=== PATIENT | male | born 1950 | race Caucasian/White ===

== ENCOUNTER 2018-12-18 17:49 | Inpatient (IN) | payer MEDICARE, OTHER ==
[~2018-12-18] VITALS: Ht 165.1 cm; Wt 61.3 kg
[2018-12-18] MEDS ORDERED: SOD CHLORIDE 0.9% 1,000 ML IV STA (20:30)
[2018-12-18] MEDS ORDERED: ONDANSETRON 4 MG INJ IV STA ×2 (20:30→23:39)
[2018-12-18] MEDS ORDERED: HYDROmorphONE 1 MG/ML SYG IV STA ×2 (20:30→23:39)
--- NOTE | 2018-12-18 20:55 | ERD ---
ER Documentation Chief Complaint Chief Complaint abd pain since this AM; denies nausea and vomiting; diarrhea + HPI This is a 68-year-old male complaining of diffuse lower abdominal pain he describes as cramping sensation with no nausea vomiting but has had diarrhea. Says diarrhea is nonbloody. He says that the cramps get a little bit better after he has diarrhea. No chest pain or shortness of breath hematuria or dysuria no fever ROS All systems reviewed and are negative except as per history of present illness. Allergies Allergies: Coded Allergies: No Known Allergy (Unverified , 12/18/18) PMhx/Soc Hx Miscellaneous Medical Probl: Yes (PROSTATE CA) Hx Alcohol Use: No Hx Substance Use: No Hx Tobacco Use: No Smoking Status: Unknown if ever smoked FmHx Family History: No coronary disease Physical Exam Vitals Vital Signs Date Temp Pulse Resp B/P (MAP) Pulse Ox O2 O2 Flow FiO2 Time Delivery Rate 12/18/18 94 16 159/93 97 Room Air 23:39 (115) 12/18/18 84 16 168/81 97 Room Air 20:45 (110) 12/18/18 97.9 89 20 152/73 97 18:16 (99) Physical Exam Const: Well-developed, well-nourished Head: Atraumatic, normocephalic Eyes: Normal Conjunctiva, PERRLA, EOMI, normal sclera, no nystagmus ENT: Normal External Ears, Nose and Mouth, moist mucus membranes. Neck: Full range of motion. No meningismus, no lymphadenopathy. Resp: Clear to auscultation bilaterally, no wheezing, rhonchi, rales Cardio: Regular rate and rhythm, no murmurs, S1 S2 present Abd: Soft, diffuse lower abdominal tenderness, non distended. Normal bowel sounds, no guarding or rebound, no pulsitile abdominal masses or bruits Skin: No petechiae or rashes, no ecchymosis , no maculopapular rash Back: No midline or flank tenderness Ext: No cyanosis, or edema, FROM x 4, normal inspection, neurovascular ly intact x 4 Neur: Awake and alert, STR 5/5 x 4, sensation intact x 4, no focal findings, cerebellum intact Psych: Normal Mood and Affect Result Diagram: 12/18/18 1902 12/18/18 190 Results 24 hrs Laboratory Tests Test 12/18/18 19:02 12/18/18 20:09 White Blood Count 8.9 10^3/ul Red Blood Count 4.77 10^6/ul Hemoglobin 14.3 g/dl Hematocrit 43.7 % Mean Corpuscular Volume 91.6 fl Mean Corpuscular Hemoglobin 30.0 pg Mean Corpuscular Hemoglobin Concent 32.7 g/dl Red Cell Distribution Width 14.0 % Platelet Count 369 10^3/UL Mean Platelet Volume 10.1 fl Immature Granulocytes % 0.300 % Neutrophils % 86.3 % Lymphocytes % 7.1 % Monocytes % 6.0 % Eosinophils % 0.0 % Basophils % 0.3 % Nucleated Red Blood Cells % 0.0 /100WBC Immature Granulocytes # 0.030 10^3/ul Neutrophils # 7.6 10^3/ul Lymphocytes # 0.6 10^3/ul Monocytes # 0.5 10^3/ul Eosinophils # 0.0 10^3/ul Basophils # 0.0 10^3/ul Nucleated Red Blood Cells # 0.0 10^3/ul Sodium Level 140 mmol/L Potassium Level 4.1 mmol/L Chloride Level 103 mmol/L Carbon Dioxide Level 25 mmol/L Anion Gap 12 Blood Urea Nitrogen 20 mg/dl Creatinine 0.93 mg/dl Est Glomerular Filtrat Rate mL/min > 60 mL/min Glucose Level 151 mg/dl Calcium Level 9.7 mg/dl Total Bilirubin 0.1 mg/dl Direct Bilirubin 0.00 mg/dl Indirect Bilirubin 0.1 mg/dl Aspartate Amino Transf (AST/SGOT) 26 IU/L Alanine Aminotransferase (ALT/SGPT) 16 IU/L Alkaline Phosphatase 177 IU/L Total Protein 7.8 g/dl Albumin 4.3 g/dl Globulin 3.50 g/dl Albumin/Globulin Ratio 1.22 Lipase 109 U/L Bedside Urine pH (LAB) 5.0 Bedside Urine Protein (LAB) 1+ Bedside Urine Glucose (UA) Negative Bedside Urine Ketones (LAB) Negative Bedside Urine Blood Negative Bedside Urine Nitrite (LAB) Negative Bedside Urine Leukocyte Esterase (L Negative Current Medications Medications Dose Sig/Keyonna Start Time Status Last (Trade) Ordered Route PRN Stop Time Admin Dose Reason Admin Sodium 1,000 ml @ Q1H STAT 12/18/18 DC 12/18/18 Chloride 1,000 mls/hr IV 20:30 20:38 12/18/18 21:29 1 mg ONCE STAT 12/18/18 DC 12/18/18 Hydromorphone IV 20:30 20:38 HCl 12/18/18 20:31 (Dilaudid) Ondansetron 4 mg ONCE STAT 12/18/18 DC 12/18/18 HCl (Zofran IV 20:30 20:38 Inj) 12/18/18 20:31 IV Flush 10 ml STK-MED 12/18/18 DC 12/18/18 (NS 10 ml) ONCE .ROUTE 21:12 21:46 12/18/18 21:13 Sodium 100 ml @ ud STK-MED 12/18/18 DC 12/18/18 Chloride ONCE .ROUTE 21:12 21:46 12/18/18 21:13 Iohexol 150 ml STK-MED 12/18/18 DC 12/18/18 (Omnipaque ONCE .ROUTE 21:12 21:46 300mg/ ml) 12/18/18 21:13 1 mg ONCE STAT 12/18/18 DC 12/18/18 Hydromorphone IV 23:39 23:43 HCl 12/18/18 23:40 (Dilaudid) Ondansetron 4 mg ONCE STAT 12/18/18 DC 12/18/18 HCl (Zofran IV 23:39 23:43 Inj) 12/18/18 23:40 Procedures/MDM Ordering MD: JOCELIN WOOTEN DO Location: E/R Room/Bed: PROCEDURE: CT Abdomen and Pelvis with contrast. CLINICAL INDICATION: Abdominal pain. TECHNIQUE: CT scan of the abdomen and pelvis with contrast was performed on a multi-detector high-resolution CT scanner. The patient was scanned following the uncomplicated intravenous administration of 100 cc of Omnipaque 300. Coronal and sagittal reformatted images were obtained from the axial source images. Images were reviewed on a high-resolution PACS workstation. The total exam CTDI equals 6 mGy and the total exam DLP equals 324 mGy-cm. DICOM images are available. 3-D reconstructions were notperformed. One or more of the following dose reduction techniques were utilized: 1.) Automated exposure control 2.) Adjustment of the mA +/- kV according to patient's size 3.) Use of iterative reconstruction technique. COMPARISON: None. FINDINGS: CT abdomen: Heart (where visible): Unremarkable. Lung bases: No evidence of pneumonia, mass, pleural effusion. Liver: Normal attenuation. No visible focal mass. Scattered tiny hepatic cysts. Biliary ductal system: The common bile duct is prominent, measuring 11 mm in diameter at the margin of the pancreatic head. Gallbladder: Numerous gallstones. The gallbladder wall does not appear significantly thickened.. Pancreas: The pancreatic duct is dilated, measuring 5 mm in diameter next of the portal vein. Stomach: No identifiable focal mass or gross wall thickening. Spleen: No gross splenomegaly. Abdominal colon: Normal in caliber and course. Diffuse diverticulosis Abdominal small bowel: Normal in caliber, course, and mucosal pattern. Adrenal glands: No visible masses. Right Kidney: Normal in size and contour without focal mass or collecting system dilatation. Left kidney: Normal in size and contour without focal mass or collecting system dilatation. Abdominal aorta: Normal caliber. Prominent mixed atherosclerosis Lymph nodes: No significantly enlarged nodes. CT pelvis: Pelvic colon: Normal in caliber and course. No evidence of inflammatory change. Pelvic small bowel: Normal in caliber and course. Appendix: Identified. No evidence of inflammation. Urinary bladder: Normal in size and contour without visible wall thickening. Reproductive structures: Unremarkable. Bony structures included in the scan: Prominent degenerative disc narrowing at L3-4 and L4-5. Probable central spinal stenosis with right posterior disc herniation at L4-5 probably compressing the right L5 nerve root and the nerve root sleeve. Probable bilateral L4 neural foraminal stenosis.. IMPRESSION: 1. Cholelithiasis without CT evidence of acute cholecystitis. 2. Biliary ductal dilatation and pancreatic ductal dilatation suggestive of possible obstructive or partially obstructive process in the region of the patella. Further evaluation is suggested. 3. Moderately severe diffuse atherosclerosis including previously treated coronary artery disease. 4. Prominent lumbar spine disease with probable significant compression of the right L5 nerve root and both L4 nerve roots. . 5. Diffuse colonic diverticulosis without current CT evidence of diverticu litis. RPTAT:AAJJ Physician Subhash Date Time Electronically viewed and signed by Physician Subhash on 12/18/2018 22:37 GW/ CC: JOCELIN WOOTEN DO [id number] Spoke with Dr. Franck Sherman of surgery. He feels his best to bring the patient in for MRCP in the morning to evaluate for a stone that could be stuck or has passed after being stuck or he may have some type of pancreatic mass. The patient is having breakthrough pain requiring Dilaudid so I will admit to panel Departure Diagnosis: Primary Impression: Abdominal pain Abdominal location: generalized Qualified Codes: R10.84 - Generalized abdominal pain Additional Impression: Pancreatic duct dilated Condition: Stable JOCELIN WOOTEN DO Dec 18, 2018 20:55
[2018-12-18] MEDS ORDERED: SOD CHLORIDE 0.9% 100 ML ONE (21:12)
[2018-12-18] MEDS ORDERED: IOHEXOL 300MG/ML 150 ML BTL ONE (21:12)
--- NOTE | 2018-12-18 23:42 | CONS ---
Assessment/Plan Assessment/Plan Hospital Course (Demo Recall) 1. Abdominal pain, ? Etiology 2. Diarrhea 3. Dilated biliary system -MRCP -GI consult -Medical optimization Thank you very much for consulting me in this patient's care, Consultation Date/Type/Reason Admit Date/Time Date of Consultation: Dec 18, 2018 Type of Consult General surgical Reason for Consultation Abdominal pain Diarrhea Dilated biliary ducts Elevated alkaline phosphatase Requesting Provider: JOCELIN WOOTEN DO Date/Time of Note DATE: 12/18/18 TIME: 23:41 12 point review of system is negative unless otherwise addressed in chart Past Medical History Allergies: Coded Allergies: No Known Allergy (Unverified , 12/18/18) Social History Smoking Status: Unknown if ever smoked Exam/Review of Systems Exam Vitals Vital Signs Date Temp Pulse Resp B/P (MAP) Pulse Ox O2 O2 Flow FiO2 Time Delivery Rate 12/18/18 94 16 159/93 97 Room Air 23:39 (115) 12/18/18 97.9 18:16 Results Result Diagram: 12/18/18 1902 12/18/18 1902 Results 24hrs Laboratory Tests Test 12/18/18 19:02 12/18/18 20:09 White Blood Count 8.9 Red Blood Count 4.77 Hemoglobin 14.3 Hematocrit 43.7 Mean Corpuscular Volume 91.6 Mean Corpuscular Hemoglobin 30.0 Mean Corpuscular Hemoglobin Concent 32.7 Red Cell Distribution Width 14.0 Platelet Count 369 Mean Platelet Volume 10.1 Immature Granulocytes % 0.300 Neutrophils % 86.3 H Lymphocytes % 7.1 L Monocytes % 6.0 Eosinophils % 0.0 Basophils % 0.3 Nucleated Red Blood Cells % 0.0 Immature Granulocytes # 0.030 Neutrophils # 7.6 H Lymphocytes # 0.6 L Monocytes # 0.5 Eosinophils # 0.0 Basophils # 0.0 Nucleated Red Blood Cells # 0.0 Sodium Level 140 Potassium Level 4.1 Chloride Level 103 Carbon Dioxide Level 25 Anion Gap 12 Blood Urea Nitrogen 20 Creatinine 0.93 Est Glomerular Filtrat Rate mL/min > 60 Glucose Level 151 Calcium Level 9.7 Total Bilirubin 0.1 L Direct Bilirubin 0.00 Indirect Bilirubin 0.1 Aspartate Amino Transf (AST/SGOT) 26 Alanine Aminotransferase (ALT/SGPT) 16 Alkaline Phosphatase 177 H Total Protein 7.8 Albumin 4.3 Globulin 3.50 H Albumin/Globulin Ratio 1.22 Lipase 109 Bedside Urine pH (LAB) 5.0 Bedside Urine Protein (LAB) 1+ H Bedside Urine Glucose (UA) Negative Bedside Urine Ketones (LAB) Negative Bedside Urine Blood Negative Bedside Urine Nitrite (LAB) Negative Bedside Urine Leukocyte Esterase (L Negative JULIET FERREIRA MD Dec 18, 2018 23:42
[2018-12-18] MEDS ORDERED: SOD CHLORIDE 0.9% 1,000 ML IV SCH (23:54)
[2018-12-19] MEDS ORDERED: ACETAMINOPHEN 325 MG TAB PO PRN
--- NOTE | 2018-12-19 00:06 | HP ---
Date/Time of Note Date/Time of Note DATE: 12/19/18 TIME: 00:06 Assessment/Plan VTE Prophylaxis SCD applied (from Nsg): Yes Pharmacological prophylaxis: NA/contraindicated Pharm contraindication: low risk/ambulating Lines/Catheters IV Catheter Type (from Nrsg): Saline Lock Urinary Cath still in place: No Assessment/Plan Hospital Course This is a 68-year-old male being admitted to the [facility] floor for: #1 abdominal pain: CT scan shows:Biliary ductal dilatation and pancreatic ductal dilatation suggestive of possible obstructive or partially obstructive process. Further evaluation is suggested. Patient's liver function tests are largely normal, does have a mildly elevated alk phos of 177. Patient does report a history of prostate CA in the past as well. At the current time will obtain an MRCP of the abdomen. General surgery is already on board. We will also consult GI . Pain management #2 history of prostate CA: We will check a PSA. #3 DVT GI prophylaxis: SCDs, no GI prophylaxis indicated Further treatment strategy will be implemented as per the clinical course Result Diagram: 12/18/18 1902 12/18/18 1902 Results 24hrs Laboratory Tests Test 12/18/18 19:02 12/18/18 20:09 White Blood Count 8.9 Red Blood Count 4.77 Hemoglobin 14.3 Hematocrit 43.7 Mean Corpuscular Volume 91.6 Mean Corpuscular Hemoglobin 30.0 Mean Corpuscular Hemoglobin Concent 32.7 Red Cell Distribution Width 14.0 Platelet Count 369 Mean Platelet Volume 10.1 Immature Granulocytes % 0.300 Neutrophils % 86.3 H Lymphocytes % 7.1 L Monocytes % 6.0 Eosinophils % 0.0 Basophils % 0.3 Nucleated Red Blood Cells % 0.0 Immature Granulocytes # 0.030 Neutrophils # 7.6 H Lymphocytes # 0.6 L Monocytes # 0.5 Eosinophils # 0.0 Basophils # 0.0 Nucleated Red Blood Cells # 0.0 Sodium Level 140 Potassium Level 4.1 Chloride Level 103 Carbon Dioxide Level 25 Anion Gap 12 Blood Urea Nitrogen 20 Creatinine 0.93 Est Glomerular Filtrat Rate mL/min > 60 Glucose Level 151 Calcium Level 9.7 Total Bilirubin 0.1 L Direct Bilirubin 0.00 Indirect Bilirubin 0.1 Aspartate Amino Transf (AST/SGOT) 26 Alanine Aminotransferase (ALT/SGPT) 16 Alkaline Phosphatase 177 H Total Protein 7.8 Albumin 4.3 Globulin 3.50 H Albumin/Globulin Ratio 1.22 Lipase 109 Bedside Urine pH (LAB) 5.0 Bedside Urine Protein (LAB) 1+ H Bedside Urine Glucose (UA) Negative Bedside Urine Ketones (LAB) Negative Bedside Urine Blood Negative Bedside Urine Nitrite (LAB) Negative Bedside Urine Leukocyte Esterase (L Negative HPI/ROS Admit Date/Time Admit Date/Time Hx of Present Illness Chief complaint: Abdominal pain times 1 day This is a 68-year-old male complaining of diffuse lower abdominal pain he descr ibes as cramping sensation with no nausea vomiting but has had diarrhea. Says diarrhea is nonbloody. He says that the cramps get a little bit better after he has diarrhea. He denies any chest pain or shortness of breath or any fevers. He does report that he has been expensing some dysuria. He has a history of prostate CA for which she has received radiation treatments. Allergies: NKDA Medications: See DORIE ROS Const: As per HPI Eyes : No pain discharge or redness or change in visual acuity ENT: No pain, sore throat, congestion, congestion, dysphagia or discharge Respiratory: No shortness of breath, cough, sputum, wheezing, or pleuritic pain Cardiovascular: No chest pain, palpitation, PND, or edema GI : As per HPI Genitourinary: As per HPI Musculoskeletal: No joint pain, back pain, neck pain, restricted range of motion in neck or joints Skin: No rash, bruising or hives Neuro: No headache, dizziness, syncope, seizure, focal weakness Endocrine: No polyuria, polydipsia, temperature intolerance Psych: No hallucination, depression, anxiety or suicidal ideation PMH/Family/Social Past Medical History Prostate CA status post radiation treatment Medications Current Medications Sodium Chloride 1,000 ml @ 80 mls/hr [id number] IV ; Start 12/18/18 at 23:54; Stop 12/19/18 at 12:23 Ondansetron HCl (Zofran Inj) 4 mg BRIDGE ORDER PRN IV NAUSEA/VOMITING; Start 12/19/18 at 00:00; Stop 12/19/18 at 23:59 Acetaminophen (Tylenol Tab) 650 mg ER BRIDGE PRN PO .MILD PAIN 1-3 OR TEMP; Start 12/19/18 at 00:00; Stop 12/19/18 at 23:59 Coded Allergies: No Known Allergy (Unverified , 12/18/18) Past Surgical History Left lower extremity TMA Family History Significant Family History: no pertinent family hx Social History Alcohol Use: none Smoking Status: Current every day smoker Drug Use: none Exam/Review of Systems Vital Signs Vitals Vital Signs Date Temp Pulse Resp B/P (MAP) Pulse Ox O2 O2 Flow FiO2 Time Delivery Rate 12/18/18 94 16 159/93 97 Room Air 23:39 (115) 12/18/18 97.9 18:16 Exam Exam General: Patient is currently lying in bed in mild distress from abdominal pain HEENT: Atraumatic, normocephalic. The pupils are equal, round and reactive. Ext raocular motor are intact Neck: Supple with full range of motion. No rigidity or meningismus Chest: Nontender Lungs: Clear to auscultation bilaterally no crackles rales or wheezing Heart: Normal S1-S2, Regular rhythm and rate. No murmur, S3, or S4 Abdomen: Soft, generalized tenderness to palpation of the abdomen more so of the lower abdomen, normal bowel sounds, no rebound tenderness no rigidity. Extremities: Left lower extremity: Total metatarsal amputation Neurologic: Normal mental status, speech normal, cranial nerves II through XII are intact, motor and sensory are intact, Additional Comments PROCEDURE: CT Abdomen and Pelvis with contrast. CLINICAL INDICATION: Abdominal pain. TECHNIQUE: CT scan of the abdomen and pelvis with contrast was performed on a multi-detector high-resolution CT scanner. The patient was scanned following the uncomplicated intravenous administration of 100 cc of Omnipaque 300. Coronal and sagittal reformatted images were obtained from the axial source images. Images were reviewed on a high-resolution PACS workstation. The total exam CTDI equals 6 mGy and the total exam DLP equals 324 mGy-cm. DICOM images are available. 3-D reconstructions were notperformed. One or more of the following dose reduction techniques were utilized: 1.) Automated exposure control 2.) Adjustment of the mA +/- kV according to patient's size 3.) Use of iterative reconstruction technique. COMPARISON: None. FINDINGS: CT abdomen: Heart (where visible): Unremarkable. Lung bases: No evidence of pneumonia, mass, pleural effusion. Liver: Normal attenuation. No visible focal mass. Scattered tiny hepatic cysts. Biliary ductal system: The common bile duct is prominent, measuring 11 mm in diameter at the margin of the pancreatic head. Gallbladder: Numerous gallstones. The gallbladder wall does not appear significantly thickened.. Pancreas: The pancreatic duct is dilated, measuring 5 mm in diameter next of the portal vein. Stomach: No identifiable focal mass or gross wall thickening. Spleen: No gross splenomegaly. Abdominal colon: Normal in caliber and course. Diffuse diverticulosis Abdominal small bowel: Normal in caliber, course, and mucosal pattern. Adrenal glands: No visible masses. Right Kidney: Normal in size and contour without focal mass or collecting system dilatation. Left kidney: Normal in size and contour without focal mass or collecting system dilatation. Abdominal aorta: Normal caliber. Prominent mixed atherosclerosis Lymph nodes: No significantly enlarged nodes. CT pelvis: Pelvic colon: Normal in caliber and course. No evidence of inflammatory change. Pelvic small bowel: Normal in caliber and course. Appendix: Identified. No evidence of inflammation. Urinary bladder: Normal in size and contour without visible wall thickening. Reproductive structures: Unremarkable. Bony structures included in the scan: Prominent degenerative disc narrowing at L3-4 and L4-5. Probable central spinal stenosis with right posterior disc herniation at L4-5 probably compressing the right L5 nerve root and the nerve root sleeve. Probable bilateral L4 neural foraminal stenosis.. IMPRESSION: 1. Cholelithiasis without CT evidence of acute cholecystitis. 2. Biliary ductal dilatation and pancreatic ductal dilatation suggestive of possible obstructive or partially obstructive process in the region of the patella. Further evaluation is suggested. 3. Moderately severe diffuse atherosclerosis including previously treated coronary artery disease. 4. Prominent lumbar spine disease with probable significant compression of the right L5 nerve root and both L4 nerve roots. . 5. Diffuse colonic diverticulosis without current CT evidence of diverticulitis. RPTAT:AAJJ Physician Subhash Date Time Electronically viewed and signed by Physician Subhash on 12/18/2018 22:37 GW/ CC: JOCELIN WOOTEN DO [id number] PROCEDURE: XR Chest. CLINICAL INDICATION: Abdominal pain TECHNIQUE: AP view of the chest. COMPARISON: None FINDINGS: The heart is normal in size. There is mild bibasilar linear atelectasis. The visualized osseous structures are intact. IMPRESSION: Mild bibasilar linear atelectasis. RPTAT: HAP Fermin Mckinney Physician Date Time Electronically viewed and signed by Fermin Mckinney, Physician on 12/19/2018 03:00 AP/ CC: MEMO CASAREZ [id number] MEMO CASAREZ Dec 19, 2018 00:06
[2018-12-19] MEDS ORDERED: HYDROmorphONE 1 MG/ML SYG IV PRN (00:30)
[2018-12-19] MEDS ORDERED: NACL 0.9% 3 ML SYG IV SCH (00:30)
[2018-12-19] MEDS ORDERED: BISACODYL (EC) 5 MG TAB PO PRN (00:30)
[2018-12-19] MEDS ORDERED: ONDANSETRON 4 MG INJ IV PRN ×3 (00:30→02:00)
[2018-12-19] MEDS ORDERED: DOCUSATE SODIUM 100 MG CAP PO PRN (00:30)
[2018-12-19 00:49] VITALS: Ht 165.1 cm; Wt 61.3 kg
[2018-12-19 00:54] VITALS: BP 163/89; PULSE 99; RESP 18
[2018-12-19 01:26] VITALS: BP 161/73; PULSE 93; RESP 18
[2018-12-19] MEDS ORDERED: HYDROmorphONE 1 MG/ML SYG IV STA (01:34)
[2018-12-19] MEDS: SOD CHLORIDE 0.9% 1,000 ML IV SCH ×3 (01:56→14:39)
[2018-12-19] MEDS ORDERED: hydrALAzine 20 MG INJ IV PRN (02:00)
[2018-12-19] MEDS: HYDROmorphONE 1 MG/ML SYG IV PRN ×5 (06:28→22:08)
[2018-12-19 07:34] VITALS: BP 118/57; PULSE 101; RESP 17
[2018-12-19] MEDS: NICOTINE (14 MG/24 HR) PATCH TRANSDERM SCH (09:08)
--- NOTE | 2018-12-19 11:05 | CONS ---
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 Patient reports his symptoms started yesterday with bilateral lower abdominal pain and nonbloody diarrhea. He denies nausea, vomiting, epigastric pain, hematemesis or fever. Patient reportedly had colonoscopy 4 years ago which was normal. Patient has a history of left foot gangrene with partial amputation. CT of the abdomen shows diverticulosis of the colon and biliary and pancreatic duct dilat ation. Alkaline phosphatase is elevated. Liver function test and bilirubin are normal. Patient denies any history of EGD. The plan is to obtain MRCP. Start patient on Levsin and clear liquid diet. Obtain stool studies. Continue monitoring. Gastrointestinal: no complaints (See HPI) Past Medical History Prostate cancer Medications Current Medications Sodium Chloride 1,000 ml @ 80 mls/hr [id number] IV ; Start 12/18/18 at 23:54; Stop 12/19/18 at 12:23 Ondansetron HCl (Zofran Inj) 4 mg BRIDGE ORDER PRN IV NAUSEA/VOMITING; Start 12/19/18 at 00:00; Stop 12/19/18 at 23:59 Acetaminophen (Tylenol Tab) 650 mg ER BRIDGE PRN PO .MILD PAIN 1-3 OR TEMP; Start 12/19/18 at 00:00; Stop 12/19/18 at 23:59 Sodium Chloride 1,000 ml @ 80 mls/hr [id number] IV Last administered on 12/19/18at 01:56; Admin Dose 80 MLS/HR; Start 12/19/18 at 00:03 IV Flush (NS 3 ml) 3 ml PER PROTOCOL IV ; Start 12/19/18 at 00:30 Acetaminophen (Tylenol Tab) 650 mg Q6H PRN PO .PAIN 1-3 OR TEMP; Start 12/19/18 at 00:30 Docusate Sodium (Colace) 100 mg Q12H PRN PO .CONSTIPATION; Start 12/19/18 at 00:30 Bisacodyl (Dulcolax) 5 mg DAILY PRN PO .CONSTIPATION; Start 12/19/18 at 00:30 Hydromorphone HCl (Dilaudid) 1 mg Q3H PRN IV .SEVERE PAIN 7-10 Last administered on 12/19/18at 10:01; Admin Dose 1 MG; Start 12/19/18 at 03:30 Ondansetron HCl (Zofran Inj) 4 mg Q4 PRN IV NAUSEA/VOMITING; Start 12/19/18 at 02:00 Nicotine (Nicoderm 14 Mg/ 24hr) 1 patch DAILY TRANSDERM Last administered on 12/19/18at 09:08; Admin Dose 1 PATCH; Start 12/19/18 at 09:00 Lorazepam (Ativan) 1 mg Q4 PRN IV withdrawal symptoms; Start 12/19/18 at 05:30 Allergies: Coded Allergies: No Known Allergy (Unverified , 12/18/18) Past Surgical History Partial left foot amputation Social History Alcohol Use: occasionally (6 beers on the weekend) Smoking Status: Current every day smoker Drug Use: none Exam/Review of Systems Exam Vitals Vital Signs Date Temp Pulse Resp B/P (MAP) Pulse Ox O2 O2 Flow FiO2 Time Delivery Rate 12/19/18 Nasal 2.0 09:24 Cannula 12/19/18 99.6 101 17 118/57 92 07:34 (77) Intake and Output 12/18/18 12/18/18 12/19/18 1515:00 23:00 07:00 IntakeIntake Total 246 ml BalanceBalance 246 ml Exam PHYSICAL EXAMINATION: GENERAL: Well developed, well nourished, alert & oriented x 3, in no acute distress SKIN: No lesions, no stigmata chronic liver disease, no evidence of bleeding diathesis LYMPHATIC: No palpable lymphadenopathy. HEAD: Normocephalic, atraumatic, no tenderness. EYES: Pupils equal reactive to light and accommodation, full extraocular movements, sclera clear, non-icteric, no discharge. EARS/NOSE AND THROAT: Ears normal, nose normal, oropharynx normal, oral membranes well hydrated without lesions. NECK: Supple, no masses, thyroid normal, JVP within normal limits, carotids normal without bruits. CHEST: Inspection within normal limits. CARDIOVASCULAR: Heart: Regular rate and rhythm, no murmurs, gallops or rubs. Peripheral pulses present within normal limits, no cyanosis, clubbing or edemas. No pulsatile abdominal mass RESPIRATORY: Lungs clear to auscultation and percussion, no wheezing, no rubs GASTROINTESTINAL AND LIVER: Abdomen: Soft, bilateral lower abdominal tenderness, non-distended, no hernias, no masses, no organomegaly, no ascites, no guarding, no rebound tenderness, normoactive bowel sounds. Rectal: Deferred. GENITOURINARY: [Male genitalia within normal limits. EXTREMITIES: No cyanosis, clubbing or edema. Left foot partially amputated. Results Result Diagram: 12/18/18190112/18/181901 Results 24hrs Laboratory Tests Test 12/18/18 19:02 12/18/18 20:09 12/19/18 08:24 12/19/18 09:50 White Blood Count 8.9 Red Blood Count 4.77 Hemoglobin 14.3 Hematocrit 43.7 Mean Corpuscular 91.6 Volume Mean Corpuscular 30.0 Hemoglobin Mean Corpuscular 32.7 Hemoglobin Concen t Red Cell 14.0 Distribution Width Platelet Count 369 Mean Platelet 10.1 Volume Immature 0.300 Granulocytes % Neutrophils % 86.3 H Lymphocytes % 7.1 L Monocytes % 6.0 Eosinophils % 0.0 Basophils % 0.3 Nucleated Red 0.0 Blood Cells % Immature 0.030 Granulocytes # Neutrophils # 7.6 H Lymphocytes # 0.6 L Monocytes # 0.5 Eosinophils # 0.0 Basophils # 0.0 Nucleated Red 0.0 Blood Cells # Sodium Level 140 Potassium Level 4.1 Chloride Level 103 Carbon Dioxide 25 Level Anion Gap 12 Blood Urea 20 Nitrogen Creatinine 0.93 Est Glomerular > 60 Filtrat Rate mL/min Glucose Level 151 Calcium Level 9.7 Total Bilirubin 0.1 L Direct Bilirubin 0.00 Indirect 0.1 Bilirubin Aspartate Amino 26 Transf (AST/SGOT) Alanine 16 Aminotransferase (ALT/SGPT) Alkaline 177 H Phosphatase Total Protein 7.8 Albumin 4.3 Globulin 3.50 H Albumin/Globulin 1.22 Ratio Lipase 109 Bedside Urine pH 5.0 (LAB) Bedside Urine 1+ H Protein (LAB) Bedside Urine Negative Glucose (UA) Bedside Urine Negative Ketones (LAB) Bedside Urine Negative Blood Bedside Urine Negative Nitrite (LAB) Bedside Urine Negative Leukocyte Esteras e (L Ethyl Alcohol < 10.0 H Level Urine Color YELLOW Urine Clarity SLIGHTLY CLOUDY A Urine pH 5.0 Urine Specific 1.038 H [place] Urine Ketones TRACE A Urine Nitrite NEGATIVE Urine Bilirubin NEGATIVE Urine NEGATIVE Urobilinogen Urine Leukocyte NEGATIVE Esterase Urine Microscopic 1 RBC Urine Microscopic 3 WBC Urine Mucus MANY A Urine Hemoglobin 1+ H Urine Glucose NEGATIVE Urine Total NEGATIVE Protein Medications Medication Current Medications Sodium Chloride 1,000 ml @ 80 mls/hr [id number] IV ; Start 12/18/18 at 23:54; Stop 12/19/18 at 12:23 Ondansetron HCl (Zofran Inj) 4 mg BRIDGE ORDER PRN IV NAUSEA/VOMITING; Start 12/19/18 at 00:00; Stop 12/19/18 at 23:59 Acetaminophen (Tylenol Tab) 650 mg ER BRIDGE PRN PO .MILD PAIN 1-3 OR TEMP; Start 12/19/18 at 00:00; Stop 12/19/18 at 23:59 Sodium Chloride 1,000 ml @ 80 mls/hr [id number] IV Last administered on 12/19/18at 01:56; Admin Dose 80 MLS/HR; Start 12/19/18 at 00:03 IV Flush (NS 3 ml) 3 ml PER PROTOCOL IV ; Start 12/19/18 at 00:30 Acetaminophen (Tylenol Tab) 650 mg Q6H PRN PO .PAIN 1-3 OR TEMP; Start 12/19/18 at 00:30 Docusate Sodium (Colace) 100 mg Q12H PRN PO .CONSTIPATION; Start 12/19/18 at 00:30 Bisacodyl (Dulcolax) 5 mg DAILY PRN PO .CONSTIPATION; Start 12/19/18 at 00:30 Hydromorphone HCl (Dilaudid) 1 mg Q3H PRN IV .SEVERE PAIN 7-10 Last administered on 12/19/18at 10:01; Admin Dose 1 MG; Start 12/19/18 at 03:30 Ondansetron HCl (Zofran Inj) 4 mg Q4 PRN IV NAUSEA/VOMITING; Start 12/19/18 at 02:00 Nicotine (Nicoderm 14 Mg/ 24hr) 1 patch DAILY TRANSDERM Last administered on 12/19/18at 09:08; Admin Dose 1 PATCH; Start 12/19/18 at 09:00 Lorazepam (Ativan) 1 mg Q4 PRN IV withdrawal symptoms; Start 12/19/18 at 05:30 GISSEL AMBROSE NP Dec 19, 2018 11:05
[2018-12-19] MEDS: HYOSCYAMINE 0.125 MG TAB PO SCH ×3 (12:48→23:35)
[2018-12-19] MEDS: LORAZEPAM 2 MG INJ IV PRN (13:18)
[2018-12-19 14:01] VITALS: BP 139/71; PULSE 103; RESP 17
--- NOTE | 2018-12-19 14:46 | PN ---
Date/Time of Note Date/Time of Note DATE: 12/19/18 TIME: 14:32 Assessment/Plan Lines/Catheters IV Catheter Type (from [facility]): Peripheral IV Kohler in Place (from [facility]): No Assessment/Plan Chief Complaint/Hosp Course 1. Abdominal pain, ? Etiology -Pain management 2. Diarrhea -Stool studies 3. Dilated biliary system -MRCP pending -GI consult -Medical optimization 4. Prostate cancer history -Per medical team 5. Atherosclerosis with CAD -Medical management 6. 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 Diverticulosis without diverticulitis: -Lifestyle optimization Thank you. Patient seen and examined in collaboration with Dr. Franck Sherman. Subjective 24 Hr Interval Summary Continues to have abdominal pain. Pending MRI today. No fevers, chills, sob, congested cough, cp, palpitations, schulz, dizziness, n/v/d/dysuria. Exam/Review of Systems Vital Signs Vitals Vital Signs Date Temp Pulse Resp B/P (MAP) Pulse Ox O2 O2 Flow FiO2 Time Delivery Rate 12/19/18 99.2 103 17 139/71 92 14:01 (93) 12/19/18 Nasal 2.0 09:24 Cannula Intake and Output 12/18/18 12/18/18 12/19/18 1515:00 23:00 07:00 IntakeIntake Total 246 ml BalanceBalance 246 ml Exam Constitutional: alert, oriented Psych: nl mood/affect Head: normocephalic, atraumatic Eyes: nl conjunctiva, EOMI, nl lids, nl sclera ENMT: nl external ears & nose, nl lips & teeth, mucosa pink and moist Neck: supple, non-tender; No jvd Respiratory: normal air movement, labored breathing; No congested cough Cardiovascular: regular rate and rhythm, nl pulses; No edema Gastrointestinal: soft, tender (diffuse; positive murphys by palpation) Musculoskeletal: nl extremities to inspection, nl gait and stance Extremities: normal pulses; No edema Neurological: nl mental status, nl speech, nl strength Skin: No rash or lesions Lymph: nl lymph nodes Results Result Diagram: 12/18/18190112/18/181901 SHANTEL NELSON NP Dec 19, 2018 14:45
--- NOTE | 2018-12-19 16:16 | PN ---
Date/Time of Note Date/Time of Note DATE: 12/19/18 TIME: 16:10 Assessment/Plan VTE Prophylaxis Risk score (from Ns)>0 risk: 2 SCD applied (from Ns): Yes Pharmacological prophylaxis: heparin Lines/Catheters IV Catheter Type (from Nrs): Peripheral IV Urinary Cath still in place: No Assessment/Plan Hospital Course 68 yo male presneting with diarrhea and to found have biliary dilation - MRCP pending - Diarrhea management per GI Result Diagram: 12/18/18190112/18/181901 Results 24hrs Laboratory Tests Test 12/18/18 19:02 12/18/18 20:09 12/19/18 08:24 12/19/18 09:50 White Blood Count 8.9 Red Blood Count 4.77 Hemoglobin 14.3 Hematocrit 43.7 Mean Corpuscular 91.6 Volume Mean Corpuscular 30.0 Hemoglobin Mean Corpuscular 32.7 Hemoglobin Concen t Red Cell 14.0 Distribution Width Platelet Count 369 Mean Platelet 10.1 Volume Immature 0.300 Granulocytes % Neutrophils % 86.3 H Lymphocytes % 7.1 L Monocytes % 6.0 Eosinophils % 0.0 Basophils % 0.3 Nucleated Red 0.0 Blood Cells % Immature 0.030 Granulocytes # Neutrophils # 7.6 H Lymphocytes # 0.6 L Monocytes # 0.5 Eosinophils # 0.0 Basophils # 0.0 Nucleated Red 0.0 Blood Cells # Sodium Level 140 Potassium Level 4.1 Chloride Level 103 Carbon Dioxide 25 Level Anion Gap 12 Blood Urea 20 Nitrogen Creatinine 0.93 Est Glomerular > 60 Filtrat Rate mL/min Glucose Level 151 Calcium Level 9.7 Total Bilirubin 0.1 L Direct Bilirubin 0.00 Indirect 0.1 Bilirubin Aspartate Amino 26 Transf (AST/SGOT) Alanine 16 Aminotransferase (ALT/SGPT) Alkaline 177 H Phosphatase Total Protein 7.8 Albumin 4.3 Globulin 3.50 H Albumin/Globulin 1.22 Ratio Lipase 109 Bedside Urine pH 5.0 (LAB) Bedside Urine 1+ H Protein (LAB) Bedside Urine Negative Glucose (UA) Bedside Urine Negative Ketones (LAB) Bedside Urine Negative Blood Bedside Urine Negative Nitrite (LAB) Bedside Urine Negative Leukocyte Esteras e (L Ethyl Alcohol < 10.0 H Level Urine Color YELLOW Urine Clarity SLIGHTLY CLOUDY A Urine pH 5.0 Urine Specific 1.038 H [place] Urine Ketones TRACE A Urine Nitrite NEGATIVE Urine Bilirubin NEGATIVE Urine NEGATIVE Urobilinogen Urine Leukocyte NEGATIVE Esterase Urine Microscopic 1 RBC Urine Microscopic 3 WBC Urine Mucus MANY A Urine Hemoglobin 1+ H Urine Glucose NEGATIVE Urine Total NEGATIVE Protein Urine Opiates Positive Screen Urine Negative Barbiturates Urine Negative Amphetamines Screen Urine Negative Benzodiazepines Screen Urine Cocaine Positive Screen Urine Positive Cannabinoids Subjective 24 Hr Interval Summary Free Text/Dictation Resting comfortably Awaiting MRCP Exam/Review of Systems Exam Vitals Vital Signs Date Temp Pulse Resp B/P (MAP) Pulse Ox O2 O2 Flow FiO2 Time Delivery Rate 12/19/18 99.2 103 17 139/71 92 14:01 (93) 12/19/18 Nasal 2.0 09:24 Cannula Intake and Output 12/18/18 12/18/18 12/19/18 1515:00 23:00 07:00 IntakeIntake Total 246 ml BalanceBalance 246 ml Exam Well appeairng no distress RRR breathign comfortably Soft nt nd Ext warm without edema Constitutional: alert, oriented, well developed Psych: no complaints, nl mood/affect Head: normocephalic, atraumatic Eyes: nl conjunctiva, EOMI, nl lids, nl sclera, PERRL ENMT: nl external ears & nose, nl lips & teeth, nl nasal mucosa & septum Neck: supple, non-tender Respiratory: clear to auscultation, normal air movement Cardiovascular: regular rate and rhythm, nl pulses Gastrointestinal: soft, nl liver, spleen, non-tender Musculoskeletal: nl extremities to inspection, nl gait and stance Extremities: normal pulses Neurological: BABBITT SPINNER II-XII intact, nl mental status, nl speech, nl strength Skin: nl turgor; No rash or lesions Lymph: nl lymph nodes Results Results 24hrs Laboratory Tests Test 12/18/18 19:02 12/18/18 20:09 12/19/18 08:24 12/19/18 09:50 White Blood Count 8.9 Red Blood Count 4.77 Hemoglobin 14.3 Hematocrit 43.7 Mean Corpuscular 91.6 Volume Mean Corpuscular 30.0 Hemoglobin Mean Corpuscular 32.7 Hemoglobin Concen t Red Cell 14.0 Distribution Width Platelet Count 369 Mean Platelet 10.1 Volume Immature 0.300 Granulocytes % Neutrophils % 86.3 H Lymphocytes % 7.1 L Monocytes % 6.0 Eosinophils % 0.0 Basophils % 0.3 Nucleated Red 0.0 Blood Cells % Immature 0.030 Granulocytes # Neutrophils # 7.6 H Lymphocytes # 0.6 L Monocytes # 0.5 Eosinophils # 0.0 Basophils # 0.0 Nucleated Red 0.0 Blood Cells # Sodium Level 140 Potassium Level 4.1 Chloride Level 103 Carbon Dioxide 25 Level Anion Gap 12 Blood Urea 20 Nitrogen Creatinine 0.93 Est Glomerular > 60 Filtrat Rate mL/min Glucose Level 151 Calcium Level 9.7 Total Bilirubin 0.1 L Direct Bilirubin 0.00 Indirect 0.1 Bilirubin Aspartate Amino 26 Transf (AST/SGOT) Alanine 16 Aminotransferase (ALT/SGPT) Alkaline 177 H Phosphatase Total Protein 7.8 Albumin 4.3 Globulin 3.50 H Albumin/Globulin 1.22 Ratio Lipase 109 Bedside Urine pH 5.0 (LAB) Bedside Urine 1+ H Protein (LAB) Bedside Urine Negative Glucose (UA) Bedside Urine Negative Ketones (LAB) Bedside Urine Negative Blood Bedside Urine Negative Nitrite (LAB) Bedside Urine Negative Leukocyte Esteras e (L Ethyl Alcohol < 10.0 H Level Urine Color YELLOW Urine Clarity SLIGHTLY CLOUDY A Urine pH 5.0 Urine Specific 1.038 H [place] Urine Ketones TRACE A Urine Nitrite NEGATIVE Urine Bilirubin NEGATIVE Urine NEGATIVE Urobilinogen Urine Leukocyte NEGATIVE Esterase Urine Microscopic 1 RBC Urine Microscopic 3 WBC Urine Mucus MANY A Urine Hemoglobin 1+ H Urine Glucose NEGATIVE Urine Total NEGATIVE Protein Urine Opiates Positive Screen Urine Negative Barbiturates Urine Negative Amphetamines Screen Urine Negative Benzodiazepines Screen Urine Cocaine Positive Screen Urine Positive Cannabinoids Medications Medication Current Medications Ondansetron HCl (Zofran Inj) 4 mg BRIDGE ORDER PRN IV NAUSEA/VOMITING; Start 12/19/18 at 00:00; Stop 12/19/18 at 23:59 Acetaminophen (Tylenol Tab) 650 mg ER BRIDGE PRN PO .MILD PAIN 1-3 OR TEMP; Start 12/19/18 at 00:00; Stop 12/19/18 at 23:59 Sodium Chloride 1,000 ml @ 80 mls/hr [id number] IV Last administered on 12/19/18at 14:39; Admin Dose 80 MLS/HR; Start 12/19/18 at 00:03 IV Flush (NS 3 ml) 3 ml PER PROTOCOL IV ; Start 12/19/18 at 00:30 Acetaminophen (Tylenol Tab) 650 mg Q6H PRN PO .PAIN 1-3 OR TEMP; Start 12/19/18 at 00:30 Docusate Sodium (Colace) 100 mg Q12H PRN PO .CONSTIPATION; Start 12/19/18 at 00:30 Bisacodyl (Dulcolax) 5 mg DAILY PRN PO .CONSTIPATION; Start 12/19/18 at 00:30 Hydromorphone HCl (Dilaudid) 1 mg Q3H PRN IV .SEVERE PAIN 7-10 Last administered on 12/19/18 14:37; Admin Dose 1 MG; Start 12/19/18 at 03:30 Ondansetron HCl (Zofran Inj) 4 mg Q4 PRN IV NAUSEA/VOMITING; Start 12/19/18 at 02:00 Nicotine (Nicoderm 14 Mg/ 24hr) 1 patch DAILY TRANSDERM Last administered on 12/19/18 09:08; Admin Dose 1 PATCH; Start 12/19/18 at 09:00 Lorazepam (Ativan) 1 mg Q4 PRN IV withdrawal symptoms Last administered on 12/19/18 13:18; Admin Dose 1 MG; Start 12/19/18 at 05:30 Hyoscyamine (Levsin) 0.125 mg Q6 PO Last administered on 12/19/18 12:48; Admin Dose 0.125 MG; Start 12/19/18 at 12:00 MELA VILLALBA MD Dec 19, 2018 16:16
[2018-12-19 19:59] VITALS: BP 143/71; PULSE 105; RESP 18
[2018-12-19] MEDS: ACETAMINOPHEN 325 MG TAB PO PRN (20:21)
[2018-12-20] MEDS: LORAZEPAM 2 MG INJ IV PRN (00:24)
[2018-12-20 01:57] VITALS: BP 138/68; PULSE 99; RESP 18
[2018-12-20] MEDS: HYDROmorphONE 1 MG/ML SYG IV PRN ×7 (02:04→22:25)
[2018-12-20] MEDS: SOD CHLORIDE 0.9% 1,000 ML IV SCH ×2 (02:51→15:39)
[2018-12-20] MEDS: HYOSCYAMINE 0.125 MG TAB PO SCH ×3 (05:57→18:28)
[2018-12-20 07:32] VITALS: BP 156/74; PULSE 106; RESP 18
[2018-12-20 09:09] VITALS: BP 173/78; RESP 18
[2018-12-20] MEDS: NICOTINE (14 MG/24 HR) PATCH TRANSDERM SCH (09:16)
[2018-12-20 14:00] VITALS: BP 181/94; PULSE 102; RESP 20
--- NOTE | 2018-12-20 14:10 | PN ---
Date/Time of Note Date/Time of Note DATE: 12/20/18 TIME: 14:06 Assessment/Plan VTE Prophylaxis Risk score (from Ns)>0 risk: 2 SCD applied (from Ns): Yes Pharmacological prophylaxis: NA/contraindicated Pharm contraindication: surgical contra Lines/Catheters IV Catheter Type (from Nrs): Peripheral IV Urinary Cath still in place: No Assessment/Plan Hospital Course 68 yo male presenting with diarrhea and to found have biliary dilation MRCP shows mildly dilated common bile duct, no evidence of biliary duct obstruction. Gallbladder contains multiple stones without wall thickening. Scattered T2 bright lesions in the liver may represent cysts or hemangiomas History of prostate cancer No acute issues History coronary disease Continue home meds 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 Pain control Diarrhea Follow-up on stool cultures Prophylaxis: SCDs Result Diagram: 12/20/18 0635 12/20/18 0635 Results 24hrs Laboratory Tests Test 12/20/18 06:35 White Blood Count 7.8 Red Blood Count 4.52 L Hemoglobin 13.6 L Hematocrit 41.0 L Mean Corpuscular Volume 90.7 Mean Corpuscular Hemoglobin 30.1 Mean Corpuscular Hemoglobin Concent 33.2 Red Cell Distribution Width 14.3 Platelet Count 310 Mean Platelet Volume 10.2 Immature Granulocytes % 0.300 Neutrophils % Segmented Neutrophils % (Manual) 30 L Band Neutrophils % (Manual) 53 H Lymphocytes % Lymphocytes % (Manual) 7 L Reactive Lymphocytes % (Manual) 2 H Monocytes % Monocytes % (Manual) 5 Eosinophils % Basophils % Metamyelocytes % (manual) 3 H Nucleated Red Blood Cells % 0.0 Immature Granulocytes # 0.020 Neutrophils # Neutrophils # (Manual) 2.7 Band Neutrophils # 4.1 H Lymphocytes (Manual) 0.5 L Lymphocytes # Reactive Lymphocytes # 0.1 H Monocytes # Monocytes # (Manual) 0.3 Eosinophils # Basophils # Metamyelocytes # 0.2 H Nucleated Red Blood Cells # Platelet Estimate NORMAL Giant Platelets 3 H Sodium Level 138 Potassium Level 3.8 Chloride Level 99 Carbon Dioxide Level 27 Anion Gap 12 Blood Urea Nitrogen 20 Creatinine 0.82 Est Glomerular Filtrat Rate mL/min > 60 Glucose Level 134 Hemoglobin A1c 5.7 Calcium Level 9.0 Magnesium Level 1.7 Total Bilirubin 0.4 Direct Bilirubin 0.00 Indirect Bilirubin 0.4 Aspartate Amino Transf (AST/SGOT) 42 # Alanine Aminotransferase (ALT/SGPT) 22 Alkaline Phosphatase 128 H Total Protein 6.8 # Albumin 3.6 Globulin 3.20 Albumin/Globulin Ratio 1.12 Triglycerides Level 105 Cholesterol Level 156 LDL Cholesterol, Calculated 90 HDL Cholesterol 45 Cholesterol/HDL Ratio 3.4 Thyroid Stimulating Hormone (TSH) 3.670 Subjective 24 Hr Interval Summary Constitutional: no complaints Exam/Review of Systems Exam Vitals Vital Signs Date Temp Pulse Resp B/P (MAP) Pulse Ox O2 O2 Flow FiO2 Time Delivery Rate 12/20/18 Nasal 2.0 13:10 Cannula 12/20/18 98.8 18 173/78 91 09:09 (109) 12/20/18 106 07:32 Intake and Output 12/19/18 12/19/18 12/20/18 1515:00 23:00 07:00 IntakeIntake Total 1274 ml 480 ml 680 ml OutputOutput Total 100 ml BalanceBalance 1274 ml 380 ml 680 ml Constitutional: alert Respiratory: clear to auscultation Cardiovascular: regular rate and rhythm Gastrointestinal: soft; No distended Musculoskeletal: nl extremities to inspection Results Results 24hrs Laboratory Tests Test 12/20/18 06:35 White Blood Count 7.8 Red Blood Count 4.52 L Hemoglobin 13.6 L Hematocrit 41.0 L Mean Corpuscular Volume 90.7 Mean Corpuscular Hemoglobin 30.1 Mean Corpuscular Hemoglobin Concent 33.2 Red Cell Distribution Width 14.3 Platelet Count 310 Mean Platelet Volume 10.2 Immature Granulocytes % 0.300 Neutrophils % Segmented Neutrophils % (Manual) 30 L Band Neutrophils % (Manual) 53 H Lymphocytes % Lymphocytes % (Manual) 7 L Reactive Lymphocytes % (Manual) 2 H Monocytes % Monocytes % (Manual) 5 Eosinophils % Basophils % Metamyelocytes % (manual) 3 H Nucleated Red Blood Cells % 0.0 Immature Granulocytes # 0.020 Neutrophils # Neutrophils # (Manual) 2.7 Band Neutrophils # 4.1 H Lymphocytes (Manual) 0.5 L Lymphocytes # Reactive Lymphocytes # 0.1 H Monocytes # Monocytes # (Manual) 0.3 Eosinophils # Basophils # Metamyelocytes # 0.2 H Nucleated Red Blood Cells # Platelet Estimate NORMAL Giant Platelets 3 H Sodium Level 138 Potassium Level 3.8 Chloride Level 99 Carbon Dioxide Level 27 Anion Gap 12 Blood Urea Nitrogen 20 Creatinine 0.82 Est Glomerular Filtrat Rate mL/min > 60 Glucose Level 134 Hemoglobin A1c 5.7 Calcium Level 9.0 Magnesium Level 1.7 Total Bilirubin 0.4 Direct Bilirubin 0.00 Indirect Bilirubin 0.4 Aspartate Amino Transf (AST/SGOT) 42 # Alanine Aminotransferase (ALT/SGPT) 22 Alkaline Phosphatase 128 H Total Protein 6.8 # Albumin 3.6 Globulin 3.20 Albumin/Globulin Ratio 1.12 Triglycerides Level 105 Cholesterol Level 156 LDL Cholesterol, Calculated 90 HDL Cholesterol 45 Cholesterol/HDL Ratio 3.4 Thyroid Stimulating Hormone (TSH) 3.670 Medications Medication Current Medications Sodium Chloride 1,000 ml @ 80 mls/hr [id number] IV Last administered on 12/20/18 02:51; Admin Dose 80 MLS/HR; Start 12/19/18 at 00:03 IV Flush (NS 3 ml) 3 ml PER PROTOCOL IV ; Start 12/19/18 at 00:30 Acetaminophen (Tylenol Tab) 650 mg Q6H PRN PO .PAIN 1-3 OR TEMP Last administe red on 12/19/18 20:21; Admin Dose 650 MG; Start 12/19/18 at 00:30 Docusate Sodium (Colace) 100 mg Q12H PRN PO .CONSTIPATION Last administered on 12/20/18 12:53; Admin Dose 100 MG; Start 12/19/18 at 00:30 Bisacodyl (Dulcolax) 5 mg DAILY PRN PO .CONSTIPATION; Start 12/19/18 at 00:30 Hydromorphone HCl (Dilaudid) 1 mg Q3H PRN IV .SEVERE PAIN 7-10 Last administered on 12/20/18 12:52; Admin Dose 1 MG; Start 12/19/18 at 03:30 Ondansetron HCl (Zofran Inj) 4 mg Q4 PRN IV NAUSEA/VOMITING; Start 12/19/18 at 02:00 Nicotine (Nicoderm 14 Mg/ 24hr) 1 patch DAILY TRANSDERM Last administered on 12/20/18 09:16; Admin Dose 1 PATCH; Start 12/19/18 at 09:00 Lorazepam (Ativan) 1 mg Q4 PRN IV withdrawal symptoms Last administered on 12/20/18 00:24; Admin Dose 1 MG; Start 12/19/18 at 05:30 Hyoscyamine (Levsin) 0.125 mg Q6 PO Last administered on 12/20/18 12:53; Admin Dose 0.125 MG; Start 12/19/18 at 12:00 ZULY DELGADO Dec 20, 2018 14:10
--- NOTE | 2018-12-20 14:24 | PN ---
Date/Time of Note Date/Time of Note DATE: 12/20/18 TIME: 13:56 Assessment/Plan VTE Prophylaxis Risk score (from Ns)>0 risk: 2 SCD applied (from Ns): No SCD contraindicated: other (scds) Pharmacological prophylaxis: other (scds) Lines/Catheters IV Catheter Type (from [facility]): Peripheral IV Urinary Cath still in place: No Assessment/Plan Hospital Course Assessment: Biliary and pancreatic duct dilatation MRCP 12/19/18 Mildly dilated common bile duct. No evidence of biliary duct obstruction. Gallbladder contains multiple stones without wall thickening. Scattered T2 bright lesions in the liver may represent cysts or hemangiomas. 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 Will asses with abd x-ray. mineral oil exemia and miraLAX bid PHYSICAL EXAMINATION: GENERAL: Alert & oriented x 3, in no acute distress SKIN: No lesions HEAD: Normocephalic, atraumatic, no tenderness. EYES: Pupils equal reactive to light, no discharge. EARS/NOSE AND THROAT: Ears normal, nose normal, oropharynx normal, oral membranes well hydrated without lesions. NECK: Supple, no masses. CHEST: Inspection within normal limits. CARDIOVASCULAR: Heart: Regular rate and rhythm, RESPIRATORY: Lungs clear to auscultation. GASTROINTESTINAL AND LIVER: Abdomen: Soft, bilateral lower abdominal tenderness, distended, no hernias, no guarding, no rebound tenderness, normoactive bowel sounds. Rectal: Deferred. GENITOURINARY: [Male genitalia within normal limits. EXTREMITIES: No cyanosis, clubbing or edema. Left foot partially amputated. Result Diagram: 12/20/18 0635 12/20/18 0635 Results 24hrs Laboratory Tests Test 12/20/18 06:35 White Blood Count 7.8 Red Blood Count 4.52 L Hemoglobin 13.6 L Hematocrit 41.0 L Mean Corpuscular Volume 90.7 Mean Corpuscular Hemoglobin 30.1 Mean Corpuscular Hemoglobin Concent 33.2 Red Cell Distribution Width 14.3 Platelet Count 310 Mean Platelet Volume 10.2 Immature Granulocytes % 0.300 Neutrophils % Segmented Neutrophils % (Manual) 30 L Band Neutrophils % (Manual) 53 H Lymphocytes % Lymphocytes % (Manual) 7 L Reactive Lymphocytes % (Manual) 2 H Monocytes % Monocytes % (Manual) 5 Eosinophils % Basophils % Metamyelocytes % (manual) 3 H Nucleated Red Blood Cells % 0.0 Immature Granulocytes # 0.020 Neutrophils # Neutrophils # (Manual) 2.7 Band Neutrophils # 4.1 H Lymphocytes (Manual) 0.5 L Lymphocytes # Reactive Lymphocytes # 0.1 H Monocytes # Monocytes # (Manual) 0.3 Eosinophils # Basophils # Metamyelocytes # 0.2 H Nucleated Red Blood Cells # Platelet Estimate NORMAL Giant Platelets 3 H Sodium Level 138 Potassium Level 3.8 Chloride Level 99 Carbon Dioxide Level 27 Anion Gap 12 Blood Urea Nitrogen 20 Creatinine 0.82 Est Glomerular Filtrat Rate mL/min > 60 Glucose Level 134 Hemoglobin A1c 5.7 Calcium Level 9.0 Magnesium Level 1.7 Total Bilirubin 0.4 Direct Bilirubin 0.00 Indirect Bilirubin 0.4 Aspartate Amino Transf (AST/SGOT) 42 # Alanine Aminotransferase (ALT/SGPT) 22 Alkaline Phosphatase 128 H Total Protein 6.8 # Albumin 3.6 Globulin 3.20 Albumin/Globulin Ratio 1.12 Triglycerides Level 105 Cholesterol Level 156 LDL Cholesterol, Calculated 90 HDL Cholesterol 45 Cholesterol/HDL Ratio 3.4 Thyroid Stimulating Hormone (TSH) 3.670 Exam/Review of Systems Exam Vitals Vital Signs Date Temp Pulse Resp B/P (MAP) Pulse Ox O2 O2 Flow FiO2 Time Delivery Rate 12/20/18 Nasal 2.0 13:10 Cannula 12/20/18 98.8 18 173/78 91 09:09 (109) 12/20/18 106 07:32 Intake and Output 12/19/18 12/19/18 12/20/18 1515:00 23:00 07:00 IntakeIntake Total 1274 ml 480 ml 680 ml OutputOutput Total 100 ml BalanceBalance 1274 ml 380 ml 680 ml Results Results 24hrs Laboratory Tests Test 12/20/18 06:35 White Blood Count 7.8 Red Blood Count 4.52 L Hemoglobin 13.6 L Hematocrit 41.0 L Mean Corpuscular Volume 90.7 Mean Corpuscular Hemoglobin 30.1 Mean Corpuscular Hemoglobin Concent 33.2 Red Cell Distribution Width 14.3 Platelet Count 310 Mean Platelet Volume 10.2 Immature Granulocytes % 0.300 Neutrophils % Segmented Neutrophils % (Manual) 30 L Band Neutrophils % (Manual) 53 H Lymphocytes % Lymphocytes % (Manual) 7 L Reactive Lymphocytes % (Manual) 2 H Monocytes % Monocytes % (Manual) 5 Eosinophils % Basophils % Metamyelocytes % (manual) 3 H Nucleated Red Blood Cells % 0.0 Immature Granulocytes # 0.020 Neutrophils # Neutrophils # (Manual) 2.7 Band Neutrophils # 4.1 H Lymphocytes (Manual) 0.5 L Lymphocytes # Reactive Lymphocytes # 0.1 H Monocytes # Monocytes # (Manual) 0.3 Eosinophils # Basophils # Metamyelocytes # 0.2 H Nucleated Red Blood Cells # Platelet Estimate NORMAL Giant Platelets 3 H Sodium Level 138 Potassium Level 3.8 Chloride Level 99 Carbon Dioxide Level 27 Anion Gap 12 Blood Urea Nitrogen 20 Creatinine 0.82 Est Glomerular Filtrat Rate mL/min > 60 Glucose Level 134 Hemoglobin A1c 5.7 Calcium Level 9.0 Magnesium Level 1.7 Total Bilirubin 0.4 Direct Bilirubin 0.00 Indirect Bilirubin 0.4 Aspartate Amino Transf (AST/SGOT) 42 # Alanine Aminotransferase (ALT/SGPT) 22 Alkaline Phosphatase 128 H Total Protein 6.8 # Albumin 3.6 Globulin 3.20 Albumin/Globulin Ratio 1.12 Triglycerides Level 105 Cholesterol Level 156 LDL Cholesterol, Calculated 90 HDL Cholesterol 45 Cholesterol/HDL Ratio 3.4 Thyroid Stimulating Hormone (TSH) 3.670 Medications Medication Current Medications Sodium Chloride 1,000 ml @ 80 mls/hr [id number] IV Last administered on 12/20/18at 02:51; Admin Dose 80 MLS/HR; Start 12/19/18 at 00:03 IV Flush (NS 3 ml) 3 ml PER PROTOCOL IV ; Start 12/19/18 at 00:30 Acetaminophen (Tylenol Tab) 650 mg Q6H PRN PO .PAIN 1-3 OR TEMP Last administered on 12/19/18at 20:21; Admin Dose 650 MG; Start 12/19/18 at 00:30 Docusate Sodium (Colace) 100 mg Q12H PRN PO .CONSTIPATION Last administered on 12/20/18 12:53; Admin Dose 100 MG; Start 12/19/18 at 00:30 Bisacodyl (Dulcolax) 5 mg DAILY PRN PO .CONSTIPATION; Start 12/19/18 at 00:30 Hydromorphone HCl (Dilaudid) 1 mg Q3H PRN IV .SEVERE PAIN 7-10 Last admini stered on 12/20/18 12:52; Admin Dose 1 MG; Start 12/19/18 at 03:30 Ondansetron HCl (Zofran Inj) 4 mg Q4 PRN IV NAUSEA/VOMITING; Start 12/19/18 at 02:00 Nicotine (Nicoderm 14 Mg/ 24hr) 1 patch DAILY TRANSDERM Last administered on 12/20/18 09:16; Admin Dose 1 PATCH; Start 12/19/18 at 09:00 Lorazepam (Ativan) 1 mg Q4 PRN IV withdrawal symptoms Last administered on 12/20/18 00:24; Admin Dose 1 MG; Start 12/19/18 at 05:30 Hyoscyamine (Levsin) 0.125 mg Q6 PO Last administered on 12/20/18 12:53; Admin Dose 0.125 MG; Start 12/19/18 at 12:00 KRISTINA RED Dec 20, 2018 14:06
[2018-12-20] MEDS ORDERED: MINERAL OIL 133 ML ENEMA PR ONE (15:30)
--- NOTE | 2018-12-20 18:09 | CONDCODE ---
Medicare Criteria-> INP to OBS Patient still in hospital: Yes SI/IS Criteria met: Yes Attending MD agrees w/change: Yes Order entered in Pt. record: Yes Pt. does not meet Inp Criteria: Yes Medicare Inp->Obs Criteria met: Yes UR Phys Advisor eSign required: Yes I personally scribed for ZULY DELGADO ([email or web address]) on 12/20/18 at 18:09. Electronically submitted by Maite Ribeiro ([email or web address]). ZULY DELGADO Dec 20, 2018 18:09
--- NOTE | 2018-12-20 18:09 | CONDCODE ---
Medicare Criteria-> INP to OBS Patient still in hospital: Yes SI/IS Criteria met: Yes Attending MD agrees w/change: Yes Order entered in Pt. record: Yes Pt. does not meet Inp Criteria: Yes Medicare Inp->Obs Criteria met: Yes UR Phys Advisor eSign required: Yes I personally scribed for SYD GRUBBS NP ([email or web address]) on 12/20/18 at 18:09. Electronically submitted by Maite Ribeiro ([email or web address]). SYD GRUBBS NP Dec 20, 2018 18:09
[2018-12-20] MEDS ORDERED: AL HYDROX/MG HYDROX/SIMETH 30 ML CUP PO PRN (18:30)
[2018-12-20 20:00] VITALS: BP 159/84; PULSE 116; RESP 16
[2018-12-20] MEDS: POLYETHYLENE GLYCOL 17 GM PACKET PO SCH (20:23)
--- NOTE | 2018-12-20 22:04 | PN ---
Date/Time of Note Date/Time of Note DATE: 12/20/18 TIME: 22:04 Assessment/Plan Lines/Catheters IV Catheter Type (from [facility]): Peripheral IV Kohler in Place (from [facility]): No Exam/Review of Systems Vital Signs Vitals Vital Signs Date Temp Pulse Resp B/P (MAP) Pulse Ox O2 O2 Flow FiO2 Time Delivery Rate 12/20/18 Nasal 2.0 20:43 Cannula 12/20/18 99.4 116 16 159/84 92 20:00 (109) Intake and Output 12/19/18 12/19/18 12/20/18 1515:00 23:00 07:00 IntakeIntake Total 1274 ml 480 ml 680 ml OutputOutput Total 100 ml BalanceBalance 1274 ml 380 ml 680 ml Results Result Diagram: 12/20/18 0635 12/20/18 0635 JULIET FERREIRA MD Dec 20, 2018 22:04
[2018-12-21 02:14] VITALS: BP 152/87; PULSE 114; RESP 16
[2018-12-21] MEDS: HYDROmorphONE 1 MG/ML SYG IV PRN ×3 (03:22→09:48)
[2018-12-21] MEDS: SOD CHLORIDE 0.9% 1,000 ML IV SCH (03:58)
[2018-12-21] MEDS: HYOSCYAMINE 0.125 MG TAB PO SCH ×4 (05:58→17:19)
[2018-12-21 07:20] VITALS: BP 152/88; PULSE 112; RESP 16
[2018-12-21] MEDS: POLYETHYLENE GLYCOL 17 GM PACKET PO SCH ×2 (08:26→21:00)
[2018-12-21] MEDS: NICOTINE (14 MG/24 HR) PATCH TRANSDERM SCH (08:27)
[2018-12-21] MEDS: LORAZEPAM 2 MG INJ IV PRN (08:31)
--- NOTE | 2018-12-21 10:03 | CONDCODE ---
Medicare Criteria-> INP to OBS Patient still in hospital: Yes SI/IS Criteria met: Yes Attending MD agrees w/change: Yes Order entered in Pt. record: Yes Pt. does not meet Inp Criteria: Yes Medicare Inp->Obs Criteria met: Yes UR Phys Advisor eSign required: Yes I personally scribed for KATERIN LARA MD ([email or web address]) on 12/21/18 at 10:03. Electronically submitted by Fito Argueta [facility] ([email or web address]). KATERIN LARA MD Dec 21, 2018 10:03
[2018-12-21] MEDS: POTASSIUM CHLORIDE 100 ML IVPB SCH ×2 (11:05→13:39)
[2018-12-21 14:03] VITALS: BP 140/74; PULSE 119; RESP 18
--- NOTE | 2018-12-21 14:13 | PN ---
Date/Time of Note Date/Time of Note DATE: 12/21/18 TIME: 14:10 Assessment/Plan VTE Prophylaxis Risk score (from Ns)>0 risk: 2 SCD applied (from Ns): Yes Pharmacological prophylaxis: NA/contraindicated Pharm contraindication: low risk/ambulating Lines/Catheters IV Catheter Type (from [facility]): Peripheral IV Urinary Cath still in place: No Assessment/Plan Hospital Course Biliary dilation MRCP shows mildly dilated common bile duct, no evidence of biliary duct obst ruction. Gallbladder contains multiple stones without wall thickening. 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 Pain control Prophylaxis: SCDs DC planning: Patient continues to be distended with significant abdominal pain, replace potassium and have DC'd opiates, monitor for bowel movements, anticipate DC home tomorrow if ileus resolved Result Diagram: 12/20/18 0635 12/21/18 0557 Results 24hrs Laboratory Tests Test 12/21/18 05:57 Sodium Level 140 Potassium Level 3.6 Chloride Level 97 Carbon Dioxide Level 30 Anion Gap 13 Blood Urea Nitrogen 50 #H Creatinine 0.92 Est Glomerular Filtrat Rate mL/min > 60 Glucose Level 166 Calcium Level 8.6 Magnesium Level 2.2 Subjective 24 Hr Interval Summary Gastrointestinal: pain Exam/Review of Systems Exam Vitals Vital Signs Date Temp Pulse Resp B/P (MAP) Pulse Ox O2 O2 Flow FiO2 Time Delivery Rate 12/21/18 98.5 119 18 140/74 90 Nasal 14:03 (96) Cannula 12/21/18 2.0 09:02 Intake and Output 12/20/18 12/20/18 12/21/18 1515:00 23:00 07:00 IntakeIntake Total 210 ml 800 ml 1160 ml OutputOutput Total 300 ml 100 ml BalanceBalance 210 ml 500 ml 1060 ml Constitutional: alert, oriented Respiratory: clear to auscultation Cardiovascular: regular rate and rhythm Gastrointestinal: soft, distended Musculoskeletal: nl extremities to inspection Results Results 24hrs Laboratory Tests Test 12/21/18 05:57 Sodium Level 140 Potassium Level 3.6 Chloride Level 97 Carbon Dioxide Level 30 Anion Gap 13 Blood Urea Nitrogen 50 #H Creatinine 0.92 Est Glomerular Filtrat Rate mL/min > 60 Glucose Level 166 Calcium Level 8.6 Magnesium Level 2.2 Medications Medication Current Medications Sodium Chloride 1,000 ml @ 80 mls/hr [id number] IV Last administered on 12/21/18 03:58; Admin Dose 80 MLS/HR; Start 12/19/18 at 00:03 IV Flush (NS 3 ml) 3 ml PER PROTOCOL IV ; Start 12/19/18 at 00:30 Acetaminophen (Tylenol Tab) 650 mg Q6H PRN PO .PAIN 1-3 OR TEMP Last administe red on 12/19/18at 20:21; Admin Dose 650 MG; Start 12/19/18 at 00:30 Docusate Sodium (Colace) 100 mg Q12H PRN PO .CONSTIPATION Last administered on 12/20/18at 12:53; Admin Dose 100 MG; Start 12/19/18 at 00:30 Bisacodyl (Dulcolax) 5 mg DAILY PRN PO .CONSTIPATION; Start 12/19/18 at 00:30 Ondansetron HCl (Zofran Inj) 4 mg Q4 PRN IV NAUSEA/VOMITING; Start 12/19/18 at 02:00 Nicotine (Nicoderm 14 Mg/ 24hr) 1 patch DAILY TRANSDERM Last administered on 12/21/18at 08:27; Admin Dose 1 PATCH; Start 12/19/18 at 09:00 Lorazepam (Ativan) 1 mg Q4 PRN IV withdrawal symptoms Last administered on 12/21/18at 08:31; Admin Dose 1 MG; Start 12/19/18 at 05:30 Hyoscyamine (Levsin) 0.125 mg Q6 PO Last administered on 12/20/18 18:28; Admin Dose 0.125 MG; Start 12/19/18 at 12:00 Polyethylene Glycol (Miralax) 17 gm BID PO Last administered on 12/20/18 20:23; Admin Dose 17 GM; Start 12/20/18 at 21:00 Al Hydrox/Mg Hydrox/Simethicone (Mag-Al Plus) 30 ml Q6H PRN PO GASTROINTESTINAL UPSET Last administered on 12/20/18at 18:28; Admin Dose 30 ML; Start 12/20/18 at 18:30 Ketorolac Tromethamine (Toradol) 30 mg Q6H PRN IV PAIN LEVEL 1-3; Start 12/21/18 at 14:30; Stop 12/24/18 at 14:29; Status UNV ZULY DELGADO Dec 21, 2018 14:13
--- NOTE | 2018-12-21 14:38 | PN ---
Date/Time of Note Date/Time of Note DATE: 12/21/18 TIME: 14:36 Assessment/Plan VTE Prophylaxis Risk score (from Ns)>0 risk: 2 SCD applied (from Nsg): Yes Pharmacological prophylaxis: other (scds) Lines/Catheters IV Catheter Type (from Nrs): Peripheral IV Urinary Cath still in place: No Assessment/Plan Hospital Course Assessment: Biliary and pancreatic duct dilatation MRCP 12/19/18 Mildly dilated common bile duct. No evidence of biliary duct obstruction. Gallbladder contains multiple stones without wall thickening. Scattered T2 bright lesions in the liver may represent cysts or hemangiomas. 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 SBFT- r/o SBO Stool studies- pending Clear liquid diet Monitor LFTs Patient seen in collaboration with Subjective: Course reviewed with nursing staff Patient interviewed and examined All labs, imaging and other results reviewed The patient resting in bed, c/o abd distension and constipation Pt c/o generalized abd tenderness- will continue cl liq diet. Will asses with abd x-ray. mineral oil exemia and miraLAX bid PHYSICAL EXAMINATION: GENERAL: Alert & oriented x 3, in no acute distress SKIN: No lesions HEAD: Normocephalic, atraumatic, no tenderness. EYES: Pupils equal reactive to light, no discharge. EARS/NOSE AND THROAT: Ears normal, nose normal, oropharynx normal, oral membranes well hydrated without lesions. NECK: Supple, no masses. CHEST: Inspection within normal limits. CARDIOVASCULAR: Heart: Regular rate and rhythm, RESPIRATORY: Lungs clear to auscultation. GASTROINTESTINAL AND LIVER: Abdomen: Soft, bilateral lower abdominal tenderness, distended, no hernias, no guarding, no rebound tenderness, normoactive bowel sounds. Rectal: Deferred. GENITOURINARY: [Male genitalia within normal limits. EXTREMITIES: No cyanosis, clubbing or edema. Left foot partially amputated. Result Diagram: 12/20/18 0635 12/21/18 0557 Results 24hrs Laboratory Tests Test 12/21/18 05:57 Sodium Level 140 Potassium Level 3.6 Chloride Level 97 Carbon Dioxide Level 30 Anion Gap 13 Blood Urea Nitrogen 50 #H Creatinine 0.92 Est Glomerular Filtrat Rate mL/min > 60 Glucose Level 166 Calcium Level 8.6 Magnesium Level 2.2 Exam/Review of Systems Exam Vitals Vital Signs Date Temp Pulse Resp B/P (MAP) Pulse Ox O2 O2 Flow FiO2 Time Delivery Rate 12/21/18 98.5 119 18 140/74 90 Nasal 14:03 (96) Cannula 12/21/18 2.0 09:02 Intake and Output 12/20/18 12/20/18 12/21/18 1515:00 23:00 07:00 IntakeIntake Total 210 ml 800 ml 1160 ml OutputOutput Total 300 ml 100 ml BalanceBalance 210 ml 500 ml 1060 ml Results Results 24hrs Laboratory Tests Test 12/21/18 05:57 Sodium Level 140 Potassium Level 3.6 Chloride Level 97 Carbon Dioxide Level 30 Anion Gap 13 Blood Urea Nitrogen 50 #H Creatinine 0.92 Est Glomerular Filtrat Rate mL/min > 60 Glucose Level 166 Calcium Level 8.6 Magnesium Level 2.2 Medications Medication Current Medications Sodium Chloride 1,000 ml @ 80 mls/hr [id number] IV Last administered on 12/21/18at 03:58; Admin Dose 80 MLS/HR; Start 12/19/18 at 00:03 IV Flush (NS 3 ml) 3 ml PER PROTOCOL IV ; Start 12/19/18 at 00:30 Acetaminophen (Tylenol Tab) 650 mg Q6H PRN PO .PAIN 1-3 OR TEMP Last administered on 12/19/18at 20:21; Admin Dose 650 MG; Start 12/19/18 at 00:30 Docusate Sodium (Colace) 100 mg Q12H PRN PO .CONSTIPATION Last administered on 12/20/18at 12:53; Admin Dose 100 MG; Start 12/19/18 at 00:30 Bisacodyl (Dulcolax) 5 mg DAILY PRN PO .CONSTIPATION; Start 12/19/18 at 00:30 Ondansetron HCl (Zofran Inj) 4 mg Q4 PRN IV NAUSEA/VOMITING; Start 12/19/18 at 02:00 Nicotine (Nicoderm 14 Mg/ 24hr) 1 patch DAILY TRANSDERM Last administered on 12/21/18at 08:27; Admin Dose 1 PATCH; Start 12/19/18 at 09:00 Lorazepam (Ativan) 1 mg Q4 PRN IV withdrawal symptoms Last administered on 12/21/18 08:31; Admin Dose 1 MG; Start 12/19/18 at 05:30 Hyoscyamine (Levsin) 0.125 mg Q6 PO Last administered on 12/20/18 18:28; Admin Dose 0.125 MG; Start 12/19/18 at 12:00 Polyethylene Glycol (Miralax) 17 gm BID PO Last administered on 12/20/18at 20:23; Admin Dose 17 GM; Start 12/20/18 at 21:00 Al Hydrox/Mg Hydrox/Simethicone (Mag-Al Plus) 30 ml Q6H PRN PO GASTROINTESTINAL UPSET Last administered on 12/20/18 18:28; Admin Dose 30 ML; Start 12/20/18 at 18:30 Ketorolac Tromethamine (Toradol) 15 mg Q6H PRN IV PAIN; Start 12/21/18 at 14:30; Stop 12/24/18 at 14:29 KRISTINA RED Dec 21, 2018 14:38
[2018-12-21] MEDS ORDERED: DIATR MEGLU/DIATRIZOATE SODIUM 120 ML BTL ONE (15:44)
[2018-12-21] MEDS: KETOROLAC 15 MG INJ IV PRN (17:52)
--- NOTE | 2018-12-21 18:13 | PN ---
Date/Time of Note Date/Time of Note DATE: 12/21/18 TIME: 18:11 Assessment/Plan Lines/Catheters IV Catheter Type (from [facility]): Peripheral IV Kohler in Place (from [facility]): No Assessment/Plan Chief Complaint/Hosp Course 1. Abdominal pain: With CT finding of ileus versus SBO: -N.p.o. for now -SBFT pending -Pain management 2. Diarrhea -Stool studies 3. Dilated biliary system: MRCP noted -Per GI -Medical optimization 4. Prostate cancer history -Per medical team 5. Atherosclerosis with CAD -Medical management 6. 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 Diverticulosis without diverticulitis: -Lifestyle optimization Thank you. Patient seen and examined in collaboration with Dr. Franck Sherman. Subjective 24 Hr Interval Summary + Flatus and small bowel movement. SBFT pending no fevers, chills, sob, congested cough, cp, palpitations, schulz, dizziness, nausea, vomiting, diarrhea, dysuria. Exam/Review of Systems Vital Signs Vitals Vital Signs Date Temp Pulse Resp B/P (MAP) Pulse Ox O2 O2 Flow FiO2 Time Delivery Rate 12/21/18 98.5 119 18 140/74 90 Nasal 14:03 (96) Cannula 12/21/18 2.0 09:02 Intake and Output 12/20/18 12/20/18 12/21/18 1515:00 23:00 07:00 IntakeIntake Total 210 ml 800 ml 1160 ml OutputOutput Total 300 ml 100 ml BalanceBalance 210 ml 500 ml 1060 ml Exam Free Text/Dictation Constitutional: alert, oriented Psych: nl mood/affect Head: normocephalic, atraumatic Eyes: nl conjunctiva, EOMI, nl lids, nl sclera ENMT: nl external ears & nose, nl lips & teeth, mucosa pink and moist Neck: supple, non-tender; No jvd Respiratory: normal air movement, labored breathing; No congested cough Cardiovascular: regular rate and rhythm, nl pulses; No edema Gastrointestinal: soft, tender (diffuse; positive murphys by palpation) Musculoskeletal: nl extremities to inspection, nl gait and stance Extremities: normal pulses; No edema Neurological: nl mental status, nl speech, nl strength Skin: No rash or lesions Lymph: nl lymph nodes Results Result Diagram: 12/20/18 0635 12/21/18 0557 SHANTEL NELSON NP Dec 21, 2018 18:13
[2018-12-21 20:00] VITALS: BP 125/62; PULSE 130; RESP 19
[2018-12-21] MEDS ORDERED: morphine 4 MG/ML VIAL IV STA (20:36)
[2018-12-21] MEDS ORDERED: SOD CHLORIDE 0.9% 250 ML IV ONE (22:30)
[2018-12-21 22:53] VITALS: BP 145/77; PULSE 113; RESP 36
[2018-12-22] VITALS (14 sets, daily range): BP systolic 111–174; BP diastolic 57–82; PULSE 74–130; RESP 16–20
[2018-12-22] MEDS: KETOROLAC 15 MG INJ IV PRN (00:16)
[2018-12-22] MEDS ORDERED: HALOPERIDOL 5 MG INJ IM ONE (03:24)
[2018-12-22] MEDS ORDERED: LORAZEPAM 2 MG INJ IV ONE (03:25)
[2018-12-22] MEDS: SOD CHLORIDE 0.9% 1,000 ML IV SCH (03:30)
[2018-12-22] MEDS: HYOSCYAMINE 0.125 MG TAB PO SCH ×4 (06:00→18:00)
[2018-12-22] MEDS ORDERED: ROCURONIUM 50 MG INJ ONE (07:00)
[2018-12-22] MEDS ORDERED: ETOMIDATE 20 MG INJ ONE (07:00)
[2018-12-22] MEDS: POLYETHYLENE GLYCOL 17 GM PACKET PO SCH ×2 (09:00→21:00)
[2018-12-22] MEDS: NICOTINE (14 MG/24 HR) PATCH TRANSDERM SCH (09:24)
[2018-12-22] MEDS: POTASSIUM CHLORIDE 100 ML IVPB SCH ×2 (10:45→12:00)
[2018-12-22] MEDS: LORAZEPAM 2 MG INJ IV PRN ×2 (11:34→23:47)
--- NOTE | 2018-12-22 11:53 | PN ---
Date/Time of Note Date/Time of Note DATE: 12/22/18 TIME: 11:50 Assessment/Plan Lines/Catheters IV C[facility]ter Type (from [facility]): Peripheral IV Kohler in Place (from [facility]rs): No Assessment/Plan Chief Complaint/Hosp Course 1. Abdominal pain: With CT finding of ileus versus SBO: -Continue n.p.o. for now -SBFT pending -Pain management 2. Diarrhea 3. Dilated biliary system: MRCP noted -Per GI -Medical optimization 4. Prostate cancer history -Per medical team 5. Atherosclerosis with CAD -Medical management 6. 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 Diverticulosis without diverticulitis: -Lifestyle optimization Thank you. Patient seen and examined in collaboration with Dr. Franck Sherman. Subjective 24 Hr Interval Summary SBFT still pending. No fevers, chills, sob, congested cough, cp, palpitations, schulz, dizziness, nausea, vomiting, diarrhea, dysuria. Exam/Review of Systems Vital Signs Vitals Vital Signs Date Temp Pulse Resp B/P (MAP) Pulse Ox O2 O2 Flow FiO2 Time Delivery Rate 12/22/18 100.3 125 20 153/69 90 10:25 (97) 12/22/18 Nasal 4.0 08:00 Cannula Intake and Output 12/21/18 12/21/18 12/22/18 1515:00 23:00 07:00 IntakeIntake Total 100 ml 740 ml 250 ml BalanceBalance 100 ml 740 ml 250 ml Exam Free Text/Dictation Constitutional: alert, oriented Psych: nl mood/affect Head: normocephalic, atraumatic Eyes: nl conjunctiva, EOMI, nl lids, nl sclera ENMT: nl external ears & nose, nl lips & teeth, mucosa pink and moist Neck: supple, non-tender; No jvd Respiratory: normal air movement, labored breathing; No congested cough Cardiovascular: regular rate and rhythm, nl pulses; No edema Gastrointestinal: soft, tender (improved) Musculoskeletal: nl extremities to inspection, nl gait and stance Extremities: normal pulses; No edema Neurological: nl mental status, nl speech, nl strength Skin: No rash or lesions Lymph: nl lymph nodes Results Result Diagram: 12/20/18 0635 12/22/18 0527 SHANTEL NELSON NP Dec 22, 2018 11:53
--- NOTE | 2018-12-22 14:19 | PN ---
Date/Time of Note Date/Time of Note DATE: 12/22/18 TIME: 14:11 Assessment/Plan VTE Prophylaxis Risk score (from Ns)>0 risk: 3 SCD applied (from [facility]): Yes Pharmacological prophylaxis: NA/contraindicated Pharm contraindication: surgical contra Lines/Catheters IV C[facility]ter Type (from [facility]): Peripheral IV Urinary Cath still in place: No Assessment/Plan Hospital Course Acute encephalopathy likely secondary to delirium Reorient Opiates have been discontinued SIRS likely reactive No septic source identified, UA has been negative, stool cultures are negative, chest x-ray with no evidence of pneumonia, abdominal imaging is negative for infectious source Blood cultures have been ordered No indication for antibiotics at this time Biliary dilation MRCP shows mildly dilated common bile duct, no evidence of biliary duct obstruction. Gallbladder contains multiple stones without wall thickening. 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 Pain control Prophylaxis: SCDs DC planning: Patient is currently delirious, follow-up on small bowel follow- through Result Diagram: 12/20/18 0635 12/22/18 0527 Results 24hrs Laboratory Tests Test 12/22/18 05:27 Sodium Level 144 Potassium Level 3.3 L Chloride Level 110 # Carbon Dioxide Level 26 Anion Gap 8 Blood Urea Nitrogen 64 H Creatinine 1.30 H Est Glomerular Filtrat Rate mL/min 55 L Glucose Level 131 Calcium Level 8.5 Magnesium Level 2.4 Subjective 24 Hr Interval Summary Constitutional: disoriented Exam/Review of Systems Exam Vitals Vital Signs Date Temp Pulse Resp B/P (MAP) Pulse Ox O2 O2 Flow FiO2 Time Delivery Rate 12/22/18 98.5 111 20 140/67 90 14:08 (91) 12/22/18 Nasal 4.0 08:00 Cannula Intake and Output 12/21/18 12/21/18 12/22/18 1515:00 23:00 07:00 IntakeIntake Total 100 ml 740 ml 250 ml BalanceBalance 100 ml 740 ml 250 ml Psych: confusion Respiratory: clear to auscultation Cardiovascular: regular rate and rhythm Gastrointestinal: soft; No distended Musculoskeletal: nl extremities to inspection Results Results 24hrs Laboratory Tests Test 12/22/18 05:27 Sodium Level 144 Potassium Level 3.3 L Chloride Level 110 # Carbon Dioxide Level 26 Anion Gap 8 Blood Urea Nitrogen 64 H Creatinine 1.30 H Est Glomerular Filtrat Rate mL/min 55 L Glucose Level 131 Calcium Level 8.5 Magnesium Level 2.4 Medications Medication Current Medications IV Flush (NS 3 ml) 3 ml PER PROTOCOL IV ; Start 12/19/18 at 00:30 Acetaminophen (Tylenol Tab) 650 mg Q6H PRN PO .PAIN 1-3 OR TEMP Last administered on 12/19/18 20:21; Admin Dose 650 MG; Start 12/19/18 at 00:30 Docusate Sodium (Colace) 100 mg Q12H PRN PO .CONSTIPATION Last administered on 12/20/18 12:53; Admin Dose 100 MG; Start 12/19/18 at 00:30 Bisacodyl (Dulcolax) 5 mg DAILY PRN PO .CONSTIPATION; Start 12/19/18 at 00:30 Ondansetron HCl (Zofran Inj) 4 mg Q4 PRN IV NAUSEA/VOMITING; Start 12/19/18 at 02:00 Nicotine (Nicoderm 14 Mg/ 24hr) 1 patch DAILY TRANSDERM Last administered on 12/22/18 09:24; Admin Dose 1 PATCH; Start 12/19/18 at 09:00 Lorazepam (Ativan) 1 mg Q4 PRN IV withdrawal symptoms Last administered on 12/22/18 11:34; Admin Dose 1 MG; Start 12/19/18 at 05:30 Hyoscyamine (Levsin) 0.125 mg Q6 PO Last administered on 12/20/18 18:28; Admin Dose 0.125 MG; Start 12/19/18 at 12:00 Polyethylene Glycol (Miralax) 17 gm BID PO Last administered on 12/20/18 20:23; Admin Dose 17 GM; Start 12/20/18 at 21:00 Al Hydrox/Mg Hydrox/Simethicone (Mag-Al Plus) 30 ml Q6H PRN PO GASTROINTESTINAL UPSET Last administered on 12/20/18 18:28; Admin Dose 30 ML; Start 12/20/18 at 18:30 Ketorolac Tromethamine (Toradol) 15 mg Q6H PRN IV PAIN Last administered on 12/22/18at 00:16; Admin Dose 15 MG; Start 12/21/18 at 14:30; Stop 12/24/18 at 14:29 Potassium Chloride 40 meq/ Sodium Chloride 1,000 ml @ 100 mls/hr Q10H IV ; Start 12/22/18 at 11:00 ZULY DELGADO Dec 22, 2018 14:19
--- NOTE | 2018-12-22 16:12 | PN ---
Date/Time of Note Date/Time of Note DATE: 12/22/18 TIME: 16:09 Assessment/Plan VTE Prophylaxis Risk score (from Nsg)>0 risk: 3 SCD applied (from Nsg): Yes Pharmacological prophylaxis: other (scds) Lines/Catheters IV Catheter Type (from Nrsg): Peripheral IV Urinary Cath still in place: No Assessment/Plan Hospital Course Assessment: Biliary and pancreatic duct dilatation MRCP 12/19/18 Mildly dilated common bile duct. No evidence of biliary duct obstruction. Gallbladder contains multiple stones without wall thickening. Scattered T2 bright lesions in the liver may represent cysts or hemangiomas. 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 Patient with intermittent fevers of unclear etiology chest x-ray is currently pending Abdomen appears softer today less distended we will start clear liquids as tolerated PHYSICAL EXAMINATION: GENERAL: Alert & oriented x 3 with periods of confusion SKIN: No lesions HEAD: Normocephalic, atraumatic, no tenderness. EYES: Pupils equal reactive to light, no discharge. EARS/NOSE AND THROAT: Ears normal, nose normal, oropharynx normal, oral membranes well hydrated without lesions. NECK: Supple, no masses. CHEST: Inspection within normal limits. CARDIOVASCULAR: Heart: Regular rate and rhythm, RESPIRATORY: Lungs clear to auscultation. GASTROINTESTINAL AND LIVER: Abdomen: Soft, no tenderness, less distention noted, no hernias, no guarding, no rebound tenderness, normoactive bowel sounds. Rectal: Deferred. GENITOURINARY: Male genitalia within normal limits. EXTREMITIES: No cyanosis, clubbing or edema. Left foot partially amputated. Result Diagram: 12/20/18 0635 12/22/18 0527 Results 24hrs Laboratory Tests Test 12/22/18 05:27 Sodium Level 144 Potassium Level 3.3 L Chloride Level 110 # Carbon Dioxide Level 26 Anion Gap 8 Blood Urea Nitrogen 64 H Creatinine 1.30 H Est Glomerular Filtrat Rate mL/min 55 L Glucose Level 131 Calcium Level 8.5 Magnesium Level 2.4 Exam/Review of Systems Exam Vitals Vital Signs Date Temp Pulse Resp B/P (MAP) Pulse Ox O2 O2 Flow FiO2 Time Delivery Rate 12/22/18 98.5 111 20 140/67 90 14:08 (91) 12/22/18 Nasal 4.0 08:00 Cannula Intake and Output 12/21/18 12/21/18 12/22/18 1515:00 23:00 07:00 IntakeIntake Total 100 ml 740 ml 250 ml BalanceBalance 100 ml 740 ml 250 ml Results Results 24hrs Laboratory Tests Test 12/22/18 05:27 Sodium Level 144 Potassium Level 3.3 L Chloride Level 110 # Carbon Dioxide Level 26 Anion Gap 8 Blood Urea Nitrogen 64 H Creatinine 1.30 H Est Glomerular Filtrat Rate mL/min 55 L Glucose Level 131 Calcium Level 8.5 Magnesium Level 2.4 Medications Medication Current Medications IV Flush (NS 3 ml) 3 ml PER PROTOCOL IV ; Start 12/19/18 at 00:30 Acetaminophen (Tylenol Tab) 650 mg Q6H PRN PO .PAIN 1-3 OR TEMP Last adm inistered on 12/19/18 20:21; Admin Dose 650 MG; Start 12/19/18 at 00:30 Docusate Sodium (Colace) 100 mg Q12H PRN PO .CONSTIPATION Last administered on 12/20/18 12:53; Admin Dose 100 MG; Start 12/19/18 at 00:30 Bisacodyl (Dulcolax) 5 mg DAILY PRN PO .CONSTIPATION; Start 12/19/18 at 00:30 Ondansetron HCl (Zofran Inj) 4 mg Q4 PRN IV NAUSEA/VOMITING; Start 12/19/18 at 02:00 Nicotine (Nicoderm 14 Mg/ 24hr) 1 patch DAILY TRANSDERM Last administered on 12/22/18 09:24; Admin Dose 1 PATCH; Start 12/19/18 at 09:00 Lorazepam (Ativan) 1 mg Q4 PRN IV withdrawal symptoms Last administered on 12/22/18 11:34; Admin Dose 1 MG; Start 12/19/18 at 05:30 Hyoscyamine (Levsin) 0.125 mg Q6 PO Last administered on 12/20/18 18:28; Admin Dose 0.125 MG; Start 12/19/18 at 12:00 Polyethylene Glycol (Miralax) 17 gm BID PO Last administered on 12/20/18at 20:23; Admin Dose 17 GM; Start 12/20/18 at 21:00 Al Hydrox/Mg Hydrox/Simethicone (Mag-Al Plus) 30 ml Q6H PRN PO GASTROINTESTINAL UPSET Last administered on 12/20/18 18:28; Admin Dose 30 ML; Start 12/20/18 at 18:30 Ketorolac Tromethamine (Toradol) 15 mg Q6H PRN IV PAIN Last administered on 12/22/18 00:16; Admin Dose 15 MG; Start 12/21/18 at 14:30; Stop 12/24/18 at 14:29 Potassium Chloride 40 meq/ Sodium Chloride 1,000 ml @ 100 mls/hr Q10H IV ; S tart 12/22/18 at 11:00 KRISTINA RED Dec 22, 2018 16:12
[2018-12-22] MEDS ORDERED: HALOPERIDOL 5 MG INJ IV PRN (17:30)
[2018-12-22] MEDS: POTASSIUM CHLORIDE 40 MEQ in SOD CHLORIDE 0.9% 1,000 ML IV SCH ×2 (18:59→21:00)
[2018-12-23] VITALS (16 sets, daily range): BP systolic 121–165; BP diastolic 56–88; PULSE 108–131; RESP 18–32
[2018-12-23] MEDS: LORAZEPAM 2 MG INJ IV PRN (04:41)
[2018-12-23] MEDS: HYOSCYAMINE 0.125 MG TAB PO SCH ×4 (06:00→17:26)
[2018-12-23] MEDS: POLYETHYLENE GLYCOL 17 GM PACKET PO SCH ×2 (08:28→21:00)
[2018-12-23] MEDS: POTASSIUM CHLORIDE 40 MEQ in SOD CHLORIDE 0.9% 1,000 ML IV SCH (08:29)
[2018-12-23] MEDS: NICOTINE (14 MG/24 HR) PATCH TRANSDERM SCH (08:43)
[2018-12-23] MEDS: D5W-0.45 NACL + KCL 40 MEQ 1,000 ML IV SCH ×2 (12:22→21:53)
--- NOTE | 2018-12-23 13:59 | PN ---
Date/Time of Note Date/Time of Note DATE: 12/23/18 TIME: 13:55 Assessment/Plan Lines/Catheters IV Catheter Type (from [facility]): Peripheral IV Kohler in Place (from [facility]): No Assessment/Plan Chief Complaint/Hosp Course 1. Abdominal pain: 2/2 liver versus illicit drug use versus constipation versus other; with CT finding of ileus versus SBO: SBFT noted without obstruction; abdominal pain resolved -Diet okay from surgical standpoint -Pain management 2. Diarrhea -Stool studies per GI 3. Dilated biliary system: MRCP noted -Per GI -Medical optimization 4. Prostate cancer history -Per medical team 5. Atherosclerosis with CAD -Medical management 6. 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 Diverticulosis without diverticulitis: -Lifestyle optimization 8. Normocytic normochromic anemia: -Monitor and transfuse as needed 9. Drug screen positive for cocaine, opioids and cannabinoids -Highly encourage cessation of illicit drug use Thank you. Patient seen and examined in collaboration with Dr. Franck Sherman. Subjective 24 Hr Interval Summary Abdominal pain much improved. SBFT noted without obstruction. Patient hungry requesting to eat. Low-grade fever. Tachycardia. + Bowel function. No chills, sob, congested cough, cp, palpitations, schulz, dizziness, nausea, vomiting, dysuria. Exam/Review of Systems Vital Signs Vitals Vital Signs Date Temp Pulse Resp B/P (MAP) Pulse Ox O2 O2 Flow FiO2 Time Delivery Rate 12/23/18 126 12:35 12/23/18 100.0 28 143/69 12:26 (93) 12/23/18 Nasal 5.0 08:45 Cannula 12/23/18 92 08:06 Exam Free Text/Dictation Constitutional: alert, oriented Psych: nl mood/affect Head: normocephalic, atraumatic Eyes: nl conjunctiva, EOMI, nl lids, nl sclera ENMT: nl external ears & nose, nl lips & teeth, mucosa pink and moist Neck: supple, non-tender; No jvd Respiratory: normal air movement, labored breathing; No congested cough Cardiovascular: regular rate and rhythm, nl pulses; No edema Gastrointestinal: soft, soft, nontender Musculoskeletal: nl extremities to inspection, nl gait and stance Extremities: normal pulses; No edema Neurological: nl mental status, nl speech, nl strength Skin: No rash or lesions Lymph: nl lymph nodes Results Result Diagram: 12/23/18 0540 12/23/18 0540 SHANTEL NELSON NP Dec 23, 2018 13:59
--- NOTE | 2018-12-23 15:08 | PN ---
Date/Time of Note Date/Time of Note DATE: 12/23/18 TIME: 15:06 Assessment/Plan VTE Prophylaxis Risk score (from Ns)>0 risk: 6 SCD applied (from [facility] [place]): Yes Pharmacological prophylaxis: NA/contraindicated Pharm contraindication: other Lines/Catheters IV C[facility]ter Type (from [facility]): Peripheral IV Urinary Cath still in place: No Assessment/Plan Hospital Course Acute encephalopathy likely secondary to delirium Reorient Opiates have been discontinued Neurology consultation obtained SIRS likely reactive No septic source identified, UA has been negative, stool cultures are negative, chest x-ray with no evidence of pneumonia, abdominal imaging is negative for infectious source Follow up on blood cultures No indication for antibiotics at this time Biliary dilation MRCP shows mildly dilated common bile duct, no evidence of biliary duct obstruction. Gallbladder contains multiple stones without wall thickening. 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 Pain control Hypernatremia Fluids with half NS Monitor Prophylaxis: SCDs DC planning: Patient is currently delirious Result Diagram: 12/23/18 0540 12/23/18 0540 Results 24hrs Laboratory Tests Test 12/23/18 05:40 12/23/18 09:40 White Blood Count 8.1 Red Blood Count 3.36 #L Hemoglobin 10.0 #L Hematocrit 30.6 #L Mean Corpuscular Volume 91.1 Mean Corpuscular Hemoglobin 29.8 Mean Corpuscular Hemoglobin Concent 32.7 Red Cell Distribution Width 15.1 H Platelet Count 323 Mean Platelet Volume 10.4 Immature Granulocytes % 1.400 H Neutrophils % Segmented Neutrophils % (Manual) 29 L Band Neutrophils % (Manual) 47 H Lymphocytes % Lymphocytes % (Manual) 4 L Reactive Lymphocytes % (Manual) 3 H Monocytes % Monocytes % (Manual) 8 Eosinophils % Basophils % Metamyelocytes % (manual) 4 H Myelocytes % (Manual) 3 H Promyelocytes % (Manual) 2 H Nucleated Red Blood Cells % 5 H Immature Granulocytes # 0.110 H Neutrophils # Neutrophils # (Manual) 2.7 Band Neutrophils # 3.8 H Lymphocytes (Manual) 0.3 L Lymphocytes # Reactive Lymphocytes # 0.2 H Monocytes # Monocytes # (Manual) 0.6 Eosinophils # Basophils # Metamyelocytes # 0.3 H Myelocytes # 0.2 H Promyelocytes # 0.1 H Nucleated Red Blood Cells # Toxic Granulation 2+ Platelet Estimate NORMAL Giant Platelets 27 H Poikilocytosis 1+ Anisocytosis 1+ Target Cells 1+ Sodium Level 153 H Potassium Level 3.8 Chloride Level 120 H Carbon Dioxide Level 22 Anion Gap 11 Blood Urea Nitrogen 37 #H Creatinine 1.08 Est Glomerular Filtrat Rate mL/min > 60 Glucose Level 85 # Calcium Level 8.2 L Phosphorus Level 2.6 Total Bilirubin 0.1 L Direct Bilirubin 0.00 Indirect Bilirubin 0.1 Aspartate Amino Transf (AST/SGOT) 87 H Alanine Aminotransferase (ALT/SGPT) 42 Alkaline Phosphatase 89 Total Protein 5.7 L Albumin 2.8 L Globulin 2.90 Albumin/Globulin Ratio 0.96 Lab Scanned Report REFERENCE LAB Subjective 24 Hr Interval Summary Constitutional: disoriented Exam/Review of Systems Exam Vitals Vital Signs Date Temp Pulse Resp B/P (MAP) Pulse Ox O2 O2 Flow FiO2 Time Delivery Rate 12/23/18 126 12:35 12/23/18 100.0 28 143/69 12:26 (93) 12/23/18 Nasal 5.0 08:45 Cannula 12/23/18 92 08:06 Psych: confusion Respiratory: clear to auscultation Cardiovascular: regular rate and rhythm Gastrointestinal: soft; No distended Musculoskeletal: nl extremities to inspection Results Results 24hrs Laboratory Tests Test 12/23/18 05:40 12/23/18 09:40 White Blood Count 8.1 Red Blood Count 3.36 #L Hemoglobin 10.0 #L Hematocrit 30.6 #L Mean Corpuscular Volume 91.1 Mean Corpuscular Hemoglobin 29.8 Mean Corpuscular Hemoglobin Concent 32.7 Red Cell Distribution Width 15.1 H Platelet Count 323 Mean Platelet Volume 10.4 Immature Granulocytes % 1.400 H Neutrophils % Segmented Neutrophils % (Manual) 29 L Band Neutrophils % (Manual) 47 H Lymphocytes % Lymphocytes % (Manual) 4 L Reactive Lymphocytes % (Manual) 3 H Monocytes % Monocytes % (Manual) 8 Eosinophils % Basophils % Metamyelocytes % (manual) 4 H Myelocytes % (Manual) 3 H Promyelocytes % (Manual) 2 H Nucleated Red Blood Cells % 5 H Immature Granulocytes # 0.110 H Neutrophils # Neutrophils # (Manual) 2.7 Band Neutrophils # 3.8 H Lymphocytes (Manual) 0.3 L Lymphocytes # Reactive Lymphocytes # 0.2 H Monocytes # Monocytes # (Manual) 0.6 Eosinophils # Basophils # Metamyelocytes # 0.3 H Myelocytes # 0.2 H Promyelocytes # 0.1 H Nucleated Red Blood Cells # Toxic Granulation 2+ Platelet Estimate NORMAL Giant Platelets 27 H Poikilocytosis 1+ Anisocytosis 1+ Target Cells 1+ Sodium Level 153 H Potassium Level 3.8 Chloride Level 120 H Carbon Dioxide Level 22 Anion Gap 11 Blood Urea Nitrogen 37 #H Creatinine 1.08 Est Glomerular Filtrat Rate mL/min > 60 Glucose Level 85 # Calcium Level 8.2 L Phosphorus Level 2.6 Total Bilirubin 0.1 L Direct Bilirubin 0.00 Indirect Bilirubin 0.1 Aspartate Amino Transf (AST/SGOT) 87 H Alanine Aminotransferase (ALT/SGPT) 42 Alkaline Phosphatase 89 Total Protein 5.7 L Albumin 2.8 L Globulin 2.90 Albumin/Globulin Ratio 0.96 Lab Scanned Report REFERENCE LAB Medications Medication Current Medications IV Flush (NS 3 ml) 3 ml PER PROTOCOL IV ; Start 12/19/18 at 00:30 Acetaminophen (Tylenol Tab) 650 mg Q6H PRN PO .PAIN 1-3 OR TEMP Last administered on 12/19/18at 20:21; Admin Dose 650 MG; Start 12/19/18 at 00:30 Docusate Sodium (Colace) 100 mg Q12H PRN PO .CONSTIPATION Last administered on 12/20/18at 12:53; Admin Dose 100 MG; Start 12/19/18 at 00:30 Bisacodyl (Dulcolax) 5 mg DAILY PRN PO .CONSTIPATION; Start 12/19/18 at 00:30 Ondansetron HCl (Zofran Inj) 4 mg Q4 PRN IV NAUSEA/VOMITING; Start 12/19/18 at 02:00 Nicotine (Nicoderm 14 Mg/ 24hr) 1 patch DAILY TRANSDERM Last administered on 12/23/18 08:43; Admin Dose 1 PATCH; Start 12/19/18 at 09:00 Lorazepam (Ativan) 1 mg Q4 PRN IV withdrawal symptoms Last administered on 12/23/18 04:41; Admin Dose 1 MG; Start 12/19/18 at 05:30 Hyoscyamine (Levsin) 0.125 mg Q6 PO Last administered on 12/20/18 18:28; Admin Dose 0.125 MG; Start 12/19/18 at 12:00 Polyethylene Glycol (Miralax) 17 gm BID PO Last administered on 12/20/18 20:23; Admin Dose 17 GM; Start 12/20/18 at 21:00 Al Hydrox/Mg Hydrox/Simethicone (Mag-Al Plus) 30 ml Q6H PRN PO GASTROINTESTINAL UPSET Last administered on 12/20/18 18:28; Admin Dose 30 ML; Start 12/20/18 at 18:30 Ketorolac Tromethamine (Toradol) 15 mg Q6H PRN IV PAIN Last administered on 12/22/18 00:16; Admin Dose 15 MG; Start 12/21/18 at 14:30; Stop 12/24/18 at 14:29 Haloperidol (Haldol) 4 mg Q8H PRN IV AGITATION Last administered on 12/22/18 17:40; Admin Dose 4 MG; Start 12/22/18 at 17:30 Potassium Chloride/Dextrose/ Sod Cl 1,000 ml @ 125 mls/hr Q8H IV Last administ ered on 12/23/18 12:22; Admin Dose 125 MLS/HR; Start 12/23/18 at 11:30 ZULY DELGADO Dec 23, 2018 15:08
--- NOTE | 2018-12-23 15:37 | PN ---
Date/Time of Note Date/Time of Note DATE: 12/23/18 TIME: 15:32 Assessment/Plan VTE Prophylaxis Risk score (from Ns)>0 risk: 6 SCD applied (from Ns): Yes Pharmacological prophylaxis: other (scds) Lines/Catheters IV [facility]ter Type (from [email or web address] Peripheral IV Urinary Cath still in place: No Assessment/Plan Hospital Course Assessment: Biliary and pancreatic duct dilatation MRCP 12/19/18 Mildly dilated common bile duct. No evidence of biliary duct obstruction. Gallbladder contains multiple stones without wall thickening. Scattered T2 bright lesions in the liver may represent cysts or hemangiomas. 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 Last colonoscopy 4 years ago Toxicology screen positive for opioid/cocaine/cannabinoids Normocytic anemia Plan: Clear liquid diet today Drop in hgb with dark stool Plan for EGD tomorrow at bedside reviewed risks/benefits of sedation and procedure she verbalized understanding and is agreeable to procedure Start PPI BID Reglan 10 mg IV q6hr x48- avoid Haldol Patient seen in collaboration with Subjective: Course reviewed with nursing staff Patient interviewed and examined All labs, imaging and other results reviewed Pt with dark stool and a drop in HGB Abd is softer today- multiple bms today Pt with confusion PHYSICAL EXAMINATION: GENERAL: Alert & oriented x 3 with periods of confusion SKIN: No lesions HEAD: Normocephalic, atraumatic, no tenderness. EYES: Pupils equal reactive to light, no discharge. EARS/NOSE AND THROAT: Ears normal, nose normal, oropharynx normal, oral membranes well hydrated without lesions. NECK: Supple, no masses. CHEST: Inspection within normal limits. CARDIOVASCULAR: Heart: Regular rate and rhythm, RESPIRATORY: Lungs clear to auscultation. GASTROINTESTINAL AND LIVER: Abdomen: Soft, no tenderness, less distention noted, no hernias, no guarding, no rebound tenderness, normoactive bowel sounds. Rectal: Deferred. GENITOURINARY: Male genitalia within normal limits. EXTREMITIES: No cyanosis, clubbing or edema. Left foot partially amputated. Result Diagram: 12/23/18 0540 12/23/18 0540 Results 24hrs Laboratory Tests Test 12/23/18 05:40 12/23/18 09:40 White Blood Count 8.1 Red Blood Count 3.36 #L Hemoglobin 10.0 #L Hematocrit 30.6 #L Mean Corpuscular Volume 91.1 Mean Corpuscular Hemoglobin 29.8 Mean Corpuscular Hemoglobin Concent 32.7 Red Cell Distribution Width 15.1 H Platelet Count 323 Mean Platelet Volume 10.4 Immature Granulocytes % 1.400 H Neutrophils % Segmented Neutrophils % (Manual) 29 L Band Neutrophils % (Manual) 47 H Lymphocytes % Lymphocytes % (Manual) 4 L Reactive Lymphocytes % (Manual) 3 H Monocytes % Monocytes % (Manual) 8 Eosinophils % Basophils % Metamyelocytes % (manual) 4 H Myelocytes % (Manual) 3 H Promyelocytes % (Manual) 2 H Nucleated Red Blood Cells % 5 H Immature Granulocytes # 0.110 H Neutrophils # Neutrophils # (Manual) 2.7 Band Neutrophils # 3.8 H Lymphocytes (Manual) 0.3 L Lymphocytes # Reactive Lymphocytes # 0.2 H Monocytes # Monocytes # (Manual) 0.6 Eosinophils # Basophils # Metamyelocytes # 0.3 H Myelocytes # 0.2 H Promyelocytes # 0.1 H Nucleated Red Blood Cells # Toxic Granulation 2+ Platelet Estimate NORMAL Giant Platelets 27 H Poikilocytosis 1+ Anisocytosis 1+ Target Cells 1+ Sodium Level 153 H Potassium Level 3.8 Chloride Level 120 H Carbon Dioxide Level 22 Anion Gap 11 Blood Urea Nitrogen 37 #H Creatinine 1.08 Est Glomerular Filtrat Rate mL/min > 60 Glucose Level 85 # Calcium Level 8.2 L Phosphorus Level 2.6 Total Bilirubin 0.1 L Direct Bilirubin 0.00 Indirect Bilirubin 0.1 Aspartate Amino Transf (AST/SGOT) 87 H Alanine Aminotransferase (ALT/SGPT) 42 Alkaline Phosphatase 89 Total Protein 5.7 L Albumin 2.8 L Globulin 2.90 Albumin/Globulin Ratio 0.96 Lab Scanned Report REFERENCE LAB Exam/Review of Systems Exam Vitals Vital Signs Date Temp Pulse Resp B/P (MAP) Pulse Ox O2 O2 Flow FiO2 Time Delivery Rate 12/23/18 126 12:35 12/23/18 100.0 28 143/69 12:26 (93) 12/23/18 Nasal 5.0 08:45 Cannula 12/23/18 92 08:06 Results Results 24hrs Laboratory Tests Test 12/23/18 05:40 12/23/18 09:40 White Blood Count 8.1 Red Blood Count 3.36 #L Hemoglobin 10.0 #L Hematocrit 30.6 #L Mean Corpuscular Volume 91.1 Mean Corpuscular Hemoglobin 29.8 Mean Corpuscular Hemoglobin Concent 32.7 Red Cell Distribution Width 15.1 H Platelet Count 323 Mean Platelet Volume 10.4 Immature Granulocytes % 1.400 H Neutrophils % Segmented Neutrophils % (Manual) 29 L Band Neutrophils % (Manual) 47 H Lymphocytes % Lymphocytes % (Manual) 4 L Reactive Lymphocytes % (Manual) 3 H Monocytes % Monocytes % (Manual) 8 Eosinophils % Basophils % Metamyelocytes % (manual) 4 H Myelocytes % (Manual) 3 H Promyelocytes % (Manual) 2 H Nucleated Red Blood Cells % 5 H Immature Granulocytes # 0.110 H Neutrophils # Neutrophils # (Manual) 2.7 Band Neutrophils # 3.8 H Lymphocytes (Manual) 0.3 L Lymphocytes # Reactive Lymphocytes # 0.2 H Monocytes # Monocytes # (Manual) 0.6 Eosinophils # Basophils # Metamyelocytes # 0.3 H Myelocytes # 0.2 H Promyelocytes # 0.1 H Nucleated Red Blood Cells # Toxic Granulation 2+ Platelet Estimate NORMAL Giant Platelets 27 H Poikilocytosis 1+ Anisocytosis 1+ Target Cells 1+ Sodium Level 153 H Potassium Level 3.8 Chloride Level 120 H Carbon Dioxide Level 22 Anion Gap 11 Blood Urea Nitrogen 37 #H Creatinine 1.08 Est Glomerular Filtrat Rate mL/min > 60 Glucose Level 85 # Calcium Level 8.2 L Phosphorus Level 2.6 Total Bilirubin 0.1 L Direct Bilirubin 0.00 Indirect Bilirubin 0.1 Aspartate Amino Transf (AST/SGOT) 87 H Alanine Aminotransferase (ALT/SGPT) 42 Alkaline Phosphatase 89 Total Protein 5.7 L Albumin 2.8 L Globulin 2.90 Albumin/Globulin Ratio 0.96 Lab Scanned Report REFERENCE LAB Medications Medication Current Medications IV Flush (NS 3 ml) 3 ml PER PROTOCOL IV ; Start 12/19/18 at 00:30 Acetaminophen (Tylenol Tab) 650 mg Q6H PRN PO .PAIN 1-3 OR TEMP Last administered on 12/19/18at 20:21; Admin Dose 650 MG; Start 12/19/18 at 00:30 Docusate Sodium (Colace) 100 mg Q12H PRN PO .CONSTIPATION Last administered on 12/20/18at 12:53; Admin Dose 100 MG; Start 12/19/18 at 00:30 Bisacodyl (Dulcolax) 5 mg DAILY PRN PO .CONSTIPATION; Start 12/19/18 at 00:30 Ondansetron HCl (Zofran Inj) 4 mg Q4 PRN IV NAUSEA/VOMITING; Start 12/19/18 at 02:00 Nicotine (Nicoderm 14 Mg/ 24hr) 1 patch DAILY TRANSDERM Last administered on 12/23/18 08:43; Admin Dose 1 PATCH; Start 12/19/18 at 09:00 Lorazepam (Ativan) 1 mg Q4 PRN IV withdrawal symptoms Last administered on 12/23/18 04:41; Admin Dose 1 MG; Start 12/19/18 at 05:30 Hyoscyamine (Levsin) 0.125 mg Q6 PO Last administered on 12/20/18 18:28; Admin Dose 0.125 MG; Start 12/19/18 at 12:00 Polyethylene Glycol (Miralax) 17 gm BID PO Last administered on 12/20/18 20:23; Admin Dose 17 GM; Start 12/20/18 at 21:00 Al Hydrox/Mg Hydrox/Simethicone (Mag-Al Plus) 30 ml Q6H PRN PO GASTROINTESTINAL UPSET Last administered on 12/20/18 18:28; Admin Dose 30 ML; Start 12/20/18 at 18:30 Ketorolac Tromethamine (Toradol) 15 mg Q6H PRN IV PAIN Last administered on 12/22/18 00:16; Admin Dose 15 MG; Start 12/21/18 at 14:30; Stop 12/24/18 at 14:29 Haloperidol (Haldol) 4 mg Q8H PRN IV AGITATION Last administered on 12/22/18 17:40; Admin Dose 4 MG; Start 12/22/18 at 17:30 Potassium Chloride/Dextrose/ Sod Cl 1,000 ml @ 125 mls/hr Q8H IV Last admin istered on 12/23/18 12:22; Admin Dose 125 MLS/HR; Start 12/23/18 at 11:30 KRISTINA RED Dec 23, 2018 15:37
[2018-12-23] MEDS: PANTOPRAZOLE 40 MG INJ IV SCH (17:26)
[2018-12-23] MEDS: METOCLOPRAMIDE 10 MG INJ IV SCH (17:26)
--- NOTE | 2018-12-23 17:55 | CONS ---
Assessment/Plan Assessment/Plan Hospital Course 68 yo M with multiple comorbidities who initially presented for evaluation of GI symptoms. It was noted that the pt became altered, for which neurology is consulted. TIMMY + NA 153 Most clinically consistent with an acute toxic-metabolic encephalopathy.. A focal MANAGER DRUG SAFETY process is unlikely. UDS + cocaine, marijuana, opiates P: Ok to defer neuroimaging for now Cont medical management per primary Reorient as necessary Limit daytime sedating medications where possible PT/OT/ST as necessary Will follow clinically...to recommend neurologic studies, as necessary Consultation Date/Type/Reason Admit Date/Time Type of Consult Neurology Reason for Consultation ams Requesting Provider: ZULY DELGADO Date/Time of Note DATE: 12/23/18 TIME: 17:46 Hx of Present Illness The pt is currently unable to contribute a hx. It is elsewhere noted: Hx of Present Illness Chief complaint: Abdominal pain times 1 day This is a 68-year-old male complaining of diffuse lower abdominal pain he describes as cramping sensation with no nausea vomiting but has had diarrhea. Says diarrhea is nonbloody. He says that the cramps get a little bit better after he has diarrhea. He denies any chest pain or shortness of breath or any fevers. He does report that he has been expensing some dysuria. He has a history of prostate CA for which he has received radiation treatments. negative unless noted otherwise in HPI Exam/Review of Systems Exam Vitals Vital Signs Date Temp Pulse Resp B/P (MAP) Pulse Ox O2 O2 Flow FiO2 Time Delivery Rate 12/23/18 119 16:45 12/23/18 98.5 28 160/64 98 Nasal 16:12 (96) Cannula 12/23/18 5.0 08:45 Exam PE: Gen Appearance: No Apparent Distress HEENT: Normocephalic Cardiovascular: Regular rate Lungs: Clear bilaterally Abdomen: Soft Extremities: Dry NE: The patient was alert, though somewhat disoriented. Language was normal. Recall impaired. Fund of knowledge was limited. Pupils were equal and reactive to light. There was no afferent pupillary defect. Visual goodson were normal. Funduscopic examination was limited. Extra-ocular movements were full. Ptosis was absent. There was no nystagmus. Facial sensation was normal. Face was symmetric with normal strength. Hearing was intact. Palate movements were normal. Neck strength was normal. There was normal tongue bulk and speed of movement. Tone was normal. Muscle bulk was normal. I did not see fasciculations. Arms and legs were symmetric. Vibration sensation was normal. Temperature and pinprick sensation was normal. Rapid alternating movements were normal. There was no dysmetria. There was no intention tremor. Gait was deferred due to bedrest. Arm and leg reflexes were symmetric. Leon's sign was absent. Plantar respon ses were flexor. Results Result Diagram: 12/23/18 0540 12/23/18 0540 Results 24hrs Laboratory Tests Test 12/23/18 05:40 12/23/18 09:40 White Blood Count 8.1 Red Blood Count 3.36 #L Hemoglobin 10.0 #L Hematocrit 30.6 #L Mean Corpuscular Volume 91.1 Mean Corpuscular Hemoglobin 29.8 Mean Corpuscular Hemoglobin Concent 32.7 Red Cell Distribution Width 15.1 H Platelet Count 323 Mean Platelet Volume 10.4 Immature Granulocytes % 1.400 H Neutrophils % Segmented Neutrophils % (Manual) 29 L Band Neutrophils % (Manual) 47 H Lymphocytes % Lymphocytes % (Manual) 4 L Reactive Lymphocytes % (Manual) 3 H Monocytes % Monocytes % (Manual) 8 Eosinophils % Basophils % Metamyelocytes % (manual) 4 H Myelocytes % (Manual) 3 H Promyelocytes % (Manual) 2 H Nucleated Red Blood Cells % 5 H Immature Granulocytes # 0.110 H Neutrophils # Neutrophils # (Manual) 2.7 Band Neutrophils # 3.8 H Lymphocytes (Manual) 0.3 L Lymphocytes # Reactive Lymphocytes # 0.2 H Monocytes # Monocytes # (Manual) 0.6 Eosinophils # Basophils # Metamyelocytes # 0.3 H Myelocytes # 0.2 H Promyelocytes # 0.1 H Nucleated Red Blood Cells # Toxic Granulation 2+ Platelet Estimate NORMAL Giant Platelets 27 H Poikilocytosis 1+ Anisocytosis 1+ Target Cells 1+ Sodium Level 153 H Potassium Level 3.8 Chloride Level 120 H Carbon Dioxide Level 22 Anion Gap 11 Blood Urea Nitrogen 37 #H Creatinine 1.08 Est Glomerular Filtrat Rate mL/min > 60 Glucose Level 85 # Calcium Level 8.2 L Phosphorus Level 2.6 Total Bilirubin 0.1 L Direct Bilirubin 0.00 Indirect Bilirubin 0.1 Aspartate Amino Transf (AST/SGOT) 87 H Alanine Aminotransferase (ALT/SGPT) 42 Alkaline Phosphatase 89 Total Protein 5.7 L Albumin 2.8 L Globulin 2.90 Albumin/Globulin Ratio 0.96 Lab Scanned Report REFERENCE LAB Imaging Imaging CT A/P reviewed: IMPRESSION: 1. Cholelithiasis without CT evidence of acute cholecystitis. 2. Biliary ductal dilatation and pancreatic ductal dilatation suggestive of possible obstructive or partially obstructive process in the region of the patella. Further evaluation is suggested. 3. Moderately severe diffuse atherosclerosis including previously treated coronary artery disease. 4. Prominent lumbar spine disease with probable significant compression of the right L5 nerve root and both L4 nerve roots. . 5. Diffuse colonic diverticulosis without current CT evidence of diverticulitis. Abdomen MRI: IMPRESSION: Mildly dilated common bile duct. No evidence of biliary duct obstruction. Gallbladder contains multiple stones without wall thickening. Scattered T2 bright lesions in the liver may represent cysts or hemangiomas. CXR reviewed: IMPRESSION: 1. Low lung volumes and atelectasis at the lung bases. 2. Contrast in the gastrointestinal tract from prior small bowel follow- through. 3. Otherwise unremarkable chest radiograph. Medications Medication Current Medications IV Flush (NS 3 ml) 3 ml PER PROTOCOL IV ; Start 12/19/18 at 00:30 Acetaminophen (Tylenol Tab) 650 mg Q6H PRN PO .PAIN 1-3 OR TEMP Last administered on 12/19/18 20:21; Admin Dose 650 MG; Start 12/19/18 at 00:30 Docusate Sodium (Colace) 100 mg Q12H PRN PO .CONSTIPATION Last administered on 12/20/18 12:53; Admin Dose 100 MG; Start 12/19/18 at 00:30 Bisacodyl (Dulcolax) 5 mg DAILY PRN PO .CONSTIPATION; Start 12/19/18 at 00:30 Ondansetron HCl (Zofran Inj) 4 mg Q4 PRN IV NAUSEA/VOMITING; Start 12/19/18 at 02:00 Nicotine (Nicoderm 14 Mg/ 24hr) 1 patch DAILY TRANSDERM Last administered on 12/23/18at 08:43; Admin Dose 1 PATCH; Start 12/19/18 at 09:00 Lorazepam (Ativan) 1 mg Q4 PRN IV withdrawal symptoms Last administered on 12/23/18 04:41; Admin Dose 1 MG; Start 12/19/18 at 05:30 Hyoscyamine (Levsin) 0.125 mg Q6 PO Last administered on 12/20/18 18:28; Admin Dose 0.125 MG; Start 12/19/18 at 12:00 Polyethylene Glycol (Miralax) 17 gm BID PO Last administered on 12/20/18 20:23; Admin Dose 17 GM; Start 12/20/18 at 21:00 Al Hydrox/Mg Hydrox/Simethicone (Mag-Al Plus) 30 ml Q6H PRN PO GASTROINTESTINAL UPSET Last administered on 12/20/18 18:28; Admin Dose 30 ML; Start 12/20/18 at 18:30 Ketorolac Tromethamine (Toradol) 15 mg Q6H PRN IV PAIN Last administered on 00:16; Admin Dose 15 MG; Start 12/21/18 at 14:30; Stop 12/24/18 at 14:29 Haloperidol (Haldol) 4 mg Q8H PRN IV AGITATION Last administered on 12/22/18 17:40; Admin Dose 4 MG; Start 12/22/18 at 17:30 Potassium Chloride/Dextrose/ Sod Cl 1,000 ml @ 125 mls/hr Q8H IV Last administered on 12/23/18 12:22; Admin Dose 125 MLS/HR; Start 12/23/18 at 11:30 Pantoprazole (Protonix Iv) 40 mg BID@06,18 IV Last administered on 12/23/18 17:26; Admin Dose 40 MG; Start 12/23/18 at 18:00 Metoclopramide HCl (Reglan) 10 mg Q6 IV Last administered on 12/23/18 17:26; Admin Dose 10 MG; Start 12/23/18 at 18:00; Stop 12/25/18 at 18:00 Past Medical History reviewed Medications Current Medications IV Flush (NS 3 ml) 3 ml PER PROTOCOL IV ; Start 12/19/18 at 00:30 Acetaminophen (Tylenol Tab) 650 mg Q6H PRN PO .PAIN 1-3 OR TEMP Last admin istered on 12/19/18 20:21; Admin Dose 650 MG; Start 12/19/18 at 00:30 Docusate Sodium (Colace) 100 mg Q12H PRN PO .CONSTIPATION Last administered on 12/20/18 12:53; Admin Dose 100 MG; Start 12/19/18 at 00:30 Bisacodyl (Dulcolax) 5 mg DAILY PRN PO .CONSTIPATION; Start 12/19/18 at 00:30 Ondansetron HCl (Zofran Inj) 4 mg Q4 PRN IV NAUSEA/VOMITING; Start 12/19/18 at 02:00 Nicotine (Nicoderm 14 Mg/ 24hr) 1 patch DAILY TRANSDERM Last administered on 12/23/18 08:43; Admin Dose 1 PATCH; Start 12/19/18 at 09:00 Lorazepam (Ativan) 1 mg Q4 PRN IV withdrawal symptoms Last administered on 12/23/18 04:41; Admin Dose 1 MG; Start 12/19/18 at 05:30 Hyoscyamine (Levsin) 0.125 mg Q6 PO Last administered on 12/20/18 18:28; Admin Dose 0.125 MG; Start 12/19/18 at 12:00 Polyethylene Glycol (Miralax) 17 gm BID PO Last administered on 12/20/18 20:23; Admin Dose 17 GM; Start 12/20/18 at 21:00 Al Hydrox/Mg Hydrox/Simethicone (Mag-Al Plus) 30 ml Q6H PRN PO GASTROINTESTINAL UPSET Last administered on 12/20/18 18:28; Admin Dose 30 ML; Start 12/20/18 at 18:30 Ketorolac Tromethamine (Toradol) 15 mg Q6H PRN IV PAIN Last administered on 12/22/18 00:16; Admin Dose 15 MG; Start 12/21/18 at 14:30; Stop 12/24/18 at 14:29 Haloperidol (Haldol) 4 mg Q8H PRN IV AGITATION Last administered on 12/22/18 1 7:40; Admin Dose 4 MG; Start 12/22/18 at 17:30 Potassium Chloride/Dextrose/ Sod Cl 1,000 ml @ 125 mls/hr Q8H IV Last administered on 12/23/18 12:22; Admin Dose 125 MLS/HR; Start 12/23/18 at 11:30 Pantoprazole (Protonix Iv) 40 mg BID@06,18 IV Last administered on 12/23/18 17:26; Admin Dose 40 MG; Start 12/23/18 at 18:00 Metoclopramide HCl (Reglan) 10 mg Q6 IV Last administered on 12/23/18at 17:26; Admin Dose 10 MG; Start 12/23/18 at 18:00; Stop 12/25/18 at 18:00 Allergies: Coded Allergies: No Known Allergy (Unverified , 12/18/18) Past Surgical History reviewed Social History reviewed Alcohol Use: occasionally (6 beers on the weekend) Smoking Status: Current every day smoker Drug Use: none MAINOR HICKEY NP Dec 23, 2018 17:55 RYLEE MACHUCA Dec 23, 2018 22:11
[2018-12-24] VITALS (58 sets, daily range): BP systolic 72–142; BP diastolic 19–73; PULSE 106–130; RESP 20–38
[2018-12-24] MEDS: D5W-0.45 NACL + KCL 40 MEQ 1,000 ML IV SCH (03:45)
[2018-12-24] MEDS ORDERED: NALOXONE (0.4 MG/ML) INJ IV ONE (05:30)
[2018-12-24] MEDS: PROPOFOL 100 ML IV SCH ×2 (05:57→14:39)
[2018-12-24] MEDS: HYOSCYAMINE 0.125 MG TAB PO SCH ×4 (06:00→18:00)
--- NOTE | 2018-12-24 06:13 | EN ---
Date/Time of Note Date/Time of Note DATE: 12/24/18 TIME: 06:10 ER Progress Note I was asked by the hospitalist who was at the bedside to intubate the patient. He was sedated with etomidate 50 mg IV and paralyzed with rocuronium 80 mg IV Endotracheal Intubation by me: Pre assessment performed. See preceding note for details. Pre-oxygenation performed with 100% oxygen RSI: Performed w/o complication or hypoxic events. Medications as ordered. Blade: MAC ET Tube: 7.5cm Depth: 23 cm at the lip Intubation confirmed by colorimetric CO2, equal breath sounds, quiet over the stomach. I now transfer the care back to the hospitalist Dr Campos who was at the bedside after intubation ANTON OBRIEN MD Dec 24, 2018 06:13
[2018-12-24] MEDS: PANTOPRAZOLE 40 MG INJ IV SCH ×2 (06:59→18:03)
[2018-12-24] MEDS: METOCLOPRAMIDE 10 MG INJ IV SCH ×4 (06:59→18:03)
[2018-12-24] MEDS: POLYETHYLENE GLYCOL 17 GM PACKET PO SCH ×2 (09:00→20:04)
--- NOTE | 2018-12-24 09:21 | PN ---
Date/Time of Note Date/Time of Note DATE: 12/24/18 TIME: 09:02 Assessment/Plan Lines/Catheters IV Catheter Type (from [facility]): Peripheral IV Kohler in Place (from [facility]): No Assessment/Plan Chief Complaint/Hosp Course 1. Respiratory failure: Currently intubated; chest x-ray: Interstitial edema with small bilateral pleural effusions -Pulm consult -Pulmonary toilet -Fluid management 2. Abdominal pain: 2/2 liver versus illicit drug use versus constipation versus other; SBFT noted without obstruction; abdominal pain resolved> abdominal distention noted early this morning; + bowel function -N.p.o. -NGT to low intermittent wall suction 3. Dilated biliary system: MRCP noted -Per GI -Medical optimization 4. Prostate cancer history -Per medical team 5. Atherosclerosis with CAD -Medical management 6. 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 Diverticulosis without diverticulitis: -Lifestyle optimization 8. Normocytic normochromic anemia: Dark stools -Monitor and transfuse as needed -Per GI> gib w/u 9. Drug screen positive for cocaine, opioids and cannabinoids -Highly encourage cessation of illicit drug use Thank you. Patient seen and examined in collaboration with Dr. Franck Sherman. 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 Episode of respiratory distress, now intubated. NG placed with large dark output. No fevers, labored breathing, congested cough, arrhythmias, vomiting, diarrhea, hematuria. Exam/Review of Systems Vital Signs Vitals Vital Signs Date Temp Pulse Resp B/P (MAP) Pulse Ox O2 O2 Flow FiO2 Time Delivery Rate 12/24/18 117 08:00 12/24/18 20 115/67 88 07:00 (83) 12/24/18 80 06:02 12/24/18 100.0 06:00 12/24/18 Non 15.0 05:30 Rebreathe r Intake and Output 12/23/18 12/23/18 12/24/18 1515:00 23:00 07:00 IntakeIntake Total 500 ml 700 ml 9.195 ml OutputOutput Total 200 ml BalanceBalance 500 ml 700 ml -190.805 ml Exam Free Text/Dictation Constitutional: alert, oriented, sedated Psych: nl mood/affect Head: normocephalic, atraumatic Eyes: nl conjunctiva, EOMI, nl lids, nl sclera ENMT: nl external ears & nose, nl lips & teeth, mucosa pink and moist, NG tube Neck: supple, non-tender; No jvd Respiratory: normal air movement, labored breathing; No congested cough Cardiovascular: regular rhythm, nl pulses; ST No edema Gastrointestinal: distended, nontender, no rebound, no guarding Musculoskeletal: nl extremities to inspection, nl gait and stance Extremities: normal pulses; No edema Neurological: nl mental status, nl speech, nl strength Skin: No rash or lesions Lymph: nl lymph nodes Results Result Diagram: 12/24/18 0616 12/24/18 0610 SHANTEL NELSON NP Dec 24, 2018 09:16
[2018-12-24] MEDS ORDERED: SOD CHLORIDE 0.45% 1,000 ML IV SCH (10:30)
[2018-12-24] MEDS ORDERED: LACTATED RINGER'S 1,000 ML IV ONE (10:30)
[2018-12-24] MEDS ORDERED: LIDOCAINE 1% (MPF) 5 ML VIAL SC ONE (10:30)
--- NOTE | 2018-12-24 11:39 | CONS ---
Assessment/Plan Assessment/Plan Hospital Course 68 yo M with multiple comorbidities who initially presented for evaluation of GI symptoms. It was noted that the pt became altered, for which neurology is consulted. TIMMY + NA 153 12/24: Transferred to ICU for respiratory distress. S/p intubation. Most clinically consistent with an acute and multifactorial toxic-metabolic encephalopathy.. A focal HOSPITAL STAFF PHARMACIST process is unlikely. UDS + cocaine, marijuana, opiates P: Ok to defer neuroimaging for now Cont medical management per primary Wean sedation when able Will follow clinically...to recommend neurologic studies, as necessary Consultation Date/Type/Reason Admit Date/Time Dec 21, 2018 at 08:36 Type of Consult Neurology Reason for Consultation ams Requesting Provider: ZULY DELGADO Date/Time of Note DATE: 12/24/18 TIME: 11:37 24 HR Interval Summary Free Text/Dictation Transferred to ICU overnight d/t respiratory distress. Now intubated on propofol gtt. Subjective hx not possible: pt non-verbal, pt critical Exam Vital Signs Vitals Vital Signs Date Temp Pulse Resp B/P (MAP) Pulse Ox O2 O2 Flow FiO2 Time Delivery Rate 12/24/18 118 27 99/52 (68) 96 09:00 12/24/18 100.8 Mechanica 08:00 l Ventilato r 12/24/18 80 06:02 12/24/18 15.0 05:30 Intake and Output 12/23/18 12/23/18 12/24/18 1515:00 23:00 07:00 IntakeIntake Total 500 ml 700 ml 9.195 ml OutputOutput Total 200 ml BalanceBalance 500 ml 700 ml -190.805 ml Exam PE: Gen Appearance: No Apparent Distress HEENT: Intubated; NGT with dark brown output Cardiovascular: Regular rate Abdomen: Soft Extremities: Dry NE: The patient was sedated and nonverbal. Cranial nerve examination was limited by mental status. Pupils were equal and reactive to light. There was no afferent pupillary defect. Funduscopic examination was limited. Face was grossly symmetric, w/ present corneal and cough reflexes. Tone was normal. Muscle bulk was normal. I did not see fasciculations. The lg ent withdrew to noxious stimulation x 4. Coordination and gait testing was limited by mental status. Arm and leg reflexes were within normal limits and symmetric. Leon's sign was absent. Plantar responses were flexor. EDELMIRALEXISA EYEGLASS INSPECTOR Dec 24, 2018 11:39
--- NOTE | 2018-12-24 12:25 | PN ---
Date/Time of Note Date/Time of Note DATE: 12/24/18 TIME: 12:12 Assessment/Plan VTE Prophylaxis Risk score (from Ns)>0 risk: 4 SCD applied (from [facility] [place] Yes Pharmacological prophylaxis: NA/contraindicated Pharm contraindication: bleeding Lines/Catheters IV Catheter Type (from [facility]): Peripheral IV Urinary Cath still in place: No Assessment/Plan Hospital Course Acute respiratory distress secondary to encephalopathy ABG was consistent with hypercapnic and hypoxemic respiratory failure Continue vent support Pulmonology consultation obtained Chest x-ray shows interstitial edema with small bilateral pleural effusions but no significant interval change No indication for diuresis at this point Acute encephalopathy secondary to delirium and hypernatremia D5W Neurology consultation appreciated Severe hypernatremia Patient's sodium still elevated despite IV fluid resuscitation Change fluids to D5W Nephrology consultation obtained Hyperglycemia secondary to dextrose and fluid as well as stress Patient has no history of diabetes Schedule Lantus and sliding scale SIRS likely reactive No septic source identified, UA has been negative, stool cultures are negative, chest x-ray with no evidence of pneumonia, abdominal imaging is negative for infectious source Blood cultures and stool cultures are negative at this point Due to critical status and persistent fevers have started broad-spectrum antibiotics with vancomycin and Zosyn Melena Patient did have reported melena yesterday GI plan was for endoscopy patient is currently critical Biliary dilation MRCP shows mildly dilated common bile duct, no evidence of biliary duct obstruction. Gallbladder contains multiple stones without wall thickening. Scattered T2 bright lesions in the liver may represent cysts or hemangiomas No indication for ERCP at this time, cholecystectomy not indicated at this time Abdomen pain likely secondary to ileus with diarrhea KUB from today shows improved ileus Potassium was replaced but is not elevated and have discontinued potassium replacement Patient was taking opioids prior to his encephalopathy and had been discontinued several days ago Surgery following Stool cultures are negative Small bowel follow-through showed dilated mid small bowel with no evidence of o bstruction History of prostate cancer No acute issues History coronary disease Continue home meds as able 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 Prophylaxis: SCDs DC planning: Patient is currently critical Result Diagram: 12/24/18 0616 12/24/18 0610 Results 24hrs Laboratory Tests Test 12/24/18 05:18 12/24/18 06:10 12/24/18 06:16 12/24/18 06:30 Bedside Glucose 226 H Sodium Level 157 H Potassium Level 5.5 H Chloride Level 125 H Carbon Dioxide 25 Level Anion Gap 7 Blood Urea 24 #H Nitrogen Creatinine 1.23 Est Glomerular 59 L Filtrat Rate mL/min Glucose Level 226 #H Calcium Level 8.3 L White Blood 10.0 # Count Red Blood Count 3.68 L Hemoglobin 10.9 L Hematocrit 34.4 L Mean Corpuscular 93.5 Volume Mean Corpuscular 29.6 Hemoglobin Mean Corpuscular 31.7 L Hemoglobin Lawanda nt Red Cell 16.4 H Distribution Width Platelet Count 335 Mean Platelet 10.1 Volume Immature 0.600 H Granulocytes % Neutrophils % Segmented 28 L Neutrophils % (Manual) Band Neutrophils 55 H % (Manual) Lymphocytes % Lymphocytes % 3 L (Manual) Monocytes % Monocytes % 1 (Manual) Eosinophils % Basophils % Metamyelocytes % 10 H (manual) Myelocytes % 3 H (Manual) Nucleated Red 5 H Blood Cells % Immature 0.060 H Granulocytes # Neutrophils # Neutrophils # 3.4 (Manual) Band Neutrophils 5.5 H # Lymphocytes 0.3 L (Manual) Lymphocytes # Monocytes # Monocytes # 0.1 L (Manual) Eosinophils # Basophils # Metamyelocytes # 1.0 H Myelocytes # 0.3 H Nucleated Red Blood Cells # Toxic 3+ Granulation Platelet NORMAL Estimate Polychromasia 2+ Poikilocytosis 1+ Blood Gas Blood arterial Specimen Source Arterial Blood 12/24/2018 6:30: Date Drawn 41 AM Arterial Blood 7.262 *L pH (Temp corrected) Arterial Blood 53.7 H pCO2 (Temp correct) Arterial Blood 63.2 L pO2 (Temp corrected) Arterial Blood 23.7 HCO3 Arterial Blood -3.7 L Base Excess Arterial Blood 90.1 L Oxygen Saturatio n [place] Test ACCEPTAB Arterial Blood Left Radial Gas Puncture Site Arterial 0.5 Blood Carboxyhem oglobin Arterial Blood 0.5 Methemoglobin Blood Gas A-a O2 450.8 H Differential Oxyhemoglobin 89.2 L Percent Blood Gas 37.0 Temperature Blood Gas 20.0 Respiration Rate Blood Gas Actual 20 Respiration Rate Blood Gas VENT - AC Modality FiO2 80.0 Blood Gas Tidal 500.0 Volume Blood Gas Low 5.0 PEEP Setting Blood Gas ABALLOUIAN RN Critical Value Read Back Blood Gas MA Notified Whom Blood Gas 12/24/2018 6:44: Notified Time 35 AM Test 12/24/18 08:58 12/24/18 10:49 12/24/18 11:18 Bedside Glucose 178 Lactic Acid 1.8 Level Lab Scanned REFERENCE LAB Report Subjective 24 Hr Interval Summary Subjective hx not possible: pt non-verbal, pt critical status Exam/Review of Systems Exam Vitals Vital Signs Date Temp Pulse Resp B/P (MAP) Pulse Ox O2 O2 Flow FiO2 Time Delivery Rate 12/24/18 121 32 99/54 (69) 93 Mechanica 11:00 l Ventilato r 12/24/18 90 11:00 12/24/18 100.8 08:00 12/24/18 15.0 05:30 Intake and Output 12/23/18 12/23/18 12/24/18 1515:00 23:00 07:00 IntakeIntake Total 500 ml 700 ml 9.195 ml OutputOutput Total 200 ml BalanceBalance 500 ml 700 ml -190.805 ml Constitutional: non-verbal ENMT: intubated Respiratory: clear to auscultation Cardiovascular: regular rate and rhythm Gastrointestinal: soft; No distended Musculoskeletal: nl extremities to inspection Results Results 24hrs Laboratory Tests Test 12/24/18 05:18 12/24/18 06:10 12/24/18 06:16 12/24/18 06:30 Bedside Glucose 226 H Sodium Level 157 H Potassium Level 5.5 H Chloride Level 125 H Carbon Dioxide 25 Level Anion Gap 7 Blood Urea 24 #H Nitrogen Creatinine 1.23 Est Glomerular 59 L Filtrat Rate mL/min Glucose Level 226 #H Calcium Level 8.3 L White Blood 10.0 # Count Red Blood Count 3.68 L Hemoglobin 10.9 L Hematocrit 34.4 L Mean Corpuscular 93.5 Volume Mean Corpuscular 29.6 Hemoglobin Mean Corpuscular 31.7 L Hemoglobin Lawanda nt Red Cell 16.4 H Distribution Width Platelet Count 335 Mean Platelet 10.1 Volume Immature 0.600 H Granulocytes % Neutrophils % Segmented 28 L Neutrophils % (Manual) Band Neutrophils 55 H % (Manual) Lymphocytes % Lymphocytes % 3 L (Manual) Monocytes % Monocytes % 1 (Manual) Eosinophils % Basophils % Metamyelocytes % 10 H (manual) Myelocytes % 3 H (Manual) Nucleated Red 5 H Blood Cells % Immature 0.060 H Granulocytes # Neutrophils # Neutrophils # 3.4 (Manual) Band Neutrophils 5.5 H # Lymphocytes 0.3 L (Manual) Lymphocytes # Monocytes # Monocytes # 0.1 L (Manual) Eosinophils # Basophils # Metamyelocytes # 1.0 H Myelocytes # 0.3 H Nucleated Red Blood Cells # Toxic 3+ Granulation Platelet NORMAL Estimate Polychromasia 2+ Poikilocytosis 1+ Blood Gas Blood arterial Specimen Source Arterial Blood 12/24/2018 6:30: Date Drawn 41 AM Arterial Blood 7.262 *L pH (Temp corrected) Arterial Blood 53.7 H pCO2 (Temp correct) Arterial Blood 63.2 L pO2 (Temp corrected) Arterial Blood 23.7 HCO3 Arterial Blood -3.7 L Base Excess Arterial Blood 90.1 L Oxygen Saturatio n [place] Test ACCEPTAB Arterial Blood Left Radial Gas Puncture Site Arterial 0.5 Blood Carboxyhem oglobin Arterial Blood 0.5 Methemoglobin Blood Gas A-a O2 450.8 H Differential Oxyhemoglobin 89.2 L Percent Blood Gas 37.0 Temperature Blood Gas 20.0 Respiration Rate Blood Gas Actual 20 Respiration Rate Blood Gas VENT - AC Modality FiO2 80.0 Blood Gas Tidal 500.0 Volume Blood Gas Low 5.0 PEEP Setting Blood Gas ABALLOUIAN RN Critical Value Read Back Blood Gas MA Notified Whom Blood Gas 12/24/2018 6:44: Notified Time 35 AM Test 12/24/18 08:58 12/24/18 10:49 12/24/18 11:18 Bedside Glucose 178 Lactic Acid 1.8 Level Lab Scanned REFERENCE LAB Report Medications Medication Current Medications IV Flush (NS 3 ml) 3 ml PER PROTOCOL IV ; Start 12/19/18 at 00:30 Acetaminophen (Tylenol Tab) 650 mg Q6H PRN PO .PAIN 1-3 OR TEMP Last administered on 12/19/18at 20:21; Admin Dose 650 MG; Start 12/19/18 at 00:30 Docusate Sodium (Colace) 100 mg Q12H PRN PO .CONSTIPATION Last administered on 12/20/18at 12:53; Admin Dose 100 MG; Start 12/19/18 at 00:30 Bisacodyl (Dulcolax) 5 mg DAILY PRN PO .CONSTIPATION; Start 12/19/18 at 00:30 Ondansetron HCl (Zofran Inj) 4 mg Q4 PRN IV NAUSEA/VOMITING; Start 12/19/18 at 02:00 Nicotine (Nicoderm 14 Mg/ 24hr) 1 patch DAILY TRANSDERM Last administered on 12/23/18 08:43; Admin Dose 1 PATCH; Start 12/19/18 at 09:00 Lorazepam (Ativan) 1 mg Q4 PRN IV withdrawal symptoms Last administered on 12/23/18 04:41; Admin Dose 1 MG; Start 12/19/18 at 05:30 Hyoscyamine (Levsin) 0.125 mg Q6 PO Last administered on 12/20/18 18:28; Admin Dose 0.125 MG; Start 12/19/18 at 12:00 Polyethylene Glycol (Miralax) 17 gm BID PO Last administered on 12/20/18 2 0:23; Admin Dose 17 GM; Start 12/20/18 at 21:00 Al Hydrox/Mg Hydrox/Simethicone (Mag-Al Plus) 30 ml Q6H PRN PO GASTROINTESTINAL UPSET Last administered on 12/20/18 18:28; Admin Dose 30 ML; Start 12/20/18 at 18:30 Ketorolac Tromethamine (Toradol) 15 mg Q6H PRN IV PAIN Last administered on 12/22/18 00:16; Admin Dose 15 MG; Start 12/21/18 at 14:30; Stop 12/24/18 at 14:29 Haloperidol (Haldol) 4 mg Q8H PRN IV AGITATION Last administered on 12/22/18 17:40; Admin Dose 4 MG; Start 12/22/18 at 17:30 Pantoprazole (Protonix Iv) 40 mg BID@06,18 IV Last administered on 12/24/18 06:59; Admin Dose 40 MG; Start 12/23/18 at 18:00 Metoclopramide HCl (Reglan) 10 mg Q6 IV Last administered on 12/24/18 06:59; Admin Dose 10 MG; Start 12/23/18 at 18:00; Stop 12/25/18 at 18:00 Propofol 100 ml @ 1.839 mls/ hr Q12H IV Last administered on 12/24/18 05:57; Admin Dose 1.839 MLS/HR; Start 12/24/18 at 06:00 Fentanyl 100 ml @ 2.5 mls/hr TITRATE IV ; Start 12/24/18 at 12:30 Dextrose 1,000 ml @ 80 mls/hr [id number] IV ; Start 12/24/18 at 12:30 Diagnostic Test (Pha) (Accu-Chek) 1 ea 02 XX ; Start 12/25/18 at 02:00 Insulin Glargine (Lantus) 7 units DAILY@0800 SC ; Start 12/25/18 at 08:00 Insulin Aspart (Novolog Insulin Pen) NOVOLOG *MILD* ALGORI... Q4 SC ; Start 12/24/18 at 13:00 Miscellaneous Information 1 ea NOTE XX ; Start 12/24/18 at 12:30 Glucose (Glutose) 15 gm Q15M PRN PO DECREASED GLUCOSE; Start 12/24/18 at 12:30 Glucose (Glutose) 22.5 gm Q15M PRN PO DECREASED GLUCOSE; Start 12/24/18 at 12 :30 Dextrose (D50w Syringe) 25 ml Q15M PRN IV DECREASED GLUCOSE; Start 12/24/18 at 12:30 Dextrose (D50w Syringe) 50 ml Q15M PRN IV DECREASED GLUCOSE; Start 12/24/18 at 12:30 Glucagon (Glucagen) 1 mg Q15M PRN IM DECREASED GLUCOSE; Start 12/24/18 at 12:30 Glucose (Glutose) 15 gm Q15M PRN BUCCAL DECREASED GLUCOSE; Start 12/24/18 at 12:30 ZULY DELGADO Dec 24, 2018 12:25
[2018-12-24] MEDS ORDERED: VANCOMYCIN IV PER PHARMACY XX SCH (12:30)
[2018-12-24] MEDS ORDERED: GLUCAGON 1 MG INJ IM PRN (12:30)
[2018-12-24] MEDS ORDERED: PIPER-TAZO 3.375 GM IV (PMX) 100 ML IVPB SCH (12:30)
[2018-12-24] MEDS ORDERED: GLUCOSE GEL 15 GRAM TUBE PO PRN ×2 (12:30)
[2018-12-24] MEDS ORDERED: DEXTROSE 5% 1,000 ML IV SCH (12:30)
[2018-12-24] MEDS ORDERED: GLUCOSE GEL 15 GRAM TUBE BUCCAL PRN (12:30)
[2018-12-24] MEDS: INSULIN ASPART [NOVOLOG] 3 ML PEN SC SCH ×3 (12:44→21:00)
--- NOTE | 2018-12-24 13:33 | CONS ---
DATE OF ADMISSION: 12/21/2018 DATE OF CONSULTATION: TYPE OF CONSULTATION: Pulmonary. REASON FOR CONSULTATION: Ventilator management and severe sepsis. HISTORY OF PRESENT ILLNESS: This is an unfortunate 68-year-old gentleman, who presented to [facility] on 12/19[facility]2018 with history of abdominal pain, cramping sensation with associated diarrhea. He was being worked up for severe sepsis, found to have multiple gallbladder stones withou t wall thickening, but no evidence of bile duct obstruction on MRCP. 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 Currently, he continues mechanical ventilation, remains tachypneic and mildly hypote nsive. PAST MEDICAL HISTORY: Prostate carcinoma. MEDICATIONS: Per chart. ALLERGIES: NONE. SOCIAL HISTORY: Nonsmoker, no alcohol, no history of drug use. FAMILY HISTORY: Noncontributory. SYSTEMS REVIEW: A 12-point review of systems was negative other than mentioned above. PHYSICAL EXAMINATION: GENERAL: Elderly-appearing gentleman, intubated on mechanical ventilation. VITAL SIGNS: Temperature is 100.8, pulse is 110, blood pressure 99/54, O2 saturation 99% on FiO2 of 100%. NECK: Supple. No JVD or lymphadenopathy. CARDIAC: S1, S2. No added sounds or murmurs. CHEST: Diminished air entry bilaterally. ABDOMEN: Distended, tender. Diminished bowel sounds. EXTREMITIES: No cyanosis or clubbing. A 1+ edema. NEUROLOGIC: Unable to assess. LABORATORY DATA: White count 10.0, hemoglobin 10.9, platelets of 335. BUN 24, creatinine 1.23. ALT shows mildly elevated. ABG: pH 7.26, pCO2 of 53, pO2 of 63. DIAGNOSTIC DATA: Chest x-ray was reviewed, which showed interstitial edema, small pleural effusions. IMPRESSION AND PLAN: 1. Severe sepsis. 2. Acute abdomen of unclear etiology. 3. Hypoxemic respiratory failure. 4. History of lumbar spine disease. 5. History of prostate carcinoma. PLAN: 1. Continue adequate pain control and sedation. 2. Mechanical ventilation. 3. IV fluids. 4. Vasopressors and PICC line as needed. 5. DVT and GI prophylaxis. 6. Correction of hyponatremia. Dictated By: LIZ COLEMAN/TUNG Conf#: [id number] [facility]#: [id number] CC: MEMO CASAREZ MD; ZULY DELGADO MD; JULIET FERREIRA MD;*[facility]*
[2018-12-24] MEDS ORDERED: ALBUMIN HUMAN 25% 100 ML ONE (14:11)
[2018-12-24] MEDS: NORepinephrine 8MG/250 ML (PMX 250 ML IV SCH ×3 (14:19→22:32)
[2018-12-24] MEDS: SOD CHLORIDE 0.45% 1,000 ML IV SCH ×2 (14:24→22:34)
[2018-12-24] MEDS: ALBUMIN HUMAN 25% 100 ML IV SCH ×2 (14:55→15:17)
[2018-12-24] MEDS ORDERED: VANCOMYCIN HCL 1.25 GM in DEXTROSE 5% 250 ML IVPB SCH (15:00)
[2018-12-24] MEDS: FENTAnyl (DRIP) 1000 mcg/100mL 100 ML IV SCH (15:44)
[2018-12-24] MEDS: NICOTINE (14 MG/24 HR) PATCH TRANSDERM SCH (15:52)
[2018-12-24] MEDS: PHENYLephrine 20MG IN 250 ML 250 ML IV SCH ×3 (15:53→22:33)
--- NOTE | 2018-12-24 16:54 | QN ---
Documentation Comment GI FOLLOWUP 12/24/18 Pt was to have EGD today for history of melena. However, this morning due to progressive respiratory failure he was intubated and now is on pressors. Anesthesia evaluated patient at bedside and felt patient is too unstable to undergo endoscopic procedure with sedation. Given Hgb is stable and the original indication for the endoscopy is less pressing than his respiratory and hemodynamic compromise, will follow along with the team and consider future endoscopy if patient recovers from critical status currently. FRANCISCA PATRICK Dec 24, 2018 16:54
[2018-12-24] MEDS: PIPER-TAZO 3.375 GM IV (PMX) 100 ML IVPB SCH (21:11)
--- NOTE | 2018-12-24 21:18 | CONS ---
DATE OF ADMISSION: 12/21/2018 DATE OF CONSULTATION: 12/24/2018 TYPE OF CONSULTATION: Nephrology. REASON FOR CONSULTATION: Acute kidney injury, hypernatremia. PHYSICIAN REQUESTING CONSULT: Morgan Johnson MD HISTORY OF PRESENT ILLNESS: This is a 68-year-old male with a past medical history of prostate cance r who presents to [facility] with complaints of abdominal pain, nausea, vomiting an d diarrhea. The patient described having diffuse lower abdominal pain for several days with associat ed diarrhea. He describes diarrhea as nonbloody with cramps. The patient as a result was brought to [facility] and was subsequently admitted. The patient was seen by general surgery as well as gastroenterology. The patient had a CT scan of the abdomen and pelvis on admission which showed cholelithiasis without evidence of acute cholecystitis and biliary ductal dilatation. The pa tient had a subsequent small bowel follow-through and MRCP which showed dilated common bile duct and gallbladder stones. The patient during the hospital course developed worsening abdominal pain and nguyen bsequent small bowel follow through was obtained which showed no evidence of obstruction. The patien t unfortunately further decompensated, became hypoxemic, necessitating urgent intubation and was sabillon sferred to the intensive care unit. While in intensive care unit, the patient developed hypotension believed to be underlying sepsis, was started on pressor support and antibiotic therapy. In terms of the patient's renal function, on admission, the patient had a creatinine of 0.93 mg/dL. The patient's ____ has declined over the last 24 hours and his creatinine has increased to 1.92 mg/dL . The patient during this time has been markedly hypotensive with systolic pressures in the 70s. Th ere have been no reports of any hemoptysis, hematemesis or hematochezia. PAST MEDICAL HISTORY: History of prostate cancer. FAMILY HISTORY: No family history of kidney disease. SOCIAL HISTORY: No active alcohol use. ALLERGIES: HAVE BEEN REVIEWED. MEDICATIONS: Have been reviewed. REVIEW OF SYSTEMS: Unable to do adequate review of systems as patient is intubated and obtunded. Pe rtinent positives as obtained by reviewing medical records, speaking to hospital staff, stated in HPI , otherwise negative. PHYSICAL EXAMINATION: VITAL SIGNS: Blood pressure is 106/43, respirations 36, pulse 115, temperature 98.6. HEENT: Head is normocephalic. NECK: Supple. HEART: Regular rate. LUNGS: Show diminished breath sounds at base. ABDOMEN: Soft, nontender to palpation without rebound or guarding. EXTREMITIES: Negative for clubbing, cyanosis. No edema. DERMATOLOGIC: No rashes. MUSCULOSKELETAL: No joint effusions. NEUROLOGIC: Limited exam as the patient is obtunded. LABORATORY DATA: Have been reviewed. The patient has a sodium of 154, potassium 4.4, chloride 124, bicarbonate 20, BUN 37, creatinine 2.62, calcium 7.9. The patient's urinalysis shows FENa less than 1%, a protein-creatinine ratio of approximately ____ mg per gram of creatinine, positive hematuria an d pyuria. IMAGING STUDIES: Reviewed. ASSESSMENT AND PLAN: This is a 68-year-old male who presents with: 1. Nonoliguric acute kidney injury with previously normal baseline creatinine of 0.9 mg/dL. Etiolog y of acute kidney injury is secondary to sepsis, hemodynamics, shock, possible tubular injury. The jluis banuelos's initial urinalysis was bland. Repeat urinalysis does show evidence of pyuria and hematuria. The patient has a FENa less than 1% and protein-creatinine ratio approximately ____ mg per gram of creatinine. Plan at this point is to continue current medical management. Continue pressor support to maintain MAP of 65. Continue IV antibiotics. Continue IV fluids and volume expansion. We will c ontinue to renally dose all meds, avoid nephrotoxins. We will follow up with renal ultrasound. No i mmediate need for renal replacement therapy at this time. 2. Hypernatremia. The patient has a free water deficit approximately 3-1/2 liters. We will continu e hypotonic fluid and monitor serum sodium levels. 3. Metabolic acidosis. Etiology is secondary to acute kidney injury. Continue to monitor bicarbona te levels. We will check an ABG. 4. Anemia. Monitor hemoglobin and hematocrit levels. 5. Mineral bone disorder. Monitor calcium and phosphatase levels. 6. Ventilator-dependent respiratory failure. Vent settings and ABG was reviewed. Continue to monit or. Follow up with pulmonary. 7. Septic shock. Etiology source is unclear, possible intraabdominal, possible urinary. Continue c urrent medical management. Continue IV fluids, pressor support and antibiotic therapy. We will ewelina tor closely. 8. Acute encephalopathy. Etiology is toxic metabolic. Continue to monitor. 9. Common bile duct dilatation. Etiology is unclear. The patient is status post MRCP. No plan for ERCP at this time. Continue to monitor. 10. Abdominal pain with diarrhea. The patient's small bowel follow through showed no evidence of ob struction. Continue to monitor. Follow up with general surgery for recommendations. Continue NG tu be to intermittent suction. 11. Polysubstance abuse. The patient is positive for cocaine, opiates and cannabinoids. Continue t o monitor. 12. History of coronary artery disease. Continue medical management. 13. History of prostate cancer. 14. History of chronic back pain with radiculopathy of the lumbar spine. Continue to monitor. 15. Status post hyperkalemia. Etiology is secondary to acute kidney injury and decreased salt [place] to distal nephron. The patient's potassium levels have improved. Continue to monitor. Thank you, Dr. Johnson, for this interesting consult. It will be a pleasure to follow patient with y ou throughout the hospital course. Dictated By: ANALIA LUCERO DO NR/NTS Conf#: [id number] DID#: [id number] CC: MEMO CASAREZ MD; MORGAN JOHNSON MD; JULIET FERREIRA MD;*[facility]*
[2018-12-24] MEDS: ACETAMINOPHEN 650 MG SUPP PR PRN (22:33)
[2018-12-25] VITALS (102 sets, daily range): BP systolic 74–121; BP diastolic 20–59; PULSE 107–123; RESP 19–35
[2018-12-25] MEDS: METOCLOPRAMIDE 10 MG INJ IV SCH ×4 (00:30→17:06)
[2018-12-25] MEDS: INSULIN ASPART [NOVOLOG] 3 ML PEN SC SCH ×6 (00:49→21:25)
[2018-12-25] MEDS: DEXTROSE 50% 50 ML SYRINGE IV PRN (00:54)
[2018-12-25] MEDS: ACCU-CHEK XX SCH (02:00)
[2018-12-25] MEDS: DEXTROSE 5%-0.45% NACL 1,000 ML IV SCH ×2 (02:31→08:10)
[2018-12-25] MEDS: PHENYLephrine 20MG IN 250 ML 250 ML IV SCH ×2 (02:33→06:08)
[2018-12-25] MEDS: PROPOFOL 100 ML IV SCH ×4 (02:35→21:58)
[2018-12-25] MEDS: NORepinephrine 8MG/250 ML (PMX 250 ML IV SCH ×2 (02:44→07:20)
[2018-12-25] MEDS: HYOSCYAMINE 0.125 MG TAB PO SCH ×4 (05:08→17:27)
[2018-12-25] MEDS: PIPER-TAZO 3.375 GM IV (PMX) 100 ML IVPB SCH (05:26)
[2018-12-25] MEDS: PANTOPRAZOLE 40 MG INJ IV SCH ×2 (05:26→17:06)
[2018-12-25] MEDS: ACETAMINOPHEN 325 MG TAB PO PRN (05:36)
--- NOTE | 2018-12-25 07:30 | PN ---
Date/Time of Note Date/Time of Note DATE: 12/25/18 TIME: 07:26 Assessment/Plan VTE Prophylaxis Risk score (from Ns)>0 risk: 5 SCD applied (from Nsg): Yes Pharmacological prophylaxis: other Lines/Catheters IV Catheter Type (from Nrsg): Saline Lock Urinary Cath still in place: Yes Reason Cath still needed: urinary retention Assessment/Plan Hospital Course renal follow up remains critically ill in icu In terms of the patient's renal function, on admission, the patient had a creatinine of 0.93 mg/dL. The patient's renal function has declined over the last 24 hours and his creatinine has increased to 3 mg/dL. The patient during this time has been markedly hypotensive with systolic pressures in the 70s. There have been no reports of any hemoptysis, hematemesis or hematochezia. vent settings and cxr were reviewed uop remains low REVIEW OF SYSTEMS: Unable to do adequate review of systems as patient is intubated and obtunded. Pertinent positives as obtained by reviewing medical records, speaking to hospital staff, stated in HPI, otherwise negative. PHYSICAL EXAMINATION: HEENT: Head is normocephalic. NECK: Supple. HEART: Regular rate. LUNGS: Show diminished breath sounds at base. ABDOMEN: Soft, nontender to palpation without rebound or guarding. EXTREMITIES: Negative for clubbing, cyanosis. No edema. DERMATOLOGIC: No rashes. MUSCULOSKELETAL: No joint effusions. NEUROLOGIC: Limited exam as the patient is obtunded. IMAGING STUDIES: Reviewed. ASSESSMENT AND PLAN: This is a 68-year-old male who presents with: 1. Nonoliguric acute kidney injury with previously normal baseline creatinine of 0.9 mg/dL. Etiology of acute kidney injury is secondary to sepsis, hemodynamics, shock, and tubular injury. will continue with IVF. Continue pressor support to maintain MAP of 65. Continue IV antibiotics. Continue IV fluids and volume expansion. We will continue to renally dose all meds, avoid nephrotoxins. No immediate need for renal replacement therapy yet 2. Hypernatremia. The patient has a free water deficit approximately 3-1/2 liters. We will continue hypotonic fluid and monitor serum sodium levels. 3. Metabolic acidosis. Etiology is secondary to acute kidney injury. Continue to monitor bicarbonate levels. We will check an ABG. 4. Anemia. Monitor hemoglobin and hematocrit levels. 5. Mineral bone disorder. Monitor calcium and phosphatase levels. 6. Ventilator-dependent respiratory failure. Vent settings and ABG was reviewed. Continue to monitor. Follow up with pulmonary. 7. Septic shock. Etiology source is unclear, possible intraabdominal, possible urinary. Continue current medical management. Continue IV fluids, pressor support and antibiotic therapy. We will monitor closely. 8. Acute encephalopathy. Etiology is toxic metabolic. Continue to monitor. 9. Common bile duct dilatation. Etiology is unclear. The patient is status post MRCP. No plan for ERCP at this time. Continue to monitor. 10. Abdominal pain with diarrhea. The patient's small bowel follow through showed no evidence of obstruction. Continue to monitor. Follow up with general surgery for recommendations. Continue NG tube to intermittent suction. 11. Polysubstance abuse. The patient is positive for cocaine, opiates and cannabinoids. Continue to monitor. 12. History of coronary artery disease. Continue medical management. 13. History of prostate cancer. 14. History of chronic back pain with radiculopathy of the lumbar spine. Continue to monitor. 15. Status post hyperkalemia. Etiology is secondary to acute kidney injury and decreased salt delivery to distal nephron. The patient's potassium levels have improved. Continue to monitor. Result Diagram: 12/25/18 0430 12/25/18 0430 Results 24hrs Laboratory Tests Test 12/24/18 08:58 12/24/18 10:49 12/24/18 11:18 12/24/18 12:44 Bedside Glucose 178 119 Lactic Acid 1.8 Level Lab Scanned REFERENCE LAB Report Test 12/24/18 13:20 12/24/18 15:00 12/24/18 18:02 12/24/18 19:11 Sodium Level 155 H 154 H Potassium Level 4.7 4.4 Chloride Level 123 H 124 H Carbon Dioxide 24 20 L Level Anion Gap 8 10 Blood Urea 33 H 37 H Nitrogen Creatinine 1.92 H 2.62 H Est Glomerular 35 L 25 L Filtrat Rate mL/min Glucose Level 110 # 88 Calcium Level 7.9 L 7.9 L Urine Color ALEIDA Urine Clarity CLOUDY A Urine pH 5.0 Urine Specific 1.020 [place] Urine Ketones NEGATIVE Urine Nitrite NEGATIVE Urine Bilirubin NEGATIVE Urine 1+ H Urobilinogen Urine Leukocyte NEGATIVE Esterase Urine > 182 H Microscopic RBC Urine 13 H Microscopic WBC Urine Bacteria FEW A Urine Mucus FEW A Urine Hemoglobin 3+ H Urine Osmolality 399 Urine Random 200.13 Creatinine Urine Random 26 L Sodium Urine Glucose NEGATIVE Urine Total 155.0 H Protein Bedside Glucose 106 Test 12/24/18 20:46 12/24/18 21:13 12/25/18 00:48 12/25/18 01:11 Blood Gas Blood arterial Specimen Source Arterial Blood 12/24/2018 8:40: Date Drawn 47 PM Arterial Blood 7.327 L pH (Temp corrected) Arterial Blood 41.4 pCO2 (Temp correct) Arterial Blood 70.9 L pO2 (Temp corrected) Arterial Blood 21.2 L HCO3 Arterial Blood -4.5 L Base Excess Arterial Blood 93.5 L Oxygen Saturatio n [place] Test ACCEPTAB Arterial Blood Right Radial Gas Puncture Site Arterial 0.3 Blood Carboxyhem oglobin Arterial Blood 1.3 Methemoglobin Blood Gas A-a O2 600.7 H Differential Oxyhemoglobin 92.0 L Percent Blood Gas 37.0 Temperature Blood Gas 20.0 Respiration Rate Blood Gas Actual 36 Respiration Rate Blood Gas VENT - AC Modality FiO2 100.0 Blood Gas Tidal 500.0 Volume Blood Gas Low 5.0 PEEP Setting Blood Gas UP Notified Whom Blood Gas 12/24/2018 8:53: Notified Time 12 PM Bedside Glucose 118 62 L 135 Test 12/25/18 01:26 12/25/18 04:30 12/25/18 05:37 Bedside Glucose 125 156 White Blood 12.2 #H Count Red Blood Count 2.62 #L Hemoglobin 7.9 #L Hematocrit 24.6 #L Mean Corpuscular 93.9 Volume Mean Corpuscular 30.2 Hemoglobin Mean Corpuscular 32.1 Hemoglobin Lawanda nt Red Cell 17.2 H Distribution Width Platelet Count 171 # Mean Platelet 11.3 H Volume Immature 1.100 H Granulocytes % Neutrophils % Lymphocytes % Monocytes % Eosinophils % Basophils % Nucleated Red 1.6 H Blood Cells % Immature 0.130 H Granulocytes # Neutrophils # Lymphocytes # Monocytes # Eosinophils # Basophils # Nucleated Red Blood Cells # Sodium Level 152 H Potassium Level 5.5 H Chloride Level 127 H Carbon Dioxide 17 L Level Anion Gap 8 Blood Urea 43 H Nitrogen Creatinine 3.50 H Est Glomerular 18 L Filtrat Rate mL/min Glucose Level 134 # Calcium Level 7.3 L Phosphorus Level 3.5 Magnesium Level 2.1 Exam/Review of Systems Exam Vitals Vital Signs Date Temp Pulse Resp B/P (MAP) Pulse Ox O2 O2 Flow FiO2 Time Delivery Rate 12/25/18 101.0 06:44 12/25/18 113 28 111/49 98 05:45 (69) 12/25/18 [place] 05:00 l Ventilato r 12/25/18 100 04:41 12/24/18 15.0 05:30 Intake and Output 12/24/18 12/24/18 12/25/18 1515:00 23:00 07:00 IntakeIntake Total 1412.7 ml 2542.780 ml 2053.555 ml OutputOutput Total 1580 ml 705 ml 470 ml BalanceBalance -167.3 ml 1837.780 ml 1583.555 ml Results Results 24hrs Laboratory Tests Test 12/24/18 08:58 12/24/18 10:49 12/24/18 11:18 12/24/18 12:44 Bedside Glucose 178 119 Lactic Acid 1.8 Level Lab Scanned REFERENCE LAB Report Test 12/24/18 13:20 12/24/18 15:00 12/24/18 18:02 12/24/18 19:11 Sodium Level 155 H 154 H Potassium Level 4.7 4.4 Chloride Level 123 H 124 H Carbon Dioxide 24 20 L Level Anion Gap 8 10 Blood Urea 33 H 37 H Nitrogen Creatinine 1.92 H 2.62 H Est Glomerular 35 L 25 L Filtrat Rate mL/min Glucose Level 110 # 88 Calcium Level 7.9 L 7.9 L Urine Color ALEIDA Urine Clarity CLOUDY A Urine pH 5.0 Urine Specific 1.020 [place] Urine Ketones NEGATIVE Urine Nitrite NEGATIVE Urine Bilirubin NEGATIVE Urine 1+ H Urobilinogen Urine Leukocyte NEGATIVE Esterase Urine > 182 H Microscopic RBC Urine 13 H Microscopic WBC Urine Bacteria FEW A Urine Mucus FEW A Urine Hemoglobin 3+ H Urine Osmolality 399 Urine Random 200.13 Creatinine Urine Random 26 L Sodium Urine Glucose NEGATIVE Urine Total 155.0 H Protein Bedside Glucose 106 Test 12/24/18 20:46 12/24/18 21:13 12/25/18 00:48 12/25/18 01:11 Blood Gas Blood arterial Specimen Source Arterial Blood 12/24/2018 8:40: Date Drawn 47 PM Arterial Blood 7.327 L pH (Temp corrected) Arterial Blood 41.4 pCO2 (Temp correct) Arterial Blood 70.9 L pO2 (Temp corrected) Arterial Blood 21.2 L HCO3 Arterial Blood -4.5 L Base Excess Arterial Blood 93.5 L Oxygen Saturatio n [place] Test ACCEPTAB Arterial Blood Right Radial Gas Puncture Site Arterial 0.3 Blood Carboxyhem oglobin Arterial Blood 1.3 Methemoglobin Blood Gas A-a O2 600.7 H Differential Oxyhemoglobin 92.0 L Percent Blood Gas 37.0 Temperature Blood Gas 20.0 Respiration Rate Blood Gas Actual 36 Respiration Rate Blood Gas VENT - AC Modality FiO2 100.0 Blood Gas Tidal 500.0 Volume Blood Gas Low 5.0 PEEP Setting Blood Gas UP Notified Whom Blood Gas 12/24/2018 8:53: Notified Time 12 PM Bedside Glucose 118 62 L 135 Test 12/25/18 01:26 12/25/18 04:30 12/25/18 05:37 Bedside Glucose 125 156 White Blood 12.2 #H Count Red Blood Count 2.62 #L Hemoglobin 7.9 #L Hematocrit 24.6 #L Mean Corpuscular 93.9 Volume Mean Corpuscular 30.2 Hemoglobin Mean Corpuscular 32.1 Hemoglobin [place] nt Red Cell 17.2 H Distribution Width Platelet Count 171 # Mean Platelet 11.3 H Volume Immature 1.100 H Granulocytes % Neutrophils % Lymphocytes % Monocytes % Eosinophils % Basophils % Nucleated Red 1.6 H Blood Cells % Immature 0.130 H Granulocytes # Neutrophils # Lymphocytes # Monocytes # Eosinophils # Basophils # Nucleated Red Blood Cells # Sodium Level 152 H Potassium Level 5.5 H Chloride Level 127 H Carbon Dioxide 17 L Level Anion Gap 8 Blood Urea 43 H Nitrogen Creatinine 3.50 H Est Glomerular 18 L Filtrat Rate mL/min Glucose Level 134 # Calcium Level 7.3 L Phosphorus Level 3.5 Magnesium Level 2.1 Medications Medication Current Medications IV Flush (NS 3 ml) 3 ml PER PROTOCOL IV ; Start 12/19/18 at 00:30 Acetaminophen (Tylenol Tab) 650 mg Q6H PRN PO .PAIN 1-3 OR TEMP Last administered on 12/25/18at 05:36; Admin Dose 650 MG; Start 12/19/18 at 00:30 Docusate Sodium (Colace) 100 mg Q12H PRN PO .CONSTIPATION Last administered on 12/20/18at 12:53; Admin Dose 100 MG; Start 12/19/18 at 00:30 Bisacodyl (Dulcolax) 5 mg DAILY PRN PO .CONSTIPATION; Start 12/19/18 at 00:30 Ondansetron HCl (Zofran Inj) 4 mg Q4 PRN IV NAUSEA/VOMITING; Start 12/19/18 at 02:00 Nicotine (Nicoderm 14 Mg/ 24hr) 1 patch DAILY TRANSDERM Last administered on 12/24/18 15:52; Admin Dose 1 PATCH; Start 12/19/18 at 09:00 Lorazepam (Ativan) 1 mg Q4 PRN IV withdrawal symptoms Last administered on 12/23/18 04:41; Admin Dose 1 MG; Start 12/19/18 at 05:30 Hyoscyamine (Levsin) 0.125 mg Q6 PO Last administered on 12/20/18 18:28; Admin Dose 0.125 MG; Start 12/19/18 at 12:00 Polyethylene Glycol (Miralax) 17 gm BID PO Last administered on 12/20/18 20:23; Admin Dose 17 GM; Start 12/20/18 at 21:00 Al Hydrox/Mg Hydrox/Simethicone (Mag-Al Plus) 30 ml Q6H PRN PO GASTROINTESTINAL UPSET Last administered on 12/20/18 18:28; Admin Dose 30 ML; Start 12/20/18 at 18:30 Haloperidol (Haldol) 4 mg Q8H PRN IV AGITATION Last administered on 12/22/18 17:40; Admin Dose 4 MG; Start 12/22/18 at 17:30 Pantoprazole (Protonix Iv) 40 mg BID@06,18 IV Last administered on 12/25/18 05:26; Admin Dose 40 MG; Start 12/23/18 at 18:00 Metoclopramide HCl (Reglan) 10 mg Q6 IV Last administered on 12/25/18 05:26; Admin Dose 10 MG; Start 12/23/18 at 18:00; Stop 12/25/18 at 18:00 Propofol 100 ml @ 1.839 mls/ hr Q12H IV Last administered on 12/25/18 02:35; Admin Dose 9.195 MLS/HR; Start 12/24/18 at 06:00 Fentanyl 100 ml @ 2.5 mls/hr TITRATE IV Last administered on 12/24/18 15:44; Admin Dose 5 MLS/HR; Start 12/24/18 at 12:30 Diagnostic Test (Pha) (Accu-Chek) 1 ea 02 XX ; Start 12/25/18 at 02:00 Insulin Glargine (Lantus) 7 units DAILY@0800 SC ; Start 12/25/18 at 08:00 Insulin Aspart (Novolog Insulin Pen) NOVOLOG *MILD* ALGORI... Q4 SC Last administered on 12/25/18at 05:42; Admin Dose 1 UNIT; Start 12/24/18 at 13:00 Miscellaneous Information 1 ea NOTE XX ; Start 12/24/18 at 12:30 Glucose (Glutose) 15 gm Q15M PRN PO DECREASED GLUCOSE; Start 12/24/18 at 12:30 Glucose (Glutose) 22.5 gm Q15M PRN PO DECREASED GLUCOSE; Start 12/24/18 at 12:30 Dextrose (D50w Syringe) 25 ml Q15M PRN IV DECREASED GLUCOSE Last administered on 12/25/18at 00:54; Admin Dose 25 ML; Start 12/24/18 at 12:30 Dextrose (D50w Syringe) 50 ml Q15M PRN IV DECREASED GLUCOSE; Start 12/24/18 at 12:30 Glucagon (Glucagen) 1 mg Q15M PRN IM DECREASED GLUCOSE; Start 12/24/18 at 12:30 Glucose (Glutose) 15 gm Q15M PRN BUCCAL DECREASED GLUCOSE; Start 12/24/18 at 12:30 Vancomycin HCl (Vanco Iv Per Pharmacy) VANCOMYCIN PER PHARMACY PER PROTOCOL XX ; Start 12/24/18 at 12:30 Vancomycin HCl 1 gm/Dextrose 250 ml @ 125 mls/hr Q24H IVPB ; Start 12/25/18 at 15:00 Norepinephrine 250 ml @ 1.875 mls/ hr TITRATE IV Last administered on 12/25/18at 07:20; Admin Dose 56.25 MLS/HR; Start 12/24/18 at 14:30 IV Flush (NS 10 ml) 10 ml PRN PRN IV flush; Start 12/24/18 at 14:30 Phenylephrine HCl 250 ml @ 75 mls/hr TITRATE IV Last administered on 12/25/18at 06:08; Admin Dose 37.5 MLS/HR; Start 12/24/18 at 15:30 Piperacillin Sod/ Tazobactam Sod 100 ml @ 200 mls/hr Q8 IVPB Last administered on 12/25/18 05:26; Admin Dose 200 MLS/HR; Start 12/24/18 at 22:00 Acetaminophen (Tylenol Supp) 650 mg Q6H PRN [place] Fever Last administered on 12/24/18at 22:33; Admin Dose 650 MG; Start 12/24/18 at 21:30 Dextrose/Sodium Chloride 1,000 ml @ 150 mls/hr Q6H40M IV Last administered on 12/25/18at 02:31; Admin Dose 150 MLS/HR; Start 12/25/18 at 01:30 AMILCAR FERREIRA DO Dec 25, 2018 07:30
[2018-12-25] MEDS: INSULIN GLARGINE [LANTus] (100 UNITS/ML) SYG SC SCH (08:12)
[2018-12-25] MEDS: POLYETHYLENE GLYCOL 17 GM PACKET PO SCH ×2 (08:14→20:35)
[2018-12-25] MEDS: FENTAnyl (DRIP) 1000 mcg/100mL 100 ML IV SCH (08:14)
--- NOTE | 2018-12-25 08:27 | CONS ---
Assessment/Plan Assessment/Plan Assessment/Plan (Daily) Ventilator settings; assist control of 20, tidal volume 500, PEEP of 5, 100% FiO2. Patient is currently on Levophed 30 mics per minute, phenylephrine 50 mics per minute, propofol 25 mics per kilogram per minute, fentanyl drip. Assessment and recommendations; 1. Patient admitted with abdominal pain with negative MRCP. 2. Severe sepsis with bilateral pneumonia as well as possibly intra-abdominal infection. Currently on appropriate antimicrobial regimen. 3. Drug use. Cocaine and cannabis 4. Worsening renal function with severe oliguria. 5. Anemia and thrombocytopenia. 6. Severe hypotension. 7. Severe hypoxemia. 8. Mild metabolic acidosis. Continue current supportive care. Obtain follow-up chest x-ray. Wean down pressor support as tolerated. Overall prognosis is very guarded. 35 minutes of critical care time was spent evaluating the patient. Consultation Date/Type/Reason Admit Date/Time Dec 21, 2018 at 08:36 Initial Consult Date 12/19/18 Type of Consult Pulmonary/critical care Reason for Consultation Patient's condition remains extremely critical. On multiple pressor agents for severe hypotension. General exam; elderly male, orally intubated, sedated, currently in no distress. H EENT exam; supple neck, patient is icteric. Orally intubated. Has multiple carious teeth. Pupils are small bilaterally. No neck masses. Chest exam; diminished but clear breath sounds. S1-S2 audible, no murmurs. Regular rhythm. Abdomen exam; soft, no organomegaly. Bowel sounds are sluggish to absent. Extremity exam; trace edema. 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 Lower extremity pulses not palpable. There is mottling of skin in right foot. [employer] WORK[employer] exam; patient is sedated. Requesting Provider: ZULY DELGADO Date/Time of Note DATE: 12/25/18 TIME: 08:23 Exam/Review of Systems Exam Vitals Vital Signs Date Temp Pulse Resp B/P (MAP) Pulse Ox O2 O2 Flow FiO2 Time Delivery Rate 12/25/18 114 26 111/53 99 [place] 07:45 (72) l Ventilato r 12/25/18 101.2 07:30 12/25/18 100 04:41 12/24/18 15.0 05:30 Intake and Output 12/24/18 12/24/18 12/25/18 1515:00 23:00 07:00 IntakeIntake Total 1412.7 ml 2542.780 ml 2053.555 ml OutputOutput Total 1580 ml 705 ml 475 ml BalanceBalance -167.3 ml 1837.780 ml 1578.555 ml Results Result Diagram: 12/25/18 0430 12/25/18 0430 Results 24hrs Laboratory Tests Test 12/24/18 08:58 12/24/18 10:49 12/24/18 11:18 12/24/18 12:44 Bedside Glucose 178 119 Lactic Acid 1.8 Level Lab Scanned REFERENCE LAB Report Test 12/24/18 13:20 12/24/18 15:00 12/24/18 18:02 12/24/18 19:11 Sodium Level 155 H 154 H Potassium Level 4.7 4.4 Chloride Level 123 H 124 H Carbon Dioxide 24 20 L Level Anion Gap 8 10 Blood Urea 33 H 37 H Nitrogen Creatinine 1.92 H 2.62 H Est Glomerular 35 L 25 L Filtrat Rate mL/min Glucose Level 110 # 88 Calcium Level 7.9 L 7.9 L Urine Color ALEIDA Urine Clarity CLOUDY A Urine pH 5.0 Urine Specific 1.020 [place] Urine Ketones NEGATIVE Urine Nitrite NEGATIVE Urine Bilirubin NEGATIVE Urine 1+ H Urobilinogen Urine Leukocyte NEGATIVE Esterase Urine > 182 H Microscopic RBC Urine 13 H Microscopic WBC Urine Bacteria FEW A Urine Mucus FEW A Urine Hemoglobin 3+ H Urine Osmolality 399 Urine Random 200.13 Creatinine Urine Random 26 L Sodium Urine Glucose NEGATIVE Urine Total 155.0 H Protein Bedside Glucose 106 Test 12/24/18 20:46 12/24/18 21:13 12/25/18 00:48 12/25/18 01:11 Blood Gas Blood arterial Specimen Source Arterial Blood 12/24/2018 8:40: Date Drawn 47 PM Arterial Blood 7.327 L pH (Temp corrected) Arterial Blood 41.4 pCO2 (Temp correct) Arterial Blood 70.9 L pO2 (Temp corrected) Arterial Blood 21.2 L HCO3 Arterial Blood -4.5 L Base Excess Arterial Blood 93.5 L Oxygen Saturatio n [place] Test ACCEPTAB Arterial Blood Right Radial Gas Puncture Site Arterial 0.3 Blood Carboxyhem oglobin Arterial Blood 1.3 Methemoglobin Blood Gas A-a O2 600.7 H Differential Oxyhemoglobin 92.0 L Percent Blood Gas 37.0 Temperature Blood Gas 20.0 Respiration Rate Blood Gas Actual 36 Respiration Rate Blood Gas VENT - AC Modality FiO2 100.0 Blood Gas Tidal 500.0 Volume Blood Gas Low 5.0 PEEP Setting Blood Gas UP Notified Whom Blood Gas 12/24/2018 8:53: Notified Time 12 PM Bedside Glucose 118 62 L 135 Test 12/25/18 01:26 12/25/18 04:30 12/25/18 05:37 Bedside Glucose 125 156 White Blood 12.2 #H Count Red Blood Count 2.62 #L Hemoglobin 7.9 #L Hematocrit 24.6 #L Mean Corpuscular 93.9 Volume Mean Corpuscular 30.2 Hemoglobin Mean Corpuscular 32.1 Hemoglobin [place] nt Red Cell 17.2 H Distribution Width Platelet Count 171 # Mean Platelet 11.3 H Volume Immature 1.100 H Granulocytes % Neutrophils % Segmented 10 L Neutrophils % (Manual) Band Neutrophils 47 H % (Manual) Lymphocytes % Lymphocytes % 4 L (Manual) Monocytes % Eosinophils % Basophils % Basophils % 1 (Manual) Metamyelocytes % 17 H (manual) Myelocytes % 21 H (Manual) Nucleated Red 5 H Blood Cells % Immature 0.130 H Granulocytes # Neutrophils # Neutrophils # 1.9 (Manual) Band Neutrophils 5.7 H # Lymphocytes 0.4 L (Manual) Lymphocytes # Monocytes # Eosinophils # Basophils # Basophils # 0.1 H (Manual) Metamyelocytes # 2.0 H Myelocytes # 2.5 H Nucleated Red Blood Cells # Toxic 2+ Granulation Platelet NORMAL Estimate Giant Platelets 2 H Polychromasia 3+ Hypochromasia 1+ Poikilocytosis 2+ Anisocytosis 1+ Target Cells 1+ Sodium Level 152 H Potassium Level 5.5 H Chloride Level 127 H Carbon Dioxide 17 L Level Anion Gap 8 Blood Urea 43 H Nitrogen Creatinine 3.50 H Est Glomerular 18 L Filtrat Rate mL/min Glucose Level 134 # Calcium Level 7.3 L Phosphorus Level 3.5 Magnesium Level 2.1 Medications Medication Current Medications IV Flush (NS 3 ml) 3 ml PER PROTOCOL IV ; Start 12/19/18 at 00:30 Acetaminophen (Tylenol Tab) 650 mg Q6H PRN PO .PAIN 1-3 OR TEMP Last administered on 12/25/18at 05:36; Admin Dose 650 MG; Start 12/19/18 at 00:30 Docusate Sodium (Colace) 100 mg Q12H PRN PO .CONSTIPATION Last administered on 12/20/18 12:53; Admin Dose 100 MG; Start 12/19/18 at 00:30 Bisacodyl (Dulcolax) 5 mg DAILY PRN PO .CONSTIPATION; Start 12/19/18 at 00:30 Ondansetron HCl (Zofran Inj) 4 mg Q4 PRN IV NAUSEA/VOMITING; Start 12/19/18 at 02:00 Nicotine (Nicoderm 14 Mg/ 24hr) 1 patch DAILY TRANSDERM Last administered on 12/24/18 15:52; Admin Dose 1 PATCH; Start 12/19/18 at 09:00 Lorazepam (Ativan) 1 mg Q4 PRN IV withdrawal symptoms Last administered on 12/23/18 04:41; Admin Dose 1 MG; Start 12/19/18 at 05:30 Hyoscyamine (Levsin) 0.125 mg Q6 PO Last administered on 12/20/18 18:28; Admin Dose 0.125 MG; Start 12/19/18 at 12:00 Polyethylene Glycol (Miralax) 17 gm BID PO Last administered on 12/20/18 20:23; Admin Dose 17 GM; Start 12/20/18 at 21:00 Al Hydrox/Mg Hydrox/Simethicone (Mag-Al Plus) 30 ml Q6H PRN PO GASTROINTESTINAL UPSET Last administered on 12/20/18 18:28; Admin Dose 30 ML; Start 12/20/18 at 18:30 Haloperidol (Haldol) 4 mg Q8H PRN IV AGITATION Last administered on 12/22/18 17:40; Admin Dose 4 MG; Start 12/22/18 at 17:30 Pantoprazole (Protonix Iv) 40 mg BID@06,18 IV Last administered on 12/25/18 05:26; Admin Dose 40 MG; Start 12/23/18 at 18:00 Metoclopramide HCl (Reglan) 10 mg Q6 IV Last administered on 12/25/18 05:26; Admin Dose 10 MG; Start 12/23/18 at 18:00; Stop 12/25/18 at 18:00 Propofol 100 ml @ 1.839 mls/ hr Q12H IV Last administered on 12/25/18 02:35; Admin Dose 9.195 MLS/HR; Start 12/24/18 at 06:00 Fentanyl 100 ml @ 2.5 mls/hr TITRATE IV Last administered on 12/25/18at 08:14; Admin Dose 5 MLS/HR; Start 12/24/18 at 12:30 Diagnostic Test (Pha) (Accu-Chek) 1 ea 02 XX ; Start 12/25/18 at 02:00 Insulin Glargine (Lantus) 7 units DAILY@0800 SC Last administered on 12/25/18at 08:12; Admin Dose 7 UNITS; Start 12/25/18 at 08:00 Insulin Aspart (Novolog Insulin Pen) NOVOLOG *MILD* ALGORI... Q4 SC Last administered on 12/25/18at 08:13; Admin Dose 2 UNIT; Start 12/24/18 at 13:00 Miscellaneous Information 1 ea NOTE XX ; Start 12/24/18 at 12:30 Glucose (Glutose) 15 gm Q15M PRN PO DECREASED GLUCOSE; Start 12/24/18 at 12:30 Glucose (Glutose) 22.5 gm Q15M PRN PO DECREASED GLUCOSE; Start 12/24/18 at 12:30 Dextrose (D50w Syringe) 25 ml Q15M PRN IV DECREASED GLUCOSE Last administered on 12/25/18at 00:54; Admin Dose 25 ML; Start 12/24/18 at 12:30 Dextrose (D50w Syringe) 50 ml Q15M PRN IV DECREASED GLUCOSE; Start 12/24/18 at 12:30 Glucagon (Glucagen) 1 mg Q15M PRN IM DECREASED GLUCOSE; Start 12/24/18 at 12:30 Glucose (Glutose) 15 gm Q15M PRN BUCCAL DECREASED GLUCOSE; Start 12/24/18 at 12:30 Vancomycin HCl (Vanco Iv Per Pharmacy) VANCOMYCIN PER PHARMACY PER PROTOCOL XX ; Start 12/24/18 at 12:30 Vancomycin HCl 1 gm/Dextrose 250 ml @ 125 mls/hr Q24H IVPB ; Start 12/25/18 at 15:00 Norepinephrine 250 ml @ 1.875 mls/ hr TITRATE IV Last administered on 12/25/18at 07:20; Admin Dose 56.25 MLS/HR; Start 12/24/18 at 14:30 IV Flush (NS 10 ml) 10 ml PRN PRN IV flush; Start 12/24/18 at 14:30 Phenylephrine HCl 250 ml @ 75 mls/hr TITRATE IV Last administered on 12/25/18 06:08; Admin Dose 37.5 MLS/HR; Start 12/24/18 at 15:30 Piperacillin Sod/ Tazobactam Sod 100 ml @ 200 mls/hr Q8 IVPB Last administered on 12/25/18 05:26; Admin Dose 200 MLS/HR; Start 12/24/18 at 22:00 Acetaminophen (Tylenol Supp) 650 mg Q6H PRN [place] Fever Last administered on 12/24/18at 22:33; Admin Dose 650 MG; Start 12/24/18 at 21:30 Dextrose/Sodium Chloride 1,000 ml @ 150 mls/hr Q6H40M IV Last administered on 12/25/18at 02:31; Admin Dose 150 MLS/HR; Start 12/25/18 at 01:30 ALEXANDRO LEIGH 30, 2019 08:27
--- NOTE | 2018-12-25 08:36 | CONS ---
Assessment/Plan Assessment/Plan Hospital Course 68 yo M with multiple comorbidities who initially presented for evaluation of GI symptoms. It was noted that the pt became altered, for which neurology is consulted. TIMMY + NA 153 12/24: Transferred to ICU for respiratory distress. S/p intubation. Most clinically consistent with an acute and multifactorial toxic-metabolic encephalopathy.. A focal HUMAN RESOURCES GENERALIST process is unlikely. UDS + cocaine, marijuana, opiates P: Ok to defer neuroimaging for now Cont medical management per primary Wean sedation when able Will follow clinically...to recommend neurologic studies, as necessary Consultation Date/Type/Reason Admit Date/Time Dec 21, 2018 at 08:36 Type of Consult Neurology Reason for Consultation ams Requesting Provider: ZULY DELGADO Date/Time of Note DATE: 12/25/18 TIME: 08:36 24 HR Interval Summary Free Text/Dictation Continues critical care. Developed hypotension yesterday; is now on multiple pr essors/sedation. Exam Vital Signs Vitals Vital Signs Date Temp Pulse Resp B/P (MAP) Pulse Ox O2 O2 Flow FiO2 Time Delivery Rate 12/25/18 112 25 108/53 98 Mechanica 08:15 (71) l Ventilato r 12/25/18 101.2 07:30 12/25/18 100 04:41 12/24/18 15.0 05:30 Intake and Output 12/24/18 12/24/18 12/25/18 1515:00 23:00 07:00 IntakeIntake Total 1412.7 ml 2542.780 ml 2053.555 ml OutputOutput Total 1580 ml 705 ml 475 ml BalanceBalance -167.3 ml 1837.780 ml 1578.555 ml Exam PE: Gen Appearance: No Apparent Distress HEENT: Intubated Cardiovascular: Regular rate Abdomen: Soft Extremities: Dry NE: The patient was obtunded and nonverbal. Cranial nerve examination was limited by mental status. Pupils were equal and reactive to light. There was no afferent pupillary defect. Funduscopic examination was limited. Face was grossly symmetric, w/ present corneal and cough reflexes. Tone was normal. Muscle bulk was normal. I did not see fasciculations. The patient withdrew to noxious stimulation x 4. Coordination and gait testing was limited by mental status. Arm and leg reflexes were within normal limits and symmetric. Leon's sign was absent. Plantar responses were flexor. MAINOR HICKEY NP Dec 25, 2018 08:36
[2018-12-25] MEDS ORDERED: NA BICARBONATE 8.4% 50 ML SYG IV ONE (09:00)
[2018-12-25] MEDS: NICOTINE (14 MG/24 HR) PATCH TRANSDERM SCH ×2 (09:00→11:15)
[2018-12-25] MEDS ORDERED: NA BICARBONATE 8.4% 50 ML SYG ONE (09:05)
[2018-12-25] MEDS: ACETAMINOPHEN 650 MG SUPP PR PRN ×2 (10:36→17:16)
[2018-12-25] MEDS: SODIUM BICARBONATE (IV ADD) 100 MEQ in DEXTROSE 5%-0.45% NACL 1,000 ML IV SCH ×3 (11:03→17:52)
[2018-12-25] MEDS: NORepinephrine 32 MG in DEXTROSE 5% 218 ML IV SCH (11:05)
[2018-12-25] MEDS: PHENYLephrine 80 MG in DEXTROSE 5% 242 ML IV SCH (11:06)
--- NOTE | 2018-12-25 11:56 | PN ---
Date/Time of Note Date/Time of Note DATE: 12/25/18 TIME: 11:48 Assessment/Plan VTE Prophylaxis Risk score (from Ns)>0 risk: 9 [place] [facility] [place] Pharmacological prophylaxis: NA/contraindicated Pharm contraindication: bleeding Lines/Catheters IV [facility] Saline Lock Assessment/Plan Hospital Course 1. Acute respiratory distress secondary to encephalopathy ABG was consistent with hypercapnic and hypoxemic respiratory failure Continue vent support Pulmonology consultation appreciated Chest x-ray shows interstitial edema with small bilateral pleural effusions but no significant interval change No indication for diuresis at this point 2. Shock Etiology unclear, cultures are negative Continue broad-spectrum antibiotics Continue fluids Continue pressor support 3. Acute encephalopathy secondary to delirium and hypernatremia D5W Neurology consultation appreciated Currently sedated and intubated 4. Severe hypernatremia Patient's sodium still elevated despite IV fluid resuscitation Continue D5 half Nephrology consultation appreciated 5. Hyperglycemia secondary to dextrose and fluid as well as stress Patient has no history of diabetes Scheduled Lantus and sliding scale 6. Melena Patient did have reported melena yesterday GI plan was for endoscopy patient is currently critical 7. Biliary dilation MRCP showed mildly dilated common bile duct, no evidence of biliary duct obstruction. Gallbladder contains multiple stones without wall thickening. Scattered T2 bright lesions in the liver may represent cysts or hemangiomas No indication for ERCP at this time, cholecystectomy not indicated at this time 8. Abdomen pain likely secondary to ileus with diarrhea Most recent KUB showed improved ileus Potassium was replaced but is not elevated and have discontinued potassium replacement Patient was taking opioids prior to his encephalopathy and had been discontinued several days ago Surgery following Stool cultures are negative Small bowel follow-through showed dilated mid small bowel with no evidence of obstruction 9. Metabolic acidosis likely secondary to renal failure Bicarb drip Nephrology following 10. Acute kidney injury likely secondary to hemodynamics and shock Creatinine has worsened Nephrology following 11. Normocytic anemia possible secondary to acute blood loss from GI bleed as well as critical state Monitor and consider transfusion tomorrow if continues to drop 12. History coronary disease Continue home meds as able 13. 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 History of prostate cancer No acute issues Prophylaxis: SCDs DC planning: Patient is currently critical Result Diagram: 12/25/18 0430 12/25/18 0430 Results 24hrs Laboratory Tests Test 12/24/18 12:44 12/24/18 13:20 12/24/18 15:00 12/24/18 18:02 Bedside Glucose 119 106 Sodium Level 155 H Potassium Level 4.7 Chloride Level 123 H Carbon Dioxide 24 Level Anion Gap 8 Blood Urea 33 H Nitrogen Creatinine 1.92 H Est Glomerular 35 L Filtrat Rate mL/min Glucose Level 110 # Calcium Level 7.9 L Urine Color ALEIDA Urine Clarity CLOUDY A Urine pH 5.0 Urine Specific 1.020 [place] Urine Ketones NEGATIVE Urine Nitrite NEGATIVE Urine Bilirubin NEGATIVE Urine 1+ H Urobilinogen Urine Leukocyte NEGATIVE Esterase Urine > 182 H Microscopic RBC Urine 13 H Microscopic WBC Urine Bacteria FEW A Urine Mucus FEW A Urine Hemoglobin 3+ H Urine Osmolality 399 Urine Random 200.13 Creatinine Urine Random 26 L Sodium Urine Glucose NEGATIVE Urine Total 155.0 H Protein Test 12/24/18 19:11 12/24/18 20:46 12/24/18 21:13 12/25/18 00:48 Sodium Level 154 H Potassium Level 4.4 Chloride Level 124 H Carbon Dioxide 20 L Level Anion Gap 10 Blood Urea 37 H Nitrogen Creatinine 2.62 H Est Glomerular 25 L Filtrat Rate mL/min Glucose Level 88 Calcium Level 7.9 L Blood Gas Blood arterial Specimen Source Arterial Blood 12/24/2018 8:40: Date Drawn 47 PM Arterial Blood 7.327 L pH (Temp corrected) Arterial Blood 41.4 pCO2 (Temp correct) Arterial Blood 70.9 L pO2 (Temp corrected) Arterial Blood 21.2 L HCO3 Arterial Blood -4.5 L Base Excess Arterial Blood 93.5 L Oxygen Saturatio n [place] Test ACCEPTAB Arterial Blood Right Radial Gas Puncture Site Arterial 0.3 Blood Carboxyhem oglobin Arterial Blood 1.3 Methemoglobin Blood Gas A-a O2 600.7 H Differential Oxyhemoglobin 92.0 L Percent Blood Gas 37.0 Temperature Blood Gas 20.0 Respiration Rate Blood Gas Actual 36 Respiration Rate Blood Gas VENT - AC Modality FiO2 100.0 Blood Gas Tidal 500.0 Volume Blood Gas Low 5.0 PEEP Setting Blood Gas UP Notified Whom Blood Gas 12/24/2018 8:53: Notified Time 12 PM Bedside Glucose 118 62 L Test 12/25/18 01:11 12/25/18 01:26 12/25/18 04:30 12/25/18 05:37 Bedside Glucose 135 125 156 White Blood 12.2 #H Count Red Blood Count 2.62 #L Hemoglobin 7.9 #L Hematocrit 24.6 #L Mean Corpuscular 93.9 Volume Mean Corpuscular 30.2 Hemoglobin Mean Corpuscular 32.1 Hemoglobin Lawanda nt Red Cell 17.2 H Distribution Width Platelet Count 171 # Mean Platelet 11.3 H Volume Immature 1.100 H Granulocytes % Neutrophils % Segmented 10 L Neutrophils % (Manual) Band Neutrophils 47 H % (Manual) Lymphocytes % Lymphocytes % 4 L (Manual) Monocytes % Eosinophils % Basophils % Basophils % 1 (Manual) Metamyelocytes % 17 H (manual) Myelocytes % 21 H (Manual) Nucleated Red 5 H Blood Cells % Immature 0.130 H Granulocytes # Neutrophils # Neutrophils # 1.9 (Manual) Band Neutrophils 5.7 H # Lymphocytes 0.4 L (Manual) Lymphocytes # Monocytes # Eosinophils # Basophils # Basophils # 0.1 H (Manual) Metamyelocytes # 2.0 H Myelocytes # 2.5 H Nucleated Red Blood Cells # Toxic 2+ Granulation Platelet NORMAL Estimate Giant Platelets 2 H Polychromasia 3+ Hypochromasia 1+ Poikilocytosis 2+ Anisocytosis 1+ Target Cells 1+ Sodium Level 152 H Potassium Level 5.5 H Chloride Level 127 H Carbon Dioxide 17 L Level Anion Gap 8 Blood Urea 43 H Nitrogen Creatinine 3.50 H Est Glomerular 18 L Filtrat Rate mL/min Glucose Level 134 # Calcium Level 7.3 L Phosphorus Level 3.5 Magnesium Level 2.1 Test 12/25/18 07:00 12/25/18 08:03 Blood Gas Blood arterial Specimen Source Arterial Blood 12/25/2018 8:39: Date Drawn 26 AM Arterial Blood 7.169 *L pH (Temp corrected) Arterial Blood 45.2 H pCO2 (Temp correct) Arterial Blood 103.9 H pO2 (Temp corrected) Arterial Blood 16.1 L HCO3 Arterial Blood -11.7 L Base Excess Arterial Blood 96.7 Oxygen Saturatio n [place] Test ACCEPTAB Arterial Blood Right Radial Gas Puncture Site Arterial 0.4 Blood Carboxyhem oglobin Arterial Blood 2.2 H Methemoglobin Blood Gas A-a O2 563.9 H Differential Oxyhemoglobin 94.2 Percent Blood Gas 37.0 Temperature Blood Gas 20.0 Respiration Rate Blood Gas Actual 26 Respiration Rate Blood Gas VENT - AC Modality FiO2 100.0 Blood Gas Tidal 500.0 Volume Blood Gas Low 5.0 PEEP Setting Blood Gas [place] LANGFORD RN Critical Value Read Back Blood Gas Caprice LOPEZ SHOP DIRECTOR Notified Whom Blood Gas 12/25/2018 8:54: Notified Time 47 AM Bedside Glucose 185 Subjective 24 Hr Interval Summary Subjective hx not possible: pt non-verbal Exam/Review of Systems Exam Vitals Vital Signs Date Temp Pulse Resp B/P (MAP) Pulse Ox O2 O2 Flow FiO2 Time Delivery Rate 12/25/18 115 25 84/43 (57) 100 [place] 11:30 l Ventilato r 12/25/18 100.2 11:21 12/25/18 100 04:41 12/24/18 15.0 05:30 Intake and Output 12/24/18 12/24/18 12/25/18 1515:00 23:00 07:00 IntakeIntake Total 1412.7 ml 2542.780 ml 2311.500 ml OutputOutput Total 1580 ml 705 ml 475 ml BalanceBalance -167.3 ml 1837.780 ml 1836.500 ml Constitutional: non-verbal ENMT: intubated Respiratory: clear to auscultation Cardiovascular: regular rate and rhythm Gastrointestinal: soft; No distended Musculoskeletal: nl extremities to inspection Results Results 24hrs Laboratory Tests Test 12/24/18 12:44 12/24/18 13:20 12/24/18 15:00 12/24/18 18:02 Bedside Glucose 119 106 Sodium Level 155 H Potassium Level 4.7 Chloride Level 123 H Carbon Dioxide 24 Level Anion Gap 8 Blood Urea 33 H Nitrogen Creatinine 1.92 H Est Glomerular 35 L Filtrat Rate mL/min Glucose Level 110 # Calcium Level 7.9 L Urine Color ALEIDA Urine Clarity CLOUDY A Urine pH 5.0 Urine Specific 1.020 [place] Urine Ketones NEGATIVE Urine Nitrite NEGATIVE Urine Bilirubin NEGATIVE Urine 1+ H Urobilinogen Urine Leukocyte NEGATIVE Esterase Urine > 182 H Microscopic RBC Urine 13 H Microscopic WBC Urine Bacteria FEW A Urine Mucus FEW A Urine Hemoglobin 3+ H Urine Osmolality 399 Urine Random 200.13 Creatinine Urine Random 26 L Sodium Urine Glucose NEGATIVE Urine Total 155.0 H Protein Test 12/24/18 19:11 12/24/18 20:46 12/24/18 21:13 12/25/18 00:48 Sodium Level 154 H Potassium Level 4.4 Chloride Level 124 H Carbon Dioxide 20 L Level Anion Gap 10 Blood Urea 37 H Nitrogen Creatinine 2.62 H Est Glomerular 25 L Filtrat Rate mL/min Glucose Level 88 Calcium Level 7.9 L Blood Gas Blood arterial Specimen Source Arterial Blood 12/24/2018 8:40: Date Drawn 47 PM Arterial Blood 7.327 L pH (Temp corrected) Arterial Blood 41.4 pCO2 (Temp correct) Arterial Blood 70.9 L pO2 (Temp corrected) Arterial Blood 21.2 L HCO3 Arterial Blood -4.5 L Base Excess Arterial Blood 93.5 L Oxygen Saturatio n [place] Test ACCEPTAB Arterial Blood Right Radial Gas Puncture Site Arterial 0.3 Blood Carboxyhem oglobin Arterial Blood 1.3 Methemoglobin Blood Gas A-a O2 600.7 H Differential Oxyhemoglobin 92.0 L Percent Blood Gas 37.0 Temperature Blood Gas 20.0 Respiration Rate Blood Gas Actual 36 Respiration Rate Blood Gas VENT - AC Modality FiO2 100.0 Blood Gas Tidal 500.0 Volume Blood Gas Low 5.0 PEEP Setting Blood Gas UP Notified Whom Blood Gas 12/24/2018 8:53: Notified Time 12 PM Bedside Glucose 118 62 L Test 12/25/18 01:11 12/25/18 01:26 12/25/18 04:30 12/25/18 05:37 Bedside Glucose 135 125 156 White Blood 12.2 #H Count Red Blood Count 2.62 #L Hemoglobin 7.9 #L Hematocrit 24.6 #L Mean Corpuscular 93.9 Volume Mean Corpuscular 30.2 Hemoglobin Mean Corpuscular 32.1 Hemoglobin Lawanda nt Red Cell 17.2 H Distribution Width Platelet Count 171 # Mean Platelet 11.3 H Volume Immature 1.100 H Granulocytes % Neutrophils % Segmented 10 L Neutrophils % (Manual) Band Neutrophils 47 H % (Manual) Lymphocytes % Lymphocytes % 4 L (Manual) Monocytes % Eosinophils % Basophils % Basophils % 1 (Manual) Metamyelocytes % 17 H (manual) Myelocytes % 21 H (Manual) Nucleated Red 5 H Blood Cells % Immature 0.130 H Granulocytes # Neutrophils # Neutrophils # 1.9 (Manual) Band Neutrophils 5.7 H # Lymphocytes 0.4 L (Manual) Lymphocytes # Monocytes # Eosinophils # Basophils # Basophils # 0.1 H (Manual) Metamyelocytes # 2.0 H Myelocytes # 2.5 H Nucleated Red Blood Cells # Toxic 2+ Granulation Platelet NORMAL Estimate Giant Platelets 2 H Polychromasia 3+ Hypochromasia 1+ Poikilocytosis 2+ Anisocytosis 1+ Target Cells 1+ Sodium Level 152 H Potassium Level 5.5 H Chloride Level 127 H Carbon Dioxide 17 L Level Anion Gap 8 Blood Urea 43 H Nitrogen Creatinine 3.50 H Est Glomerular 18 L Filtrat Rate mL/min Glucose Level 134 # Calcium Level 7.3 L Phosphorus Level 3.5 Magnesium Level 2.1 Test 12/25/18 07:00 12/25/18 08:03 Blood Gas Blood arterial Specimen Source Arterial Blood 12/25/2018 8:39: Date Drawn 26 AM Arterial Blood 7.169 *L pH (Temp corrected) Arterial Blood 45.2 H pCO2 (Temp correct) Arterial Blood 103.9 H pO2 (Temp corrected) Arterial Blood 16.1 L HCO3 Arterial Blood -11.7 L Base Excess Arterial Blood 96.7 Oxygen Saturatio n [place] Test ACCEPTAB Arterial Blood Right Radial Gas Puncture Site Arterial 0.4 Blood Carboxyhem oglobin Arterial Blood 2.2 H Methemoglobin Blood Gas A-a O2 563.9 H Differential Oxyhemoglobin 94.2 Percent Blood Gas 37.0 Temperature Blood Gas 20.0 Respiration Rate Blood Gas Actual 26 Respiration Rate Blood Gas VENT - AC Modality FiO2 100.0 Blood Gas Tidal 500.0 Volume Blood Gas Low 5.0 PEEP Setting Blood Gas [place] LANGFORD RN Critical Value Read Back Blood Gas Caprice LOPEZ SHOP DIRECTOR Notified Whom Blood Gas 12/25/2018 8:54: Notified Time 47 AM Bedside Glucose 185 Medications Medication Current Medications IV Flush (NS 3 ml) 3 ml PER PROTOCOL IV ; Start 12/19/18 at 00:30 Acetaminophen (Tylenol Tab) 650 mg Q6H PRN PO .PAIN 1-3 OR TEMP Last administered on 12/25/18at 05:36; Admin Dose 650 MG; Start 12/19/18 at 00:30 Docusate Sodium (Colace) 100 mg Q12H PRN PO .CONSTIPATION Last administered on 12/20/18at 12:53; Admin Dose 100 MG; Start 12/19/18 at 00:30 Bisacodyl (Dulcolax) 5 mg DAILY PRN PO .CONSTIPATION; Start 12/19/18 at 00:30 Ondansetron HCl (Zofran Inj) 4 mg Q4 PRN IV NAUSEA/VOMITING; Start 12/19/18 at 02:00 Nicotine (Nicoderm 14 Mg/ 24hr) 1 patch DAILY TRANSDERM Last administered on 12/25/18 11:15; Admin Dose 1 PATCH; Start 12/19/18 at 09:00 Lorazepam (Ativan) 1 mg Q4 PRN IV withdrawal symptoms Last administered on 12/23/18 04:41; Admin Dose 1 MG; Start 12/19/18 at 05:30 Hyoscyamine (Levsin) 0.125 mg Q6 PO Last administered on 12/20/18 18:28; Admin Dose 0.125 MG; Start 12/19/18 at 12:00 Polyethylene Glycol (Miralax) 17 gm BID PO Last administered on 12/20/18 20:23; Admin Dose 17 GM; Start 12/20/18 at 21:00 Al Hydrox/Mg Hydrox/Simethicone (Mag-Al Plus) 30 ml Q6H PRN PO GASTROINTESTINAL UPSET Last administered on 12/20/18 18:28; Admin Dose 30 ML; Start 12/20/18 at 18:30 Haloperidol (Haldol) 4 mg Q8H PRN IV AGITATION Last administered on 12/22/18 17:40; Admin Dose 4 MG; Start 12/22/18 at 17:30 Pantoprazole (Protonix Iv) 40 mg BID@06,18 IV Last administered on 12/25/18 05:26; Admin Dose 40 MG; Start 12/23/18 at 18:00 Metoclopramide HCl (Reglan) 10 mg Q6 IV Last administered on 12/25/18 11:15; Admin Dose 10 MG; Start 12/23/18 at 18:00; Stop 12/25/18 at 18:00 Propofol 100 ml @ 1.839 mls/ hr Q12H IV Last administered on 12/25/18 10:25; Admin Dose 9.195 MLS/HR; Start 12/24/18 at 06:00 Fentanyl 100 ml @ 2.5 mls/hr TITRATE IV Last administered on 12/25/18 08:14; Admin Dose 5 MLS/HR; Start 12/24/18 at 12:30 Diagnostic Test (Pha) (Accu-Chek) 1 ea 02 XX ; Start 12/25/18 at 02:00 Insulin Glargine (Lantus) 7 units DAILY@0800 SC Last administered on 12/25/18at 08:12; Admin Dose 7 UNITS; Start 12/25/18 at 08:00 Insulin Aspart (Novolog Insulin Pen) NOVOLOG *MILD* ALGORI... Q4 SC Last administered on 12/25/18at 08:13; Admin Dose 2 UNIT; Start 12/24/18 at 13:00 Miscellaneous Information 1 ea NOTE XX ; Start 12/24/18 at 12:30 Glucose (Glutose) 15 gm Q15M PRN PO DECREASED GLUCOSE; Start 12/24/18 at 12:30 Glucose (Glutose) 22.5 gm Q15M PRN PO DECREASED GLUCOSE; Start 12/24/18 at 12:30 Dextrose (D50w Syringe) 25 ml Q15M PRN IV DECREASED GLUCOSE Last administered on 12/25/18at 00:54; Admin Dose 25 ML; Start 12/24/18 at 12:30 Dextrose (D50w Syringe) 50 ml Q15M PRN IV DECREASED GLUCOSE; Start 12/24/18 at 12:30 Glucagon (Glucagen) 1 mg Q15M PRN IM DECREASED GLUCOSE; Start 12/24/18 at 12:30 Glucose (Glutose) 15 gm Q15M PRN BUCCAL DECREASED GLUCOSE; Start 12/24/18 at 12:30 Vancomycin HCl (Vanco Iv Per Pharmacy) VANCOMYCIN PER PHARMACY PER PROTOCOL XX ; Start 12/24/18 at 12:30 Vancomycin HCl 1 gm/Dextrose 250 ml @ 125 mls/hr Q24H IVPB ; Start 12/25/18 at 15:00; Status Future Hold IV Flush (NS 10 ml) 10 ml PRN PRN IV flush; Start 12/24/18 at 14:30 Acetaminophen (Tylenol Supp) 650 mg Q6H PRN [place] Fever Last administered on 11/28 0at 10:36; Admin Dose 650 MG; Start 12/24/18 at 21:30 Piperacillin Sod/ Tazobactam Sod 50 ml @ 100 mls/hr Q8 IVPB ; Start 12/25/18 at 14:00 Sodium Bicarbonate 100 meq/Dextrose/ Sodium Chloride 1,100 ml @ 150 mls/hr Q7H20M IV Last administered on 12/25/18at 11:03; Admin Dose 150 MLS/HR; Start at 09:00 Phenylephrine HCl 80 mg/Dextrose 250 ml @ 18.75 mls/ hr TITRATE IV Last administered on 12/25/18at 11:06; Admin Dose 9.38 MLS/HR; Start 12/25/18 at 10:00 Norepinephrine 32 mg/Dextrose 250 ml @ 0.47 mls/hr TITRATE IV Last administered on 12/25/18at 11:05; Admin Dose 13.13 MLS/HR; Start 12/25/18 at 10:00 ZULY DELGADO Dec 25, 2018 11:56
[2018-12-25] MEDS: PIPER-TAZO 2.25 GM/NS 50 ML IVPB SCH ×2 (13:48→21:20)
[2018-12-25] MEDS ORDERED: VANCOMYCIN HCL 1 GM in DEXTROSE 5% 250 ML IVPB SCH (15:00)
--- NOTE | 2018-12-25 16:31 | PN ---
Date/Time of Note Date/Time of Note DATE: 12/25/18 TIME: 16:19 Assessment/Plan VTE Prophylaxis Risk score (from Ns)>0 risk: 9 SCD applied (from Ns): Yes Pharmacological prophylaxis: heparin Lines/Catheters IV Catheter Type (from Nrs): Saline Lock Assessment/Plan Assessment/Plan Assessment: Biliary and pancreatic duct dilatation MRCP 12/19/18 Mildly dilated common bile duct. No evidence of biliary duct obstruction. Gallbladder contains multiple stones without wall thickening. Scattered T2 bright lesions in the liver may represent cysts or hemangiomas. 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 EGD held due to above, will consider once stabilized. NPO H/H stable overall, continue to monitor at bedside reviewed risks/benefits of sedation and procedure she verbalized understanding and is agreeable to procedure Start PPI BID Continue protonix IV BID Patient seen in collaboration with Subjective: Course reviewed with nursing staff Patient interviewed and examined All labs, imaging and other results reviewed Pt with dark stool and a drop in HGB Abd is softer today- multiple bms today Pt with confusion PHYSICAL EXAMINATION: GENERAL: Intubated and sedated in ICU SKIN: No lesions HEAD: Normocephalic, atraumatic, no tenderness. EYES: Pupils equal reactive to light, no discharge. EARS/NOSE AND THROAT: Ears normal, nose normal, oropharynx normal, oral membranes well hydrated without lesions. NECK: Supple, no masses. CHEST: Inspection within normal limits. CARDIOVASCULAR: Heart: Regular rate and rhythm, RESPIRATORY: Lungs clear to auscultation. GASTROINTESTINAL AND LIVER: Abdomen: Soft, no tenderness, moderately distended, no hernias, no guarding, no rebound tenderness, normoactive bowel sounds. Re ctal: Deferred. GENITOURINARY: Male genitalia within normal limits. EXTREMITIES: No cyanosis, clubbing or edema. Left foot partially amputated. Result Diagram: 12/25/18 0430 12/25/18 0430 Results 24hrs Laboratory Tests Test 12/24/18 18:02 12/24/18 19:11 12/24/18 20:46 12/24/18 21:13 Bedside Glucose 106 118 Sodium Level 154 H Potassium Level 4.4 Chloride Level 124 H Carbon Dioxide 20 L Level Anion Gap 10 Blood Urea 37 H Nitrogen Creatinine 2.62 H Est Glomerular 25 L Filtrat Rate mL/min Glucose Level 88 Calcium Level 7.9 L Blood Gas Blood arterial Specimen Source Arterial Blood 12/24/2018 8:40: Date Drawn 47 PM Arterial Blood 7.327 L pH (Temp corrected) Arterial Blood 41.4 pCO2 (Temp correct) Arterial Blood 70.9 L pO2 (Temp corrected) Arterial Blood 21.2 L HCO3 Arterial Blood -4.5 L Base Excess Arterial Blood 93.5 L Oxygen Saturatio n [place] Test ACCEPTAB Arterial Blood Right Radial Gas Puncture Site Arterial 0.3 Blood Carboxyhem oglobin Arterial Blood 1.3 Methemoglobin Blood Gas A-a O2 600.7 H Differential Oxyhemoglobin 92.0 L Percent Blood Gas 37.0 Temperature Blood Gas 20.0 Respiration Rate Blood Gas Actual 36 Respiration Rate Blood Gas VENT - AC Modality FiO2 100.0 Blood Gas Tidal 500.0 Volume Blood Gas Low 5.0 PEEP Setting Blood Gas UP Notified Whom Blood Gas 12/24/2018 8:53: Notified Time 12 PM Test 12/25/18 00:48 12/25/18 01:11 12/25/18 01:26 12/25/18 04:30 Bedside Glucose 62 L 135 125 White Blood 12.2 #H Count Red Blood Count 2.62 #L Hemoglobin 7.9 #L Hematocrit 24.6 #L Mean Corpuscular 93.9 Volume Mean Corpuscular 30.2 Hemoglobin Mean Corpuscular 32.1 Hemoglobin Lawanda nt Red Cell 17.2 H Distribution Width Platelet Count 171 # Mean Platelet 11.3 H Volume Immature 1.100 H Granulocytes % Neutrophils % Segmented 10 L Neutrophils % (Manual) Band Neutrophils 47 H % (Manual) Lymphocytes % Lymphocytes % 4 L (Manual) Monocytes % Eosinophils % Basophils % Basophils % 1 (Manual) Metamyelocytes % 17 H (manual) Myelocytes % 21 H (Manual) Nucleated Red 5 H Blood Cells % Immature 0.130 H Granulocytes # Neutrophils # Neutrophils # 1.9 (Manual) Band Neutrophils 5.7 H # Lymphocytes 0.4 L (Manual) Lymphocytes # Monocytes # Eosinophils # Basophils # Basophils # 0.1 H (Manual) Metamyelocytes # 2.0 H Myelocytes # 2.5 H Nucleated Red Blood Cells # Toxic 2+ Granulation Platelet NORMAL Estimate Giant Platelets 2 H Polychromasia 3+ Hypochromasia 1+ Poikilocytosis 2+ Anisocytosis 1+ Target Cells 1+ Sodium Level 152 H Potassium Level 5.5 H Chloride Level 127 H Carbon Dioxide 17 L Level Anion Gap 8 Blood Urea 43 H Nitrogen Creatinine 3.50 H Est Glomerular 18 L Filtrat Rate mL/min Glucose Level 134 # Calcium Level 7.3 L Phosphorus Level 3.5 Magnesium Level 2.1 Test 12/25/18 05:37 12/25/18 07:00 12/25/18 08:03 12/25/18 12:32 Bedside Glucose 156 185 162 Blood Gas Blood arterial Specimen Source Arterial Blood 12/25/2018 8:39: Date Drawn 26 AM Arterial Blood 7.169 *L pH (Temp corrected) Arterial Blood 45.2 H pCO2 (Temp correct) Arterial Blood 103.9 H pO2 (Temp corrected) Arterial Blood 16.1 L HCO3 Arterial Blood -11.7 L Base Excess Arterial Blood 96.7 Oxygen Saturatio n [place] Test ACCEPTAB Arterial Blood Right Radial Gas Puncture Site Arterial 0.4 Blood Carboxyhem oglobin Arterial Blood 2.2 H Methemoglobin Blood Gas A-a O2 563.9 H Differential Oxyhemoglobin 94.2 Percent Blood Gas 37.0 Temperature Blood Gas 20.0 Respiration Rate Blood Gas Actual 26 Respiration Rate Blood Gas VENT - AC Modality FiO2 100.0 Blood Gas Tidal 500.0 Volume Blood Gas Low 5.0 PEEP Setting Blood Gas [place] LANGFORD RN Critical Value Read Back Blood Gas Caprice LOPEZ [facility] Notified Whom Blood Gas 12/25/2018 8:54: Notified Time 47 AM CC: FRANCISCA PATRICK ; Exam/Review of Systems Exam Vitals Vital Signs Date Temp Pulse Resp B/P (MAP) Pulse Ox O2 O2 Flow FiO2 Time Delivery Rate 12/25/18 113 22 106/51 100 Mechanica 16:15 (69) l Ventilato r 12/25/18 100.0 16:00 12/25/18 100 08:00 12/24/18 15.0 05:30 Intake and Output 12/24/18 12/24/18 12/25/18 1515:00 23:00 07:00 IntakeIntake Total 1412.7 ml 2542.780 ml 2311.500 ml OutputOutput Total 1580 ml 705 ml 475 ml BalanceBalance -167.3 ml 1837.780 ml 1836.500 ml Results Results 24hrs Laboratory Tests Test 12/24/18 18:02 12/24/18 19:11 12/24/18 20:46 12/24/18 21:13 Bedside Glucose 106 118 Sodium Level 154 H Potassium Level 4.4 Chloride Level 124 H Carbon Dioxide 20 L Level Anion Gap 10 Blood Urea 37 H Nitrogen Creatinine 2.62 H Est Glomerular 25 L Filtrat Rate mL/min Glucose Level 88 Calcium Level 7.9 L Blood Gas Blood arterial Specimen Source Arterial Blood 12/24/2018 8:40: Date Drawn 47 PM Arterial Blood 7.327 L pH (Temp corrected) Arterial Blood 41.4 pCO2 (Temp correct) Arterial Blood 70.9 L pO2 (Temp corrected) Arterial Blood 21.2 L HCO3 Arterial Blood -4.5 L Base Excess Arterial Blood 93.5 L Oxygen Saturatio n [place] Test ACCEPTAB Arterial Blood Right Radial Gas Puncture Site Arterial 0.3 Blood Carboxyhem oglobin Arterial Blood 1.3 Methemoglobin Blood Gas A-a O2 600.7 H Differential Oxyhemoglobin 92.0 L Percent Blood Gas 37.0 Temperature Blood Gas 20.0 Respiration Rate Blood Gas Actual 36 Respiration Rate Blood Gas VENT - AC Modality FiO2 100.0 Blood Gas Tidal 500.0 Volume Blood Gas Low 5.0 PEEP Setting Blood Gas UP Notified Whom Blood Gas 12/24/2018 8:53: Notified Time 12 PM Test 12/25/18 00:48 12/25/18 01:11 12/25/18 01:26 12/25/18 04:30 Bedside Glucose 62 L 135 125 White Blood 12.2 #H Count Red Blood Count 2.62 #L Hemoglobin 7.9 #L Hematocrit 24.6 #L Mean Corpuscular 93.9 Volume Mean Corpuscular 30.2 Hemoglobin Mean Corpuscular 32.1 Hemoglobin Lawanda nt Red Cell 17.2 H Distribution Width Platelet Count 171 # Mean Platelet 11.3 H Volume Immature 1.100 H Granulocytes % Neutrophils % Segmented 10 L Neutrophils % (Manual) Band Neutrophils 47 H % (Manual) Lymphocytes % Lymphocytes % 4 L (Manual) Monocytes % Eosinophils % Basophils % Basophils % 1 (Manual) Metamyelocytes % 17 H (manual) Myelocytes % 21 H (Manual) Nucleated Red 5 H Blood Cells % Immature 0.130 H Granulocytes # Neutrophils # Neutrophils # 1.9 (Manual) Band Neutrophils 5.7 H # Lymphocytes 0.4 L (Manual) Lymphocytes # Monocytes # Eosinophils # Basophils # Basophils # 0.1 H (Manual) Metamyelocytes # 2.0 H Myelocytes # 2.5 H Nucleated Red Blood Cells # Toxic 2+ Granulation Platelet NORMAL Estimate Giant Platelets 2 H Polychromasia 3+ Hypochromasia 1+ Poikilocytosis 2+ Anisocytosis 1+ Target Cells 1+ Sodium Level 152 H Potassium Level 5.5 H Chloride Level 127 H Carbon Dioxide 17 L Level Anion Gap 8 Blood Urea 43 H Nitrogen Creatinine 3.50 H Est Glomerular 18 L Filtrat Rate mL/min Glucose Level 134 # Calcium Level 7.3 L Phosphorus Level 3.5 Magnesium Level 2.1 Test 12/25/18 05:37 12/25/18 07:00 12/25/18 08:03 12/25/18 12:32 Bedside Glucose 156 185 162 Blood Gas Blood arterial Specimen Source Arterial Blood 12/25/2018 8:39: Date Drawn 26 AM Arterial Blood 7.169 *L pH (Temp corrected) Arterial Blood 45.2 H pCO2 (Temp correct) Arterial Blood 103.9 H pO2 (Temp corrected) Arterial Blood 16.1 L HCO3 Arterial Blood -11.7 L Base Excess Arterial Blood 96.7 Oxygen Saturatio n [place] Test ACCEPTAB Arterial Blood Right Radial Gas Puncture Site Arterial 0.4 Blood Carboxyhem oglobin Arterial Blood 2.2 H Methemoglobin Blood Gas A-a O2 563.9 H Differential Oxyhemoglobin 94.2 Percent Blood Gas 37.0 Temperature Blood Gas 20.0 Respiration Rate Blood Gas Actual 26 Respiration Rate Blood Gas VENT - AC Modality FiO2 100.0 Blood Gas Tidal 500.0 Volume Blood Gas Low 5.0 PEEP Setting Blood Gas [place] LANGFORD RN Critical Value Read Back Blood Gas Caprice LOPEZ [employer] Notified Whom Blood Gas 12/25/2018 8:54: Notified Time 47 AM Medications Medication Current Medications IV Flush (NS 3 ml) 3 ml PER PROTOCOL IV ; Start 12/19/18 at 00:30 Acetaminophen (Tylenol Tab) 650 mg Q6H PRN PO .PAIN 1-3 OR TEMP Last administered on 12/25/18at 05:36; Admin Dose 650 MG; Start 12/19/18 at 00:30 Docusate Sodium (Colace) 100 mg Q12H PRN PO .CONSTIPATION Last administered on 12/20/18 12:53; Admin Dose 100 MG; Start 12/19/18 at 00:30 Bisacodyl (Dulcolax) 5 mg DAILY PRN PO .CONSTIPATION; Start 12/19/18 at 00:30 Ondansetron HCl (Zofran Inj) 4 mg Q4 PRN IV NAUSEA/VOMITING; Start 12/19/18 at 02:00 Nicotine (Nicoderm 14 Mg/ 24hr) 1 patch DAILY TRANSDERM Last administered on 12/25/18 11:15; Admin Dose 1 PATCH; Start 12/19/18 at 09:00 Lorazepam (Ativan) 1 mg Q4 PRN IV withdrawal symptoms Last administered on 12/23/18 04:41; Admin Dose 1 MG; Start 12/19/18 at 05:30 Hyoscyamine (Levsin) 0.125 mg Q6 PO Last administered on 12/20/18 18:28; Admin Dose 0.125 MG; Start 12/19/18 at 12:00 Polyethylene Glycol (Miralax) 17 gm BID PO Last administered on 12/20/18 20:23; Admin Dose 17 GM; Start 12/20/18 at 21:00 Al Hydrox/Mg Hydrox/Simethicone (Mag-Al Plus) 30 ml Q6H PRN PO GASTROINTESTINAL UPSET Last administered on 12/20/18 18:28; Admin Dose 30 ML; Start 12/20/18 at 18:30 Haloperidol (Haldol) 4 mg Q8H PRN IV AGITATION Last administered on 12/22/18 17:40; Admin Dose 4 MG; Start 12/22/18 at 17:30 Pantoprazole (Protonix Iv) 40 mg BID@06,18 IV Last administered on 12/25/18 05:26; Admin Dose 40 MG; Start 12/23/18 at 18:00 Metoclopramide HCl (Reglan) 10 mg Q6 IV Last administered on 12/25/18 11:15; Admin Dose 10 MG; Start 12/23/18 at 18:00; Stop 12/25/18 at 18:00 Propofol 100 ml @ 1.839 mls/ hr Q12H IV Last administered on 12/25/18at 10:25; Admin Dose 9.195 MLS/HR; Start 12/24/18 at 06:00 Fentanyl 100 ml @ 2.5 mls/hr TITRATE IV Last administered on 12/25/18at 08:14; Admin Dose 5 MLS/HR; Start 12/24/18 at 12:30 Diagnostic Test (Pha) (Accu-Chek) 1 ea 02 XX ; Start 12/25/18 at 02:00 Insulin Glargine (Lantus) 7 units DAILY@0800 SC Last administered on 12/25/18at 08:12; Admin Dose 7 UNITS; Start 12/25/18 at 08:00 Insulin Aspart (Novolog Insulin Pen) NOVOLOG *MILD* ALGORI... Q4 SC Last administered on 12/25/18at 12:35; Admin Dose 1 UNIT; Start 12/24/18 at 13:00 Miscellaneous Information 1 ea NOTE XX ; Start 12/24/18 at 12:30 Glucose (Glutose) 15 gm Q15M PRN PO DECREASED GLUCOSE; Start 12/24/18 at 12:30 Glucose (Glutose) 22.5 gm Q15M PRN PO DECREASED GLUCOSE; Start 12/24/18 at 12:30 Dextrose (D50w Syringe) 25 ml Q15M PRN IV DECREASED GLUCOSE Last administered on 12/25/18at 00:54; Admin Dose 25 ML; Start 12/24/18 at 12:30 Dextrose (D50w Syringe) 50 ml Q15M PRN IV DECREASED GLUCOSE; Start 12/24/18 at 12:30 Glucagon (Glucagen) 1 mg Q15M PRN IM DECREASED GLUCOSE; Start 12/24/18 at 12:30 Glucose (Glutose) 15 gm Q15M PRN BUCCAL DECREASED GLUCOSE; Start 12/24/18 at 12:30 Vancomycin HCl (Vanco Iv Per Pharmacy) VANCOMYCIN PER PHARMACY PER PROTOCOL XX ; Start 12/24/18 at 12:30 Vancomycin HCl 1 gm/Dextrose 250 ml @ 125 mls/hr Q24H IVPB ; Start 12/25/18 at 15:00; Status Hold IV Flush (NS 10 ml) 10 ml PRN PRN IV flush; Start 12/24/18 at 14:30 Acetaminophen (Tylenol Supp) 650 mg Q6H PRN [place] Fever Last administered on 12/25/18 10:36; Admin Dose 650 MG; Start 12/24/18 at 21:30 Piperacillin Sod/ Tazobactam Sod 50 ml @ 100 mls/hr Q8 IVPB Last administered on 12/25/18at 13:48; Admin Dose 100 MLS/HR; Start 12/25/18 at 14:00 Sodium Bicarbonate 100 meq/Dextrose/ Sodium Chloride 1,100 ml @ 150 mls/hr Q7H20M IV Last administered on 12/25/18 11:03; Admin Dose 150 MLS/HR; Start 12/25/18 at 09:00 Phenylephrine HCl 80 mg/Dextrose 250 ml @ 18.75 mls/ hr TITRATE IV Last administered on 12/25/18 11:06; Admin Dose 9.38 MLS/HR; Start 12/25/18 at 10:00 Norepinephrine 32 mg/Dextrose 250 ml @ 0.47 mls/hr TITRATE IV Last administered on 12/25/18 11:05; Admin Dose 13.13 MLS/HR; Start 12/25/18 at 10:00 Miscellaneous Information (*Rx Drug Level Order Reminder*) VANCO RANDOM W/ AM LABS... 0500 ONCE XX ; Start 12/26/18 at 05:00; Stop 12/26/18 at 05:01 HAMMAD PAULSON NP Dec 25, 2018 16:30
[2018-12-26] VITALS (98 sets, daily range): BP systolic 77–133; BP diastolic 42–61; PULSE 100–123; RESP 18–30
[2018-12-26] MEDS: INSULIN ASPART [NOVOLOG] 3 ML PEN SC SCH ×6 (01:00→21:00)
[2018-12-26] MEDS: ACCU-CHEK XX SCH (01:26)
[2018-12-26] MEDS: SODIUM BICARBONATE (IV ADD) 100 MEQ in DEXTROSE 5%-0.45% NACL 1,000 ML IV SCH (01:26)
[2018-12-26] MEDS: DEXTROSE 5%-0.45% NACL 1,000 ML IV SCH ×3 (01:30→15:56)
[2018-12-26] MEDS: HYOSCYAMINE 0.125 MG TAB PO SCH ×4 (05:06→17:29)
[2018-12-26] MEDS: NORepinephrine 32 MG in DEXTROSE 5% 218 ML IV SCH ×2 (05:34→17:28)
[2018-12-26] MEDS: PANTOPRAZOLE 40 MG INJ IV SCH ×2 (05:36→17:26)
[2018-12-26] MEDS: PHENYLephrine 80 MG in DEXTROSE 5% 242 ML IV SCH (05:36)
[2018-12-26] MEDS: PIPER-TAZO 2.25 GM/NS 50 ML IVPB SCH ×3 (05:37→21:45)
[2018-12-26] MEDS: FENTAnyl (DRIP) 1000 mcg/100mL 100 ML IV SCH (06:51)
--- NOTE | 2018-12-26 07:33 | PN ---
Date/Time of Note Date/Time of Note DATE: 12/26/18 TIME: 07:30 Assessment/Plan VTE Prophylaxis Risk score (from Ns)>0 risk: 9 SCD applied (from Nsg): Yes Pharmacological prophylaxis: other Lines/Catheters IV Catheter Type (from Nrs): Saline Lock Urinary Cath still in place: Yes Reason Cath still needed: urinary retention Assessment/Plan Hospital Course renal follow up remains critically ill in icu ARF is worse following hypotensive with systolic pressures in the 70s. There have been no reports of any fever, chills, new rash, hematuria, vomiting, hemopt ysis, hematemesis or hematochezia. vent settings and cxr were reviewed uop remains low has multiple electrolyte abnormalities PHYSICAL EXAMINATION: HEENT: Head is normocephalic. NECK: Supple. HEART: Regular rate. LUNGS: Show diminished breath sounds at base. ABDOMEN: Soft, nontender to palpation without rebound or guarding. EXTREMITIES: Negative for clubbing, cyanosis. No edema. DERMATOLOGIC: No rashes. MUSCULOSKELETAL: No joint effusions. NEUROLOGIC: Limited exam as the patient is obtunded. IMAGING STUDIES: Reviewed. ASSESSMENT AND PLAN: This is a 68-year-old male who presents with: 1. Nonoliguric acute kidney injury with previously normal baseline creatinine of 0.9 mg/dL. Etiology of acute kidney injury is secondary to sepsis, hemodynamics, shock, and tubular injury. will continue with IVF. Continue pressor support to maintain MAP of 65. Continue IV antibiotics. Continue IV fluids and volume expansion. We will continue to renally dose all meds, avoid nephrotoxins. will most likely need HD in am if no improvement in the next 24 hours. will change ivf to correct hypernatremia. monitor hyperK. will replete calcium 2. Hypernatremia. The patient has a free water deficit approximately 3-1/2 liters. We will continue hypotonic fluid and monitor serum sodium levels. 3. Metabolic acidosis. Etiology is secondary to acute kidney injury. resolving. will dc bicarb in ivf 4. Anemia. Monitor hemoglobin and hematocrit levels. 5. Mineral bone disorder. Monitor calcium and phosphatase levels. 6. Ventilator-dependent respiratory failure. Vent settings and ABG was reviewed. Continue to monitor. Follow up with pulmonary. 7. Septic shock. Etiology source is unclear, possible intraabdominal, possible urinary. Continue current medical management. Continue IV fluids, pressor support and antibiotic therapy. We will monitor closely. 8. Acute encephalopathy. Etiology is toxic metabolic. Continue to monitor. 9. Common bile duct dilatation. Etiology is unclear. The patient is status post MRCP. No plan for ERCP at this time. Continue to monitor. 10. Abdominal pain with diarrhea. The patient's small bowel follow through showed no evidence of obstruction. Continue to monitor. Follow up with general surgery for recommendations. Continue NG tube to intermittent suction. 11. Polysubstance abuse. The patient is positive for cocaine, opiates and cannabinoids. Continue to monitor. 12. History of coronary artery disease. Continue medical management. 13. History of prostate cancer. 14. History of chronic back pain with radiculopathy of the lumbar spine. Continue to monitor. Result Diagram: 12/26/18 0448 12/26/18 0438 Results 24hrs Laboratory Tests Test 12/25/18 08:03 12/25/18 12:32 12/25/18 17:06 12/25/18 21:23 Bedside Glucose 185 162 166 159 Test 12/26/18 01:23 12/26/18 04:38 12/26/18 04:48 12/26/18 05:42 Bedside Glucose 114 146 Prothrombin Time 14.6 Prothrombin Time 1.1 Ratio INR International 1.13 Normalized Ratio Activated 49.7 H Partial Thromboplast Time Sodium Level 150 H Potassium Level 5.4 H Chloride Level 119 H Carbon Dioxide Level 22 Anion Gap 9 Blood Urea Nitrogen 60 H Creatinine 5.15 H Est Glomerular 11 L Filtrat Rate mL/min Glucose Level 141 Calcium Level 6.9 L Phosphorus Level 4.8 Magnesium Level 2.2 Random Vancomycin 6.5 Level White Blood Count 15.5 #H Red Blood Count 2.57 L Hemoglobin 7.6 L Hematocrit 23.1 L Mean Corpuscular 89.9 Volume Mean Corpuscular 29.6 Hemoglobin Mean Corpuscular 32.9 Hemoglobin Concent Red Cell 17.7 H Distribution Width Platelet Count 124 #L Mean Platelet Volume 12.3 H Immature 0.500 H Granulocytes % Neutrophils % Lymphocytes % Monocytes % Eosinophils % Basophils % Nucleated Red Blood 0.6 H Cells % Immature 0.080 H Granulocytes # Neutrophils # Lymphocytes # Monocytes # Eosinophils # Basophils # Exam/Review of Systems Exam Vitals Vital Signs Date Temp Pulse Resp B/P (MAP) Pulse Ox O2 O2 Flow FiO2 Time Delivery Rate 12/26/18 122 19 108/52 95 06:15 (70) 12/26/18 Mechanical 06:00 Ventilator 12/26/18 60 04:34 12/26/18 99.9 04:00 12/24/18 15.0 05:30 Intake and Output 12/25/18 12/25/18 12/26/18 1515:00 23:00 07:00 IntakeIntake Total 1705.740 ml 1570.740 ml 1148.165 ml OutputOutput Total 310 ml 585 ml 635 ml BalanceBalance 1395.740 ml 985.740 ml 513.165 ml Results Results 24hrs Laboratory Tests Test 12/25/18 08:03 12/25/18 12:32 12/25/18 17:06 12/25/18 21:23 Bedside Glucose 185 162 166 159 Test 12/26/18 01:23 12/26/18 04:38 12/26/18 04:48 12/26/18 05:42 Bedside Glucose 114 146 Prothrombin Time 14.6 Prothrombin Time 1.1 Ratio INR International 1.13 Normalized Ratio Activated 49.7 H Partial Thromboplast Time Sodium Level 150 H Potassium Level 5.4 H Chloride Level 119 H Carbon Dioxide Level 22 Anion Gap 9 Blood Urea Nitrogen 60 H Creatinine 5.15 H Est Glomerular 11 L Filtrat Rate mL/min Glucose Level 141 Calcium Level 6.9 L Phosphorus Level 4.8 Magnesium Level 2.2 Random Vancomycin 6.5 Level White Blood Count 15.5 #H Red Blood Count 2.57 L Hemoglobin 7.6 L Hematocrit 23.1 L Mean Corpuscular 89.9 Volume Mean Corpuscular 29.6 Hemoglobin Mean Corpuscular 32.9 Hemoglobin Concent Red Cell 17.7 H Distribution Width Platelet Count 124 #L Mean Platelet Volume 12.3 H Immature 0.500 H Granulocytes % Neutrophils % Lymphocytes % Monocytes % Eosinophils % Basophils % Nucleated Red Blood 0.6 H Cells % Immature 0.080 H Granulocytes # Neutrophils # Lymphocytes # Monocytes # Eosinophils # Basophils # Medications Medication Current Medications IV Flush (NS 3 ml) 3 ml PER PROTOCOL IV ; Start 12/19/18 at 00:30 Acetaminophen (Tylenol Tab) 650 mg Q6H PRN PO .PAIN 1-3 OR TEMP Last administered on 12/25/18at 05:36; Admin Dose 650 MG; Start 12/19/18 at 00:30 Docusate Sodium (Colace) 100 mg Q12H PRN PO .CONSTIPATION Last administered on 12/20/18 12:53; Admin Dose 100 MG; Start 12/19/18 at 00:30 Bisacodyl (Dulcolax) 5 mg DAILY PRN PO .CONSTIPATION; Start 12/19/18 at 00:30 Ondansetron HCl (Zofran Inj) 4 mg Q4 PRN IV NAUSEA/VOMITING; Start 12/19/18 at 02:00 Nicotine (Nicoderm 14 Mg/ 24hr) 1 patch DAILY TRANSDERM Last administered on 12/25/18 11:15; Admin Dose 1 PATCH; Start 12/19/18 at 09:00 Lorazepam (Ativan) 1 mg Q4 PRN IV withdrawal symptoms Last administered on 12/23/18 04:41; Admin Dose 1 MG; Start 12/19/18 at 05:30 Hyoscyamine (Levsin) 0.125 mg Q6 PO Last administered on 12/20/18 18:28; Admin Dose 0.125 MG; Start 12/19/18 at 12:00 Polyethylene Glycol (Miralax) 17 gm BID PO Last administered on 12/20/18 20:23; Admin Dose 17 GM; Start 12/20/18 at 21:00 Al Hydrox/Mg Hydrox/Simethicone (Mag-Al Plus) 30 ml Q6H PRN PO GASTROINTESTINAL UPSET Last administered on 12/20/18 18:28; Admin Dose 30 ML; Start 12/20/18 at 18:30 Haloperidol (Haldol) 4 mg Q8H PRN IV AGITATION Last administered on 12/22/18 17:40; Admin Dose 4 MG; Start 12/22/18 at 17:30 Pantoprazole (Protonix Iv) 40 mg BID@06,18 IV Last administered on 12/26/18 0 5:36; Admin Dose 40 MG; Start 12/23/18 at 18:00 Propofol 100 ml @ 1.839 mls/ hr Q12H IV Last administered on 12/25/18 21:58; Admin Dose 9.195 MLS/HR; Start 12/24/18 at 06:00 Fentanyl 100 ml @ 2.5 mls/hr TITRATE IV Last administered on 12/26/18at 06:51; Admin Dose 5 MLS/HR; Start 12/24/18 at 12:30 Diagnostic Test (Pha) (Accu-Chek) 1 ea 02 XX ; Start 12/25/18 at 02:00 Insulin Glargine (Lantus) 7 units DAILY@0800 SC Last administered on 12/25/18at 08:12; Admin Dose 7 UNITS; Start 12/25/18 at 08:00 Insulin Aspart (Novolog Insulin Pen) NOVOLOG *MILD* ALGORI... Q4 SC Last administered on 12/26/18at 05:50; Admin Dose 1 UNIT; Start 12/24/18 at 13:00 Miscellaneous Information 1 ea NOTE XX ; Start 12/24/18 at 12:30 Glucose (Glutose) 15 gm Q15M PRN PO DECREASED GLUCOSE; Start 12/24/18 at 12:30 Glucose (Glutose) 22.5 gm Q15M PRN PO DECREASED GLUCOSE; Start 12/24/18 at 12:30 Dextrose (D50w Syringe) 25 ml Q15M PRN IV DECREASED GLUCOSE Last administered on 12/25/18at 00:54; Admin Dose 25 ML; Start 12/24/18 at 12:30 Dextrose (D50w Syringe) 50 ml Q15M PRN IV DECREASED GLUCOSE; Start 12/24/18 at 12:30 Glucagon (Glucagen) 1 mg Q15M PRN IM DECREASED GLUCOSE; Start 12/24/18 at 12:30 Glucose (Glutose) 15 gm Q15M PRN BUCCAL DECREASED GLUCOSE; Start 12/24/18 at 12:30 Vancomycin HCl (Vanco Iv Per Pharmacy) VANCOMYCIN PER PHARMACY PER PROTOCOL XX ; Start 12/24/18 at 12:30 Vancomycin HCl 1 gm/Dextrose 250 ml @ 125 mls/hr Q24H IVPB ; Start 12/25/18 at 15:00; Status Hold IV Flush (NS 10 ml) 10 ml PRN PRN IV flush; Start 12/24/18 at 14:30 Acetaminophen (Tylenol Supp) 650 mg Q6H PRN [place] Fever Last administered on 12/25/18at 17:16; Admin Dose 650 MG; Start 12/24/18 at 21:30 Piperacillin Sod/ Tazobactam Sod 50 ml @ 100 mls/hr Q8 IVPB Last administered on 12/26/18at 05:37; Admin Dose 100 MLS/HR; Start 12/25/18 at 14:00 Sodium Bicarbonate 100 meq/Dextrose/ Sodium Chloride 1,100 ml @ 150 mls/hr Q7H20M IV Last administered on 12/26/18at 01:26; Admin Dose 150 MLS/HR; Start 12/25/18 at 09:00 Phenylephrine HCl 80 mg/Dextrose 250 ml @ 18.75 mls/ hr TITRATE IV Last administered on 12/26/18at 05:36; Admin Dose 13.13 MLS/HR; Start 12/25/18 at 10:00 Norepinephrine 32 mg/Dextrose 250 ml @ 0.47 mls/hr TITRATE IV Last administered on 12/26/18at 05:34; Admin Dose 14.06 MLS/HR; Start 12/25/18 at 10:00 AMILCAR FERREIRA DO Dec 26, 2018 07:33
[2018-12-26] MEDS: NICOTINE (14 MG/24 HR) PATCH TRANSDERM SCH (08:01)
[2018-12-26] MEDS: POLYETHYLENE GLYCOL 17 GM PACKET PO SCH ×2 (08:03→21:45)
[2018-12-26] MEDS: INSULIN GLARGINE [LANTus] (100 UNITS/ML) SYG SC SCH (08:09)
[2018-12-26] MEDS: PROPOFOL 100 ML IV SCH ×2 (08:18→17:25)
--- NOTE | 2018-12-26 08:50 | CONS ---
Assessment/Plan Assessment/Plan Assessment/Plan (Daily) Chest x-ray is pending. Ventilator setting; AC of 20, tidal volume 500, PEEP of 5, 60% FiO2. Patient is currently on propofol at 25 mics per kilogram per minute, Levophed 30 mics per minute, fentanyl 50 mics per hour. Assessment recommendations; next 1. Patient with history of drug abuse admitted for abdominal pain with negative MRCP. 2. Bilateral pneumonia, Klebsiella pneumonia isolated from sputum, patient currently on appropriate antimicrobial regimen. 3. Persistent hypotension, requiring high-dose Levophed. 4. Worsening renal function. 5. Anemia and thrombocytopenia. 6. Improvement in hypernatremia. 7. Metabolic acidosis. Which is combination of sepsis and acute renal failure. Continue on supportive care. Obtain ABG. Obtain follow-up chest x-ray. Prognosis appears guarded at this point. 35 minutes of critical care time was spent evaluating the patient. Consultation Date/Type/Reason Admit Date/Time Dec 21, 2018 at 08:36 Initial Consult Date 12/19/18 Type of Consult Pulmonary/critical care Requesting Provider: ZULY DELGADO Date/Time of Note DATE: 12/26/18 TIME: 08:47 24 HR Interval Summary Free Text/Dictation Patient's condition remains critical. Remains on high-dose pressor support. General exam; elderly male, orally intubated, sedated, currently in no distress. Exam/Review of Systems Exam Vitals Vital Signs Date Temp Pulse Resp B/P (MAP) Pulse Ox O2 O2 Flow FiO2 Time Delivery Rate 12/26/18 117 08:00 12/26/18 108/52 95 06:15 (70) 12/26/18 Mechanical 06:00 Ventilator 12/26/18 60 04:34 12/26/18 99.9 04:00 12/24/18 15.0 05:30 Intake and Output 12/25/18 12/25/18 12/26/18 1515:00 23:00 07:00 IntakeIntake Total 1705.740 ml 1570.740 ml 1148.165 ml OutputOutput Total 310 ml 585 ml 635 ml BalanceBalance 1395.740 ml 985.740 ml 513.165 ml Exam H EENT exam; supple neck, positive JVD. No lymphadenopathy. Midline trachea. No thyromegaly. Patient has a multiple carious teeth. Orally intubated. Nasogastric tube in place. Chest exam; diminished breath sounds bilaterally. No added sounds. S1-S2 audible, no murmurs. Regular rhythm. Abdomen exam; mildly protuberant bowel sounds are absent. Extremity exam; trace edema with well-healed partial left foot amputation. WEB MERCHANDISER exam; patient is sedated. Results Result Diagram: 12/26/18 0448 12/26/18 0438 Results 24hrs Laboratory Tests Test 12/25/18 12:32 12/25/18 17:06 12/25/18 21:23 12/26/18 01:23 Bedside Glucose 162 166 159 114 Test 12/26/18 04:38 12/26/18 04:48 12/26/18 05:42 12/26/18 08:07 Prothrombin Time 14.6 Prothrombin Time 1.1 Ratio INR International 1.13 Normalized Ratio Activated 49.7 H Partial Thromboplast Time Sodium Level 150 H Potassium Level 5.4 H Chloride Level 119 H Carbon Dioxide Level 22 Anion Gap 9 Blood Urea Nitrogen 60 H Creatinine 5.15 H Est Glomerular 11 L Filtrat Rate mL/min Glucose Level 141 Calcium Level 6.9 L Phosphorus Level 4.8 Magnesium Level 2.2 Random Vancomycin 6.5 Level White Blood Count 15.5 #H Red Blood Count 2.57 L Hemoglobin 7.6 L Hematocrit 23.1 L Mean Corpuscular 89.9 Volume Mean Corpuscular 29.6 Hemoglobin Mean Corpuscular 32.9 Hemoglobin Concent Red Cell 17.7 H Distribution Width Platelet Count 124 #L Mean Platelet Volume 12.3 H Immature 0.500 H Granulocytes % Neutrophils % Segmented 19 L Neutrophils % (Manual) Band Neutrophils % 68 H (Manual) Lymphocytes % Lymphocytes % 9 L (Manual) Monocytes % Eosinophils % Basophils % Metamyelocytes % 2 H (manual) Myelocytes % 2 H (Manual) Nucleated Red Blood 2 H Cells % Immature 0.080 H Granulocytes # Neutrophils # Neutrophils # 4.6 (Manual) Band Neutrophils # 10.5 H Lymphocytes (Manual) 1.3 Lymphocytes # Monocytes # Eosinophils # Basophils # Metamyelocytes # 0.3 H Myelocytes # 0.3 H Toxic Granulation 2+ Platelet Estimate DECREASED Polychromasia 1+ Poikilocytosis 1+ Anisocytosis 1+ Macrocytosis 1+ Target Cells 1+ Bedside Glucose 146 149 Medications Medication Current Medications IV Flush (NS 3 ml) 3 ml PER PROTOCOL IV ; Start 12/19/18 at 00:30 Acetaminophen (Tylenol Tab) 650 mg Q6H PRN PO .PAIN 1-3 OR TEMP Last administered on 12/25/18 05:36; Admin Dose 650 MG; Start 12/19/18 at 00:30 Docusate Sodium (Colace) 100 mg Q12H PRN PO .CONSTIPATION Last administered on 12/20/18 12:53; Admin Dose 100 MG; Start 12/19/18 at 00:30 Bisacodyl (Dulcolax) 5 mg DAILY PRN PO .CONSTIPATION; Start 12/19/18 at 00:30 Ondansetron HCl (Zofran Inj) 4 mg Q4 PRN IV NAUSEA/VOMITING; Start 12/19/18 at 02:00 Nicotine (Nicoderm 14 Mg/ 24hr) 1 patch DAILY TRANSDERM Last administered on 12/26/18 08:01; Admin Dose 1 PATCH; Start 12/19/18 at 09:00 Lorazepam (Ativan) 1 mg Q4 PRN IV withdrawal symptoms Last administered on 12/23/18 04:41; Admin Dose 1 MG; Start 12/19/18 at 05:30 Hyoscyamine (Levsin) 0.125 mg Q6 PO Last administered on 12/20/18 18:28; Admin Dose 0.125 MG; Start 12/19/18 at 12:00 Polyethylene Glycol (Miralax) 17 gm BID PO Last administered on 12/20/18 20:23; Admin Dose 17 GM; Start 12/20/18 at 21:00 Al Hydrox/Mg Hydrox/Simethicone (Mag-Al Plus) 30 ml Q6H PRN PO GASTROINTESTINAL UPSET Last administered on 12/20/18 18:28; Admin Dose 30 ML; Start 12/20/18 at 18:30 Haloperidol (Haldol) 4 mg Q8H PRN IV AGITATION Last administered on 12/22/18 17:40; Admin Dose 4 MG; Start 12/22/18 at 17:30 Pantoprazole (Protonix Iv) 40 mg BID@06,18 IV Last administered on 12/26/18 05:36; Admin Dose 40 MG; Start 12/23/18 at 18:00 Propofol 100 ml @ 1.839 mls/ hr Q12H IV Last administered on 12/26/18at 08:18; Admin Dose 9.195 MLS/HR; Start 12/24/18 at 06:00 Fentanyl 100 ml @ 2.5 mls/hr TITRATE IV Last administered on 12/26/18at 06:51; Admin Dose 5 MLS/HR; Start 12/24/18 at 12:30 Diagnostic Test (Pha) (Accu-Chek) 1 ea 02 XX ; Start 12/25/18 at 02:00 Insulin Glargine (Lantus) 7 units DAILY@0800 SC Last administered on 12/26/18at 08:09; Admin Dose 7 UNITS; Start 12/25/18 at 08:00 Insulin Aspart (Novolog Insulin Pen) NOVOLOG *MILD* ALGORI... Q4 SC Last administered on 12/26/18at 05:50; Admin Dose 1 UNIT; Start 12/24/18 at 13:00 Miscellaneous Information 1 ea NOTE XX ; Start 12/24/18 at 12:30 Glucose (Glutose) 15 gm Q15M PRN PO DECREASED GLUCOSE; Start 12/24/18 at 12:30 Glucose (Glutose) 22.5 gm Q15M PRN PO DECREASED GLUCOSE; Start 12/24/18 at 12:30 Dextrose (D50w Syringe) 25 ml Q15M PRN IV DECREASED GLUCOSE Last administered on 12/25/18at 00:54; Admin Dose 25 ML; Start 12/24/18 at 12:30 Dextrose (D50w Syringe) 50 ml Q15M PRN IV DECREASED GLUCOSE; Start 12/24/18 at 12:30 Glucagon (Glucagen) 1 mg Q15M PRN IM DECREASED GLUCOSE; Start 12/24/18 at 12:30 Glucose (Glutose) 15 gm Q15M PRN BUCCAL DECREASED GLUCOSE; Start 12/24/18 at 12:30 Vancomycin HCl (Vanco Iv Per Pharmacy) VANCOMYCIN PER PHARMACY PER PROTOCOL XX ; Start 12/24/18 at 12:30 Vancomycin HCl 1 gm/Dextrose 250 ml @ 125 mls/hr Q24H IVPB ; Start 12/25/18 at 15:00; Status Hold IV Flush (NS 10 ml) 10 ml PRN PRN IV flush; Start 12/24/18 at 14:30 Acetaminophen (Tylenol Supp) 650 mg Q6H PRN [place] Fever Last administered on 12/25/18at 17:16; Admin Dose 650 MG; Start 12/24/18 at 21:30 Piperacillin Sod/ Tazobactam Sod 50 ml @ 100 mls/hr Q8 IVPB Last administered on 12/26/18at 05:37; Admin Dose 100 MLS/HR; Start 12/25/18 at 14:00 Phenylephrine HCl 80 mg/Dextrose 250 ml @ 18.75 mls/ hr TITRATE IV Last administered on 12/26/18at 05:36; Admin Dose 13.13 MLS/HR; Start 12/25/18 at 10:00 Norepinephrine 32 mg/Dextrose 250 ml @ 0.47 mls/hr TITRATE IV Last administer ed on 12/26/18at 05:34; Admin Dose 14.06 MLS/HR; Start 12/25/18 at 10:00 Dextrose/Sodium Chloride 1,000 ml @ 125 mls/hr Q8H IV Last administered on 12/26/18at 08:01; Admin Dose 125 MLS/HR; Start 12/26/18 at 07:30 Calcium Gluconate 2 gm/Dextrose 120 ml @ 60 mls/hr ONCE ONCE IVPB ; Start 12/26/18 at 09:00; Stop 12/26/18 at 10:59 ALEXANDRO LEIGH Dec 26, 2018 08:50
[2018-12-26] MEDS ORDERED: CALCIUM GLUCONATE 10% 2 GM in DEXTROSE 5% 100 ML IVPB ONE (09:00)
--- NOTE | 2018-12-26 09:37 | CONS ---
Assessment/Plan Assessment/Plan Hospital Course 68 yo M with multiple comorbidities who initially presented for evaluation of GI symptoms. It was noted that the pt became altered, for which neurology is consulted. ARF + NA 153 12/24: Transferred to ICU for respiratory distress. S/p intubation. Most clinically consistent with an acute and multifactorial toxic-metabolic encephalopathy.. 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 UDS + cocaine, marijuana, opiates P: Ok to defer neuroimaging for now Cont medical management per primary Wean sedation when able Will follow clinically...to recommend neurologic studies, as necessary Consultation Date/Type/Reason Admit Date/Time Dec 21, 2018 at 08:36 Type of Consult Neurology Reason for Consultation ams Requesting Provider: ZULY DELGADO Date/Time of Note DATE: 12/26/18 TIME: 09:36 24 HR Interval Summary Free Text/Dictation Continues critical care. Subjective hx not possible: pt non-verbal, pt critical, pt critical status Exam Vital Signs Vitals Vital Signs Date Temp Pulse Resp B/P (MAP) Pulse Ox O2 O2 Flow FiO2 Time Delivery Rate 12/26/18 113 24 128/61 95 09:15 (83) 12/26/18 98.0 Mechanical 08:00 Ventilator 12/26/18 60 04:34 12/24/18 15.0 05:30 Intake and Output 12/25/18 12/25/18 12/26/18 1515:00 23:00 07:00 IntakeIntake Total 1705.740 ml 1570.740 ml 1148.165 ml OutputOutput Total 310 ml 585 ml 635 ml BalanceBalance 1395.740 ml 985.740 ml 513.165 ml Exam PE: Gen Appearance: No Apparent Distress HEENT: Intubated Cardiovascular: Regular rate Abdomen: Soft Extremities: Dry NE: The patient was obtunded and nonverbal. Cranial nerve examination was limited by mental status. Pupils were equal and reactive to light. There was no afferent pupillary defect. Funduscopic examination was limited. Face was grossly symmetric, w/ present corneal and cou gh reflexes. Tone was normal. Muscle bulk was normal. I did not see fasciculations. The patient withdrew to noxious stimulation x 4. Coordination and gait testing was limited by mental status. Arm and leg reflexes were within normal limits and symmetric. Leon's sign was absent. Plantar responses were flexor. MAINOR HICKEY NP Dec 26, 2018 09:37
[2018-12-26] MEDS ORDERED: VANCOMYCIN HCL 1 GM in DEXTROSE 5% 250 ML IVPB SCH (11:00)
--- NOTE | 2018-12-26 13:17 | PN ---
Date/Time of Note Date/Time of Note DATE: 12/26/18 TIME: 13:03 Assessment/Plan VTE Prophylaxis Risk score (from Nsg)>0 risk: 3 SCD applied (from Nsg): Yes Pharmacological prophylaxis: other (scds) Lines/Catheters IV Catheter Type (from Nrsg): Saline Lock Urinary Cath still in place: Yes Reason Cath still needed: other (indicate) (monitor out put) Assessment/Plan Hospital Course Assessment/Plan Assessment: Acute resp failure- intubated Shock- unclear -Currently on pressors Biliary and pancreatic duct dilatation MRCP 12/19/18 Mildly dilated common bile duct. No evidence of biliary duct obstruction. Gallbladder contains multiple stones without wall thickening. Scattered T2 bright lesions in the liver may represent cysts or hemangiomas. 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 Continue Protonix IV BID Patient seen in collaboration with Subjective: Course reviewed with nursing staff Patient interviewed and examined All labs, imaging and other results reviewed Pt remains cirtiacl in ICU on pressors No overt signs of GI bleed. Unclear etiology regarding shock Maintain close observation PHYSICAL EXAMINATION: GENERAL: Intubated and sedated in ICU SKIN: No lesions EARS/NOSE AND THROAT: NGT in place NECK: Supple, no masses. CHEST: Inspection within normal limits. CARDIOVASCULAR: Heart: Regular rate and rhythm, RESPIRATORY: Lungs clear to auscultation. GASTROINTESTINAL AND LIVER: Abdomen: Soft, no tenderness, moderately distended, no hernias, no guarding, no rebound tenderness, normoactive bowel sounds. Rectal: Deferred. EXTREMITIES: No cyanosis, clubbing or edema. Left foot partially amputated. Result Diagram: 12/26/18 0448 12/26/18 0438 Results 24hrs Laboratory Tests Test 12/25/18 17:06 12/25/18 21:23 12/26/18 01:23 12/26/18 04:38 Bedside Glucose 166 159 114 Prothrombin Time 14.6 Prothrombin Time 1.1 Ratio INR International 1.13 Normalized Ratio Activated 49.7 H Partial Thrombopl ast Time Sodium Level 150 H Potassium Level 5.4 H Chloride Level 119 H Carbon Dioxide 22 Level Anion Gap 9 Blood Urea 60 H Nitrogen Creatinine 5.15 H Est Glomerular 11 L Filtrat Rate mL/min Glucose Level 141 Calcium Level 6.9 L Phosphorus Level 4.8 Magnesium Level 2.2 Random Vancomycin 6.5 Level Test 12/26/18 04:48 12/26/18 05:42 12/26/18 08:07 12/26/18 08:46 White Blood Count 15.5 #H Red Blood Count 2.57 L Hemoglobin 7.6 L Hematocrit 23.1 L Mean Corpuscular 89.9 Volume Mean Corpuscular 29.6 Hemoglobin Mean Corpuscular 32.9 Hemoglobin Concen t Red Cell 17.7 H Distribution Width Platelet Count 124 #L Mean Platelet 12.3 H Volume Immature 0.500 H Granulocytes % Neutrophils % Segmented 19 L Neutrophils % (Manual) Band Neutrophils 68 H % (Manual) Lymphocytes % Lymphocytes % 9 L (Manual) Monocytes % Eosinophils % Basophils % Metamyelocytes % 2 H (manual) Myelocytes % 2 H (Manual) Nucleated Red 2 H Blood Cells % Immature 0.080 H Granulocytes # Neutrophils # Neutrophils # 4.6 (Manual) Band Neutrophils 10.5 H # Lymphocytes 1.3 (Manual) Lymphocytes # Monocytes # Eosinophils # Basophils # Metamyelocytes # 0.3 H Myelocytes # 0.3 H Toxic Granulation 2+ Platelet Estimate DECREASED Polychromasia 1+ Poikilocytosis 1+ Anisocytosis 1+ Macrocytosis 1+ Target Cells 1+ Bedside Glucose 146 149 Blood Gas Blood arterial Specimen Source Arterial Blood 12/26/2018 10:24: Date Drawn 49 AM Arterial Blood pH 7.333 L (Temp corrected) Arterial Blood 44.1 pCO2 (Temp correct) Arterial Blood 78.5 L pO2 (Temp corrected) Arterial Blood 22.9 HCO3 Arterial Blood -2.8 Base Excess Arterial Blood 95.0 Oxygen Saturation [place] Test ACCEPTAB Arterial Blood Right Radial Gas Puncture Site Arterial 0.6 Blood Carboxyhemo globin Arterial Blood 1.4 Methemoglobin Blood Gas A-a O2 300.8 H Differential Oxyhemoglobin 93.1 Percent Blood Gas 37.0 Temperature Blood Gas 20.0 Respiration Rate Blood Gas Actual 26 Respiration Rate Blood Gas VENT - AC Modality FiO2 60.0 Blood Gas Tidal 500.0 Volume Blood Gas Low 5.[address] Blood Gas [facility] Notified Whom Blood Gas 12/26/2018 10:28: Notified Time 33 AM Test 12/26/18 11:57 Bedside Glucose 123 Exam/Review of Systems Exam Vitals Vital Signs Date Temp Pulse Resp B/P (MAP) Pulse Ox O2 O2 Flow FiO2 Time Delivery Rate 12/26/18 111 12:00 12/26/18 26 98 60 11:25 12/26/18 128/61 09:15 (83) 12/26/18 98.0 Mechanical 08:00 Ventilator 12/24/18 15.0 05:30 Intake and Output 12/25/18 12/25/18 12/26/18 1515:00 23:00 07:00 IntakeIntake Total 1705.740 ml 1570.740 ml 1148.165 ml OutputOutput Total 310 ml 585 ml 635 ml BalanceBalance 1395.740 ml 985.740 ml 513.165 ml Results Results 24hrs Laboratory Tests Test 12/25/18 17:06 12/25/18 21:23 12/26/18 01:23 12/26/18 04:38 Bedside Glucose 166 159 114 Prothrombin Time 14.6 Prothrombin Time 1.1 Ratio INR International 1.13 Normalized Ratio Activated 49.7 H Partial Thrombopl ast Time Sodium Level 150 H Potassium Level 5.4 H Chloride Level 119 H Carbon Dioxide 22 Level Anion Gap 9 Blood Urea 60 H Nitrogen Creatinine 5.15 H Est Glomerular 11 L Filtrat Rate mL/min Glucose Level 141 Calcium Level 6.9 L Phosphorus Level 4.8 Magnesium Level 2.2 Random Vancomycin 6.5 Level Test 12/26/18 04:48 12/26/18 05:42 12/26/18 08:07 12/26/18 08:46 White Blood Count 15.5 #H Red Blood Count 2.57 L Hemoglobin 7.6 L Hematocrit 23.1 L Mean Corpuscular 89.9 Volume Mean Corpuscular 29.6 Hemoglobin Mean Corpuscular 32.9 Hemoglobin Concen t Red Cell 17.7 H Distribution Width Platelet Count 124 #L Mean Platelet 12.3 H Volume Immature 0.500 H Granulocytes % Neutrophils % Segmented 19 L Neutrophils % (Manual) Band Neutrophils 68 H % (Manual) Lymphocytes % Lymphocytes % 9 L (Manual) Monocytes % Eosinophils % Basophils % Metamyelocytes % 2 H (manual) Myelocytes % 2 H (Manual) Nucleated Red 2 H Blood Cells % Immature 0.080 H Granulocytes # Neutrophils # Neutrophils # 4.6 (Manual) Band Neutrophils 10.5 H # Lymphocytes 1.3 (Manual) Lymphocytes # Monocytes # Eosinophils # Basophils # Metamyelocytes # 0.3 H Myelocytes # 0.3 H Toxic Granulation 2+ Platelet Estimate DECREASED Polychromasia 1+ Poikilocytosis 1+ Anisocytosis 1+ Macrocytosis 1+ Target Cells 1+ Bedside Glucose 146 149 Blood Gas Blood arterial Specimen Source Arterial Blood 12/26/2018 10:24: Date Drawn 49 AM Arterial Blood pH 7.333 L (Temp corrected) Arterial Blood 44.1 pCO2 (Temp correct) Arterial Blood 78.5 L pO2 (Temp corrected) Arterial Blood 22.9 HCO3 Arterial Blood -2.8 Base Excess Arterial Blood 95.0 Oxygen Saturation [place] Test ACCEPTAB Arterial Blood Right Radial Gas Puncture Site Arterial 0.6 Blood Carboxyhemo globin Arterial Blood 1.4 Methemoglobin Blood Gas A-a O2 300.8 H Differential Oxyhemoglobin 93.1 Percent Blood Gas 37.0 Temperature Blood Gas 20.0 Respiration Rate Blood Gas Actual 26 Respiration Rate Blood Gas VENT - AC Modality FiO2 60.0 Blood Gas Tidal 500.0 Volume Blood Gas Low 5.0 PEEP Setting Blood Gas [facility] Notified Whom Blood Gas 12/26/2018 10:28: Notified Time 33 AM Test 12/26/18 11:57 Bedside Glucose 123 Medications Medication Current Medications IV Flush (NS 3 ml) 3 ml PER PROTOCOL IV ; Start 12/19/18 at 00:30 Acetaminophen (Tylenol Tab) 650 mg Q6H PRN PO .PAIN 1-3 OR TEMP Last administered on 12/25/18at 05:36; Admin Dose 650 MG; Start 12/19/18 at 00:30 Docusate Sodium (Colace) 100 mg Q12H PRN PO .CONSTIPATION Last administered on 12/20/18at 12:53; Admin Dose 100 MG; Start 12/19/18 at 00:30 Bisacodyl (Dulcolax) 5 mg DAILY PRN PO .CONSTIPATION; Start 12/19/18 at 00:30 Ondansetron HCl (Zofran Inj) 4 mg Q4 PRN IV NAUSEA/VOMITING; Start 12/19/18 at 02:00 Nicotine (Nicoderm 14 Mg/ 24hr) 1 patch DAILY TRANSDERM Last administered on 12/26/18 08:01; Admin Dose 1 PATCH; Start 12/19/18 at 09:00 Lorazepam (Ativan) 1 mg Q4 PRN IV withdrawal symptoms Last administered on 12/23/18 04:41; Admin Dose 1 MG; Start 12/19/18 at 05:30 Hyoscyamine (Levsin) 0.125 mg Q6 PO Last administered on 12/26/18 11:57; Admin Dose 0.125 MG; Start 12/19/18 at 12:00 Polyethylene Glycol (Miralax) 17 gm BID PO Last administered on 12/20/18 20:23; Admin Dose 17 GM; Start 12/20/18 at 21:00 Al Hydrox/Mg Hydrox/Simethicone (Mag-Al Plus) 30 ml Q6H PRN PO GASTROINTESTINAL UPSET Last administered on 12/20/18 18:28; Admin Dose 30 ML; Start 12/20/18 at 18:30 Haloperidol (Haldol) 4 mg Q8H PRN IV AGITATION Last administered on 12/22/18 17:40; Admin Dose 4 MG; Start 12/22/18 at 17:30 Pantoprazole (Protonix Iv) 40 mg BID@06,18 IV Last administered on 12/26/18 05:36; Admin Dose 40 MG; Start 12/23/18 at 18:00 Propofol 100 ml @ 1.839 mls/ hr Q12H IV Last administered on 12/26/18 08:18; Admin Dose 9.195 MLS/HR; Start 12/24/18 at 06:00 Fentanyl 100 ml @ 2.5 mls/hr TITRATE IV Last administered on 12/26/18 06:51; Admin Dose 5 MLS/HR; Start 12/24/18 at 12:30 Diagnostic Test (Pha) (Accu-Chek) 1 ea 02 XX ; Start 12/25/18 at 02:00 Insulin Glargine (Lantus) 7 units DAILY@0800 SC Last administered on 12/26/18 08:09; Admin Dose 7 UNITS; Start 12/25/18 at 08:00 Insulin Aspart (Novolog Insulin Pen) NOVOLOG *MILD* ALGORI... Q4 SC Last administered on 3/31/19at 05:50; Admin Dose 1 UNIT; Start 12/24/18 at 13:00 Miscellaneous Information 1 ea NOTE XX ; Start 12/24/18 at 12:30 Glucose (Glutose) 15 gm Q15M PRN PO DECREASED GLUCOSE; Start 12/24/18 at 12:30 Glucose (Glutose) 22.5 gm Q15M PRN PO DECREASED GLUCOSE; Start 12/24/18 at 12:30 Dextrose (D50w Syringe) 25 ml Q15M PRN IV DECREASED GLUCOSE Last administered on 12/25/18at 00:54; Admin Dose 25 ML; Start 12/24/18 at 12:30 Dextrose (D50w Syringe) 50 ml Q15M PRN IV DECREASED GLUCOSE; Start 12/24/18 at 12:30 Glucagon (Glucagen) 1 mg Q15M PRN IM DECREASED GLUCOSE; Start 12/24/18 at 12:30 Glucose (Glutose) 15 gm Q15M PRN BUCCAL DECREASED GLUCOSE; Start 12/24/18 at 12:30 Vancomycin HCl (Vanco Iv Per Pharmacy) VANCOMYCIN PER PHARMACY PER PROTOCOL XX ; Start 12/24/18 at 12:30 IV Flush (NS 10 ml) 10 ml PRN PRN IV flush; Start 12/24/18 at 14:30 Acetaminophen (Tylenol Supp) 650 mg Q6H PRN [place] Fever Last administered on 12/25/18at 17:16; Admin Dose 650 MG; Start 12/24/18 at 21:30 Piperacillin Sod/ Tazobactam Sod 50 ml @ 100 mls/hr Q8 IVPB Last administered on 12/26/18at 13:01; Admin Dose 100 MLS/HR; Start 12/25/18 at 14:00 Phenylephrine HCl 80 mg/Dextrose 250 ml @ 18.75 mls/ hr TITRATE IV Last administered on 12/26/18at 05:36; Admin Dose 13.13 MLS/HR; Start 12/25/18 at 10:00 Norepinephrine 32 mg/Dextrose 250 ml @ 0.47 mls/hr TITRATE IV Last administered on 12/26/18at 05:34; Admin Dose 14.06 MLS/HR; Start 12/25/18 at 10:00 Dextrose/Sodium Chloride 1,000 ml @ 125 mls/hr Q8H IV Last administered on 12/26/18at 08:01; Admin Dose 125 MLS/HR; Start 12/26/18 at 07:30 KRISTINA RED Dec 26, 2018 13:13
--- NOTE | 2018-12-26 13:43 | RADRPT ---
Echocardiogram Report Patient Name: Ayana GIBBONS ID: [id number] : 1950 (68y 2m)Study Date: 12/25/2018 1:52:32 PM Gender: MAccession #: [id number] Tech: MAC Location: Ref.Physician: CHERELLE PALAFOX Height(Cm): 165 BSA: 1.67Weight(Kg): 61.2 Quality: GoodAccount #: Procedures: Echocardiographic Report: Transthoracic echocardiogram examination. Indications: Low diastolic blood pressure/aortic valve evaluation. Measurements: Doppler Measurement Value Normal Range AV Peak Chucho 1.6 [ 100.0 - 170.0 ] cm/sec AV Peak PG 10.0 [ 2.0 - 9.0 ] mmHg AI Peak PG 33.0 mmHg AI Peak Chucho 2.9 cm/sec LVOT Peak Chucho 0.9 [ 70.0 - 110.0 ] cm/sec LVOT Peak PG 3.0 [ 2.0 - 6.0 ] mmHg MV E Peak Chucho 0.7 [ 60.0 - 130.0 ] cm/sec MV A Peak Chucho 1.1 [ 100.0 - 120.0 ] cm/sec MV E/A 0.6 [ 0.8 - 1.5 ] ratio MV PHT 63.0 [ 20.0 - 100.0 ] msec MV Decel Time 214 [ 104 - 258 ] msec MV Decel Douglas 3 Lat E` Chucho 0.1 [ 10.0 - 15.0 ] cm/sec Lateral E/E` 8.4 [ 1.0 - 2.0 ] ratio Med E` Chucho 0.1 cm/sec MV E/A 0.6 [ 0.8 - 1.5 ] ratio MV PHT 63.0 [ 20.0 - 100.0 ] msec MVA PHT 3.5 [ 2.0 - 4.0 ] cm2 PV Peak Chucho 0.8 [ 40.0 - 80.0 ] cm/sec PV Peak PG 2.0 mmHg Findings: Left Ventricle: Normal left ventricular cavity size. Mild left ventricular systolic dysfunction. Tissue Doppler/Mitral Doppler indices are consistent with impaired relaxation (Stage I diastolic dysfunction). Normal appearing left ventricular wall thickness. The left ventricular ejection fraction is visually estimated at 45-50 %. Right Ventricle: Normal right ventricular size. Mild right ventricular hypokinesis, by subcostal images. Left Atrium: The left atrium is normal in size and appearance. Right Atrium: The right atrium is normal in size and appearance. Atrial Septum: Normal atrial septum. Mitral Valve: Mild mitral annular calcification. Trivial mitral regurgitation. Aortic Valve: The aortic valve is not well visualized. Aortic cusps appear mildly calcified, seen best in apical and subcostal images only. Mild aortic regurgitation. Tricuspid Valve: Normal appearance and function of the tricuspid valve with trace physiologic regurgitation. Pulmonic Valve: Normal pulmonic valve appearance and function with trivial (physiologic) regurgitation. No evidence of pulmonic regurgitation. Pericardium: Normal pericardium with no significant pericardial effusion. Aorta: Normal aortic root very proximal portion only imaged. IVC: Normal inferior vena cava appearance. Pulmonary Artery: Normal pulmonary artery size. Conclusions: Normal left ventricular cavity size. Mild left ventricular systolic dysfunction. Tissue Doppler/Mitral Doppler indices are consistent with impaired relaxation (Stage I diastolic dysfunction). Normal appearing left ventricular wall thickness. The left ventricular ejection fraction is visually estimated at 45-50 %. Mild mitral annular calcification. Trivial mitral regurgitation. The aortic valve is not well visualized. Aortic cusps appear mildly calcified, seen best in apical and subcostal images only. Mild aortic regurgitation. Normal appearance and function of the tricuspid valve with trace physiologic regurgitation. Electronically Signed By: Ismael Corley 2018-12-26 13:42:31 PDT
--- NOTE | 2018-12-26 17:09 | PN ---
Date/Time of Note Date/Time of Note DATE: 12/26/18 TIME: 17:05 Assessment/Plan VTE Prophylaxis Risk score (from [place])>0 risk: 3 [place] [facility] [place] Pharmacological prophylaxis: NA/contraindicated Pharm contraindication: bleeding Lines/Catheters IV Catheter Type (from [facility]): Saline Lock Assessment/Plan Hospital Course 1. Acute respiratory distress secondary to encephalopathy ABG was consistent with hypercapnic and hypoxemic respiratory failure Continue vent support Pulmonology consultation appreciated Chest x-ray shows interstitial edema with small bilateral pleural effusions but no significant interval change No indication for diuresis at this point 2. Shock Etiology unclear, cultures are negative except for ET tube culture which is growing Klebsiella pneumonia Continue broad-spectrum antibiotics Continue fluids Continue pressor support 3. Acute encephalopathy secondary to delirium and hypernatremia Continue fluids Neurology consultation appreciated Currently sedated and intubated 4. Severe hypernatremia Patient's sodium still elevated despite IV fluid resuscitation Continue D5 half Nephrology consultation appreciated 5. Hyperglycemia secondary to dextrose and fluid as well as stress Patient has no history of diabetes Scheduled Lantus and sliding scale 6. Melena Patient did have reported melena several days ago but no reports of further melena GI plan was for endoscopy but patient is currently critical 7. Biliary dilation MRCP showed mildly dilated common bile duct, no evidence of biliary duct obstruction. Gallbladder contains multiple stones without wall thickening. Scattered T2 bright lesions in the liver may represent cysts or hemangiomas No indication for ERCP at this time, cholecystectomy not indicated at this time 8. Abdomen pain likely secondary to ileus with diarrhea Most recent KUB showed improved ileus Potassium was replaced but is not elevated and have discontinued potassium replacement Patient was taking opioids prior to his encephalopathy and had been discontinued several days ago Surgery following Stool cultures are negative Small bowel follow-through showed dilated mid small bowel with no evidence of obstruction 9. Metabolic acidosis likely secondary to renal failure Bicarb drip Nephrology following 10. Acute kidney injury likely secondary to hemodynamics and shock Creatinine has worsened Nephrology following Patient may require dialysis in the coming days 11. Normocytic anemia possible secondary to acute blood loss from GI bleed as well as critical state Monitor and consider transfusion tomorrow if continues to drop 12. History coronary disease Continue home meds as able 13. 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 History of prostate cancer No acute issues Prophylaxis: SCDs DC planning: Patient is currently critical Result Diagram: 12/26/18 0448 12/26/18 0438 Results 24hrs Laboratory Tests Test 12/25/18 17:06 12/25/18 21:23 12/26/18 01:23 12/26/18 04:38 Bedside Glucose 166 159 114 Prothrombin Time 14.6 Prothrombin Time 1.1 Ratio INR International 1.13 Normalized Ratio Activated 49.7 H Partial Thrombopl ast Time Sodium Level 150 H Potassium Level 5.4 H Chloride Level 119 H Carbon Dioxide 22 Level Anion Gap 9 Blood Urea 60 H Nitrogen Creatinine 5.15 H Est Glomerular 11 L Filtrat Rate mL/min Glucose Level 141 Calcium Level 6.9 L Phosphorus Level 4.8 Magnesium Level 2.2 Random Vancomycin 6.5 Level Test 12/26/18 04:48 12/26/18 05:42 12/26/18 08:07 12/26/18 08:46 White Blood Count 15.5 #H Red Blood Count 2.57 L Hemoglobin 7.6 L Hematocrit 23.1 L Mean Corpuscular 89.9 Volume Mean Corpuscular 29.6 Hemoglobin Mean Corpuscular 32.9 Hemoglobin Concen t Red Cell 17.7 H Distribution Width Platelet Count 124 #L Mean Platelet 12.3 H Volume Immature 0.500 H Granulocytes % Neutrophils % Segmented 19 L Neutrophils % (Manual) Band Neutrophils 68 H % (Manual) Lymphocytes % Lymphocytes % 9 L (Manual) Monocytes % Eosinophils % Basophils % Metamyelocytes % 2 H (manual) Myelocytes % 2 H (Manual) Nucleated Red 2 H Blood Cells % Immature 0.080 H Granulocytes # Neutrophils # Neutrophils # 4.6 (Manual) Band Neutrophils 10.5 H # Lymphocytes 1.3 (Manual) Lymphocytes # Monocytes # Eosinophils # Basophils # Metamyelocytes # 0.3 H Myelocytes # 0.3 H Toxic Granulation 2+ Platelet Estimate DECREASED Polychromasia 1+ Poikilocytosis 1+ Anisocytosis 1+ Macrocytosis 1+ Target Cells 1+ Bedside Glucose 146 149 Blood Gas Blood arterial Specimen Source Arterial Blood 12/26/2018 10:24: Date Drawn 49 AM Arterial Blood pH 7.333 L (Temp corrected) Arterial Blood 44.1 pCO2 (Temp correct) Arterial Blood 78.5 L pO2 (Temp corrected) Arterial Blood 22.9 HCO3 Arterial Blood -2.8 Base Excess Arterial Blood 95.0 Oxygen Saturation [place] Test ACCEPTAB Arterial Blood Right Radial Gas Puncture Site Arterial 0.6 Blood Carboxyhemo globin Arterial Blood 1.4 Methemoglobin Blood Gas A-a O2 300.8 H Differential Oxyhemoglobin 93.1 Percent Blood Gas 37.0 Temperature Blood Gas 20.0 Respiration Rate Blood Gas Actual 26 Respiration Rate Blood Gas VENT - AC Modality FiO2 60.0 Blood Gas Tidal 500.0 Volume Blood Gas Low 5.0 PEEP Setting Blood Gas MDA Notified Whom Blood Gas 12/26/2018 10:28: Notified Time 33 AM Test 12/26/18 11:57 12/26/18 15:58 Bedside Glucose 123 113 Subjective 24 Hr Interval Summary Subjective hx not possible: pt non-verbal Exam/Review of Systems Exam Vitals Vital Signs Date Temp Pulse Resp B/P (MAP) Pulse Ox O2 O2 Flow FiO2 Time Delivery Rate 12/26/18 109 16:00 12/26/18 99.2 26 110/57 96 16:00 (74) 12/26/18 60 11:25 12/26/18 Mechanical 08:00 Ventilator 12/24/18 15.0 05:30 Intake and Output 12/25/18 12/25/18 12/26/18 1515:00 23:00 07:00 IntakeIntake Total 1705.740 ml 1570.740 ml 1148.165 ml OutputOutput Total 310 ml 585 ml 635 ml BalanceBalance 1395.740 ml 985.740 ml 513.165 ml Constitutional: non-verbal ENMT: intubated Respiratory: clear to auscultation Cardiovascular: regular rate and rhythm Gastrointestinal: soft; No distended Musculoskeletal: nl extremities to inspection Results Results 24hrs Laboratory Tests Test 12/25/18 17:06 12/25/18 21:23 12/26/18 01:23 12/26/18 04:38 Bedside Glucose 166 159 114 Prothrombin Time 14.6 Prothrombin Time 1.1 Ratio INR International 1.13 Normalized Ratio Activated 49.7 H Partial Thrombopl ast Time Sodium Level 150 H Potassium Level 5.4 H Chloride Level 119 H Carbon Dioxide 22 Level Anion Gap 9 Blood Urea 60 H Nitrogen Creatinine 5.15 H Est Glomerular 11 L Filtrat Rate mL/min Glucose Level 141 Calcium Level 6.9 L Phosphorus Level 4.8 Magnesium Level 2.2 Random Vancomycin 6.5 Level Test 12/26/18 04:48 12/26/18 05:42 12/26/18 08:07 12/26/18 08:46 White Blood Count 15.5 #H Red Blood Count 2.57 L Hemoglobin 7.6 L Hematocrit 23.1 L Mean Corpuscular 89.9 Volume Mean Corpuscular 29.6 Hemoglobin Mean Corpuscular 32.9 Hemoglobin Concen t Red Cell 17.7 H Distribution Width Platelet Count 124 #L Mean Platelet 12.3 H Volume Immature 0.500 H Granulocytes % Neutrophils % Segmented 19 L Neutrophils % (Manual) Band Neutrophils 68 H % (Manual) Lymphocytes % Lymphocytes % 9 L (Manual) Monocytes % Eosinophils % Basophils % Metamyelocytes % 2 H (manual) Myelocytes % 2 H (Manual) Nucleated Red 2 H Blood Cells % Immature 0.080 H Granulocytes # Neutrophils # Neutrophils # 4.6 (Manual) Band Neutrophils 10.5 H # Lymphocytes 1.3 (Manual) Lymphocytes # Monocytes # Eosinophils # Basophils # Metamyelocytes # 0.3 H Myelocytes # 0.3 H Toxic Granulation 2+ Platelet Estimate DECREASED Polychromasia 1+ Poikilocytosis 1+ Anisocytosis 1+ Macrocytosis 1+ Target Cells 1+ Bedside Glucose 146 149 Blood Gas Blood arterial Specimen Source Arterial Blood 12/26/2018 10:24: Date Drawn 49 AM Arterial Blood pH 7.333 L (Temp corrected) Arterial Blood 44.1 pCO2 (Temp correct) Arterial Blood 78.5 L pO2 (Temp corrected) Arterial Blood 22.9 HCO3 Arterial Blood -2.8 Base Excess Arterial Blood 95.0 Oxygen Saturation [place] Test ACCEPTAB Arterial Blood Right Radial Gas Puncture Site Arterial 0.6 Blood Carboxyhemo globin Arterial Blood 1.4 Methemoglobin Blood Gas A-a O2 300.8 H Differential Oxyhemoglobin 93.1 Percent Blood Gas 37.0 Temperature Blood Gas 20.0 Respiration Rate Blood Gas Actual 26 Respiration Rate Blood Gas VENT - AC Modality FiO2 60.0 Blood Gas Tidal 500.0 Volume Blood Gas Low 5.0 PEEP Setting Blood Gas MDA Notified Whom Blood Gas 12/26/2018 10:28: Notified Time 33 AM Test 12/26/18 11:57 12/26/18 15:58 Bedside Glucose 123 113 Medications Medication Current Medications IV Flush (NS 3 ml) 3 ml PER PROTOCOL IV ; Start 12/19/18 at 00:30 Acetaminophen (Tylenol Tab) 650 mg Q6H PRN PO .PAIN 1-3 OR TEMP Last administered on 12/25/18 05:36; Admin Dose 650 MG; Start 12/19/18 at 00:30 Docusate Sodium (Colace) 100 mg Q12H PRN PO .CONSTIPATION Last administered on 12/20/18 12:53; Admin Dose 100 MG; Start 12/19/18 at 00:30 Bisacodyl (Dulcolax) 5 mg DAILY PRN PO .CONSTIPATION; Start 12/19/18 at 00:30 Ondansetron HCl (Zofran Inj) 4 mg Q4 PRN IV NAUSEA/VOMITING; Start 12/19/18 at 02:00 Nicotine (Nicoderm 14 Mg/ 24hr) 1 patch DAILY TRANSDERM Last administered on 12/26/18 08:01; Admin Dose 1 PATCH; Start 12/19/18 at 09:00 Lorazepam (Ativan) 1 mg Q4 PRN IV withdrawal symptoms Last administered on 12/23/18 04:41; Admin Dose 1 MG; Start 12/19/18 at 05:30 Hyoscyamine (Levsin) 0.125 mg Q6 PO Last administered on 12/26/18 11:57; Admin Dose 0.125 MG; Start 12/19/18 at 12:00 Polyethylene Glycol (Miralax) 17 gm BID PO Last administered on 12/20/18 20:23; Admin Dose 17 GM; Start 12/20/18 at 21:00 Al Hydrox/Mg Hydrox/Simethicone (Mag-Al Plus) 30 ml Q6H PRN PO GASTROINTESTINAL UPSET Last administered on 12/20/18 18:28; Admin Dose 30 ML; Start 12/20/18 at 18:30 Haloperidol (Haldol) 4 mg Q8H PRN IV AGITATION Last administered on 12/22/18 17:40; Admin Dose 4 MG; Start 12/22/18 at 17:30 Pantoprazole (Protonix Iv) 40 mg BID@06,18 IV Last administered on 12/26/18 05:36; Admin Dose 40 MG; Start 12/23/18 at 18:00 Propofol 100 ml @ 1.839 mls/ hr Q12H IV Last administered on 12/26/18 08:18; Admin Dose 9.195 MLS/HR; Start 12/24/18 at 06:00 Fentanyl 100 ml @ 2.5 mls/hr TITRATE IV Last administered on 12/26/18at 06:51; Admin Dose 5 MLS/HR; Start 12/24/18 at 12:30 Diagnostic Test (Pha) (Accu-Chek) 1 ea 02 XX ; Start 12/25/18 at 02:00 Insulin Glargine (Lantus) 7 units DAILY@0800 SC Last administered on 12/26/18at 08:09; Admin Dose 7 UNITS; Start 12/25/18 at 08:00 Insulin Aspart (Novolog Insulin Pen) NOVOLOG *MILD* ALGORI... Q4 SC Last administered on 12/26/18at 05:50; Admin Dose 1 UNIT; Start 12/24/18 at 13:00 Miscellaneous Information 1 ea NOTE XX ; Start 12/24/18 at 12:30 Glucose (Glutose) 15 gm Q15M PRN PO DECREASED GLUCOSE; Start 12/24/18 at 12:30 Glucose (Glutose) 22.5 gm Q15M PRN PO DECREASED GLUCOSE; Start 12/24/18 at 12:30 Dextrose (D50w Syringe) 25 ml Q15M PRN IV DECREASED GLUCOSE Last administered on 12/25/18at 00:54; Admin Dose 25 ML; Start 12/24/18 at 12:30 Dextrose (D50w Syringe) 50 ml Q15M PRN IV DECREASED GLUCOSE; Start 12/24/18 at 12:30 Glucagon (Glucagen) 1 mg Q15M PRN IM DECREASED GLUCOSE; Start 12/24/18 at 12:30 Glucose (Glutose) 15 gm Q15M PRN BUCCAL DECREASED GLUCOSE; Start 12/24/18 at 12:30 Vancomycin HCl (Vanco Iv Per Pharmacy) VANCOMYCIN PER PHARMACY PER PROTOCOL XX ; Start 12/24/18 at 12:30 IV Flush (NS 10 ml) 10 ml PRN PRN IV flush; Start 12/24/18 at 14:30 Acetaminophen (Tylenol Supp) 650 mg Q6H PRN ME Fever Last administered on 11/28 at 17:16; Admin Dose 650 MG; Start 12/24/18 at 21:30 Piperacillin Sod/ Tazobactam Sod 50 ml @ 100 mls/hr Q8 IVPB Last administered on 12/26/18at 13:01; Admin Dose 100 MLS/HR; Start 12/25/18 at 14:00 Phenylephrine HCl 80 mg/Dextrose 250 ml @ 18.75 mls/ hr TITRATE IV Last administered on 12/26/18at 05:36; Admin Dose 13.13 MLS/HR; Start 12/25/18 at 10:00 Norepinephrine 32 mg/Dextrose 250 ml @ 0.47 mls/hr TITRATE IV Last administered on 12/26/18at 05:34; Admin Dose 14.06 MLS/HR; Start 12/25/18 at 10:00 Dextrose/Sodium Chloride 1,000 ml @ 125 mls/hr Q8H IV Last administered on 12/26/18at 15:56; Admin Dose 125 MLS/HR; Start 12/26/18 at 07:30 ZULY DELGADO Dec 26, 2018 17:09
[2018-12-26] MEDS ORDERED: PHENYLephrine 80 MG in DEXTROSE 5% 242 ML IV SCH (23:30)
--- NOTE | 2018-12-26 23:51 | PN ---
Date/Time of Note Date/Time of Note DATE: 12/26/18 TIME: 23:51 Assessment/Plan Lines/Catheters IV Catheter Type (from [facility]): Saline Lock Kohler in Place (from [facility]): Yes Assessment/Plan Chief Complaint/Hosp Course 1. Respiratory failure: Currently intubated; CXR with effusion and infiltrates. Sepsis with 2 pressors. -Pulm f/u -Pulmonary toilet -Judicious Fluid management -Abx -CT 2. Abdominal pain: 2/2 liver versus illicit drug use versus constipation versus other; SBFT noted without obstruction; Abdominal distention. Bowel function -N.p.o. -NGT -CT 3. Dilated biliary system: MRCP noted -Medical optimization -Further imaging 4. Prostate cancer history -Per medical team 5. Atherosclerosis with CAD -Medical management 6. 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 Diverticulosis without diverticulitis: -Lifestyle optimization 8. Normocytic normochromic anemia: Dark stools -Monitor and transfuse as needed -Per GI> gib w/u 9. Drug screen positive for cocaine, opioids and cannabinoids -Highly encourage cessation of illicit drug use -?withdrawal Thank you Subjective 24 Hr Interval Summary 1 pressor. Bowel function. No fevers, labored breathing, congested cough, arrhythmias, vomiting, diarrhea, hematuria. Worsening leukocytosis. Exam/Review of Systems Vital Signs Vitals Vital Signs Date Temp Pulse Resp B/P (MAP) Pulse Ox O2 O2 Flow FiO2 Time Delivery Rate 12/27/18 109 00:00 12/26/18 20 100 50 23:30 12/26/18 105/56 22:15 (72) 12/26/18 Mechanical 22:00 Ventilator 12/26/18 98.8 20:00 12/24/18 15.0 05:30 Intake and Output 12/26/18 12/26/18 12/27/18 1515:00 23:00 07:00 IntakeIntake Total 1125 ml 1074.300 ml OutputOutput Total 20 ml 823 ml BalanceBalance 1105 ml 251.300 ml Exam Free Text/Dictation Constitutional: sedated, vented Psych: sedated on vent Head: normocephalic, atraumatic Eyes: nl conjunctiva, EOMI, nl lids, nl sclera ENMT: nl external ears & nose, nl lips & teeth, mucosa pink and moist, NG tube, ETT Neck: supple, Respiratory: normal air movement, labored breathing; No congested cough Cardiovascular: tachycardic, s1s2 Gastrointestinal: distended, nontender, no rebound, no guarding Musculoskeletal: nl extremities to inspection, nl gait and stance Extremities: normal pulses; No edema Neurological: nl mental status, nl speech, nl strength Skin: No rash or lesions Lymph: nl lymph nodes Results Result Diagram: 12/26/18 0448 12/26/18 0438 JULIET FERREIRA MD Dec 26, 2018 23:51
--- NOTE | 2018-12-26 23:51 | PN ---
Date/Time of Note Date/Time of Note DATE: 12/25/18 TIME: 23:51 Assessment/Plan Lines/Catheters IV Catheter Type (from [facility]): Saline Lock Kohler in Place (from [facility]): Yes Assessment/Plan Chief Complaint/Hosp Course 1. Respiratory failure: Currently intubated; CXR with effusion and infiltrates. Sepsis with 2 pressors. -Pulm f/u -Pulmonary toilet -Judicious Fluid management -Abx 2. Abdominal pain: 2/2 liver versus illicit drug use versus constipation versus other; SBFT noted without obstruction; Abdominal distention. Bowel function -N.p.o. -NGT to low intermittent wall suction -CT 3. Dilated biliary system: MRCP noted -Per GI -Medical optimization 4. Prostate cancer history -Per medical team 5. Atherosclerosis with CAD -Medical management 6. 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 Diverticulosis without diverticulitis: -Lifestyle optimization 8. Normocytic normochromic anemia: Dark stools -Monitor and transfuse as needed -Per GI> gib w/u 9. Drug screen positive for cocaine, opioids and cannabinoids -Highly encourage cessation of illicit drug use Thank you Late entry 12/25 Subjective 24 Hr Interval Summary 2 pressors. Still intubated in ICU. Bowel function. No fevers, labored breathing, congested cough, arrhythmias, vomiting, diarrhea, hematuria. Worsening leukocytosis. Exam/Review of Systems Vital Signs Vitals Vital Signs Date Temp Pulse Resp B/P (MAP) Pulse Ox O2 O2 Flow FiO2 Time Delivery Rate 12/27/18 109 00:00 12/26/18 20 100 50 23:30 12/26/18 105/56 22:15 (72) 12/26/18 Mechanical 22:00 Ventilator 12/26/18 98.8 20:00 12/24/18 15.0 05:30 Intake and Output 12/26/18 12/26/18 12/27/18 1515:00 23:00 07:00 IntakeIntake Total 1125 ml 1074.300 ml OutputOutput Total 20 ml 823 ml BalanceBalance 1105 ml 251.300 ml Exam Free Text/Dictation Constitutional: sedated, vented Psych: sedated on vent Head: normocephalic, atraumatic Eyes: nl conjunctiva, EOMI, nl lids, nl sclera ENMT: nl external ears & nose, nl lips & teeth, mucosa pink and moist, NG tube, ETT Neck: supple, Respiratory: normal air movement, labored breathing; No congested cough Cardiovascular: tachycardic, s1s2 Gastrointestinal: distended, nontender, no rebound, no guarding Musculoskeletal: nl extremities to inspection, nl gait and stance Extremities: normal pulses; No edema Neurological: nl mental status, nl speech, nl strength Skin: No rash or lesions Lymph: nl lymph nodes Results Result Diagram: 12/26/18 0448 12/26/18 0438 JULIET FERREIRA MD Dec 26, 2018 23:51
[2018-12-27] VITALS (88 sets, daily range): BP systolic 80–126; BP diastolic 42–68; PULSE 85–109; RESP 20–27
[2018-12-27] MEDS: HYOSCYAMINE 0.125 MG TAB PO SCH
[2018-12-27] MEDS: INSULIN ASPART [NOVOLOG] 3 ML PEN SC SCH ×6 (01:00→21:00)
[2018-12-27] MEDS: ACCU-CHEK XX SCH (02:00)
[2018-12-27] MEDS: PHENYLephrine 80 MG in DEXTROSE 5% 242 ML IV SCH ×3 (05:08→18:21)
[2018-12-27] MEDS: FENTAnyl (DRIP) 1000 mcg/100mL 100 ML IV SCH (05:51)
[2018-12-27] MEDS: PIPER-TAZO 2.25 GM/NS 50 ML IVPB SCH (06:38)
[2018-12-27] MEDS: PROPOFOL 100 ML IV SCH ×2 (06:38→16:45)
[2018-12-27] MEDS: PANTOPRAZOLE 40 MG INJ IV SCH (06:38)
[2018-12-27] MEDS: DEXTROSE 5%-0.45% NACL 1,000 ML IV SCH (08:24)
[2018-12-27] MEDS: POLYETHYLENE GLYCOL 17 GM PACKET PO SCH (08:28)
[2018-12-27] MEDS: NICOTINE (14 MG/24 HR) PATCH TRANSDERM SCH (08:29)
[2018-12-27] MEDS: INSULIN GLARGINE [LANTus] (100 UNITS/ML) SYG SC SCH (09:14)
--- NOTE | 2018-12-27 09:38 | PN ---
DATE: 12/27/2018 NEPHROLOGY FOLLOWUP SUBJECTIVE: The patient remains critically ill on pressor support. The patient has minimal urinary output. The patient is on full ventilatory support. Please note I spoke in detail with the patient' s son, Kedar, about the need to initiate hemodialysis. The patient's son wishes to speak with the re st of the family before making a decision. Risks and benefits of dialysis were explained in detail t o the patient's son. No other acute events noted. No hemoptysis, hematemesis or hematochezia. OBJECTIVE: VITAL SIGNS: Blood pressure is 94/51, respiration 23, pulse 97, temperature 98.6. HEENT: Head is normocephalic. Pupils are reactive to light. NECK: Supple. HEART: Regular rate. LUNGS: Show diminished breath sounds at the base. ABDOMEN: Soft, nontender to palpation. No rebound or guarding. EXTREMITIES: Negative for clubbing, cyanosis, positive edema, positive left below knee amputation is noted. DERMATOLOGIC: No rashes. MUSCULOSKELETAL: No joint effusion. NEUROLOGIC: The patient is obtunded. LABORATORY DATA: Shows sodium 146, potassium 5.3, chloride 113, bicarbonate 19, BUN 75, creatinine 5 .99. White count 10.1, hemoglobin 6.8, platelet count is 95. Patient's ABG from 12/26/2018 was revi ewed. Cultures have been reviewed, x-ray has been reviewed. IMAGING: CT scan of the chest was reviewed, showed diffuse patchy opacities representing pulmonary e ab, infection or inflammatory changes and atelectasis consolidation of the right greater than left lower lobes, pleural effusions, ascites, distended gallbladder. ASSESSMENT AND PLAN: 1. Oligoanuric acute kidney injury with previous baseline creatinine of 0.9 mg/dL. Etiology of curr ent acute kidney injury is secondary to acute tubular necrosis due to septic acute kidney injury, [place], ischemic hypoperfusion. The patient remains in injury phase of acute tubular necrosis as renal f unction continues to decline, urinary output is declining. At this point, would recommend initiating hemodialysis given the patient's worsening renal function, electrolyte abnormalities, hypokalemia an d volume overload state. I spoke with the patient's son, Kedar about initiating hemodialysis. He wi ll speak with the rest of the family and inform me if they wish to proceed. Would otherwise continue current treatment plan. Continue pressor support to maintain MAP of 65. Continue antibiotic therap y, continue volume expansion. Continue to renally dose all meds, avoid nephrotoxins. 2. Hyperkalemia, etiology secondary to acute kidney injury. The patient would require hemodialysis for definitive correction of underlying hyperkalemia. As stated above, the patient's family is jimbo das is determining whether to proceed. If they refuse dialysis, will medically manage with Kayexalate, IV insulin. 3. Hypernatremia. The patient has a free water deficit of approximately 2 liters. Continue IV hydr ation with hypotonic fluid. 4. Metabolic acidosis secondary to acute kidney injury, lactic acidosis. Will continue to monitor. Follow up ABGs. The patient has significant acidemia, will start a bicarbonate drip. 5. Anemia. Continue to monitor hemoglobin and hematocrit levels. The patient is pending blood sabillon sfusion. 6. Septic shock. Etiology is unclear likely due to pneumonia. Continue broad spectrum antibiotics, IV fluids, pressor support. Follow up cultures. 7. Ventilator-dependent respiratory failure. Vent settings and ABG was reviewed. Continue to monit or. Follow up with pulmonary. 8. Acute encephalopathy, etiology toxic metabolic, uremic. Continue to monitor. Continue medical m anagement. Recommended hemodialysis as stated above. 9. Abdominal pain, abdominal distention. The patient is being followed by General Surgery. Continu e to monitor. The patient has NG tube in place to intermittent suction. 10. History of coronary artery disease. Continue medical management. 11. History of prostate cancer. 12. Melena. Continue to monitor hemoglobin and hematocrit levels. Follow up with GI. Continue pro ton pump inhibitor. 13. Common bile duct dilatation. The patient is status post MRCP. Continue to monitor. Follow up with GI for further recommendations. 14. History of prostate cancer. 15. History of chronic back pain. Please note I spent over 30 minutes of critical care time with this patient. Dictated By: ANALIA LUCERO DO NR/NTS Conf#: [id number] DID#: [id number] CC: MEMO CASAREZ MD;*EndCC*
--- NOTE | 2018-12-27 09:55 | CONS ---
Consult Date/Type/Reason Admit Date/Time Dec 21, 2018 at 08:36 Initial Consult Date 12/19/18 Type of Consult Pulmonary Requesting Provider: ZULY DELGADO Date/Time of Note DATE: 12/27/18 TIME: 09:52 Subjective Patient remains somnolent on mechanical ventilation agonal respiration. Continues to remain hypotensive. Abdomen distended with absent bowel sounds. Objective Vital Signs Date Temp Pulse Resp B/P (MAP) Pulse Ox O2 O2 Flow FiO2 Time Delivery Rate 12/27/18 92 22 99/47 (64) 97 Mechanical 08:30 Ventilator 12/27/18 99.6 07:30 12/27/18 50 05:26 12/24/18 15.0 05:30 Intake and Output 12/26/18 12/26/18 12/27/18 1515:00 23:00 07:00 IntakeIntake Total 1125 ml 1221.495 ml 1350.009 ml OutputOutput Total 20 ml 823 ml 611 ml BalanceBalance 1105 ml 398.495 ml 739.009 ml Exam GENERAL: Elderly appearing gentleman orally intubated on mechanical ventilation labored ventilation VITAL SIGNS: per chart NECK: Supple. No JVD or lymphadenopathy. CARDIAC EXAM: S1, S2. No added sounds or murmurs. CHEST: Diminished air entry bilaterally ABDOMEN: Distended with diminished bowel sounds no guarding. EXTREMITIES: No cyanosis, clubbing, edema +1 NEUROLOGIC: Generalized weakness. Vent Setting Ventilator Support Mode: AC Fraction of Inspired Oxygen pe: 50 Positive End Expiratory Pressu: 5.0 Results/Medications Result Diagram: 12/27/18 0400 12/27/18 0400 Results 24 hrs Laboratory Tests Test 12/26/18 11:57 12/26/18 15:58 12/26/18 21:41 12/27/18 01:46 Bedside Glucose 123 113 130 100 Test 12/27/18 04:00 12/27/18 05:03 12/27/18 08:00 12/27/18 08:24 White Blood Count 10.1 # Red Blood Count 2.27 L Hemoglobin 6.8 *L Hematocrit 20.6 L Mean Corpuscular 90.7 Volume Mean Corpuscular 30.0 Hemoglobin Mean Corpuscular 33.0 Hemoglobin Concen t Red Cell 17.8 H Distribution Width Platelet Count 95 #L Mean Platelet 13.8 H Volume Immature 0.800 H Granulocytes % Neutrophils % 93.8 H Segmented 27 L Neutrophils % (Manual) Band Neutrophils 64 H % (Manual) Lymphocytes % 3.7 L Lymphocytes % 4 L (Manual) Monocytes % 1.0 Monocytes % 1 (Manual) Eosinophils % 0.6 Eosinophils % 4 (Manual) Basophils % 0.1 Nucleated Red 3 H Blood Cells % Immature 0.080 H Granulocytes # Neutrophils # 9.4 H Neutrophils # 3.4 (Manual) Band Neutrophils 6.4 H # Lymphocytes 0.4 L (Manual) Lymphocytes # 0.4 L Monocytes # 0.1 L Monocytes # 0.1 L (Manual) Eosinophils # 0.1 Basophils # 0.0 Nucleated Red 0.1 H Blood Cells # Platelet Estimate DECREASED Polychromasia 1+ Hypochromasia 2+ Anisocytosis 1+ Macrocytosis 1+ Target Cells 2+ Ovalocytes 1+ Sodium Level 146 H Potassium Level 5.3 H Chloride Level 115 H Carbon Dioxide 19 L Level Anion Gap 12 Blood Urea 75 H Nitrogen Creatinine 5.99 H Est Glomerular 9 L Filtrat Rate mL/min Glucose Level 74 # Lactic Acid Level 2.5 *H Calcium Level 7.3 L Total Bilirubin 1.2 Direct Bilirubin 1.00 H Indirect 0.2 Bilirubin Aspartate Amino 449 H Transf (AST/SGOT) Alanine 135 H Aminotransferase (ALT/SGPT) Alkaline 79 Phosphatase Total Protein 3.8 L Albumin 1.9 L Globulin 1.90 Albumin/Globulin 1.00 Ratio Bedside Glucose 90 104 Blood Gas Blood capillary Specimen Source Arterial Blood 12/27/2018 8:16:56 Date Drawn AM Arterial Blood pH 7.270 *L (Temp corrected) Arterial Blood 39.9 pCO2 (Temp correct) Arterial Blood 56.3 L pO2 (Temp corrected) Arterial Blood 17.9 L HCO3 Arterial Blood -8.3 L Base Excess Arterial Blood 83.3 L Oxygen Saturation Gilmar Test ACCEPTAB Arterial Blood LB Gas Puncture Site Arterial 1.4 Blood Carboxyhemo globin Arterial Blood 1.0 Methemoglobin Blood Gas A-a O2 327.6 H Differential Oxyhemoglobin 81.3 L Percent Blood Gas 37.0 Temperature Blood Gas 20.0 Respiration Rate Blood Gas Actual 21 Respiration Rate Blood Gas VENT - AC Modality FiO2 60.0 Blood Gas Tidal 500.0 Volume Blood Gas Low 5.0 PEEP Setting Blood Gas TM Notified Whom Blood Gas 12/27/2018 8:25:41 Notified Time AM Test 12/27/18 09:10 Hepatitis B Pending Surface Antigen Hepatitis B Core Pending Total Antibody Hepatitis C Pending Antibody Medications Current Medications IV Flush (NS 3 ml) 3 ml PER PROTOCOL IV ; Start 12/19/18 at 00:30 Acetaminophen (Tylenol Tab) 650 mg Q6H PRN PO .PAIN 1-3 OR TEMP Last administered on 12/25/18 05:36; Admin Dose 650 MG; Start 12/19/18 at 00:30 Docusate Sodium (Colace) 100 mg Q12H PRN PO .CONSTIPATION Last administered on 12/20/18 12:53; Admin Dose 100 MG; Start 12/19/18 at 00:30 Bisacodyl (Dulcolax) 5 mg DAILY PRN PO .CONSTIPATION; Start 12/19/18 at 00:30 Ondansetron HCl (Zofran Inj) 4 mg Q4 PRN IV NAUSEA/VOMITING; Start 12/19/18 at 02:00 Nicotine (Nicoderm 14 Mg/ 24hr) 1 patch DAILY TRANSDERM Last administered on 12/27/18 08:29; Admin Dose 1 PATCH; Start 12/19/18 at 09:00 Lorazepam (Ativan) 1 mg Q4 PRN IV withdrawal symptoms Last administered on 12/23/18 04:41; Admin Dose 1 MG; Start 12/19/18 at 05:30 Polyethylene Glycol (Miralax) 17 gm BID PO Last administered on 12/26/18 2 1:45; Admin Dose 17 GM; Start 12/20/18 at 21:00 Al Hydrox/Mg Hydrox/Simethicone (Mag-Al Plus) 30 ml Q6H PRN PO GASTROINTESTINAL UPSET Last administered on 12/20/18 18:28; Admin Dose 30 ML; Start 12/20/18 at 18:30 Haloperidol (Haldol) 4 mg Q8H PRN IV AGITATION Last administered on 12/22/18 17:40; Admin Dose 4 MG; Start 12/22/18 at 17:30 Pantoprazole (Protonix Iv) 40 mg BID@06,18 IV Last administered on 12/27/18 06:38; Admin Dose 40 MG; Start 12/23/18 at 18:00 Propofol 100 ml @ 1.839 mls/ hr Q12H IV Last administered on 12/27/18at 06:38; Admin Dose 7.356 MLS/HR; Start 12/24/18 at 06:00 Fentanyl 100 ml @ 2.5 mls/hr TITRATE IV Last administered on 12/27/18at 05:51; Admin Dose 5 MLS/HR; Start 12/24/18 at 12:30 Diagnostic Test (Pha) (Accu-Chek) 1 ea 02 XX ; Start 12/25/18 at 02:00 Insulin Glargine (Lantus) 7 units DAILY@0800 SC Last administered on 12/27/18at 09:14; Admin Dose 7 UNITS; Start 12/25/18 at 08:00 Insulin Aspart (Novolog Insulin Pen) NOVOLOG *MILD* ALGORI... Q4 SC Last admin istered on 12/26/18at 05:50; Admin Dose 1 UNIT; Start 12/24/18 at 13:00 Miscellaneous Information 1 ea NOTE XX ; Start 12/24/18 at 12:30 Glucose (Glutose) 15 gm Q15M PRN PO DECREASED GLUCOSE; Start 12/24/18 at 12:30 Glucose (Glutose) 22.5 gm Q15M PRN PO DECREASED GLUCOSE; Start 12/24/18 at 12:30 Dextrose (D50w Syringe) 25 ml Q15M PRN IV DECREASED GLUCOSE Last administered on 12/25/18at 00:54; Admin Dose 25 ML; Start 12/24/18 at 12:30 Dextrose (D50w Syringe) 50 ml Q15M PRN IV DECREASED GLUCOSE; Start 12/24/18 at 12:30 Glucagon (Glucagen) 1 mg Q15M PRN IM DECREASED GLUCOSE; Start 12/24/18 at 12:30 Glucose (Glutose) 15 gm Q15M PRN BUCCAL DECREASED GLUCOSE; Start 12/24/18 at 12:30 Vancomycin HCl (Vanco Iv Per Pharmacy) VANCOMYCIN PER PHARMACY PER PROTOCOL XX ; Start 12/24/18 at 12:30 IV Flush (NS 10 ml) 10 ml PRN PRN IV flush; Start 12/24/18 at 14:30 Acetaminophen (Tylenol Supp) 650 mg Q6H PRN NM Fever Last administered on 12/25/18at 17:16; Admin Dose 650 MG; Start 12/24/18 at 21:30 Piperacillin Sod/ Tazobactam Sod 50 ml @ 100 mls/hr Q8 IVPB Last administered on 12/27/18at 06:38; Admin Dose 100 MLS/HR; Start 12/25/18 at 14:00 Phenylephrine HCl 80 mg/Dextrose 250 ml @ 18.75 mls/ hr TITRATE IV Last administered on 12/27/18at 05:08; Admin Dose 37.5 MLS/HR; Start 12/25/18 at 10:00 Norepinephrine 32 mg/Dextrose 250 ml @ 0.47 mls/hr TITRATE IV Last administered on 12/26/18at 17:28; Admin Dose 13.13 MLS/HR; Start 12/25/18 at 10:00 Dextrose/Sodium Chloride 1,000 ml @ 125 mls/hr Q8H IV Last administered on 12/27/18at 08:24; Admin Dose 125 MLS/HR; Start 12/26/18 at 07:30 Hyoscyamine (Levsin (Sl)) 0.125 mg Q6 PO ; Start 12/27/18 at 12:00 Assessment/Plan Hospital Course (Demo Recall) Assessment 1. Acute abdomen ongoing GI surgical workup 2. Septic shock multifactorial 3. Hypoxemic respiratory failure with evidence of pneumonia on CT chest 4. Severe pneumonia no active GI bleeding at present 5. Acute renal failure with metabolic acidosis, probable ATN injury Plan 1. Continue mechanical ventilation 2. Transfusion of packed red blood cells 3. Initiation of emergent hemodialysis 4. Continue broad-spectrum antibiotic coverage 5. Correction of metabolic acidosis 6. Surgical and GI recommendations currently patient is not surgical candidate Critical care time 40 minutes Prognosis guarded. LIZ GALVAN MD, [facility] Dec 27, 2018 09:55
[2018-12-27] MEDS: HYOSCYAMINE 0.125 MG SUBL TAB PO SCH ×2 (12:57→17:34)
[2018-12-27] MEDS ORDERED: HEPARIN 1000 UNITS/ML 10 ML INJ CATHETER ONE (13:30)
[2018-12-27] MEDS ORDERED: ALBUMIN HUMAN 25% 100 ML IV PRN (13:30)
--- NOTE | 2018-12-27 13:59 | PN ---
Date/Time of Note Date/Time of Note DATE: 12/27/18 TIME: 13:58 Assessment/Plan VTE Prophylaxis Risk score (from Ns)>0 risk: 5 SCD applied (from Ns): Yes Pharmacological prophylaxis: heparin Lines/Catheters IV Catheter Type (from Nrs): Saline Lock Urinary Cath still in place: Yes Reason Cath still needed: urinary retention Assessment/Plan Hospital Course 1. Acute respiratory distress secondary to encephalopathy ABG was consistent with hypercapnic and hypoxemic respiratory failure Continue vent support Pulmonology consultation appreciated Chest x-ray shows interstitial edema with small bilateral pleural effusions but no significant interval change No indication for diuresis at this point 2. Shock Etiology unclear, cultures are negative except for ET tube culture which is growing Klebsiella pneumonia Continue broad-spectrum antibiotics stop fluids Continue pressor support 3. Acute encephalopathy secondary to delirium and hypernatremia Continue fluids Neurology consultation appreciated Currently sedated and intubated 4. Severe hypernatremia Patient's sodium still elevated despite IV fluid resuscitation Continue D5 half Nephrology consultation appreciated 5. Hyperglycemia secondary to dextrose and fluid as well as stress Patient has no history of diabetes Scheduled Lantus and sliding scale 6. Melena Patient did have reported melena several days ago but no reports of further melena GI plan was for endoscopy but patient is currently critical 7. Biliary dilation MRCP showed mildly dilated common bile duct, no evidence of biliary duct obstruction. Gallbladder contains multiple stones without wall thickening. Scattered T2 bright lesions in the liver may represent cysts or hemangiomas No indication for ERCP at this time, cholecystectomy not indicated at this time 8. Abdomen pain likely secondary to ileus with diarrhea Most recent KUB showed improved ileus Potassium was replaced but is not elevated and have discontinued potassium replacement Patient was taking opioids prior to his encephalopathy and had been discontinued several days ago Surgery following Stool cultures are negative Small bowel follow-through showed dilated mid small bowel with no evidence of obstruction 9. Metabolic acidosis likely secondary to renal failure Bicarb drip Nephrology following 10. Acute kidney injury likely secondary to hemodynamics and shock Creatinine has worsened Nephrology following Will require dialysis in the coming days 11. Normocytic anemia possible secondary to acute blood loss from GI bleed as well as critical state Monitor and consider transfusion tomorrow if continues to drop 12. History coronary disease Continue home meds as able 13. 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 History of prostate cancer No acute issues Prophylaxis: SCDs DC planning: Patient is currently critical Result Diagram: 12/27/18 0400 12/27/18 0400 Results 24hrs Laboratory Tests Test 12/26/18 15:58 12/26/18 21:41 12/27/18 01:46 12/27/18 04:00 Bedside Glucose 113 130 100 White Blood Count 10.1 # Red Blood Count 2.27 L Hemoglobin 6.8 *L Hematocrit 20.6 L Mean Corpuscular 90.7 Volume Mean Corpuscular 30.0 Hemoglobin Mean Corpuscular 33.0 Hemoglobin Concen t Red Cell 17.8 H Distribution Width Platelet Count 95 #L Mean Platelet 13.8 H Volume Immature 0.800 H Granulocytes % Neutrophils % 93.8 H Segmented 27 L Neutrophils % (Manual) Band Neutrophils 64 H % (Manual) Lymphocytes % 3.7 L Lymphocytes % 4 L (Manual) Monocytes % 1.0 Monocytes % 1 (Manual) Eosinophils % 0.6 Eosinophils % 4 (Manual) Basophils % 0.1 Nucleated Red 3 H Blood Cells % Immature 0.080 H Granulocytes # Neutrophils # 9.4 H Neutrophils # 3.4 (Manual) Band Neutrophils 6.4 H # Lymphocytes 0.4 L (Manual) Lymphocytes # 0.4 L Monocytes # 0.1 L Monocytes # 0.1 L (Manual) Eosinophils # 0.1 Basophils # 0.0 Nucleated Red 0.1 H Blood Cells # Platelet Estimate DECREASED Polychromasia 1+ Hypochromasia 2+ Anisocytosis 1+ Macrocytosis 1+ Target Cells 2+ Ovalocytes 1+ Sodium Level 146 H Potassium Level 5.3 H Chloride Level 115 H Carbon Dioxide 19 L Level Anion Gap 12 Blood Urea 75 H Nitrogen Creatinine 5.99 H Est Glomerular 9 L Filtrat Rate mL/min Glucose Level 74 # Lactic Acid Level 2.5 *H Calcium Level 7.3 L Total Bilirubin 1.2 Direct Bilirubin 1.00 H Indirect 0.2 Bilirubin Aspartate Amino 449 H Transf (AST/SGOT) Alanine 135 H Aminotransferase (ALT/SGPT) Alkaline 79 Phosphatase Total Protein 3.8 L Albumin 1.9 L Globulin 1.90 Albumin/Globulin 1.00 Ratio Test 12/27/18 05:03 12/27/18 06:00 12/27/18 08:00 12/27/18 08:24 Bedside Glucose 90 104 Stool Occult POSITIVE Blood Blood Gas Blood capillary Specimen Source Arterial Blood 12/27/2018 8:16:56 Date Drawn AM Arterial Blood pH 7.270 *L (Temp corrected) Arterial Blood 39.9 pCO2 (Temp correct) Arterial Blood 56.3 L pO2 (Temp corrected) Arterial Blood 17.9 L HCO3 Arterial Blood -8.3 L Base Excess Arterial Blood 83.3 L Oxygen Saturation Gilmar Test ACCEPTAB Arterial Blood LB Gas Puncture Site Arterial 1.4 Blood Carboxyhemo globin Arterial Blood 1.0 Methemoglobin Blood Gas A-a O2 327.6 H Differential Oxyhemoglobin 81.3 L Percent Blood Gas 37.0 Temperature Blood Gas 20.0 Respiration Rate Blood Gas Actual 21 Respiration Rate Blood Gas VENT - AC Modality FiO2 60.0 Blood Gas Tidal 500.0 Volume Blood Gas Low 5.0 PEEP Setting Blood Gas TM Notified Whom Blood Gas 12/27/2018 8:25:41 Notified Time AM Test 12/27/18 09:10 12/27/18 13:02 Hepatitis B NEGATIVE Surface Antigen Hepatitis B Core NEGATIVE Total Antibody Hepatitis C NEGATIVE Antibody Bedside Glucose 94 Subjective 24 Hr Interval Summary Free Text/Dictation Remains intubated, sedated Renal function continues to deteriorate Joselo catheter was placed Exam/Review of Systems Exam Vitals Vital Signs Date Temp Pulse Resp B/P (MAP) Pulse Ox O2 O2 Flow FiO2 Time Delivery Rate 12/27/18 114 20 100 50 13:25 12/27/18 99/47 (64) Mechanical 08:30 Ventilator 12/27/18 99.6 07:30 12/24/18 15.0 05:30 Intake and Output 12/26/18 12/26/18 12/27/18 1515:00 23:00 07:00 IntakeIntake Total 1125 ml 1221.495 ml 1350.009 ml OutputOutput Total 20 ml 823 ml 611 ml BalanceBalance 1105 ml 398.495 ml 739.009 ml Exam Intubated, sedated RRR Breath sounds clear Abdomen soft nt nd Joselo placed Results Results 24hrs Laboratory Tests Test 12/26/18 15:58 12/26/18 21:41 12/27/18 01:46 12/27/18 04:00 Bedside Glucose 113 130 100 White Blood Count 10.1 # Red Blood Count 2.27 L Hemoglobin 6.8 *L Hematocrit 20.6 L Mean Corpuscular 90.7 Volume Mean Corpuscular 30.0 Hemoglobin Mean Corpuscular 33.0 Hemoglobin Concen t Red Cell 17.8 H Distribution Width Platelet Count 95 #L Mean Platelet 13.8 H Volume Immature 0.800 H Granulocytes % Neutrophils % 93.8 H Segmented 27 L Neutrophils % (Manual) Band Neutrophils 64 H % (Manual) Lymphocytes % 3.7 L Lymphocytes % 4 L (Manual) Monocytes % 1.0 Monocytes % 1 (Manual) Eosinophils % 0.6 Eosinophils % 4 (Manual) Basophils % 0.1 Nucleated Red 3 H Blood Cells % Immature 0.080 H Granulocytes # Neutrophils # 9.4 H Neutrophils # 3.4 (Manual) Band Neutrophils 6.4 H # Lymphocytes 0.4 L (Manual) Lymphocytes # 0.4 L Monocytes # 0.1 L Monocytes # 0.1 L (Manual) Eosinophils # 0.1 Basophils # 0.0 Nucleated Red 0.1 H Blood Cells # Platelet Estimate DECREASED Polychromasia 1+ Hypochromasia 2+ Anisocytosis 1+ Macrocytosis 1+ Target Cells 2+ Ovalocytes 1+ Sodium Level 146 H Potassium Level 5.3 H Chloride Level 115 H Carbon Dioxide 19 L Level Anion Gap 12 Blood Urea 75 H Nitrogen Creatinine 5.99 H Est Glomerular 9 L Filtrat Rate mL/min Glucose Level 74 # Lactic Acid Level 2.5 *H Calcium Level 7.3 L Total Bilirubin 1.2 Direct Bilirubin 1.00 H Indirect 0.2 Bilirubin Aspartate Amino 449 H Transf (AST/SGOT) Alanine 135 H Aminotransferase (ALT/SGPT) Alkaline 79 Phosphatase Total Protein 3.8 L Albumin 1.9 L Globulin 1.90 Albumin/Globulin 1.00 Ratio Test 12/27/18 05:03 12/27/18 06:00 12/27/18 08:00 12/27/18 08:24 Bedside Glucose 90 104 Stool Occult POSITIVE Blood Blood Gas Blood capillary Specimen Source Arterial Blood 12/27/2018 8:16:56 Date Drawn AM Arterial Blood pH 7.270 *L (Temp corrected) Arterial Blood 39.9 pCO2 (Temp correct) Arterial Blood 56.3 L pO2 (Temp corrected) Arterial Blood 17.9 L HCO3 Arterial Blood -8.3 L Base Excess Arterial Blood 83.3 L Oxygen Saturation Gilmar Test ACCEPTAB Arterial Blood LB Gas Puncture Site Arterial 1.4 Blood Carboxyhemo globin Arterial Blood 1.0 Methemoglobin Blood Gas A-a O2 327.6 H Differential Oxyhemoglobin 81.3 L Percent Blood Gas 37.0 Temperature Blood Gas 20.0 Respiration Rate Blood Gas Actual 21 Respiration Rate Blood Gas VENT - AC Modality FiO2 60.0 Blood Gas Tidal 500.0 Volume Blood Gas Low 5.0 PEEP Setting Blood Gas TM Notified Whom Blood Gas 12/27/2018 8:25:41 Notified Time AM Test 12/27/18 09:10 12/27/18 13:02 Hepatitis B NEGATIVE Surface Antigen Hepatitis B Core NEGATIVE Total Antibody Hepatitis C NEGATIVE Antibody Bedside Glucose 94 Medications Medication Current Medications IV Flush (NS 3 ml) 3 ml PER PROTOCOL IV ; Start 12/19/18 at 00:30 Acetaminophen (Tylenol Tab) 650 mg Q6H PRN PO .PAIN 1-3 OR TEMP Last administered on 12/25/18 05:36; Admin Dose 650 MG; Start 12/19/18 at 00:30 Docusate Sodium (Colace) 100 mg Q12H PRN PO .CONSTIPATION Last administered on 12/20/18 12:53; Admin Dose 100 MG; Start 12/19/18 at 00:30 Bisacodyl (Dulcolax) 5 mg DAILY PRN PO .CONSTIPATION; Start 12/19/18 at 00:30 Ondansetron HCl (Zofran Inj) 4 mg Q4 PRN IV NAUSEA/VOMITING; Start 12/19/18 at 02:00 Nicotine (Nicoderm 14 Mg/ 24hr) 1 patch DAILY TRANSDERM Last administered on 12/27/18 08:29; Admin Dose 1 PATCH; Start 12/19/18 at 09:00 Lorazepam (Ativan) 1 mg Q4 PRN IV withdrawal symptoms Last administered on 12/23/18 04:41; Admin Dose 1 MG; Start 12/19/18 at 05:30 Polyethylene Glycol (Miralax) 17 gm BID PO Last administered on 12/26/18 21:45; Admin Dose 17 GM; Start 12/20/18 at 21:00 Al Hydrox/Mg Hydrox/Simethicone (Mag-Al Plus) 30 ml Q6H PRN PO GASTROINTESTINAL UPSET Last administered on 12/20/18 18:28; Admin Dose 30 ML; Start 12/20/18 at 18:30 Haloperidol (Haldol) 4 mg Q8H PRN IV AGITATION Last administered on 3/27/19at 17:40; Admin Dose 4 MG; Start 12/22/18 at 17:30 Pantoprazole (Protonix Iv) 40 mg BID@06,18 IV Last administered on 12/27/18at 06:38; Admin Dose 40 MG; Start 12/23/18 at 18:00 Propofol 100 ml @ 1.839 mls/ hr Q12H IV Last administered on 12/27/18at 06:38; Admin Dose 7.356 MLS/HR; Start 12/24/18 at 06:00 Fentanyl 100 ml @ 2.5 mls/hr TITRATE IV Last administered on 12/27/18at 05:51; Admin Dose 5 MLS/HR; Start 12/24/18 at 12:30 Diagnostic Test (Pha) (Accu-Chek) 1 ea 02 XX ; Start 12/25/18 at 02:00 Insulin Glargine (Lantus) 7 units DAILY@0800 SC Last administered on 12/27/18at 09:14; Admin Dose 7 UNITS; Start 12/25/18 at 08:00 Insulin Aspart (Novolog Insulin Pen) NOVOLOG *MILD* ALGORI... Q4 SC Last administered on 12/26/18at 05:50; Admin Dose 1 UNIT; Start 12/24/18 at 13:00 Miscellaneous Information 1 ea NOTE XX ; Start 12/24/18 at 12:30 Glucose (Glutose) 15 gm Q15M PRN PO DECREASED GLUCOSE; Start 12/24/18 at 12:30 Glucose (Glutose) 22.5 gm Q15M PRN PO DECREASED GLUCOSE; Start 12/24/18 at 12:30 Dextrose (D50w Syringe) 25 ml Q15M PRN IV DECREASED GLUCOSE Last administered on 12/25/18at 00:54; Admin Dose 25 ML; Start 12/24/18 at 12:30 Dextrose (D50w Syringe) 50 ml Q15M PRN IV DECREASED GLUCOSE; Start 12/24/18 at 12:30 Glucagon (Glucagen) 1 mg Q15M PRN IM DECREASED GLUCOSE; Start 12/24/18 at 12:30 Glucose (Glutose) 15 gm Q15M PRN BUCCAL DECREASED GLUCOSE; Start 12/24/18 at 12:30 Vancomycin HCl (Vanco Iv Per Pharmacy) VANCOMYCIN PER PHARMACY PER PROTOCOL XX ; Start 12/24/18 at 12:30 IV Flush (NS 10 ml) 10 ml PRN PRN IV flush; Start 12/24/18 at 14:30 Acetaminophen (Tylenol Supp) 650 mg Q6H PRN AR Fever Last administered on 12/25/18at 17:16; Admin Dose 650 MG; Start 12/24/18 at 21:30 Piperacillin Sod/ Tazobactam Sod 50 ml @ 100 mls/hr Q8 IVPB Last administered on 12/27/18at 06:38; Admin Dose 100 MLS/HR; Start 12/25/18 at 14:00 Phenylephrine HCl 80 mg/Dextrose 250 ml @ 18.75 mls/ hr TITRATE IV Last administered on 12/27/18at 11:33; Admin Dose 37.5 MLS/HR; Start 12/25/18 at 10:00 Norepinephrine 32 mg/Dextrose 250 ml @ 0.47 mls/hr TITRATE IV Last administered on 12/26/18at 17:28; Admin Dose 13.13 MLS/HR; Start 12/25/18 at 10:00 Dextrose/Sodium Chloride 1,000 ml @ 125 mls/hr Q8H IV Last administered on 12/27/18 08:24; Admin Dose 125 MLS/HR; Start 12/26/18 at 07:30 Hyoscyamine (Levsin (Sl)) 0.125 mg Q6 PO Last administered on 12/27/18at 12:57; Admin Dose 0.125 MG; Start 12/27/18 at 12:00 Heparin Sodium (Porcine) (Heparin (1000 Units/ml)) 2,800 unit ONCE ONCE CATHETER ; Start 12/27/18 at 13:30; Stop 12/27/18 at 13:31; Status UNV Albumin Human 100 ml @ 100 mls/hr DURING DIALYSIS PRN IV HYPOTENTION DURING HD; Start 12/27/18 at 13:30; Status UNV MELA VILLALBA MD Dec 27, 2018 13:59
--- NOTE | 2018-12-27 16:01 | CONS ---
Assessment/Plan Assessment/Plan Hospital Course 68 yo M with multiple comorbidities who initially presented for evaluation of GI symptoms. It was noted that the pt became altered, for which neurology is consulted. ARF + NA 153 12/24: Transferred to ICU for respiratory distress. S/p intubation. Most clinically consistent with an acute and multifactorial toxic-metabolic encephalopathy.. A focal [employer]IC[employer] process is unlikely. UDS + cocaine, marijuana, opiates P: Ok to defer neuroimaging for now Cont medical management per primary Wean sedation when able Will follow clinically...to recommend neurologic studies, as necessary Consultation Date/Type/Reason Admit Date/Time Dec 21, 2018 at 08:36 Type of Consult Neurology Reason for Consultation ams Requesting Provider: ZULY DELGADO Date/Time of Note DATE: 12/27/18 TIME: 16:00 24 HR Interval Summary Free Text/Dictation Continues critical care. Remains on pressors/sedation. Currently receiving HD. Subjective hx not possible: pt non-verbal, pt critical Exam Vital Signs Vitals Vital Signs Date Temp Pulse Resp B/P (MAP) Pulse Ox O2 O2 Flow FiO2 Time Delivery Rate 12/27/18 86 15:30 12/27/18 26 121/53 100 13:30 (75) 12/27/18 50 13:25 12/27/18 Mechanical 13:00 Ventilator 12/27/18 99.5 12:00 12/24/18 15.0 05:30 Intake and Output 12/26/18 12/26/18 12/27/18 1515:00 23:00 07:00 IntakeIntake Total 1125 ml 1221.495 ml 1350.009 ml OutputOutput Total 20 ml 823 ml 611 ml BalanceBalance 1105 ml 398.495 ml 739.009 ml Exam PE: Gen Appearance: No Apparent Distress HEENT: Intubated Cardiovascular: Regular rate Abdomen: Soft Extremities: Dry NE: The patient was obtunded and nonverbal. Cranial nerve examination was limited by mental status. Pupils were equal and reactive to light. There was no afferent pupillary defect. Funduscopic examination was limited. Face was grossly symmetric, w/ present corneal and cough reflexes. Tone was normal. Muscle bulk was normal. I did not see fasciculations. The patient withdrew to noxious stimulation x 4. Coordination and gait testing was limited by mental status. Arm and leg reflexes were within normal limits and symmetric. Leon's sign was absent. Plantar responses were flexor. MAINOR HICKEY NP Dec 27, 2018 16:01 RYLEE MACHUCA Dec 27, 2018 16:08
--- NOTE | 2018-12-27 16:46 | PN ---
Date/Time of Note Date/Time of Note DATE: 12/27/18 TIME: 16:44 Assessment/Plan VTE Prophylaxis Risk score (from Ns)>0 risk: 5 SCD applied (from Ns): Yes Pharmacological prophylaxis: other (scds) Lines/Catheters IV Catheter Type (from [facility] Saline Lock Urinary Cath still in place: Yes Reason Cath still needed: other (indicate) (monitor output) Assessment/Plan Hospital Course Assessment/Plan Assessment: Acute resp failure- intubated Shock- unclear etiology -Currently on pressors Biliary and pancreatic duct dilatation MRCP 12/19/18 Mildly dilated common bile duct. No evidence of biliary duct obstruction. Gallbladder contains multiple stones without wall thickening. Scattered T2 bright lesions in the liver may represent cysts or hemangiomas. 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 Last colonoscopy 4 years ago Toxicology screen positive for opioid/cocaine/cannabinoids Normocytic anemia Melena- Renal failure- HD today Plan: PPI bid changed to gtt plan for EGD in near future Patient seen in collaboration with /Lori Subjective: Course reviewed with nursing staff Patient interviewed and examined All labs, imaging and other results reviewed Patient remains in ICU intubated sedated on pressors Currently receiving hemodialysis drop in hemoglobin noted currently will have 2 units of packed RBCs during dialysis Dark colored stool noted in rectal tube as well as blood noted in Kohler catheter. Maintain close observation PHYSICAL EXAMINATION: GENERAL: Intubated and sedated in ICU SKIN: No lesions EARS/NOSE AND THROAT: NGT in place NECK: Supple, no masses. CHEST: Inspection within normal limits. CARDIOVASCULAR: Heart: Regular rate and rhythm, RESPIRATORY: Lungs clear to auscultation. GASTROINTESTINAL AND LIVER: Abdomen: Soft, no tenderness, moderately distended, no hernias, no guarding, no rebound tenderness, normoactive bowel sounds. Rectal: Deferred. EXTREMITIES: No cyanosis, clubbing or edema. Left foot partially amputated. Result Diagram: 12/27/18 0400 12/27/18 0400 Results 24hrs Laboratory Tests Test 12/26/18 21:41 12/27/18 01:46 12/27/18 04:00 12/27/18 05:03 Bedside Glucose 130 100 90 White Blood Count 10.1 # Red Blood Count 2.27 L Hemoglobin 6.8 *L Hematocrit 20.6 L Mean Corpuscular 90.7 Volume Mean Corpuscular 30.0 Hemoglobin Mean Corpuscular 33.0 Hemoglobin Concent Red Cell 17.8 H Distribution Width Platelet Count 95 #L Mean Platelet 13.8 H Volume Immature 0.800 H Granulocytes % Neutrophils % 93.8 H Segmented 27 L Neutrophils % (Manual) Band Neutrophils % 64 H (Manual) Lymphocytes % 3.7 L Lymphocytes % 4 L (Manual) Monocytes % 1.0 Monocytes % 1 (Manual) Eosinophils % 0.6 Eosinophils % 4 (Manual) Basophils % 0.1 Nucleated Red 3 H Blood Cells % Immature 0.080 H Granulocytes # Neutrophils # 9.4 H Neutrophils # 3.4 (Manual) Band Neutrophils # 6.4 H Lymphocytes 0.4 L (Manual) Lymphocytes # 0.4 L Monocytes # 0.1 L Monocytes # 0.1 L (Manual) Eosinophils # 0.1 Basophils # 0.0 Nucleated Red 0.1 H Blood Cells # Platelet Estimate DECREASED Polychromasia 1+ Hypochromasia 2+ Anisocytosis 1+ Macrocytosis 1+ Target Cells 2+ Ovalocytes 1+ Sodium Level 146 H Potassium Level 5.3 H Chloride Level 115 H Carbon Dioxide 19 L Level Anion Gap 12 Blood Urea 75 H Nitrogen Creatinine 5.99 H Est Glomerular 9 L Filtrat Rate mL/min Glucose Level 74 # Lactic Acid Level 2.5 *H Calcium Level 7.3 L Total Bilirubin 1.2 Direct Bilirubin 1.00 H Indirect Bilirubin 0.2 Aspartate Amino 449 H Transf (AST/SGOT) Alanine 135 H Aminotransferase ( ALT/SGPT) Alkaline 79 Phosphatase Total Protein 3.8 L Albumin 1.9 L Globulin 1.90 Albumin/Globulin 1.00 Ratio Test 12/27/18 06:00 12/27/18 08:00 12/27/18 08:24 12/27/18 09:10 Stool Occult Blood POSITIVE Blood Gas Specimen Blood capillary Source Arterial Blood 12/27/2018 8:16:56 Date Drawn AM Arterial Blood pH 7.270 *L (Temp corrected) Arterial Blood 39.9 pCO2 (Temp correct) Arterial Blood pO2 56.3 L (Temp corrected) Arterial Blood 17.9 L HCO3 Arterial Blood -8.3 L Base Excess Arterial Blood 83.3 L Oxygen Saturation [place] Test ACCEPTAB Arterial Blood Gas LB Puncture Site Arterial 1.4 Blood Carboxyhemog lobin Arterial Blood 1.0 Methemoglobin Blood Gas A-a O2 327.6 H Differential Oxyhemoglobin 81.3 L Percent Blood Gas 37.0 Temperature Blood Gas 20.0 Respiration Rate Blood Gas Actual 21 Respiration Rate Blood Gas Modality VENT - AC FiO2 60.0 Blood Gas Tidal 500.0 Volume Blood Gas Low PEEP 5.0 Setting Blood Gas Notified TM Whom Blood Gas Notified 12/27/2018 8:25:41 Time AM Bedside Glucose 104 Hepatitis B NEGATIVE Surface Antigen Hepatitis B Core NEGATIVE Total Antibody Hepatitis C NEGATIVE Antibody Test 12/27/18 13:02 Bedside Glucose 94 Exam/Review of Systems Exam Vitals Vital Signs Date Temp Pulse Resp B/P (MAP) Pulse Ox O2 O2 Flow FiO2 Time Delivery Rate 12/27/18 87 16:15 12/27/18 26 121/53 100 13:30 (75) 12/27/18 50 13:25 12/27/18 Mechanical 13:00 Ventilator 12/27/18 99.5 12:00 12/24/18 15.0 05:30 Intake and Output 12/26/18 12/26/18 12/27/18 1414:59 22:59 06:59 IntakeIntake Total 1097 ml 1102.300 ml 1322.348 ml OutputOutput Total 20 ml 823 ml 611 ml BalanceBalance 1077 ml 279.300 ml 711.348 ml Results Results 24hrs Laboratory Tests Test 12/26/18 21:41 12/27/18 01:46 12/27/18 04:00 12/27/18 05:03 Bedside Glucose 130 100 90 White Blood Count 10.1 # Red Blood Count 2.27 L Hemoglobin 6.8 *L Hematocrit 20.6 L Mean Corpuscular 90.7 Volume Mean Corpuscular 30.0 Hemoglobin Mean Corpuscular 33.0 Hemoglobin Concent Red Cell 17.8 H Distribution Width Platelet Count 95 #L Mean Platelet 13.8 H Volume Immature 0.800 H Granulocytes % Neutrophils % 93.8 H Segmented 27 L Neutrophils % (Manual) Band Neutrophils % 64 H (Manual) Lymphocytes % 3.7 L Lymphocytes % 4 L (Manual) Monocytes % 1.0 Monocytes % 1 (Manual) Eosinophils % 0.6 Eosinophils % 4 (Manual) Basophils % 0.1 Nucleated Red 3 H Blood Cells % Immature 0.080 H Granulocytes # Neutrophils # 9.4 H Neutrophils # 3.4 (Manual) Band Neutrophils # 6.4 H Lymphocytes 0.4 L (Manual) Lymphocytes # 0.4 L Monocytes # 0.1 L Monocytes # 0.1 L (Manual) Eosinophils # 0.1 Basophils # 0.0 Nucleated Red 0.1 H Blood Cells # Platelet Estimate DECREASED Polychromasia 1+ Hypochromasia 2+ Anisocytosis 1+ Macrocytosis 1+ Target Cells 2+ Ovalocytes 1+ Sodium Level 146 H Potassium Level 5.3 H Chloride Level 115 H Carbon Dioxide 19 L Level Anion Gap 12 Blood Urea 75 H Nitrogen Creatinine 5.99 H Est Glomerular 9 L Filtrat Rate mL/min Glucose Level 74 # Lactic Acid Level 2.5 *H Calcium Level 7.3 L Total Bilirubin 1.2 Direct Bilirubin 1.00 H Indirect Bilirubin 0.2 Aspartate Amino 449 H Transf (AST/SGOT) Alanine 135 H Aminotransferase ( ALT/SGPT) Alkaline 79 Phosphatase Total Protein 3.8 L Albumin 1.9 L Globulin 1.90 Albumin/Globulin 1.00 Ratio Test 12/27/18 06:00 12/27/18 08:00 12/27/18 08:24 12/27/18 09:10 Stool Occult Blood POSITIVE Blood Gas Specimen Blood capillary Source Arterial Blood 12/27/2018 8:16:56 Date Drawn AM Arterial Blood pH 7.270 *L (Temp corrected) Arterial Blood 39.9 pCO2 (Temp correct) Arterial Blood pO2 56.3 L (Temp corrected) Arterial Blood 17.9 L HCO3 Arterial Blood -8.3 L Base Excess Arterial Blood 83.3 L Oxygen Saturation [place] Test ACCEPTAB Arterial Blood Gas LB Puncture Site Arterial 1.4 Blood Carboxyhemog lobin Arterial Blood 1.0 Methemoglobin Blood Gas A-a O2 327.6 H Differential Oxyhemoglobin 81.3 L Percent Blood Gas 37.0 Temperature Blood Gas 20.0 Respiration Rate Blood Gas Actual 21 Respiration Rate Blood Gas Modality VENT - AC FiO2 60.0 Blood Gas Tidal 500.0 Volume Blood Gas Low PEEP 5.0 Setting Blood Gas Notified TM Whom Blood Gas Notified 12/27/2018 8:25:41 Time AM Bedside Glucose 104 Hepatitis B NEGATIVE Surface Antigen Hepatitis B Core NEGATIVE Total Antibody Hepatitis C NEGATIVE Antibody Test 12/27/18 13:02 Bedside Glucose 94 Medications Medication Current Medications IV Flush (NS 3 ml) 3 ml PER PROTOCOL IV ; Start 12/19/18 at 00:30 Acetaminophen (Tylenol Tab) 650 mg Q6H PRN PO .PAIN 1-3 OR TEMP Last administered on 12/25/18 05:36; Admin Dose 650 MG; Start 12/19/18 at 00:30 Docusate Sodium (Colace) 100 mg Q12H PRN PO .CONSTIPATION Last administered on 12/20/18 12:53; Admin Dose 100 MG; Start 12/19/18 at 00:30 Bisacodyl (Dulcolax) 5 mg DAILY PRN PO .CONSTIPATION; Start 12/19/18 at 00:30 Ondansetron HCl (Zofran Inj) 4 mg Q4 PRN IV NAUSEA/VOMITING; Start 12/19/18 at 02:00 Nicotine (Nicoderm 14 Mg/ 24hr) 1 patch DAILY TRANSDERM Last administered on 12/27/18 08:29; Admin Dose 1 PATCH; Start 12/19/18 at 09:00 Lorazepam (Ativan) 1 mg Q4 PRN IV withdrawal symptoms Last administered on 12/23/18 04:41; Admin Dose 1 MG; Start 12/19/18 at 05:30 Al Hydrox/Mg Hydrox/Simethicone (Mag-Al Plus) 30 ml Q6H PRN PO GASTROINTESTINAL UPSET Last administered on 12/20/18 18:28; Admin Dose 30 ML; Start 12/20/18 at 18:30 Haloperidol (Haldol) 4 mg Q8H PRN IV AGITATION Last administered on 12/22/18 17:40; Admin Dose 4 MG; Start 12/22/18 at 17:30 Propofol 100 ml @ 1.839 mls/ hr Q12H IV Last administered on 12/27/18 06:38; Admin Dose 7.356 MLS/HR; Start 12/24/18 at 06:00 Fentanyl 100 ml @ 2.5 mls/hr TITRATE IV Last administered on 12/27/18 05:51; Admin Dose 5 MLS/HR; Start 12/24/18 at 12:30 Diagnostic Test (Pha) (Accu-Chek) 1 ea 02 XX ; Start 12/25/18 at 02:00 Insulin Glargine (Lantus) 7 units DAILY@0800 SC Last administered on 4/1/19at 09:14; Admin Dose 7 UNITS; Start 12/25/18 at 08:00 Insulin Aspart (Novolog Insulin Pen) NOVOLOG *MILD* ALGORI... Q4 SC Last administered on 12/26/18at 05:50; Admin Dose 1 UNIT; Start 12/24/18 at 13:00 Miscellaneous Information 1 ea NOTE XX ; Start 12/24/18 at 12:30 Glucose (Glutose) 15 gm Q15M PRN PO DECREASED GLUCOSE; Start 12/24/18 at 12:30 Glucose (Glutose) 22.5 gm Q15M PRN PO DECREASED GLUCOSE; Start 12/24/18 at 12 :30 Dextrose (D50w Syringe) 25 ml Q15M PRN IV DECREASED GLUCOSE Last administered on 12/25/18at 00:54; Admin Dose 25 ML; Start 12/24/18 at 12:30 Dextrose (D50w Syringe) 50 ml Q15M PRN IV DECREASED GLUCOSE; Start 12/24/18 at 12:30 Glucagon (Glucagen) 1 mg Q15M PRN IM DECREASED GLUCOSE; Start 12/24/18 at 12:30 Glucose (Glutose) 15 gm Q15M PRN BUCCAL DECREASED GLUCOSE; Start 12/24/18 at 12:30 IV Flush (NS 10 ml) 10 ml PRN PRN IV flush; Start 12/24/18 at 14:30 Acetaminophen (Tylenol Supp) 650 mg Q6H PRN IA Fever Last administered on 12/25/18at 17:16; Admin Dose 650 MG; Start 12/24/18 at 21:30 Phenylephrine HCl 80 mg/Dextrose 250 ml @ 18.75 mls/ hr TITRATE IV Last administered on 12/27/18at 11:33; Admin Dose 37.5 MLS/HR; Start 12/25/18 at 10:00 Norepinephrine 32 mg/Dextrose 250 ml @ 0.47 mls/hr TITRATE IV Last administered on 12/26/18at 17:28; Admin Dose 13.13 MLS/HR; Start 12/25/18 at 1 0:00 Hyoscyamine (Levsin (Sl)) 0.125 mg Q6 PO Last administered on 12/27/18at 12:57; Admin Dose 0.125 MG; Start 12/27/18 at 12:00 Albumin Human 100 ml @ 100 mls/hr DURING DIALYSIS PRN IV HYPOTENTION DURING HD; Start 12/27/18 at 13:30 Piperacillin Sod/ Tazobactam Sod 50 ml @ 100 mls/hr Q8 IVPB ; Start 12/27/18 at 22:00 Pantoprazole 80 mg/Sodium Chloride 100 ml @ 10 mls/hr Q10H IV ; Start 12/27/18 at 17:30 KRISTINA RED Dec 27, 2018 16:46
[2018-12-27] MEDS: DEXTROSE 50% 50 ML SYRINGE IV PRN (17:38)
[2018-12-27] MEDS: PANTOPRAZOLE IV 80 MG in SOD CHLORIDE 0.9% 100 ML IV SCH (18:10)
[2018-12-27] MEDS: PIPER-TAZO 2.25 GM (PMX) 50 ML IVPB SCH (21:42)
--- NOTE | 2018-12-27 22:16 | PN ---
Date/Time of Note Date/Time of Note DATE: 12/27/18 TIME: 22:09 Assessment/Plan Lines/Catheters IV Catheter Type (from [facility]): Peripheral IV Kohler in Place (from [facility]): Yes Assessment/Plan Chief Complaint/Hosp Course 1. Respiratory failure: Currently intubated; CT with effusion and infiltrates. Sepsis with 1 pressor. -Pulm f/u -Pulmonary toilet -Judicious Fluid management -Abx 2. Abdominal pain: 2/2 liver versus illicit drug use versus constipation versus other; SBFT noted without obstruction; Abdominal distention. Bowel function. CT pending. -N.p.o. -NGT -CT 3. Dilated biliary system: MRCP noted -Medical optimization -Further imaging 4. Prostate cancer history -Per medical team 5. Atherosclerosis with CAD -Medical management 6. 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 Diverticulosis without diverticulitis: -Lifestyle optimization 8. Normocytic normochromic anemia: Dark stools -Monitor and transfuse as needed -Per GI> gib w/u 9. Drug screen positive for cocaine, opioids and cannabinoids -Highly encourage cessation of illicit drug use -?withdrawal Thank you Subjective [address] chest only done (not abdomen) showing infiltrates. 1 pressor still. Bowel function per rectal tube. No fevers, labored breathing, congested cough, arrhythmias, vomiting, diarrhea, hematuria. Significant bandemia. Exam/Review of Systems Vital Signs Vitals Vital Signs Date Temp Pulse Resp B/P (MAP) Pulse Ox O2 O2 Flow FiO2 Time Delivery Rate 12/27/18 91 26 104/53 96 20:30 (70) 12/27/18 98.1 Mechanical 20:00 Ventilator 12/27/18 50 17:02 12/24/18 15.0 05:30 Intake and Output 12/26/18 12/26/18 12/27/18 1515:00 23:00 07:00 IntakeIntake Total 1125 ml 1221.495 ml 1350.009 ml OutputOutput Total 20 ml 823 ml 611 ml BalanceBalance 1105 ml 398.495 ml 739.009 ml Exam Free Text/Dictation Constitutional: sedated, vented Psych: sedated on vent Head: normocephalic, atraumatic Eyes: nl conjunctiva, EOMI, nl lids, nl sclera ENMT: nl external ears & nose, nl lips & teeth, mucosa pink and moist, NG tube, ETT Neck: supple, Respiratory: normal air movement, labored breathing; No congested cough Cardiovascular: tachycardic, s1s2 Gastrointestinal: distended, nontender, no rebound, no guarding Musculoskeletal: nl extremities to inspection, nl gait and stance Extremities: normal pulses; No edema Neurological: nl mental status, nl speech, nl strength Skin: No rash or lesions Lymph: nl lymph nodes Results Free Text/Dictation CT Chest: 1. Diffuse patchy airspace opacities involving the bilateral upper lobe including the lingula, right middle and left lower lobe representing pulmonary edema, infectious, or inflammatory changes. 2. Interval dense consolidation/atelectasis of the bilateral, right greater than left lower lobes. 3. Interval appearing small bilateral pleural effusions. 4. Ascites. 5. Distended gallbladder with cholelithiasis. 6. Hepatic cysts. Result Diagram: 12/27/1839912/27/18399 JULIET FERREIRA MD Dec 27, 2018 22:16
[2018-12-28] VITALS (94 sets, daily range): BP systolic 76–145; BP diastolic 38–95; PULSE 71–92; RESP 21–27
[2018-12-28] MEDS: HYOSCYAMINE 0.125 MG SUBL TAB PO SCH ×4 (00:34→17:21)
[2018-12-28] MEDS: PHENYLephrine 80 MG in DEXTROSE 5% 242 ML IV SCH ×4 (00:42→20:27)
[2018-12-28] MEDS: INSULIN ASPART [NOVOLOG] 3 ML PEN SC SCH ×6 (00:48→20:24)
[2018-12-28] MEDS: DEXTROSE 50% 50 ML SYRINGE IV PRN ×2 (01:12→05:24)
[2018-12-28] MEDS: ACCU-CHEK XX SCH (02:00)
[2018-12-28] MEDS: PANTOPRAZOLE IV 80 MG in SOD CHLORIDE 0.9% 100 ML IV SCH ×2 (02:29→12:46)
[2018-12-28] MEDS: PROPOFOL 100 ML IV SCH ×2 (04:53→13:12)
[2018-12-28] MEDS ORDERED: ALTEPLASE (CATHFLO) 2 MG INJ CATHETER PRN (05:00)
[2018-12-28] MEDS: PIPER-TAZO 2.25 GM (PMX) 50 ML IVPB SCH ×3 (05:31→23:06)
[2018-12-28] MEDS ORDERED: DEXTROSE 5%-0.45% NACL 1,000 ML IV SCH (07:00)
[2018-12-28] MEDS: FENTAnyl (DRIP) 1000 mcg/100mL 100 ML IV SCH (07:59)
[2018-12-28] MEDS ORDERED: NA BICARBONATE 8.4% 50 ML SYG IV ONE (08:30)
--- NOTE | 2018-12-28 08:45 | PN ---
DATE: 12/28/2018 SUBJECTIVE: The patient remains critically ill on full ventilatory support, on IV pressors. The pat ient had hemodialysis yesterday, tolerated well. The patient has minimal urinary output. No other e vents noted. OBJECTIVE: VITAL SIGNS: Blood pressure is 110/50, respirations 24, pulse 91, temperature 98.6. HEENT: Head is normocephalic. NECK: Supple. HEART: Regular rate. LUNGS: Show diminished breath sounds at the base. ABDOMEN: Soft, nontender to palpation without rebound or guarding. EXTREMITIES: Negative for clubbing, cyanosis. Positive edema. DERMATOLOGIC: No rashes. MUSCULOSKELETAL: No joint effusion. NEUROLOGIC: No change in exam. MEDICATIONS: The patient's medications have been reviewed. LABORATORY DATA: From 12/28/2018 was reviewed. The patient's BUN 34, creatinine 4.45. CBC was revi ewed. Cultures have been reviewed. IMAGING STUDIES: Reviewed. ASSESSMENT AND PLAN: 1. Oligoanuric acute kidney injury with previous baseline creatinine of 0.9 mg/dL. Etiology of acut e kidney injury is secondary to acute tubular necrosis due to septic, acute kidney injury, shock, isc hemic hypoperfusion. The patient currently is in injury phase of acute tubular necrosis. The patien t was initiated on hemodialysis yesterday for solute clearance and volume removal. We will plan for daily dialysis for solute clearance and volume removal. We will monitor for any signs of renal recov [place]. Monitor closely. 2. Hyperkalemia, improved. Continue dialysis on low potassium bath. 3. Hypernatremia, improved. Continue IV hydration. 4. Metabolic acidosis secondary to acute kidney injury, improving. Continue hemodialysis. 5. Anemia. Monitor hemoglobin and hematocrit levels. 6. Septic shock secondary to pneumonia. Continue antibiotic therapy, continue pressor support. 7. Ventilator-dependent respiratory failure. Vent settings and ABG was reviewed. Continue to monit or. Follow up with pulmonary. 8. Acute encephalopathy, etiology is toxic metabolic, uremic. Continue to monitor. 9. Abdominal pain with distention. The patient is seen by general surgery. Continue to monitor. N G tube is placed to intermittent suction. 10. History of coronary artery disease. Continue medical management. 11. History of prostate cancer. 12. Melena. Continue to monitor hemoglobin and hematocrit levels. Follow up with GI. 13. Common bile duct dilatation. 14. History of chronic back pain. Please note I spent over 30 minutes of critical care time with this patient. Dictated By: ANALIA LUCERO DO NR/TUNG Conf#: [id number] DID#: [id number] CC: JULIET FERREIRA MD; MELA VILLALBA MD; MEMO CASAREZ MD;*EndCC*
--- NOTE | 2018-12-28 09:05 | PN ---
Date/Time of Note Date/Time of Note DATE: 12/28/18 TIME: 08:56 Assessment/Plan Lines/Catheters IV Catheter Type (from [facility]): LACHO Kohler in Place (from [facility]): Yes Assessment/Plan Chief Complaint/Hosp Course 1. Respiratory failure: Currently intubated; CT with effusion and infiltrates. Sepsis with 1 pressor. -Pulm f/u -Pulmonary toilet -Judicious Fluid management -Abx per sensitivities> consider ID consult for antibiotic management 2. Abdominal pain: 10/30 liver versus illicit drug use versus constipation versus other; SBFT noted without obstruction; Abdominal distention. Bowel function with liquid stool. CT pending. -N.p.o. -NGT -CT> pending -Repeat stool studies 3. Leukocytopenia: -Bleeding precautions -Consider changing antibiotics 4. Acidosis: -Medical management 5. Dilated biliary system: MRCP noted -Medical optimization -Further imaging 6. Drug screen positive for cocaine, opioids and cannabinoids -Highly encourage cessation of illicit drug use -?withdrawal 7. Normocytic normochromic anemia: Dark stools -Monitor and transfuse as needed -Per GI> gib w/u 8. Diverticulosis without diverticulitis: -Lifestyle optimization 9. Lumbar spine disease with compression of the L5 and L4 nerve roots: -Supportive 10.Prostate cancer history -Per medical team 11. Atherosclerosis with CAD -Medical management Thank you. Patient seen and examined in collaboration with Dr. Franck Sherman. Subjective 24 Hr Interval Summary Continues in ICU care on pressor support. On vent - acidotic. Continues to have liquid stool per rectum and large amount of NGT output. + Bowel function per rectal tube. Appears comfortable. Nonverbal indicators of pain not present. Exam/Review of Systems Vital Signs Vitals Vital Signs Date Temp Pulse Resp B/P (MAP) Pulse Ox O2 O2 Flow FiO2 Time Delivery Rate 12/28/18 88 08:00 12/28/18 24 110/50 99 06:15 (70) 12/28/18 Mechanical 06:00 Ventilator 12/28/18 60 05:00 12/28/18 98.6 04:00 Intake and Output 12/27/18 12/27/18 12/28/18 1515:00 23:00 07:00 IntakeIntake Total 673.55 ml 498.824 ml 468.992 ml OutputOutput Total 1400 ml 3050 ml 1110 ml BalanceBalance -726.45 ml -2551.176 ml -641.008 ml Exam Free Text/Dictation Constitutional: sedated, vented Psych: sedated on vent Head: normocephalic, atraumatic Eyes: nl conjunctiva, EOMI, nl lids, nl sclera ENMT: nl external ears & nose, nl lips & teeth, mucosa pink and moist, NG tube, ETT Neck: supple, Respiratory: normal air movement, labored breathing; No congested cough Cardiovascular: s1s2, sinus rhythm Gastrointestinal: distended, nontender, no rebound, no guarding : Kohler: Hematuria Musculoskeletal: nl extremities to inspection, nl gait and stance Extremities: normal pulses; No edema Neurological: nl mental status, nl speech, nl strength Skin: No rash or lesions Lymph: nl lymph nodes Results Result Diagram: 12/28/18 0807 12/28/18 0455 SHANTEL NELSON NP Dec 28, 2018 09:05
[2018-12-28] MEDS: NICOTINE (14 MG/24 HR) PATCH TRANSDERM SCH (09:09)
[2018-12-28] MEDS: INSULIN GLARGINE [LANTus] (100 UNITS/ML) SYG SC SCH (09:34)
--- NOTE | 2018-12-28 09:35 | PN ---
Date/Time of Note Date/Time of Note DATE: 12/28/18 TIME: 09:32 Assessment/Plan VTE Prophylaxis Risk score (from Nsg)>0 risk: 12 SCD applied (from Nsg): Yes Pharmacological prophylaxis: other (scds) Lines/Catheters IV Catheter Type (from Nrsg): LACHO Urinary Cath still in place: Yes Reason Cath still needed: other (indicate) (monitor output) Assessment/Plan Hospital Course Assessment/Plan Assessment: Acute resp failure- intubated Shock- unclear etiology -Currently on pressors Biliary and pancreatic duct dilatation MRCP 12/19/18 Mildly dilated common bile duct. No evidence of biliary duct obstruction. Gallbladder contains multiple stones without wall thickening. Scattered T2 bright lesions in the liver may represent cysts or hemangiomas. 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 Last colonoscopy 4 years ago Toxicology screen positive for opioid/cocaine/cannabinoids Normocytic anemia Melena- Renal failure- HD today Transaminitis likely secondary to shock -Hepatitis panel negative Plan: Continue PPI today will reassess tomorrow Continue to monitor labs i.e will will continue to trend LFTS CT abd/pelvis today Will continue to monitor need for EGD Patient seen in collaboration with /Lori Subjective: Course reviewed with nursing staff Patient interviewed and examined All labs, imaging and other results reviewed Pt with appropriate response to blood transfusion Rectal tube noted with brown watery stool. Again noted small amount of blood from Kohler catheter no increase from yesterday. Patient still with NG tube with moderate output during the night plan for CT today of abdomen and pelvis per PHYSICAL EXAMINATION: GENERAL: Intubated and sedated in ICU SKIN: No lesions EARS/NOSE AND THROAT: NGT in place NECK: Supple, no masses. CHEST: Inspection within normal limits. CARDIOVASCULAR: Heart: Regular rate and rhythm, RESPIRATORY: Lungs clear to auscultation. GASTROINTESTINAL AND LIVER: Abdomen: Soft, no tenderness, moderately distended, no hernias, no guarding, no rebound tenderness, normoactive bowel sounds. Rectal: Deferred. EXTREMITIES: No cyanosis, clubbing or edema. Left foot partially amputated. Result Diagram: 12/28/18 0807 12/28/18 0455 Results 24hrs Laboratory Tests Test 12/27/18 13:02 12/27/18 17:33 12/27/18 18:01 12/27/18 20:39 Bedside Glucose 94 62 L 134 98 Test 12/28/18 00:36 12/28/18 01:26 12/28/18 01:42 12/28/18 04:52 Bedside Glucose 75 153 130 Lab Scanned BLOOD TRANSFUSIO Report N Test 12/28/18 04:55 12/28/18 05:17 12/28/18 05:46 12/28/18 05:57 Sodium Level 139 Potassium Level 4.5 Chloride Level 104 # Carbon Dioxide 20 L Level Anion Gap 15 H Blood Urea 54 H Nitrogen Creatinine 4.45 #H Est Glomerular 13 L Filtrat Rate mL/min Glucose Level 76 Calcium Level 7.0 L Phosphorus Level 6.4 H Magnesium Level 2.1 Bedside Glucose 72 208 178 Test 12/28/18 07:00 12/28/18 08:07 12/28/18 09:08 Blood Gas Blood arterial Specimen Source Arterial Blood 12/28/2018 7:06:58 Date Drawn AM Arterial Blood 7.281 *L pH (Temp corrected) Arterial Blood 47.9 H pCO2 (Temp correct) Arterial Blood 93.4 pO2 (Temp corrected) Arterial Blood 22.1 HCO3 Arterial Blood -4.7 L Base Excess Arterial Blood 95.7 Oxygen Saturatio n Gilmar Test ACCEPTAB Arterial Blood Right Radial Gas Puncture Site Arterial 0.3 Blood Carboxyhem oglobin Arterial Blood 0.5 Methemoglobin Blood Gas A-a O2 281.7 H Differential Oxyhemoglobin 94.9 Percent Blood Gas 37.0 Temperature Blood Gas 20.0 Respiration Rate Blood Gas Actual 23 Respiration Rate Blood Gas VENT - AC Modality FiO2 60.0 Blood Gas Tidal 500.0 Volume Blood Gas Low 5.0 PEEP Setting Blood Gas SAMANTHA AGUIAR Critical Value Read Back Blood Gas TM Notified Whom Blood Gas 12/28/2018 7:56:09 Notified Time AM White Blood 7.2 # Count Red Blood Count 3.56 #L Hemoglobin 10.4 #L Hematocrit 30.4 #L Mean Corpuscular 85.4 Volume Mean Corpuscular 29.2 Hemoglobin Mean Corpuscular 34.2 Hemoglobin Lawanda nt Red Cell 16.1 H Distribution Width Platelet Count 55 #L Mean Platelet Volume Immature 0.800 H Granulocytes % Neutrophils % Segmented 39 Neutrophils % (Manual) Band Neutrophils 58 H % (Manual) Lymphocytes % Lymphocytes % 2 L (Manual) Monocytes % Eosinophils % Basophils % Myelocytes % 1 H (Manual) Nucleated Red 11 H Blood Cells % Immature 0.060 H Granulocytes # Neutrophils # Neutrophils # 3.1 (Manual) Band Neutrophils 4.1 H # Lymphocytes 0.1 L (Manual) Lymphocytes # Monocytes # Eosinophils # Basophils # Myelocytes # 0.0 Nucleated Red Blood Cells # Platelet DECREASED Estimate Polychromasia 3+ Hypochromasia 1+ Poikilocytosis 3+ Anisocytosis 2+ Microcytosis 1+ Macrocytosis 1+ Target Cells 1+ Ovalocytes 1+ Bedside Glucose 96 Exam/Review of Systems Exam Vitals Vital Signs Date Temp Pulse Resp B/P (MAP) Pulse Ox O2 O2 Flow FiO2 Time Delivery Rate 12/28/18 88 08:00 12/28/18 24 110/50 99 06:15 (70) 12/28/18 Mechanical 06:00 Ventilator 12/28/18 60 05:00 12/28/18 98.6 04:00 Intake and Output 12/27/18 12/27/18 12/28/18 1515:00 23:00 07:00 IntakeIntake Total 673.55 ml 498.824 ml 468.992 ml OutputOutput Total 1400 ml 3050 ml 1110 ml BalanceBalance -726.45 ml -2551.176 ml -641.008 ml Results Results 24hrs Laboratory Tests Test 12/27/18 13:02 12/27/18 17:33 12/27/18 18:01 12/27/18 20:39 Bedside Glucose 94 62 L 134 98 Test 12/28/18 00:36 12/28/18 01:26 12/28/18 01:42 12/28/18 04:52 Bedside Glucose 75 153 130 Lab Scanned BLOOD TRANSFUSIO Report N Test 12/28/18 04:55 12/28/18 05:17 12/28/18 05:46 12/28/18 05:57 Sodium Level 139 Potassium Level 4.5 Chloride Level 104 # Carbon Dioxide 20 L Level Anion Gap 15 H Blood Urea 54 H Nitrogen Creatinine 4.45 #H Est Glomerular 13 L Filtrat Rate mL/min Glucose Level 76 Calcium Level 7.0 L Phosphorus Level 6.4 H Magnesium Level 2.1 Bedside Glucose 72 208 178 Test 12/28/18 07:00 12/28/18 08:07 12/28/18 09:08 Blood Gas Blood arterial Specimen Source Arterial Blood 12/28/2018 7:06:58 Date Drawn AM Arterial Blood 7.281 *L pH (Temp corrected) Arterial Blood 47.9 H pCO2 (Temp correct) Arterial Blood 93.4 pO2 (Temp corrected) Arterial Blood 22.1 HCO3 Arterial Blood -4.7 L Base Excess Arterial Blood 95.7 Oxygen Saturatio n [place] Test ACCEPTAB Arterial Blood Right Radial Gas Puncture Site Arterial 0.3 Blood Carboxyhem oglobin Arterial Blood 0.5 Methemoglobin Blood Gas A-a O2 281.7 H Differential Oxyhemoglobin 94.9 Percent Blood Gas 37.0 Temperature Blood Gas 20.0 Respiration Rate Blood Gas Actual 23 Respiration Rate Blood Gas VENT - AC Modality FiO2 60.0 Blood Gas Tidal 500.0 Volume Blood Gas Low 5.0 PEEP Setting Blood Gas SAMANTHA AGUIAR Critical Value Read Back Blood Gas TM Notified Whom Blood Gas 12/28/2018 7:56:09 Notified Time AM White Blood 7.2 # Count Red Blood Count 3.56 #L Hemoglobin 10.4 #L Hematocrit 30.4 #L Mean Corpuscular 85.4 Volume Mean Corpuscular 29.2 Hemoglobin Mean Corpuscular 34.2 Hemoglobin Lawanda nt Red Cell 16.1 H Distribution Width Platelet Count 55 #L Mean Platelet Volume Immature 0.800 H Granulocytes % Neutrophils % Segmented 39 Neutrophils % (Manual) Band Neutrophils 58 H % (Manual) Lymphocytes % Lymphocytes % 2 L (Manual) Monocytes % Eosinophils % Basophils % Myelocytes % 1 H (Manual) Nucleated Red 11 H Blood Cells % Immature 0.060 H Granulocytes # Neutrophils # Neutrophils # 3.1 (Manual) Band Neutrophils 4.1 H # Lymphocytes 0.1 L (Manual) Lymphocytes # Monocytes # Eosinophils # Basophils # Myelocytes # 0.0 Nucleated Red Blood Cells # Platelet DECREASED Estimate Polychromasia 3+ Hypochromasia 1+ Poikilocytosis 3+ Anisocytosis 2+ Microcytosis 1+ Macrocytosis 1+ Target Cells 1+ Ovalocytes 1+ Bedside Glucose 96 Medications Medication Current Medications IV Flush (NS 3 ml) 3 ml PER PROTOCOL IV ; Start 12/19/18 at 00:30 Acetaminophen (Tylenol Tab) 650 mg Q6H PRN PO .PAIN 1-3 OR TEMP Last administered on 12/25/18 05:36; Admin Dose 650 MG; Start 12/19/18 at 00:30 Docusate Sodium (Colace) 100 mg Q12H PRN PO .CONSTIPATION Last administered on 12/20/18 12:53; Admin Dose 100 MG; Start 12/19/18 at 00:30 Bisacodyl (Dulcolax) 5 mg DAILY PRN PO .CONSTIPATION; Start 12/19/18 at 00:30 Ondansetron HCl (Zofran Inj) 4 mg Q4 PRN IV NAUSEA/VOMITING; Start 12/19/18 at 02:00 Nicotine (Nicoderm 14 Mg/ 24hr) 1 patch DAILY TRANSDERM Last administered on 12/27/18 08:29; Admin Dose 1 PATCH; Start 12/19/18 at 09:00 Lorazepam (Ativan) 1 mg Q4 PRN IV withdrawal symptoms Last administered on 12/23/18 04:41; Admin Dose 1 MG; Start 12/19/18 at 05:30 Al Hydrox/Mg Hydrox/Simethicone (Mag-Al Plus) 30 ml Q6H PRN PO GASTROINTESTINAL UPSET Last administered on 12/20/18 18:28; Admin Dose 30 ML; Start 12/20/18 at 18:30 Haloperidol (Haldol) 4 mg Q8H PRN IV AGITATION Last administered on 12/22/18 17:40; Admin Dose 4 MG; Start 12/22/18 at 17:30 Propofol 100 ml @ 1.839 mls/ hr Q12H IV Last administered on 12/28/18 04:53; Admin Dose 7.356 MLS/HR; Start 12/24/18 at 06:00 Fentanyl 100 ml @ 2.5 mls/hr TITRATE IV Last administered on 12/28/18 07:59; Admin Dose 5 MLS/HR; Start 12/24/18 at 12:30 Diagnostic Test (Pha) (Accu-Chek) 1 ea 02 XX ; Start 12/25/18 at 02:00 Insulin Glargine (Lantus) 7 units DAILY@0800 SC Last administered on 12/27/18 09:14; Admin Dose 7 UNITS; Start 12/25/18 at 08:00 Insulin Aspart (Novolog Insulin Pen) NOVOLOG *MILD* ALGORI... Q4 SC Last administered on 12/26/18at 05:50; Admin Dose 1 UNIT; Start 12/24/18 at 13:00 Miscellaneous Information 1 ea NOTE XX ; Start 12/24/18 at 12:30 Glucose (Glutose) 15 gm Q15M PRN PO DECREASED GLUCOSE; Start 12/24/18 at 12:30 Glucose (Glutose) 22.5 gm Q15M PRN PO DECREASED GLUCOSE; Start 12/24/18 at 12:30 Dextrose (D50w Syringe) 25 ml Q15M PRN IV DECREASED GLUCOSE Last administered on 12/28/18at 01:12; Admin Dose 25 ML; Start 12/24/18 at 12:30 Dextrose (D50w Syringe) 50 ml Q15M PRN IV DECREASED GLUCOSE Last administered on 12/28/18at 05:24; Admin Dose 50 ML; Start 12/24/18 at 12:30 Glucagon (Glucagen) 1 mg Q15M PRN IM DECREASED GLUCOSE; Start 12/24/18 at 12:30 Glucose (Glutose) 15 gm Q15M PRN BUCCAL DECREASED GLUCOSE; Start 12/24/18 at 12:30 IV Flush (NS 10 ml) 10 ml PRN PRN IV flush; Start 12/24/18 at 14:30 Acetaminophen (Tylenol Supp) 650 mg Q6H PRN [place] Fever Last administered on 12/25/18at 17:16; Admin Dose 650 MG; Start 12/24/18 at 21:30 Phenylephrine HCl 80 mg/Dextrose 250 ml @ 18.75 mls/ hr TITRATE IV Last administered on 12/28/18at 07:58; Admin Dose 33.75 MLS/HR; Start 12/25/18 at 10:00 Norepinephrine 32 mg/Dextrose 250 ml @ 0.47 mls/hr TITRATE IV Last administered on 12/26/18at 17:28; Admin Dose 13.13 MLS/HR; Start 12/25/18 at 10:0 0 Hyoscyamine (Levsin (Sl)) 0.125 mg Q6 PO Last administered on 12/28/18at 05:31; Admin Dose 0.125 MG; Start 12/27/18 at 12:00 Albumin Human 100 ml @ 100 mls/hr DURING DIALYSIS PRN IV HYPOTENTION DURING HD; Start 12/27/18 at 13:30 Piperacillin Sod/ Tazobactam Sod 50 ml @ 100 mls/hr Q8 IVPB Last administered on 12/28/18at 05:31; Admin Dose 100 MLS/HR; Start 12/27/18 at 22:00 Pantoprazole 80 mg/Sodium Chloride 100 ml @ 10 mls/hr Q10H IV Last administered on 12/28/18at 02:29; Admin Dose 10 MLS/HR; Start 12/27/18 at 17:30 Alteplase, Recombinant (Cathflo (Activase)) 2 mg MAY REPEAT X1 PRN CATHETER IF C ATHETER REMAINS OCCULUDED; Start 12/28/18 at 05:00 Dextrose/Sodium Chloride 1,000 ml @ 50 mls/hr Q20H IV Last administered on 12/28/18at 07:56; Admin Dose 50 MLS/HR; Start 12/28/18 at 07:00 KRISTINA RED Dec 28, 2018 09:35
[2018-12-28] MEDS ORDERED: LIDOCAINE 1% (MPF) 5 ML VIAL SC ONE (11:00)
--- NOTE | 2018-12-28 11:20 | CONS ---
Consult Date/Type/Reason Admit Date/Time Dec 21, 2018 at 08:36 Initial Consult Date 12/19/18 Type of Consult Pulmonary Requesting Provider: ZULY DELGADO Date/Time of Note DATE: 12/28/18 TIME: 11:19 Subjective Patient remains critical continues vasopressors bicarbonate drip 60% FiO2. Pending CT of the abdomen today. Objective Vital Signs Date Temp Pulse Resp B/P (MAP) Pulse Ox O2 O2 Flow FiO2 Time Delivery Rate 12/28/18 84 21 109/56 99 Mechanical 11:00 (73) Ventilator 12/28/18 99.1 08:00 12/28/18 60 08:00 Intake and Output 12/27/18 12/27/18 12/28/18 1515:00 23:00 07:00 IntakeIntake Total 673.55 ml 498.824 ml 525.042 ml OutputOutput Total 1400 ml 3050 ml 1110 ml BalanceBalance -726.45 ml -2551.176 ml -584.958 ml Exam GENERAL: Elderly appearing gentleman orally intubated on mechanical ventilation labored ventilation VITAL SIGNS: per chart NECK: Supple. No JVD or lymphadenopathy. CARDIAC EXAM: S1, S2. No added sounds or murmurs. CHEST: Diminished air entry bilaterally ABDOMEN: Distended with diminished bowel sounds no guarding. EXTREMITIES: No cyanosis, clubbing, edema +1 NEUROLOGIC: Generalized weakness. Vent Setting Ventilator Support Mode: AC Fraction of Inspired Oxygen pe: 60 Positive End Expiratory Pressu: 5.0 Results/Medications Result Diagram: 12/28/18 0807 12/28/18 0455 Results 24 hrs Laboratory Tests Test 12/27/18 13:02 12/27/18 17:33 12/27/18 18:01 12/27/18 20:39 Bedside Glucose 94 62 L 134 98 Test 12/28/18 00:36 12/28/18 01:26 12/28/18 01:42 12/28/18 04:52 Bedside Glucose 75 153 130 Lab Scanned BLOOD TRANSFUSIO Report N Test 12/28/18 04:55 12/28/18 05:17 12/28/18 05:46 12/28/18 05:57 Sodium Level 139 Potassium Level 4.5 Chloride Level 104 # Carbon Dioxide 20 L Level Anion Gap 15 H Blood Urea 54 H Nitrogen Creatinine 4.45 #H Est Glomerular 13 L Filtrat Rate mL/min Glucose Level 76 Calcium Level 7.0 L Phosphorus Level 6.4 H Magnesium Level 2.1 Total Bilirubin 2.0 H Direct Bilirubin 1.70 #H Indirect 0.3 Bilirubin Aspartate Amino 1393 H Transf (AST/SGOT ) Alanine 454 H Aminotransferase (ALT/SGPT) Alkaline 100 Phosphatase Total Protein 4.9 #L Albumin 2.3 L Bedside Glucose 72 208 178 Test 12/28/18 07:00 12/28/18 08:07 12/28/18 09:08 Blood Gas Blood arterial Specimen Source Arterial Blood 12/28/2018 7:06:58 Date Drawn AM Arterial Blood 7.281 *L pH (Temp corrected) Arterial Blood 47.9 H pCO2 (Temp correct) Arterial Blood 93.4 pO2 (Temp corrected) Arterial Blood 22.1 HCO3 Arterial Blood -4.7 L Base Excess Arterial Blood 95.7 Oxygen Saturatio n [place] Test ACCEPTAB Arterial Blood Right Radial Gas Puncture Site Arterial 0.3 Blood Carboxyhem oglobin Arterial Blood 0.5 Methemoglobin Blood Gas A-a O2 281.7 H Differential Oxyhemoglobin 94.9 Percent Blood Gas 37.0 Temperature Blood Gas 20.0 Respiration Rate Blood Gas Actual 23 Respiration Rate Blood Gas VENT - AC Modality FiO2 60.0 Blood Gas Tidal 500.0 Volume Blood Gas Low 5.0 PEEP Setting Blood Gas SAMANTHA AGUIAR Critical Value Read Back Blood Gas TM Notified Whom Blood Gas 12/28/2018 7:56:09 Notified Time AM White Blood 7.2 # Count Red Blood Count 3.56 #L Hemoglobin 10.4 #L Hematocrit 30.4 #L Mean Corpuscular 85.4 Volume Mean Corpuscular 29.2 Hemoglobin Mean Corpuscular 34.2 Hemoglobin Lawanda nt Red Cell 16.1 H Distribution Width Platelet Count 55 #L Mean Platelet Volume Immature 0.800 H Granulocytes % Neutrophils % Segmented 39 Neutrophils % (Manual) Band Neutrophils 58 H % (Manual) Lymphocytes % Lymphocytes % 2 L (Manual) Monocytes % Eosinophils % Basophils % Myelocytes % 1 H (Manual) Nucleated Red 11 H Blood Cells % Immature 0.060 H Granulocytes # Neutrophils # Neutrophils # 3.1 (Manual) Band Neutrophils 4.1 H # Lymphocytes 0.1 L (Manual) Lymphocytes # Monocytes # Eosinophils # Basophils # Myelocytes # 0.0 Nucleated Red Blood Cells # Platelet DECREASED Estimate Polychromasia 3+ Hypochromasia 1+ Poikilocytosis 3+ Anisocytosis 2+ Microcytosis 1+ Macrocytosis 1+ Target Cells 1+ Ovalocytes 1+ Bedside Glucose 96 Medications Current Medications IV Flush (NS 3 ml) 3 ml PER PROTOCOL IV ; Start 12/19/18 at 00:30 Acetaminophen (Tylenol Tab) 650 mg Q6H PRN PO .PAIN 1-3 OR TEMP Last administered on 12/25/18 05:36; Admin Dose 650 MG; Start 12/19/18 at 00:30 Docusate Sodium (Colace) 100 mg Q12H PRN PO .CONSTIPATION Last administered on 12/20/18 12:53; Admin Dose 100 MG; Start 12/19/18 at 00:30 Bisacodyl (Dulcolax) 5 mg DAILY PRN PO .CONSTIPATION; Start 12/19/18 at 00:30 Ondansetron HCl (Zofran Inj) 4 mg Q4 PRN IV NAUSEA/VOMITING; Start 12/19/18 at 02:00 Nicotine (Nicoderm 14 Mg/ 24hr) 1 patch DAILY TRANSDERM Last administered on 12/28/18 09:09; Admin Dose 1 PATCH; Start 12/19/18 at 09:00 Lorazepam (Ativan) 1 mg Q4 PRN IV withdrawal symptoms Last administered on 12/23/18 04:41; Admin Dose 1 MG; Start 12/19/18 at 05:30 Al Hydrox/Mg Hydrox/Simethicone (Mag-Al Plus) 30 ml Q6H PRN PO GASTROINTESTINAL UPSET Last administered on 12/20/18 18:28; Admin Dose 30 ML; Start 12/20/18 at 18:30 Haloperidol (Haldol) 4 mg Q8H PRN IV AGITATION Last administered on 12/22/18 17:40; Admin Dose 4 MG; Start 12/22/18 at 17:30 Propofol 100 ml @ 1.839 mls/ hr Q12H IV Last administered on 12/28/18 04:53; Admin Dose 7.356 MLS/HR; Start 12/24/18 at 06:00 Fentanyl 100 ml @ 2.5 mls/hr TITRATE IV Last administered on 12/28/18 07:59; Admin Dose 5 MLS/HR; Start 12/24/18 at 12:30 Diagnostic Test (Pha) (Accu-Chek) 1 ea 02 XX ; Start 12/25/18 at 02:00 Insulin Glargine (Lantus) 7 units DAILY@0800 SC Last administered on 12/28/18at 09:34; Admin Dose 7 UNITS; Start 12/25/18 at 08:00 Insulin Aspart (Novolog Insulin Pen) NOVOLOG *MILD* ALGORI... Q4 SC Last administered on 12/26/18at 05:50; Admin Dose 1 UNIT; Start 12/24/18 at 13:00 Miscellaneous Information 1 ea NOTE XX ; Start 12/24/18 at 12:30 Glucose (Glutose) 15 gm Q15M PRN PO DECREASED GLUCOSE; Start 12/24/18 at 12:30 Glucose (Glutose) 22.5 gm Q15M PRN PO DECREASED GLUCOSE; Start 12/24/18 at 12:30 Dextrose (D50w Syringe) 25 ml Q15M PRN IV DECREASED GLUCOSE Last administered on 12/28/18at 01:12; Admin Dose 25 ML; Start 12/24/18 at 12:30 Dextrose (D50w Syringe) 50 ml Q15M PRN IV DECREASED GLUCOSE Last administered on 12/28/18at 05:24; Admin Dose 50 ML; Start 12/24/18 at 12:30 Glucagon (Glucagen) 1 mg Q15M PRN IM DECREASED GLUCOSE; Start 12/24/18 at 12:30 Glucose (Glutose) 15 gm Q15M PRN BUCCAL DECREASED GLUCOSE; Start 12/24/18 at 12:30 IV Flush (NS 10 ml) 10 ml PRN PRN IV flush; Start 12/24/18 at 14:30 Acetaminophen (Tylenol Supp) 650 mg Q6H PRN [place] Fever Last administered on 12/25/18at 17:16; Admin Dose 650 MG; Start 12/24/18 at 21:30 Phenylephrine HCl 80 mg/Dextrose 250 ml @ 18.75 mls/ hr TITRATE IV Last administered on 12/28/18at 07:58; Admin Dose 33.75 MLS/HR; Start 12/25/18 at 10:00 Norepinephrine 32 mg/Dextrose 250 ml @ 0.47 mls/hr TITRATE IV Last administered on 12/26/18at 17:28; Admin Dose 13.13 MLS/HR; Start 12/25/18 at 10:00 Hyoscyamine (Levsin (Sl)) 0.125 mg Q6 PO Last administered on 12/28/18at 05:31; Admin Dose 0.125 MG; Start 12/27/18 at 12:00 Albumin Human 100 ml @ 100 mls/hr DURING DIALYSIS PRN IV HYPOTENTION DURING HD; Start 12/27/18 at 13:30 Piperacillin Sod/ Tazobactam Sod 50 ml @ 100 mls/hr Q8 IVPB Last administered on 12/28/18at 05:31; Admin Dose 100 MLS/HR; Start 12/27/18 at 22:00 Pantoprazole 80 mg/Sodium Chloride 100 ml @ 10 mls/hr Q10H IV Last administered on 12/28/18at 02:29; Admin Dose 10 MLS/HR; Start 12/27/18 at 17:30 Alteplase, Recombinant (Cathflo (Activase)) 2 mg MAY REPEAT X1 PRN CATHETER IF CATHETER REMAINS OCCULUDED; Start 12/28/18 at 05:00 Dextrose/Sodium Chloride 1,000 ml @ 50 mls/hr Q20H IV Last administered on 12/28/18at 07:56; Admin Dose 50 MLS/HR; Start 12/28/18 at 07:00 Total Parenteral Nutrition 1,000 ml @ 0 mls/hr Q0M IV ; Start 12/28/18 at 16:00 Assessment/Plan Hospital Course (Demo Recall) Assessment 1. Acute abdomen ongoing GI surgical workup 2. Septic shock multifactorial 3. Hypoxemic respiratory failure with evidence of pneumonia on CT chest 4. Severe pneumonia no active GI bleeding at present 5. Acute renal failure with metabolic acidosis, probable ATN injury Plan 1. Continue mechanical ventilation 2. Monitor H&H posttransfusion 3. Dialysis as tolerated 4. Continue broad-spectrum antibiotic coverage 5. Correction of metabolic acidosis. Bicarbonate drip as needed 6. Surgical and GI recommendations currently patient is not surgical candidate. Continue GI recommendations Critical care time 40 minutes Prognosis guarded. Appreciate palliative care input LIZ GALVAN MD, [facility] Dec 28, 2018 11:20
--- NOTE | 2018-12-28 15:46 | CONS ---
Assessment/Plan Assessment/Plan Hospital Course 68 yo M with multiple comorbidities who initially presented for evaluation of GI symptoms. It was noted that the pt became altered, for which neurology is consulted. ARF + NA 153 12/24: Transferred to ICU for respiratory distress. S/p intubation. Most clinically consistent with an acute and multifactorial toxic-metabolic encephalopathy.. A focal [employer] process is unlikely. UDS + cocaine, marijuana, opiates P: Okay to defer neuroimaging for now Continue medical management per primary Wean sedation when able Will follow clinically...to recommend neurologic studies, as necessary Consultation Date/Type/Reason Admit Date/Time Dec 21, 2018 at 08:36 Type of Consult Neurology Reason for Consultation ams Requesting Provider: ZULY DELGADO Date/Time of Note DATE: 12/28/18 TIME: 15:45 24 HR Interval Summary Free Text/Dictation Continues critical care. Remains on pressors/sedation. Subjective hx not possible: pt non-verbal, pt critical Exam Vital Signs Vitals Vital Signs Date Temp Pulse Resp B/P (MAP) Pulse Ox O2 O2 Flow FiO2 Time Delivery Rate 12/28/18 82 22 102/52 92 Mechanical 14:45 (69) Ventilator 12/28/18 99.3 12:00 12/28/18 60 11:00 Intake and Output 12/27/18 12/27/18 12/28/18 1515:00 23:00 07:00 IntakeIntake Total 673.55 ml 498.824 ml 525.042 ml OutputOutput Total 1400 ml 3050 ml 1110 ml BalanceBalance -726.45 ml -2551.176 ml -584.958 ml Exam PE: Gen Appearance: No Apparent Distress HEENT: Intubated Cardiovascular: Regular rate Abdomen: Soft Extremities: Dry NE: The patient was obtunded and nonverbal. Cranial nerve examination was limited by mental status. Pupils were equal and reactive to light. There was no afferent pupillary defect. Funduscopic examination was limited. Face was grossly symmetric, w/ present corneal and cough reflexes. Tone was normal. Muscle bulk was normal. I did not see fasciculations. The patient withdrew to noxious stimulation x 4. Coordination and gait testing was limited by mental status. Arm and leg reflexes were within normal limits and symmetric. Leon's sign was absent. Plantar responses were flexor. [employer] Dec 28, 2018 15:46
--- NOTE | 2018-12-28 16:07 | PN ---
Date/Time of Note Date/Time of Note DATE: 12/28/18 TIME: 16:05 Assessment/Plan VTE Prophylaxis Risk score (from Nsg)>0 risk: 12 SCD applied (from Ns): Yes Pharmacological prophylaxis: heparin Lines/Catheters IV Catheter Type (from Nrsg): Joselo Urinary Cath still in place: Yes Reason Cath still needed: urinary retention Assessment/Plan Hospital Course Acute respiratory failure: - Overloeaded with pulmonary edema, possible pneumonia - MV per pulmonary Shock - likely septic given fevers, continue Zosyn course Hypernatremia - Resolved TIMMY: - Suspect ATN, continue HD per renal. Hope for renal recovery 7. Biliary dilation MRCP showed mildly dilated common bile duct, no evidence of biliary duct obstruction. Gallbladder contains multiple stones without wall thickening. Scattered T2 bright lesions in the liver may represent cysts or hemangiomas No indication for ERCP at this time, cholecystectomy not indicated at this time Abdomen pain likely secondary to ileus with diarrhea Most recent KUB showed improved ileus Potassium was replaced but is not elevated and have discontinued potassium replacement Patient was taking opioids prior to his encephalopathy and had been discontinued several days ago Surgery following Stool cultures are negative Small bowel follow-through showed dilated mid small bowel with no evidence of obstruction 9. Metabolic acidosis likely secondary to renal failure Bicarb drip Nephrology following 11. Normocytic anemia possible secondary to acute blood loss from GI bleed as well as critical state Monitor and consider transfusion tomorrow if continues to drop 12. History coronary disease Continue home meds as able 13. 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 History of prostate cancer No acute issues Prophylaxis: SCDs DC planning: Patient is currently critical Result Diagram: 12/28/18 0807 12/28/18 0455 Results 24hrs Laboratory Tests Test 12/27/18 17:33 12/27/18 18:01 12/27/18 20:39 12/28/18 00:36 Bedside Glucose 62 L 134 98 75 Test 12/28/18 01:26 12/28/18 01:42 12/28/18 04:52 12/28/18 04:55 Bedside Glucose 153 130 Lab Scanned BLOOD TRANSFUSIO Report N Sodium Level 139 Potassium Level 4.5 Chloride Level 104 # Carbon Dioxide 20 L Level Anion Gap 15 H Blood Urea 54 H Nitrogen Creatinine 4.45 #H Est Glomerular 13 L Filtrat Rate mL/min Glucose Level 76 Calcium Level 7.0 L Phosphorus Level 6.4 H Magnesium Level 2.1 Total Bilirubin 2.0 H Direct Bilirubin 1.70 #H Indirect 0.3 Bilirubin Aspartate Amino 1393 H Transf (AST/SGOT ) Alanine 454 H Aminotransferase (ALT/SGPT) Alkaline 100 Phosphatase Total Protein 4.9 #L Albumin 2.3 L Test 12/28/18 05:17 12/28/18 05:46 12/28/18 05:57 12/28/18 07:00 Bedside Glucose 72 208 178 Blood Gas Blood arterial Specimen Source Arterial Blood 12/28/2018 7:06:58 Date Drawn AM Arterial Blood 7.281 *L pH (Temp corrected) Arterial Blood 47.9 H pCO2 (Temp correct) Arterial Blood 93.4 pO2 (Temp corrected) Arterial Blood 22.1 HCO3 Arterial Blood -4.7 L Base Excess Arterial Blood 95.7 Oxygen Saturatio n Gil[place] Test ACCEPTAB Arterial Blood Right Radial Gas Puncture Site Arterial 0.3 Blood Carboxyhem oglobin Arterial Blood 0.5 Methemoglobin Blood Gas A-a O2 281.7 H Differential Oxyhemoglobin 94.9 Percent Blood Gas 37.0 Temperature Blood Gas 20.0 Respiration Rate Blood Gas Actual 23 Respiration Rate Blood Gas VENT - AC Modality FiO2 60.0 Blood Gas Tidal 500.0 Volume Blood Gas Low 5.0 PEEP Setting Blood Gas SAMANTHA AGUIAR Critical Value Read Back Blood Gas TM Notified Whom Blood Gas 12/28/2018 7:56:09 Notified Time AM Test 12/28/18 08:07 12/28/18 09:08 12/28/18 12:39 White Blood 7.2 # Count Red Blood Count 3.56 #L Hemoglobin 10.4 #L Hematocrit 30.4 #L Mean Corpuscular 85.4 Volume Mean Corpuscular 29.2 Hemoglobin Mean Corpuscular 34.2 Hemoglobin Lawanda nt Red Cell 16.1 H Distribution Width Platelet Count 55 #L Mean Platelet Volume Immature 0.800 H Granulocytes % Neutrophils % Segmented 39 Neutrophils % (Manual) Band Neutrophils 58 H % (Manual) Lymphocytes % Lymphocytes % 2 L (Manual) Monocytes % Eosinophils % Basophils % Myelocytes % 1 H (Manual) Nucleated Red 11 H Blood Cells % Immature 0.060 H Granulocytes # Neutrophils # Neutrophils # 3.1 (Manual) Band Neutrophils 4.1 H # Lymphocytes 0.1 L (Manual) Lymphocytes # Monocytes # Eosinophils # Basophils # Myelocytes # 0.0 Nucleated Red Blood Cells # Platelet DECREASED Estimate Polychromasia 3+ Hypochromasia 1+ Poikilocytosis 3+ Anisocytosis 2+ Microcytosis 1+ Macrocytosis 1+ Target Cells 1+ Ovalocytes 1+ Bedside Glucose 96 98 Subjective 24 Hr Interval Summary Free Text/Dictation Continues on vasopressors CT pending today MV ongoing via ETT HD today and yesterday Exam/Review of Systems Exam Vitals Vital Signs Date Temp Pulse Resp B/P (MAP) Pulse Ox O2 O2 Flow FiO2 Time Delivery Rate 12/28/18 82 22 102/52 92 Mechanical 14:45 (69) Ventilator 12/28/18 99.3 12:00 12/28/18 60 11:00 Intake and Output 12/27/18 12/27/18 12/28/18 1414:59 22:59 06:59 IntakeIntake Total 798.556 ml 488.818 ml 528.848 ml OutputOutput Total 1400 ml 3050 ml 1110 ml BalanceBalance -601.444 ml -2561.182 ml -581.152 ml Exam Intubated, sedated Lungs clear Abdomen soft Rectal tube Results Results 24hrs Laboratory Tests Test 12/27/18 17:33 12/27/18 18:01 12/27/18 20:39 12/28/18 00:36 Bedside Glucose 62 L 134 98 75 Test 12/28/18 01:26 12/28/18 01:42 12/28/18 04:52 12/28/18 04:55 Bedside Glucose 153 130 Lab Scanned BLOOD TRANSFUSIO Report N Sodium Level 139 Potassium Level 4.5 Chloride Level 104 # Carbon Dioxide 20 L Level Anion Gap 15 H Blood Urea 54 H Nitrogen Creatinine 4.45 #H Est Glomerular 13 L Filtrat Rate mL/min Glucose Level 76 Calcium Level 7.0 L Phosphorus Level 6.4 H Magnesium Level 2.1 Total Bilirubin 2.0 H Direct Bilirubin 1.70 #H Indirect 0.3 Bilirubin Aspartate Amino 1393 H Transf (AST/SGOT ) Alanine 454 H Aminotransferase (ALT/SGPT) Alkaline 100 Phosphatase Total Protein 4.9 #L Albumin 2.3 L Test 12/28/18 05:17 12/28/18 05:46 12/28/18 05:57 12/28/18 07:00 Bedside Glucose 72 208 178 Blood Gas Blood arterial Specimen Source Arterial Blood 12/28/2018 7:06:58 Date Drawn AM Arterial Blood 7.281 *L pH (Temp corrected) Arterial Blood 47.9 H pCO2 (Temp correct) Arterial Blood 93.4 pO2 (Temp corrected) Arterial Blood 22.1 HCO3 Arterial Blood -4.7 L Base Excess Arterial Blood 95.7 Oxygen Saturatio n [place] Test ACCEPTAB Arterial Blood Right Radial Gas Puncture Site Arterial 0.3 Blood Carboxyhem oglobin Arterial Blood 0.5 Methemoglobin Blood Gas A-a O2 281.7 H Differential Oxyhemoglobin 94.9 Percent Blood Gas 37.0 Temperature Blood Gas 20.0 Respiration Rate Blood Gas Actual 23 Respiration Rate Blood Gas VENT - AC Modality FiO2 60.0 Blood Gas Tidal 500.0 Volume Blood Gas Low 5.0 PEEP Setting Blood Gas SAMANTHA AGUIAR Critical Value Read Back Blood Gas TM Notified Whom Blood Gas 12/28/2018 7:56:09 Notified Time AM Test 12/28/18 08:07 12/28/18 09:08 12/28/18 12:39 White Blood 7.2 # Count Red Blood Count 3.56 #L Hemoglobin 10.4 #L Hematocrit 30.4 #L Mean Corpuscular 85.4 Volume Mean Corpuscular 29.2 Hemoglobin Mean Corpuscular 34.2 Hemoglobin Lawanda nt Red Cell 16.1 H Distribution Width Platelet Count 55 #L Mean Platelet Volume Immature 0.800 H Granulocytes % Neutrophils % Segmented 39 Neutrophils % (Manual) Band Neutrophils 58 H % (Manual) Lymphocytes % Lymphocytes % 2 L (Manual) Monocytes % Eosinophils % Basophils % Myelocytes % 1 H (Manual) Nucleated Red 11 H Blood Cells % Immature 0.060 H Granulocytes # Neutrophils # Neutrophils # 3.1 (Manual) Band Neutrophils 4.1 H # Lymphocytes 0.1 L (Manual) Lymphocytes # Monocytes # Eosinophils # Basophils # Myelocytes # 0.0 Nucleated Red Blood Cells # Platelet DECREASED Estimate Polychromasia 3+ Hypochromasia 1+ Poikilocytosis 3+ Anisocytosis 2+ Microcytosis 1+ Macrocytosis 1+ Target Cells 1+ Ovalocytes 1+ Bedside Glucose 96 98 Medications Medication Current Medications IV Flush (NS 3 ml) 3 ml PER PROTOCOL IV ; Start 12/19/18 at 00:30 Acetaminophen (Tylenol Tab) 650 mg Q6H PRN PO .PAIN 1-3 OR TEMP Last administered on 12/25/18 05:36; Admin Dose 650 MG; Start 12/19/18 at 00:30 Docusate Sodium (Colace) 100 mg Q12H PRN PO .CONSTIPATION Last administered on 12/20/18 12:53; Admin Dose 100 MG; Start 12/19/18 at 00:30 Bisacodyl (Dulcolax) 5 mg DAILY PRN PO .CONSTIPATION; Start 12/19/18 at 00:30 Ondansetron HCl (Zofran Inj) 4 mg Q4 PRN IV NAUSEA/VOMITING; Start 12/19/18 at 02:00 Nicotine (Nicoderm 14 Mg/ 24hr) 1 patch DAILY TRANSDERM Last administered on 12/28/18 09:09; Admin Dose 1 PATCH; Start 12/19/18 at 09:00 Lorazepam (Ativan) 1 mg Q4 PRN IV withdrawal symptoms Last administered on 12/23/18 04:41; Admin Dose 1 MG; Start 12/19/18 at 05:30 Al Hydrox/Mg Hydrox/Simethicone (Mag-Al Plus) 30 ml Q6H PRN PO GASTROINTESTINAL UPSET Last administered on 12/20/18 18:28; Admin Dose 30 ML; Start 12/20/18 at 18:30 Haloperidol (Haldol) 4 mg Q8H PRN IV AGITATION Last administered on 12/22/18 17:40; Admin Dose 4 MG; Start 12/22/18 at 17:30 Propofol 100 ml @ 1.839 mls/ hr Q12H IV Last administered on 12/28/18 13:12; Admin Dose 7.356 MLS/HR; Start 12/24/18 at 06:00 Fentanyl 100 ml @ 2.5 mls/hr TITRATE IV Last administered on 12/28/18 07:59; Admin Dose 5 MLS/HR; Start 12/24/18 at 12:30 Diagnostic Test (Pha) (Accu-Chek) 1 ea 02 XX ; Start 12/25/18 at 02:00 Insulin Glargine (Lantus) 7 units DAILY@0800 SC Last administered on 12/28/18 09:34; Admin Dose 7 UNITS; Start 12/25/18 at 08:00 Insulin Aspart (Novolog Insulin Pen) NOVOLOG *MILD* ALGORI... Q4 SC Last administered on 12/26/18at 05:50; Admin Dose 1 UNIT; Start 12/24/18 at 13:00 Miscellaneous Information 1 ea NOTE XX ; Start 12/24/18 at 12:30 Glucose (Glutose) 15 gm Q15M PRN PO DECREASED GLUCOSE; Start 12/24/18 at 12:30 Glucose (Glutose) 22.5 gm Q15M PRN PO DECREASED GLUCOSE; Start 12/24/18 at 12:30 Dextrose (D50w Syringe) 25 ml Q15M PRN IV DECREASED GLUCOSE Last administered on 12/28/18at 01:12; Admin Dose 25 ML; Start 12/24/18 at 12:30 Dextrose (D50w Syringe) 50 ml Q15M PRN IV DECREASED GLUCOSE Last administered on 12/28/18at 05:24; Admin Dose 50 ML; Start 12/24/18 at 12:30 Glucagon (Glucagen) 1 mg Q15M PRN IM DECREASED GLUCOSE; Start 12/24/18 at 12:30 Glucose (Glutose) 15 gm Q15M PRN BUCCAL DECREASED GLUCOSE; Start 12/24/18 at 12:30 IV Flush (NS 10 ml) 10 ml PRN PRN IV flush; Start 12/24/18 at 14:30 Acetaminophen (Tylenol Supp) 650 mg Q6H PRN TN Fever Last administered on 12/25/18at 17:16; Admin Dose 650 MG; Start 12/24/18 at 21:30 Phenylephrine HCl 80 mg/Dextrose 250 ml @ 18.75 mls/ hr TITRATE IV Last administered on 12/28/18at 14:23; Admin Dose 37.5 MLS/HR; Start 12/25/18 at 10:00 Norepinephrine 32 mg/Dextrose 250 ml @ 0.47 mls/hr TITRATE IV Last administered on 12/26/18at 17:28; Admin Dose 13.13 MLS/HR; Start 12/25/18 at 10:00 Hyoscyamine (Levsin (Sl)) 0.125 mg Q6 PO Last administered on 12/28/18at 12:46; Admin Dose 0.125 MG; Start 12/27/18 at 12:00 Albumin Human 100 ml @ 100 mls/hr DURING DIALYSIS PRN IV HYPOTENTION DURING HD; Start 12/27/18 at 13:30 Piperacillin Sod/ Tazobactam Sod 50 ml @ 100 mls/hr Q8 IVPB Last administered on 12/28/18at 14:15; Admin Dose 100 MLS/HR; Start 12/27/18 at 22:00 Pantoprazole 80 mg/Sodium Chloride 100 ml @ 10 mls/hr Q10H IV Last administered on 12/28/18at 12:46; Admin Dose 10 MLS/HR; Start 12/27/18 at 17:30 Alteplase, Recombinant (Cathflo (Activase)) 2 mg MAY REPEAT X1 PRN CATHETER IF CATHETER REMAINS OCCULUDED; Start 12/28/18 at 05:00 Total Parenteral Nutrition 1,000 ml @ 50 mls/hr Q20H IV ; Start 12/28/18 at 16:00 MELA VILLALBA MD Dec 28, 2018 16:07
[2018-12-28] MEDS: TPN 1,000 ML IV SCH (17:08)
--- NOTE | 2018-12-28 18:08 | CONS ---
Assessment/Plan Assessment/Plan Assessment/Plan (Daily) Asked to see this 68-year-old gentleman in palliative care consultation. I appreciate the call early while patient is critically ill in the intensive care unit. There are no family members at the bedside at this time I reviewed all medical records. Essentially patient was admitted to [facility] with lower abdominal discomfort crampy pain without nausea or vomiting. Other comorbid medical problems is a history of prostate cancer. During his hospitalization he decompensated acutely and developed sudden onset of respiratory distress required intubation and transferred to the intensive care unit. Patient has been seen by GI, surgery, pulmonary medicine, neurology at this time etiology for sepsis is not clear. Patient is critically ill on pressors sedated and on 60% FiO2. Prognosis is guarded. I will introduced myself to family members as supportive care only. Consultation Date/Type/Reason Admit Date/Time Dec 21, 2018 at 08:36 Date/Time of Note DATE: 12/28/18 TIME: 18:08 Past Medical History Home Meds No Active Prescriptions or Reported Meds Medications Current Medications IV Flush (NS 3 ml) 3 ml PER PROTOCOL IV ; Start 12/19/18 at 00:30 Acetaminophen (Tylenol Tab) 650 mg Q6H PRN PO .PAIN 1-3 OR TEMP Last administered on 12/25/18at 05:36; Admin Dose 650 MG; Start 12/19/18 at 00:30 Docusate Sodium (Colace) 100 mg Q12H PRN PO .CONSTIPATION Last administered on 12/20/18at 12:53; Admin Dose 100 MG; Start 12/19/18 at 00:30 Bisacodyl (Dulcolax) 5 mg DAILY PRN PO .CONSTIPATION; Start 12/19/18 at 00:30 Ondansetron HCl (Zofran Inj) 4 mg Q4 PRN IV NAUSEA/VOMITING; Start 12/19/18 at 02:00 Nicotine (Nicoderm 14 Mg/ 24hr) 1 patch DAILY TRANSDERM Last administered on 12/28/18at 09:09; Admin Dose 1 PATCH; Start 12/19/18 at 09:00 Lorazepam (Ativan) 1 mg Q4 PRN IV withdrawal symptoms Last administered on 12/23/18at 04:41; Admin Dose 1 MG; Start 12/19/18 at 05:30 Al Hydrox/Mg Hydrox/Simethicone (Mag-Al Plus) 30 ml Q6H PRN PO GASTROINTESTINAL UPSET Last administered on 12/20/18 18:28; Admin Dose 30 ML; Start 12/20/18 at 18:30 Haloperidol (Haldol) 4 mg Q8H PRN IV AGITATION Last administered on 12/22/18 17:40; Admin Dose 4 MG; Start 12/22/18 at 17:30 Propofol 100 ml @ 1.839 mls/ hr Q12H IV Last administered on 12/28/18 13:12; Admin Dose 7.356 MLS/HR; Start 12/24/18 at 06:00 Fentanyl 100 ml @ 2.5 mls/hr TITRATE IV Last administered on 12/28/18 07:59; Admin Dose 5 MLS/HR; Start 12/24/18 at 12:30 Diagnostic Test (Pha) (Accu-Chek) 1 ea 02 XX ; Start 12/25/18 at 02:00 Insulin Glargine (Lantus) 7 units DAILY@0800 SC Last administered on 12/28/18 09:34; Admin Dose 7 UNITS; Start 12/25/18 at 08:00 Insulin Aspart (Novolog Insulin Pen) NOVOLOG *MILD* ALGORI... Q4 SC Last administered on 12/26/18 05:50; Admin Dose 1 UNIT; Start 12/24/18 at 13:00 Miscellaneous Information 1 ea NOTE XX ; Start 12/24/18 at 12:30 Glucose (Glutose) 15 gm Q15M PRN PO DECREASED GLUCOSE; Start 12/24/18 at 12:30 Glucose (Glutose) 22.5 gm Q15M PRN PO DECREASED GLUCOSE; Start 12/24/18 at 12:30 Dextrose (D50w Syringe) 25 ml Q15M PRN IV DECREASED GLUCOSE Last administered on 12/28/18 01:12; Admin Dose 25 ML; Start 12/24/18 at 12:30 Dextrose (D50w Syringe) 50 ml Q15M PRN IV DECREASED GLUCOSE Last administered on 12/28/18 05:24; Admin Dose 50 ML; Start 12/24/18 at 12:30 Glucagon (Glucagen) 1 mg Q15M PRN IM DECREASED GLUCOSE; Start 12/24/18 at 12:30 Glucose (Glutose) 15 gm Q15M PRN BUCCAL DECREASED GLUCOSE; Start 12/24/18 at 12:30 IV Flush (NS 10 ml) 10 ml PRN PRN IV flush; Start 12/24/18 at 14:30 Acetaminophen (Tylenol Supp) 650 mg Q6H PRN CO Fever Last administered on 12/25/18at 17:16; Admin Dose 650 MG; Start 12/24/18 at 21:30 Phenylephrine HCl 80 mg/Dextrose 250 ml @ 18.75 mls/ hr TITRATE IV Last administered on 12/28/18at 14:23; Admin Dose 37.5 MLS/HR; Start 12/25/18 at 10:00 Norepinephrine 32 mg/Dextrose 250 ml @ 0.47 mls/hr TITRATE IV Last administered on 12/26/18at 17:28; Admin Dose 13.13 MLS/HR; Start 12/25/18 at 10:00 Hyoscyamine (Levsin (Sl)) 0.125 mg Q6 PO Last administered on 12/28/18at 17:21; Admin Dose 0.125 MG; Start 12/27/18 at 12:00 Albumin Human 100 ml @ 100 mls/hr DURING DIALYSIS PRN IV HYPOTENTION DURING HD; Start 12/27/18 at 13:30 Piperacillin Sod/ Tazobactam Sod 50 ml @ 100 mls/hr Q8 IVPB Last administered on 12/28/18at 14:15; Admin Dose 100 MLS/HR; Start 12/27/18 at 22:00 Pantoprazole 80 mg/Sodium Chloride 100 ml @ 10 mls/hr Q10H IV Last administered on 12/28/18at 12:46; Admin Dose 10 MLS/HR; Start 12/27/18 at 17:30 Alteplase, Recombinant (Cathflo (Activase)) 2 mg MAY REPEAT X1 PRN CATHETER IF CATHETER REMAINS OCCULUDED; Start 12/28/18 at 05:00 Total Parenteral Nutrition 1,000 ml @ 50 mls/hr Q20H IV Last administered on 12/28/18at 17:08; Admin Dose 50 MLS/HR; Start 12/28/18 at 16:00 Allergies: Coded Allergies: No Known Allergy (Unverified , 12/24/18) Social History Alcohol Use: occasionally (6 beers on the weekend) Smoking Status: Current every day smoker Drug Use: none Exam/Review of Systems Exam Vitals Vital Signs Date Temp Pulse Resp B/P (MAP) Pulse Ox O2 O2 Flow FiO2 Time Delivery Rate 12/28/18 82 16:00 12/28/18 22 98 60 15:00 12/28/18 102/52 Mechanical 14:45 (69) Ventilator 12/28/18 99.3 12:00 Intake and Output 12/27/18 12/27/18 12/28/18 1515:00 23:00 07:00 IntakeIntake Total 673.55 ml 498.824 ml 525.042 ml OutputOutput Total 1400 ml 3050 ml 1110 ml BalanceBalance -726.45 ml -2551.176 ml -584.958 ml Results Result Diagram: 12/28/18 0807 12/28/18 0455 Results 24hrs Laboratory Tests Test 12/27/18 20:39 12/28/18 00:36 12/28/18 01:26 12/28/18 01:42 Bedside Glucose 98 75 153 130 Test 12/28/18 04:52 12/28/18 04:55 12/28/18 05:17 12/28/18 05:46 Lab Scanned BLOOD TRANSFUSIO Report N Sodium Level 139 Potassium Level 4.5 Chloride Level 104 # Carbon Dioxide 20 L Level Anion Gap 15 H Blood Urea 54 H Nitrogen Creatinine 4.45 #H Est Glomerular 13 L Filtrat Rate mL/min Glucose Level 76 Calcium Level 7.0 L Phosphorus Level 6.4 H Magnesium Level 2.1 Total Bilirubin 2.0 H Direct Bilirubin 1.70 #H Indirect 0.3 Bilirubin Aspartate Amino 1393 H Transf (AST/SGOT ) Alanine 454 H Aminotransferase (ALT/SGPT) Alkaline 100 Phosphatase Total Protein 4.9 #L Albumin 2.3 L Bedside Glucose 72 208 Test 12/28/18 05:57 12/28/18 07:00 12/28/18 08:07 12/28/18 09:08 Bedside Glucose 178 96 Blood Gas Blood arterial Specimen Source Arterial Blood 12/28/2018 7:06:58 Date Drawn AM Arterial Blood 7.281 *L pH (Temp corrected) Arterial Blood 47.9 H pCO2 (Temp correct) Arterial Blood 93.4 pO2 (Temp corrected) Arterial Blood 22.1 HCO3 Arterial Blood -4.7 L Base Excess Arterial Blood 95.7 Oxygen Saturatio n [place] Test ACCEPTAB Arterial Blood Right Radial Gas Puncture Site Arterial 0.3 Blood Carboxyhem oglobin Arterial Blood 0.5 Methemoglobin Blood Gas A-a O2 281.7 H Differential Oxyhemoglobin 94.9 Percent Blood Gas 37.0 Temperature Blood Gas 20.0 Respiration Rate Blood Gas Actual 23 Respiration Rate Blood Gas VENT - AC Modality FiO2 60.0 Blood Gas Tidal 500.0 Volume Blood Gas Low 5.0 PEEP Setting Blood Gas SAMANTHA AGUIAR Critical Value Read Back Blood Gas TM Notified Whom Blood Gas 12/28/2018 7:56:09 Notified Time AM White Blood 7.2 # Count Red Blood Count 3.56 #L Hemoglobin 10.4 #L Hematocrit 30.4 #L Mean Corpuscular 85.4 Volume Mean Corpuscular 29.2 Hemoglobin Mean Corpuscular 34.2 Hemoglobin Lawanda nt Red Cell 16.1 H Distribution Width Platelet Count 55 #L Mean Platelet Volume Immature 0.800 H Granulocytes % Neutrophils % Segmented 39 Neutrophils % (Manual) Band Neutrophils 58 H % (Manual) Lymphocytes % Lymphocytes % 2 L (Manual) Monocytes % Eosinophils % Basophils % Myelocytes % 1 H (Manual) Nucleated Red 11 H Blood Cells % Immature 0.060 H Granulocytes # Neutrophils # Neutrophils # 3.1 (Manual) Band Neutrophils 4.1 H # Lymphocytes 0.1 L (Manual) Lymphocytes # Monocytes # Eosinophils # Basophils # Myelocytes # 0.0 Nucleated Red Blood Cells # Platelet DECREASED Estimate Polychromasia 3+ Hypochromasia 1+ Poikilocytosis 3+ Anisocytosis 2+ Microcytosis 1+ Macrocytosis 1+ Target Cells 1+ Ovalocytes 1+ Test 12/28/18 12:39 12/28/18 17:22 Bedside Glucose 98 101 Medications Medication Current Medications IV Flush (NS 3 ml) 3 ml PER PROTOCOL IV ; Start 12/19/18 at 00:30 Acetaminophen (Tylenol Tab) 650 mg Q6H PRN PO .PAIN 1-3 OR TEMP Last administered on 12/25/18at 05:36; Admin Dose 650 MG; Start 12/19/18 at 00:30 Docusate Sodium (Colace) 100 mg Q12H PRN PO .CONSTIPATION Last administered on 12/20/18at 12:53; Admin Dose 100 MG; Start 12/19/18 at 00:30 Bisacodyl (Dulcolax) 5 mg DAILY PRN PO .CONSTIPATION; Start 12/19/18 at 00:30 Ondansetron HCl (Zofran Inj) 4 mg Q4 PRN IV NAUSEA/VOMITING; Start 12/19/18 at 02:00 Nicotine (Nicoderm 14 Mg/ 24hr) 1 patch DAILY TRANSDERM Last administered on 12/28/18 09:09; Admin Dose 1 PATCH; Start 12/19/18 at 09:00 Lorazepam (Ativan) 1 mg Q4 PRN IV withdrawal symptoms Last administered on 12/23/18 04:41; Admin Dose 1 MG; Start 12/19/18 at 05:30 Al Hydrox/Mg Hydrox/Simethicone (Mag-Al Plus) 30 ml Q6H PRN PO GASTROINTESTINAL UPSET Last administered on 12/20/18 18:28; Admin Dose 30 ML; Start 12/20/18 at 18:30 Haloperidol (Haldol) 4 mg Q8H PRN IV AGITATION Last administered on 12/22/18 17:40; Admin Dose 4 MG; Start 12/22/18 at 17:30 Propofol 100 ml @ 1.839 mls/ hr Q12H IV Last administered on 12/28/18 13:12; Admin Dose 7.356 MLS/HR; Start 12/24/18 at 06:00 Fentanyl 100 ml @ 2.5 mls/hr TITRATE IV Last administered on 12/28/18 07:59; Admin Dose 5 MLS/HR; Start 12/24/18 at 12:30 Diagnostic Test (Pha) (Accu-Chek) 1 ea 02 XX ; Start 12/25/18 at 02:00 Insulin Glargine (Lantus) 7 units DAILY@0800 SC Last administered on 12/28/18 09:34; Admin Dose 7 UNITS; Start 12/25/18 at 08:00 Insulin Aspart (Novolog Insulin Pen) NOVOLOG *MILD* ALGORI... Q4 SC Last administered on 12/26/18 05:50; Admin Dose 1 UNIT; Start 12/24/18 at 13:00 Miscellaneous Information 1 ea NOTE XX ; Start 12/24/18 at 12:30 Glucose (Glutose) 15 gm Q15M PRN PO DECREASED GLUCOSE; Start 12/24/18 at 12:30 Glucose (Glutose) 22.5 gm Q15M PRN PO DECREASED GLUCOSE; Start 12/24/18 at 12:30 Dextrose (D50w Syringe) 25 ml Q15M PRN IV DECREASED GLUCOSE Last administered on 12/28/18at 01:12; Admin Dose 25 ML; Start 12/24/18 at 12:30 Dextrose (D50w Syringe) 50 ml Q15M PRN IV DECREASED GLUCOSE Last administered on 12/28/18at 05:24; Admin Dose 50 ML; Start 12/24/18 at 12:30 Glucagon (Glucagen) 1 mg Q15M PRN IM DECREASED GLUCOSE; Start 12/24/18 at 12:30 Glucose (Glutose) 15 gm Q15M PRN BUCCAL DECREASED GLUCOSE; Start 12/24/18 at 12:30 IV Flush (NS 10 ml) 10 ml PRN PRN IV flush; Start 12/24/18 at 14:30 Acetaminophen (Tylenol Supp) 650 mg Q6H PRN CO Fever Last administered on 12/25/18at 17:16; Admin Dose 650 MG; Start 12/24/18 at 21:30 Phenylephrine HCl 80 mg/Dextrose 250 ml @ 18.75 mls/ hr TITRATE IV Last administered on 12/28/18at 14:23; Admin Dose 37.5 MLS/HR; Start 12/25/18 at 10:00 Norepinephrine 32 mg/Dextrose 250 ml @ 0.47 mls/hr TITRATE IV Last administered on 12/26/18at 17:28; Admin Dose 13.13 MLS/HR; Start 12/25/18 at 10:00 Hyoscyamine (Levsin (Sl)) 0.125 mg Q6 PO Last administered on 12/28/18at 17:21; Admin Dose 0.125 MG; Start 12/27/18 at 12:00 Albumin Human 100 ml @ 100 mls/hr DURING DIALYSIS PRN IV HYPOTENTION DURING HD; Start 12/27/18 at 13:30 Piperacillin Sod/ Tazobactam Sod 50 ml @ 100 mls/hr Q8 IVPB Last administered on 12/28/18at 14:15; Admin Dose 100 MLS/HR; Start 12/27/18 at 22:00 Pantoprazole 80 mg/Sodium Chloride 100 ml @ 10 mls/hr Q10H IV Last administered on 12/28/18at 12:46; Admin Dose 10 MLS/HR; Start 12/27/18 at 17:30 Alteplase, Recombinant (Cathflo (Activase)) 2 mg MAY REPEAT X1 PRN CATHETER IF CATHETER REMAINS OCCULUDED; Start 12/28/18 at 05:00 Total Parenteral Nutrition 1,000 ml @ 50 mls/hr Q20H IV Last administered on 12/28/18at 17:08; Admin Dose 50 MLS/HR; Start 12/28/18 at 16:00 NATACHA BRAN Dec 28, 2018 18:08
[2018-12-28] MEDS ORDERED: HEPARIN 1000 UNITS/ML 10 ML INJ CATHETER SCH (20:00)
[2018-12-28] MEDS: BALSAM PERU/CASTOR OIL 60 GM TUBE TOP SCH (20:30)
[2018-12-29] VITALS (86 sets, daily range): BP systolic 76–168; BP diastolic 33–61; PULSE 70–102; RESP 21–33
[2018-12-29] MEDS: HYOSCYAMINE 0.125 MG SUBL TAB PO SCH ×5 (00:04→23:52)
[2018-12-29] MEDS: PANTOPRAZOLE IV 80 MG in SOD CHLORIDE 0.9% 100 ML IV SCH ×3 (00:04→19:54)
[2018-12-29] MEDS: INSULIN ASPART [NOVOLOG] 3 ML PEN SC SCH ×6 (00:24→21:00)
[2018-12-29] MEDS: PROPOFOL 100 ML IV SCH (01:05)
[2018-12-29] MEDS: FENTAnyl (DRIP) 1000 mcg/100mL 100 ML IV SCH (01:08)
[2018-12-29] MEDS: ACCU-CHEK XX SCH (01:50)
[2018-12-29] MEDS: PHENYLephrine 80 MG in DEXTROSE 5% 242 ML IV SCH ×3 (03:18→23:51)
--- NOTE | 2018-12-29 04:03 | QN ---
Documentation Comment CT report was given to me around 7pm and I left a vm for the son. He responded around 8pm but stated he needs to d/w his mother for final decision. He needed at least an hour. I discussed case with anesthesiologist, but due to patient currently receiving HD till 1030, she wanted to wait a few hours prior to surgery. Family informed. Late entry 12/28 JULIET FERREIRA MD Dec 29, 2018 04:03
--- NOTE | 2018-12-29 04:09 | PN ---
Date/Time of Note Date/Time of Note DATE: 12/29/18 TIME: 04:04 Assessment/Plan Lines/Catheters IV Catheter Type (from [facility]): LACHO Kohler in Place (from [facility]): Yes Assessment/Plan Chief Complaint/Hosp Course 1. Respiratory failure: Currently intubated; CT with effusion and infiltrates. Sepsis with 1 pressor. -Pulm f/u -Pulmonary toilet -Judicious Fluid management -Abx 2. Abdominal pain hx; SBFT noted without obstruction; Abdominal distention. Bowel function. CT noted -OR -N.p.o. -NGT -iv abx -supportive 3. Dilated biliary system: MRCP noted -Medical optimization -Further imaging 4. Prostate cancer history -Per medical team 5. Atherosclerosis with CAD -Medical management 6. 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 Diverticulosis without diverticulitis: -Lifestyle optimization 8. Normocytic normochromic anemia: Dark stools -Monitor and transfuse as needed -Per GI> gib w/u 9. Drug screen positive for cocaine, opioids and cannabinoids -Highly encourage cessation of illicit drug use -?withdrawal Thank you Subjective [address] findings noted. Patient had HD last night. Family is agreeable to surgery. Continues in ICU care on 1 pressor support. On vent - acidotic. Continues to have liquid stool per rectum and large amount of NGT output. Nonverbal indicators of pain not present. No f/c. No cough. No sz. No bleeding. Bloated. Exam/Review of Systems Vital Signs Vitals Vital Signs Date Temp Pulse Resp B/P (MAP) Pulse Ox O2 O2 Flow FiO2 Time Delivery Rate 12/29/18 77 22 97 60 03:27 12/28/18 105/51 23:15 (69) 12/28/18 Mechanical 23:00 Ventilator 12/28/18 98.7 20:00 Intake and Output 12/28/18 12/28/18 12/29/18 1515:00 23:00 07:00 IntakeIntake Total 834.85 ml 829.330 ml OutputOutput Total 250 ml 3150 ml 50 ml BalanceBalance 584.85 ml -2320.670 ml -50 ml Exam Free Text/Dictation Constitutional: sedated, vented Psych: sedated on vent Head: normocephalic, atraumatic Eyes: nl conjunctiva, EOMI, nl lids, nl sclera ENMT: nl external ears & nose, nl lips & teeth, mucosa pink and moist, NG tube, ETT Neck: supple, Respiratory: normal air movement, labored breathing; No congested cough Cardiovascular: s1s2, sinus rhythm Gastrointestinal: distended, no rebound, no guarding, induration LLQ, rectal tube : Kohler: Hematuria Musculoskeletal: nl extremities to inspection, nl gait and stance Extremities: normal pulses; No edema Neurological: nl mental status, nl speech, nl strength Skin: No rash or lesions Lymph: nl lymph nodes Results Free Text/Dictation FINDINGS: LUNG BASES: Consolidation versus atelectasis in the posterior portions of the bilateral lower lobes. Bilateral lower lobe pneumonia is not excluded. PLEURAL SPACE: Small bilateral pleural effusions. ABDOMEN: LIVER: There are 2 low density liver lesions measuring up to 1.3 cm, consistent with hepatic cysts. GALLBLADDER AND BILE DUCTS: The gallbladder contains multiple calcified gallstones. No gallbladder wall thickening. No pericholecystic fluid. No biliary dilatation. PANCREAS: Unremarkable. No ductal dilation. SPLEEN: Unremarkable. No splenomegaly. ADRENALS: Mild nonspecific thickening of the adrenal glands. KIDNEYS AND URETERS: Unremarkable. No obstructing stones. No hydronephrosis. STOMACH AND BOWEL: The small bowel and colon demonstrate severe diffuse mural thickening, consistent with severe nonspecific enterocolitis. Global ischemia can also give this appearance. No obstruction. PELVIS: APPENDIX: No findings to suggest acute appendicitis. BLADDER: See below. REPRODUCTIVE: Unremarkable as visualized. ABDOMEN and PELVIS: INTRAPERITONEAL SPACE: There is intramural and extraluminal air seen in the rectosigmoid portion of the colon. Air extends into the perirectal fat and dissects into the wall of the adjacent urinary bladder. Additional air seen in the mesentery adjacent to the sigmoid colon. This is consistent with necrosis of the bowel and perforation. Mild ascites in the abdomen and pelvis. No drainable fluid collection. BONES/JOINTS: Degenerative spine changes are noted. No acute fracture. No dislocation. SOFT TISSUES: Unremarkable. VASCULATURE: The abdominal aorta is atherosclerotic. No aneurysm. LYMPH NODES: Unremarkable. No enlarged lymph nodes. TUBES, LINES AND DEVICES: There is a rectal tube present. NG tube with distal tip in the duodenum. Kohler catheter with tip in the urinary bladder. A right- sided femoral venous line with distal tip in the distal right common iliac vein. IMPRESSION: 1. The small bowel and colon demonstrate severe diffuse mural thickening, consistent with severe nonspecific enterocolitis. Global ischemia can also give this appearance. 2. There is intramural and extraluminal air seen in the rectosigmoid portion of the colon. Air extends into the perirectal fat and dissects into the wall of the adjacent urinary bladder. Additional air seen in the mesentery adjacent to the sigmoid colon. This is consistent with necrosis of the bowel and perforation. 3. Mild ascites in the abdomen and pelvis. No drainable fluid collection. 4. Small bilateral pleural effusions. 5. The gallbladder contains multiple calcified gallstones. No gallbladder wall thickening. No pericholecystic fluid. No biliary dilatation. Result Diagram: 12/28/18 0807 12/28/18 0455 JULIET FERREIRA MD Dec 29, 2018 04:09
[2018-12-29] MEDS: PIPER-TAZO 2.25 GM (PMX) 50 ML IVPB SCH ×3 (05:11→21:04)
--- NOTE | 2018-12-29 05:36 | PREAC ---
Date/Time of Note Date/Time of Note DATE: 12/29/18 TIME: 05:32 Anesthesia Eval and Record Evaluation Time Pre-Procedure Interview DATE: 12/29/18 TIME: 05:32 Age 68 Sex male NPO: 8 hrs Preoperative diagnosis ischemic bowel Planned procedure lap , open bowel resection,ostomy Past Medical History Past Medical History: Includes Cardio: CAD, Other (on vasopresor) Pulm: Other (res failure on vent) Renal: ESRD on dialysis, HD last: (yesterday) Heme: Thrombocytopenia Recreational drugs: Marijuana, Cocaine Surgery & Anesthesia Issues No known issue Meds Anticoagulation: No Beta Frederick within 24 hr: No Reason Beta Frederick not given: Pt. not on B-Frederick No Active Prescriptions or Reported Meds Current Medications IV Flush (NS 3 ml) 3 ml PER PROTOCOL IV ; Start 12/19/18 at 00:30 Acetaminophen (Tylenol Tab) 650 mg Q6H PRN PO .PAIN 1-3 OR TEMP Last administered on 12/25/18at 05:36; Admin Dose 650 MG; Start 12/19/18 at 00:30 Docusate Sodium (Colace) 100 mg Q12H PRN PO .CONSTIPATION Last administered on 12/20/18at 12:53; Admin Dose 100 MG; Start 12/19/18 at 00:30 Bisacodyl (Dulcolax) 5 mg DAILY PRN PO .CONSTIPATION; Start 12/19/18 at 00:30 Ondansetron HCl (Zofran Inj) 4 mg Q4 PRN IV NAUSEA/VOMITING; Start 12/19/18 at 02:00 Nicotine (Nicoderm 14 Mg/ 24hr) 1 patch DAILY TRANSDERM Last administered on 12/28/18 09:09; Admin Dose 1 PATCH; Start 12/19/18 at 09:00 Lorazepam (Ativan) 1 mg Q4 PRN IV withdrawal symptoms Last administered on 12/23/18 04:41; Admin Dose 1 MG; Start 12/19/18 at 05:30 Al Hydrox/Mg Hydrox/Simethicone (Mag-Al Plus) 30 ml Q6H PRN PO GASTROINTESTINAL UPSET Last administered on 12/20/18 18:28; Admin Dose 30 ML; Start 12/20/18 at 18:30 Haloperidol (Haldol) 4 mg Q8H PRN IV AGITATION Last administered on 3/27/19at 17:40; Admin Dose 4 MG; Start 12/22/18 at 17:30 Propofol 100 ml @ 1.839 mls/ hr Q12H IV Last administered on 12/29/18 01:05; Admin Dose 7.356 MLS/HR; Start 12/24/18 at 06:00 Fentanyl 100 ml @ 2.5 mls/hr TITRATE IV Last administered on 12/29/18 01:08; Admin Dose 5 MLS/HR; Start 12/24/18 at 12:30 Diagnostic Test (Pha) (Accu-Chek) 1 ea 02 XX ; Start 12/25/18 at 02:00 Insulin Glargine (Lantus) 7 units DAILY@0800 SC Last administered on 12/28/18 09:34; Admin Dose 7 UNITS; Start 12/25/18 at 08:00 Insulin Aspart (Novolog Insulin Pen) NOVOLOG *MILD* ALGORI... Q4 SC Last administered on 12/29/18 05:14; Admin Dose 1 UNIT; Start 12/24/18 at 13:00 Miscellaneous Information 1 ea NOTE XX ; Start 12/24/18 at 12:30 Glucose (Glutose) 15 gm Q15M PRN PO DECREASED GLUCOSE; Start 12/24/18 at 12:30 Glucose (Glutose) 22.5 gm Q15M PRN PO DECREASED GLUCOSE; Start 12/24/18 at 12:30 Dextrose (D50w Syringe) 25 ml Q15M PRN IV DECREASED GLUCOSE Last administered on 12/28/18at 01:12; Admin Dose 25 ML; Start 12/24/18 at 12:30 Dextrose (D50w Syringe) 50 ml Q15M PRN IV DECREASED GLUCOSE Last administered on 12/28/18 05:24; Admin Dose 50 ML; Start 12/24/18 at 12:30 Glucagon (Glucagen) 1 mg Q15M PRN IM DECREASED GLUCOSE; Start 12/24/18 at 12:30 Glucose (Glutose) 15 gm Q15M PRN BUCCAL DECREASED GLUCOSE; Start 12/24/18 at 12:30 IV Flush (NS 10 ml) 10 ml PRN PRN IV flush; Start 12/24/18 at 14:30 Acetaminophen (Tylenol Supp) 650 mg Q6H PRN IN Fever Last administered on 12/25/18 17:16; Admin Dose 650 MG; Start 12/24/18 at 21:30 Phenylephrine HCl 80 mg/Dextrose 250 ml @ 18.75 mls/ hr TITRATE IV Last administered on 12/29/18 03:18; Admin Dose 42.19 MLS/HR; Start 12/25/18 at 10:00 Norepinephrine 32 mg/Dextrose 250 ml @ 0.47 mls/hr TITRATE IV Last administered on 12/26/18 17:28; Admin Dose 13.13 MLS/HR; Start 12/25/18 at 10:00 Hyoscyamine (Levsin (Sl)) 0.125 mg Q6 PO Last administered on 12/29/18 05:11; Admin Dose 0.125 MG; Start 12/27/18 at 12:00 Albumin Human 100 ml @ 100 mls/hr DURING DIALYSIS PRN IV HYPOTENTION DURING HD; Start 12/27/18 at 13:30 Piperacillin Sod/ Tazobactam Sod 50 ml @ 100 mls/hr Q8 IVPB Last administered on 12/29/18 05:11; Admin Dose 100 MLS/HR; Start 12/27/18 at 22:00 Pantoprazole 80 mg/Sodium Chloride 100 ml @ 10 mls/hr Q10H IV Last administered on 12/29/18 00:04; Admin Dose 10 MLS/HR; Start 12/27/18 at 17:30 Alteplase, Recombinant (Cathflo (Activase)) 2 mg MAY REPEAT X1 PRN CATHETER IF CATHETER REMAINS OCCULUDED; Start 12/28/18 at 05:00 Total Parenteral Nutrition 1,000 ml @ 50 mls/hr Q20H IV Last administered on 12/28/18 17:08; Admin Dose 50 MLS/HR; Start 12/28/18 at 16:00 Heparin Sodium (Porcine) (Heparin (1000 Units/ml)) 2,800 unit AFTER DIALYSIS CATHETER Last administered on 12/28/18 21:20; Admin Dose 2,800 UNIT; Start 12/28/18 at 20:00 Meds reviewed: Yes Allergies Coded Allergies: No Known Allergy (Unverified , 12/24/18) Allergies Reviewed: Yes Labs/Studies Labs Reviewed: Reviewed by anesthesiologist Result Diagram: 12/29/18 0345 12/28/18 0455 Laboratory Tests 12/29/18 03:45 test: N/A Studies: ECG (sr), CXR Pre-procedure Exam Last vitals Vital Signs Date Temp Pulse Resp B/P (MAP) Pulse Ox O2 O2 Flow FiO2 Time Delivery Rate 12/29/18 85 23 109/48 99 04:30 (68) 12/29/18 98.5 Mechanical 04:00 Ventilator 12/29/18 60 03:27 Airway: Adequate mouth opening Mallampati: Mallampati I Teeth: Normal Lung: Normal Heart: Normal ASA Physical Status ASA physical status: 3 Emergency: E Planned Anesthetic General/MAC: ETT, A Line, CVP Nerve block: TAP (bilateral) Planned Pain Management Single shot nerve block, Parenteral pain med Pre-operative Attestations Prior to commencing anesthesia and surgery, the patient was re-evaluated, there was verification of: *The patient's identity *The results of appropriate recent lab work and preoperative vital signs *The above evaluation not changing prior to induction *Anesthetic plan, risk benefits, alternative and complications discussed with patient/family; questions answered; patient/family understands, accepts and wishes to proceed. RUSS NOLASCO MD Dec 29, 2018 05:36
[2018-12-29] MEDS ORDERED: ROCURONIUM 50 MG INJ ONE ×2 (06:01→09:05)
[2018-12-29] MEDS ORDERED: ROPIVACAINE 0.5 % 30 ML VIAL ONE (06:12)
[2018-12-29] MEDS ORDERED: LIDOCAINE 2% (MDV) 20 ML INJ ONE (06:36)
[2018-12-29] MEDS ORDERED: BUPIVACAINE 0.5%/EPI (SDV) 30 ML INJ ONE (06:36)
--- NOTE | 2018-12-29 07:09 | CONS ---
Assessment/Plan Assessment/Plan Hospital Course 68 yo M with multiple comorbidities who initially presented for evaluation of GI symptoms. It was noted that the pt became altered, for which neurology is consulted. ARF + NA 153 12/24: Transferred to ICU for respiratory distress. S/p intubation. Most clinically consistent with an acute and multifactorial toxic-metabolic encephalopathy.. A focal [employer] process is unlikely. UDS + cocaine, marijuana, opiates P: Okay to defer neuroimaging for now Continue medical management per primary Wean sedation when able Will follow clinically...to recommend neurologic studies, as necessary Consultation Date/Type/Reason Admit Date/Time Dec 21, 2018 at 08:36 Type of Consult Neurology Reason for Consultation ams Requesting Provider: ZULY DELGADO Date/Time of Note DATE: 12/29/18 TIME: 07:09 24 HR Interval Summary Free Text/Dictation Continues icu care Exam Vital Signs Vitals Vital Signs Date Temp Pulse Resp B/P (MAP) Pulse Ox O2 O2 Flow FiO2 Time Delivery Rate 12/29/18 83 23 98 60 05:48 12/29/18 109/45 05:45 (66) 12/29/18 Mechanical 05:00 Ventilator 12/29/18 98.5 04:00 Intake and Output 12/28/18 12/28/18 12/29/18 1515:00 23:00 07:00 IntakeIntake Total 834.85 ml 829.330 ml 732.576 ml OutputOutput Total 250 ml 3150 ml 800 ml BalanceBalance 584.85 ml -2320.670 ml -67.424 ml Exam Unavailable for exam RYLEE MACHUCA Dec 29, 2018 07:09
[2018-12-29] MEDS: INSULIN GLARGINE [LANTus] (100 UNITS/ML) SYG SC SCH (08:00)
--- NOTE | 2018-12-29 08:20 | PN ---
DATE: 12/29/2018 SUBJECTIVE: The patient remains critically ill on pressor support. I spoke with Dr. Lane castro the patient's clinical status. The patient is pending emergent surgical evaluation due to possibl e perforated viscus and necrotic bowel. The patient had hemodialysis yesterday, tolerated well. Oth erwise, remains on full ventilatory support. OBJECTIVE: VITAL SIGNS: Blood pressure is 109/45, respirations 22, pulse 70, temperature 98.6. HEENT: Head is normocephalic. NECK: Supple. HEART: Regular rate. LUNGS: Show diminished breath sounds at the base. ABDOMEN: Soft, positive distention. EXTREMITIES: Negative for clubbing, cyanosis. Positive edema. DERMATOLOGIC: No rashes. MUSCULOSKELETAL: No joint effusion. NEUROLOGIC: The patient is obtunded. MEDICATIONS: Reviewed. LABORATORY DATA: From 12/29/18 was reviewed. ABGs were reviewed. Microbiology was reviewed. IMAGING STUDIES: Reviewed. ASSESSMENT AND PLAN: 1. Oliguric acute kidney injury with previous baseline creatinine of 0.9 mg/dL. Etiology of acute k idney injury is secondary to acute tubular necrosis due to sepsis, shock. The patient currently is i n injury phase of acute tubular necrosis and is dialysis-dependent. We will continue intermittent he modialysis. Plan is for dialysis again tomorrow. Monitor for any signs of renal recovery. 2. Hyperkalemia, improved. Continue dialysis on a low potassium bath. 3. Hypernatremia, improved. Continue dialysis on a 140 sodium bath. 4. Metabolic acidosis, improving. Continue hemodialysis. 5. Anemia. Monitor hemoglobin and hematocrit levels. 6. Septic shock secondary to pneumonia, perforated viscus. Continue antibiotic therapy, continue pr essor support. Continue IV fluids. 7. Perforated viscus with possible ischemic bowel. The patient is being taken for urgent surgery. Continue to monitor. Follow up with surgery for recommendations. 8. Ventilator-dependent respiratory failure. Vent settings and ABG was reviewed. Continue to monit or. Follow up with pulmonary. 9. Acute encephalopathy, etiology is toxic metabolic, uremic. Continue to monitor. 10. History of coronary artery disease. Continue current treatment plan. 11. History of prostate cancer. 12. Melena. Continue to monitor hemoglobin and hematocrit levels. Follow up with GI. 13. History of chronic back pain. Please note I spent over 30 minutes of critical care time with this patient. Dictated By: ANALIA LUCERO DO NR/NTS Conf#: [id number] DID#: [id number] CC: JULIET FERREIRA MD; MELA VILLALBA MD; MEMO CASAREZ MD;*EndCC*
[2018-12-29] MEDS ORDERED: NOREPINEPHRINE 32 MG in DEXTROSE 5% 250 ML IV SCH (08:30)
[2018-12-29] MEDS: BALSAM PERU/CASTOR OIL 60 GM TUBE TOP SCH ×2 (09:00→21:00)
[2018-12-29] MEDS: NICOTINE (14 MG/24 HR) PATCH TRANSDERM SCH (09:00)
[2018-12-29] MEDS ORDERED: EPHEDrine 50 MG INJ ONE (09:05)
[2018-12-29] MEDS ORDERED: NA BICARBONATE 8.4% 50 ML SYG ONE ×2 (10:19→19:46)
--- NOTE | 2018-12-29 10:36 | OPR ---
Date/Time of Note Date/Time of Note DATE: 12/29/18 TIME: 10:32 Operative Report Procedure Date: Dec 29, 2018 Preoperative Diagnosis Ischemic bowel with perforation Sepsis with shock Postoperative Diagnosis Ischemic colon with gangrenous sigmoid rectum and anus with perforation Ischemic distal small bowel segment Systemic stomach however improved Operation/Procedure Performed 1. Laparoscopic converted to open total colectomy 2. Abdominal perineal resection 3. Distal small bowel resection (3 feet) 4. Implantation of biologic to re-create pelvic floor 5. Rigid sigmoidoscopy 6. Splenic mobilization and hepatic mobilization 7. Indiocarmine green fluorescent angiography 8. Local anesthetic injection, [id number] Surgeon Juliet Ferreira MD Brick Layer None Anesthesia Type: general (Plus local and regional) Anesthesiologist: RUSS NOLASCO MD Estimated Blood Loss: 50 - 100 ml's Transfusion none Specimen Distal small bowel colon and rectum/anus Grafts/Implants 7 x 10 cm 6 layer acell Tubes/Drains 19 Stateless Juan Carlos's x2 Complications none Pt Condition Post Procedure: critical Disposition: other (ICU) Indications Per notes. R/A/B were fully reviewed multiple times with family, mainly the son and eventually they agreed to proceed with surgery despite high risks. Risks include but not limited to bleeding, infection, abscess, seroma, hematoma, bowel injury, bladder injury, ureteral injury, biliary injury, need for further surgeries, mi, pe, dvt, stroke, pna, organ failures, or . Procedure Description Patient was brought in and placed supine initially. Patient was prepped by anesthesia with lines. He was placed in lithotomy position and all pressure points well padded. He is already on abx. Time out was performed and patient was prepped and draped in sterile fashion. Local anesthetic injection was performed at all surgical sites. Incision was made in ruq and using an optiview port and 5mm 0 deg scope abdomen was entered and insufflated to 15mmHg with co2. Under direct visualization, 2 more 5 mm ports were placed right lateral abdomen. ICG flourescent angiography identified large intestine to be ischemic and sigmoid and rectum fully gangrenous. Due to difficult manipulating the intestine, decision was made to convert to open exploration.The liver was pale. The rectum was ischemic and therefore decision was made to perform a rigid sigmoidoscopy. Evaluation of anus identified gangrenous mucosa and bilateral buttock skin changes. Rigid sigmoidoscopy to 15cm identified ischemic mucosa. Decision was to remove all ischemic sites to give patient any chance. A call was made to the son from the OR and all findings were reviewed with him. He called his mom and called back to tell us to do whatever is necessary in the OR. The small bowel was transected in distal ileum proximal to ischemic area. Using ligasure, the mesentery was taken from the small bowel to right colon, transverse colon, left colon, and deep below the peritoneal reflection. The hepatic flexure and splenic flexure were taken down to allow mobilization of the entire colon. Elliptical incision was made around the anus and using electrocautery and ligasure, the anorectum were from surrounding tissues deep into the pelvis. Total mesorectal excision was made in the pelvis and entire colon, rectum, and anus. Specimen was sent to pathology. Abdomen was irrigated with several liters of warm saline to clear irrigant. 7x10cm 6 layer ACell biologic was used to recreate the floor by suturing it circumferentially with 2-0 vicryl. The drain was placed under the mesh into the pelvis and secured with nylon. RLQ circular incision was made and cruciate incision made into the rectus fascia. The ileum was exteriorized and secured to fascia with 2-0 silk sutures. This was eventually matured in a normal fashion and bad applied. Midline incision was closed with 2x 0 loop pds sutures, followed by irrigation and staple skin closure. 19f juan carlos was placed thru a 5mm port and secured with nylon. Dressing applied. Patient was kept intubated and taken to icu in very guarded condition. All counts were correct at the end of the operation. JULIET FERREIRA MD Dec 29, 2018 10:36
--- NOTE | 2018-12-29 10:49 | CONS ---
Consult Date/Type/Reason Admit Date/Time Dec 21, 2018 at 08:36 Initial Consult Date 12/19/18 Type of Consult Pulmonary Requesting Provider: ZULY DELGADO Date/Time of Note DATE: 12/29/18 TIME: 10:[address] of the abdomen yesterday concerning for ischemic bowel and perforation. Taken to the OR this morning. Findings noted. 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 Objective Vital Signs Date Temp Pulse Resp B/P (MAP) Pulse Ox O2 O2 Flow FiO2 Time Delivery Rate 12/29/18 83 23 98 60 05:48 12/29/18 109/45 05:45 (66) 12/29/18 Mechanical 05:00 Ventilator 12/29/18 98.5 04:00 Intake and Output 12/28/18 12/28/18 12/29/18 1515:00 23:00 07:00 IntakeIntake Total 834.85 ml 829.330 ml 732.576 ml OutputOutput Total 250 ml 3150 ml 800 ml BalanceBalance 584.85 ml -2320.670 ml -67.424 ml Exam GENERAL: Chronically ill-appearing gentleman intubated on mechanical ventilation VITAL SIGNS: per chart NECK: Supple. No JVD or lymphadenopathy. CARDIAC EXAM: S1, S2. No added sounds or murmurs. CHEST: Diminished air entry bilaterally ABDOMEN: Absent bowel sounds EXTREMITIES: No cyanosis, clubbing or edema. NEUROLOGIC: Generalized weakness. No focal deficits. Vent Setting Ventilator Support Mode: AC Fraction of Inspired Oxygen pe: 60 Positive End Expiratory Pressu: 5.0 Results/Medications Result Diagram: 12/29/18 0345 12/29/18 0345 Results 24 hrs Laboratory Tests Test 12/28/18 12:39 12/28/18 17:22 12/28/18 20:24 12/29/18 00:24 Bedside Glucose 98 101 108 124 Test 12/29/18 03:45 12/29/18 05:10 12/29/18 09:46 White Blood Count 7.3 Red Blood Count 3.53 L Hemoglobin 10.2 L Hematocrit 30.2 L Mean Corpuscular 85.6 Volume Mean Corpuscular 28.9 L Hemoglobin Mean Corpuscular 33.8 Hemoglobin Concen t Red Cell 16.1 H Distribution Width Platelet Count 48 L Mean Platelet Volume Immature 1.700 H Granulocytes % Neutrophils % Segmented 66 Neutrophils % (Manual) Band Neutrophils 28 H % (Manual) Lymphocytes % Lymphocytes % 2 L (Manual) Monocytes % Monocytes % 1 (Manual) Eosinophils % Eosinophils % 2 (Manual) Basophils % Promyelocytes % 1 H (Manual) Nucleated Red 8 H Blood Cells % Immature 0.120 H Granulocytes # Neutrophils # Neutrophils # 5.0 (Manual) Band Neutrophils 2.0 H # Lymphocytes 0.1 L (Manual) Lymphocytes # Monocytes # Monocytes # 0.0 L (Manual) Eosinophils # Basophils # Promyelocytes # 0.0 Nucleated Red Blood Cells # Platelet Estimate SIG DECREASED Giant Platelets 6 H Poikilocytosis 3+ Anisocytosis 1+ Macrocytosis 1+ Sodium Level 137 Potassium Level 3.8 Chloride Level 102 Carbon Dioxide 25 Level Anion Gap 10 # Blood Urea 38 #H Nitrogen Creatinine 2.84 #H Est Glomerular 22 L Filtrat Rate mL/min Glucose Level 129 # Lactic Acid Level 2.8 *H Calcium Level 7.3 L Phosphorus Level 4.4 # Magnesium Level 2.0 Total Bilirubin 2.5 H Direct Bilirubin 2.30 #H Indirect 0.2 Bilirubin Aspartate Amino 1036 H Transf (AST/SGOT) Alanine 412 H Aminotransferase (ALT/SGPT) Alkaline 81 Phosphatase Total Protein 4.2 L Albumin 1.9 L Prealbumin 4.2 L Bedside Glucose 148 Blood Gas Blood arterial Specimen Source Arterial Blood 12/29/2018 9:50:43 Date Drawn AM Arterial Blood pH 7.070 *L (Temp corrected) Arterial Blood 59.0 H pCO2 (Temp correct) Arterial Blood 119.7 H pO2 (Temp corrected) Arterial Blood 16.7 L HCO3 Arterial Blood -13.8 L Base Excess Arterial Blood 97.0 Oxygen Saturation [place] Test N/A Arterial Blood A-Line Gas Puncture Site Arterial 0.6 Blood Carboxyhemo globin Arterial Blood 0.2 Methemoglobin Blood Gas A-a O2 534.3 H Differential Oxyhemoglobin 96.2 Percent Blood Gas 37.0 Temperature Blood Gas ANESTHESIA Modality FiO2 100.[address]F RODRIGUEZ Critical Value Read Back Blood Gas TM Notified Whom Blood Gas 12/29/2018 10:04:5 Notified Time 2 AM Medications Current Medications IV Flush (NS 3 ml) 3 ml PER PROTOCOL IV ; Start 12/19/18 at 00:30 Acetaminophen (Tylenol Tab) 650 mg Q6H PRN PO .PAIN 1-3 OR TEMP Last administered on 12/25/18 05:36; Admin Dose 650 MG; Start 12/19/18 at 00:30 Docusate Sodium (Colace) 100 mg Q12H PRN PO .CONSTIPATION Last administered on 12/20/18 12:53; Admin Dose 100 MG; Start 12/19/18 at 00:30 Bisacodyl (Dulcolax) 5 mg DAILY PRN PO .CONSTIPATION; Start 12/19/18 at 00:30 Ondansetron HCl (Zofran Inj) 4 mg Q4 PRN IV NAUSEA/VOMITING; Start 12/19/18 at 02:00 Nicotine (Nicoderm 14 Mg/ 24hr) 1 patch DAILY TRANSDERM Last administered on 12/28/18 09:09; Admin Dose 1 PATCH; Start 12/19/18 at 09:00 Lorazepam (Ativan) 1 mg Q4 PRN IV withdrawal symptoms Last administered on 12/23/18 04:41; Admin Dose 1 MG; Start 12/19/18 at 05:30 Al Hydrox/Mg Hydrox/Simethicone (Mag-Al Plus) 30 ml Q6H PRN PO GASTROINTESTINAL UPSET Last administered on 12/20/18 18:28; Admin Dose 30 ML; Start 12/20/18 at 18:30 Haloperidol (Haldol) 4 mg Q8H PRN IV AGITATION Last administered on 12/22/18 17:40; Admin Dose 4 MG; Start 12/22/18 at 17:30 Propofol 100 ml @ 1.839 mls/ hr Q12H IV Last administered on 12/29/18 01:05; Admin Dose 7.356 MLS/HR; Start 12/24/18 at 06:00 Fentanyl 100 ml @ 2.5 mls/hr TITRATE IV Last administered on 12/29/18 01:08; Admin Dose 5 MLS/HR; Start 12/24/18 at 12:30 Diagnostic Test (Pha) (Accu-Chek) 1 ea 02 XX ; Start 12/25/18 at 02:00 Insulin Glargine (Lantus) 7 units DAILY@0800 SC Last administered on 12/28/18 09:34; Admin Dose 7 UNITS; Start 12/25/18 at 08:00 Insulin Aspart (Novolog Insulin Pen) NOVOLOG *MILD* ALGORI... Q4 SC Last administered on 12/29/18 05:14; Admin Dose 1 UNIT; Start 12/24/18 at 13:00 Miscellaneous Information 1 ea NOTE XX ; Start 12/24/18 at 12:30 Glucose (Glutose) 15 gm Q15M PRN PO DECREASED GLUCOSE; Start 12/24/18 at 12:30 Glucose (Glutose) 22.5 gm Q15M PRN PO DECREASED GLUCOSE; Start 12/24/18 at 12:30 Dextrose (D50w Syringe) 25 ml Q15M PRN IV DECREASED GLUCOSE Last administered on 12/28/18at 01:12; Admin Dose 25 ML; Start 12/24/18 at 12:30 Dextrose (D50w Syringe) 50 ml Q15M PRN IV DECREASED GLUCOSE Last administered on 12/28/18 05:24; Admin Dose 50 ML; Start 12/24/18 at 12:30 Glucagon (Glucagen) 1 mg Q15M PRN IM DECREASED GLUCOSE; Start 12/24/18 at 12:30 Glucose (Glutose) 15 gm Q15M PRN BUCCAL DECREASED GLUCOSE; Start 12/24/18 at 12:30 IV Flush (NS 10 ml) 10 ml PRN PRN IV flush; Start 12/24/18 at 14:30 Acetaminophen (Tylenol Supp) 650 mg Q6H PRN [place] Fever Last administered on 12/25/18at 17:16; Admin Dose 650 MG; Start 12/24/18 at 21:30 Phenylephrine HCl 80 mg/Dextrose 250 ml @ 18.75 mls/ hr TITRATE IV Last administered on 12/29/18 03:18; Admin Dose 42.19 MLS/HR; Start 12/25/18 at 10:00 Norepinephrine 32 mg/Dextrose 250 ml @ 0.47 mls/hr TITRATE IV Last administered on 12/26/18 17:28; Admin Dose 13.13 MLS/HR; Start 12/25/18 at 10:00 Hyoscyamine (Levsin (Sl)) 0.125 mg Q6 PO Last administered on 12/29/18 05:11; Admin Dose 0.125 MG; Start 12/27/18 at 12:00 Albumin Human 100 ml @ 100 mls/hr DURING DIALYSIS PRN IV HYPOTENTION DURING HD; Start 12/27/18 at 13:30 Piperacillin Sod/ Tazobactam Sod 50 ml @ 100 mls/hr Q8 IVPB Last administered on 12/29/18at 05:11; Admin Dose 100 MLS/HR; Start 12/27/18 at 22:00 Pantoprazole 80 mg/Sodium Chloride 100 ml @ 10 mls/hr Q10H IV Last administered on 12/29/18at 00:04; Admin Dose 10 MLS/HR; Start 12/27/18 at 17:30 Alteplase, Recombinant (Cathflo (Activase)) 2 mg MAY REPEAT X1 PRN CATHETER IF CATHETER REMAINS OCCULUDED; Start 12/28/18 at 05:00 Total Parenteral Nutrition 1,000 ml @ 50 mls/hr Q20H IV Last administered on 12/28/18at 17:08; Admin Dose 50 MLS/HR; Start 12/28/18 at 16:00 Heparin Sodium (Porcine) (Heparin (1000 Units/ml)) 2,800 unit AFTER DIALYSIS CATHETER Last administered on 12/28/18at 21:20; Admin Dose 2,800 UNIT; Start 12/28/18 at 20:00 Assessment/Plan Hospital Course (Demo Recall) Assessment 1. Acute abdomen with ischemic bowel status post resection this morning 2. Septic shock secondary to above 3. Hypoxemic respiratory failure with evidence of pneumonia on CT chest 4. Renal failure secondary to ATN injury from above Plan 1. Continue mechanical ventilation 2. Monitor H&H posttransfusion 3. Dialysis as tolerated 4. Continue broad-spectrum antibiotic coverage 5. Surgical recommendations post resection and colostomy. Critical care time 40 minutes Prognosis guarded. LIZ GALVAN MD, [facility] Dec 29, 2018 10:49
--- NOTE | 2018-12-29 13:10 | CONS ---
Assessment/Plan Assessment/Plan Assessment/Plan (Daily) Patient taken to the operating room this morning for probable ischemic colitis with perforation, prognosis grave. Will continue to support family members. Consultation Date/Type/Reason Admit Date/Time Dec 21, 2018 at 08:36 Initial Consult Date 12/19/18 Requesting Provider: ZULY DELGADO Date/Time of Note DATE: 12/29/18 TIME: 13:08 Exam/Review of Systems Exam Vitals Vital Signs Date Temp Pulse Resp B/P (MAP) Pulse Ox O2 O2 Flow FiO2 Time Delivery Rate 12/29/18 88 24 115/55 100 12:45 (75) 12/29/18 97.8 12:30 12/29/18 75 12:00 12/29/18 Mechanical 05:00 Ventilator Intake and Output 12/28/18 12/28/18 12/29/18 1515:00 23:00 07:00 IntakeIntake Total 834.85 ml 829.330 ml 732.576 ml OutputOutput Total 250 ml 3150 ml 800 ml BalanceBalance 584.85 ml -2320.670 ml -67.424 ml Results Result Diagram: 12/29/18 0345 12/29/18 0345 Results 24hrs Laboratory Tests Test 12/28/18 17:22 12/28/18 20:24 12/29/18 00:24 12/29/18 03:45 Bedside Glucose 101 108 124 White Blood Count 7.3 Red Blood Count 3.53 L Hemoglobin 10.2 L Hematocrit 30.2 L Mean Corpuscular 85.6 Volume Mean Corpuscular 28.9 L Hemoglobin Mean Corpuscular 33.8 Hemoglobin Concen t Red Cell 16.1 H Distribution Width Platelet Count 48 L Mean Platelet Volume Immature 1.700 H Granulocytes % Neutrophils % Segmented 66 Neutrophils % (Manual) Band Neutrophils 28 H % (Manual) Lymphocytes % Lymphocytes % 2 L (Manual) Monocytes % Monocytes % 1 (Manual) Eosinophils % Eosinophils % 2 (Manual) Basophils % Promyelocytes % 1 H (Manual) Nucleated Red 8 H Blood Cells % Immature 0.120 H Granulocytes # Neutrophils # Neutrophils # 5.0 (Manual) Band Neutrophils 2.0 H # Lymphocytes 0.1 L (Manual) Lymphocytes # Monocytes # Monocytes # 0.0 L (Manual) Eosinophils # Basophils # Promyelocytes # 0.0 Nucleated Red Blood Cells # Platelet Estimate SIG DECREASED Giant Platelets 6 H Poikilocytosis 3+ Anisocytosis 1+ Macrocytosis 1+ Sodium Level 137 Potassium Level 3.8 Chloride Level 102 Carbon Dioxide 25 Level Anion Gap 10 # Blood Urea 38 #H Nitrogen Creatinine 2.84 #H Est Glomerular 22 L Filtrat Rate mL/min Glucose Level 129 # Lactic Acid Level 2.8 *H Calcium Level 7.3 L Phosphorus Level 4.4 # Magnesium Level 2.0 Total Bilirubin 2.5 H Direct Bilirubin 2.30 #H Indirect 0.2 Bilirubin Aspartate Amino 1036 H Transf (AST/SGOT) Alanine 412 H Aminotransferase (ALT/SGPT) Alkaline 81 Phosphatase Total Protein 4.2 L Albumin 1.9 L Prealbumin 4.2 L Test 12/29/18 05:10 12/29/18 09:46 12/29/18 12:21 Bedside Glucose 148 98 Blood Gas Blood arterial Specimen Source Arterial Blood 12/29/2018 9:50:43 Date Drawn AM Arterial Blood pH 7.070 *L (Temp corrected) Arterial Blood 59.0 H pCO2 (Temp correct) Arterial Blood 119.7 H pO2 (Temp corrected) Arterial Blood 16.7 L HCO3 Arterial Blood -13.8 L Base Excess Arterial Blood 97.0 Oxygen Saturation [place] Test N/A Arterial Blood A-Line Gas Puncture Site Arterial 0.6 Blood Carboxyhemo globin Arterial Blood 0.2 Methemoglobin Blood Gas A-a O2 534.3 H Differential Oxyhemoglobin 96.2 Percent Blood Gas 37.0 Temperature Blood Gas ANESTHESIA Modality FiO2 100.[address]F RODRIGUEZ Critical Value Read Back Blood Gas TM Notified Whom Blood Gas 12/29/2018 10:04:5 Notified Time 2 AM Medications Medication Current Medications IV Flush (NS 3 ml) 3 ml PER PROTOCOL IV ; Start 12/19/18 at 00:30 Acetaminophen (Tylenol Tab) 650 mg Q6H PRN PO .PAIN 1-3 OR TEMP Last administered on 12/25/18at 05:36; Admin Dose 650 MG; Start 12/19/18 at 00:30 Docusate Sodium (Colace) 100 mg Q12H PRN PO .CONSTIPATION Last administered on 12/20/18at 12:53; Admin Dose 100 MG; Start 12/19/18 at 00:30 Bisacodyl (Dulcolax) 5 mg DAILY PRN PO .CONSTIPATION; Start 12/19/18 at 00:30 Ondansetron HCl (Zofran Inj) 4 mg Q4 PRN IV NAUSEA/VOMITING; Start 12/19/18 at 02:00 Nicotine (Nicoderm 14 Mg/ 24hr) 1 patch DAILY TRANSDERM Last administered on 12/28/18 09:09; Admin Dose 1 PATCH; Start 12/19/18 at 09:00 Lorazepam (Ativan) 1 mg Q4 PRN IV withdrawal symptoms Last administered on 12/23/18 04:41; Admin Dose 1 MG; Start 12/19/18 at 05:30 Al Hydrox/Mg Hydrox/Simethicone (Mag-Al Plus) 30 ml Q6H PRN PO GASTROINTESTINAL UPSET Last administered on 12/20/18 18:28; Admin Dose 30 ML; Start 12/20/18 at 18:30 Haloperidol (Haldol) 4 mg Q8H PRN IV AGITATION Last administered on 12/22/18 17:40; Admin Dose 4 MG; Start 12/22/18 at 17:30 Propofol 100 ml @ 1.839 mls/ hr Q12H IV Last administered on 12/29/18 01:05; Admin Dose 7.356 MLS/HR; Start 12/24/18 at 06:00 Fentanyl 100 ml @ 2.5 mls/hr TITRATE IV Last administered on 12/29/18 01:08; Admin Dose 5 MLS/HR; Start 12/24/18 at 12:30 Diagnostic Test (Pha) (Accu-Chek) 1 ea 02 XX ; Start 12/25/18 at 02:00 Insulin Glargine (Lantus) 7 units DAILY@0800 SC Last administered on 12/28/18 09:34; Admin Dose 7 UNITS; Start 12/25/18 at 08:00 Insulin Aspart (Novolog Insulin Pen) NOVOLOG *MILD* ALGORI... Q4 SC Last administered on 12/29/18 05:14; Admin Dose 1 UNIT; Start 12/24/18 at 13:00 Miscellaneous Information 1 ea NOTE XX ; Start 12/24/18 at 12:30 Glucose (Glutose) 15 gm Q15M PRN PO DECREASED GLUCOSE; Start 12/24/18 at 12:30 Glucose (Glutose) 22.5 gm Q15M PRN PO DECREASED GLUCOSE; Start 12/24/18 at 12:30 Dextrose (D50w Syringe) 25 ml Q15M PRN IV DECREASED GLUCOSE Last administered on 12/28/18at 01:12; Admin Dose 25 ML; Start 12/24/18 at 12:30 Dextrose (D50w Syringe) 50 ml Q15M PRN IV DECREASED GLUCOSE Last administered on 12/28/18at 05:24; Admin Dose 50 ML; Start 12/24/18 at 12:30 Glucagon (Glucagen) 1 mg Q15M PRN IM DECREASED GLUCOSE; Start 12/24/18 at 12:30 Glucose (Glutose) 15 gm Q15M PRN BUCCAL DECREASED GLUCOSE; Start 12/24/18 at 12:30 IV Flush (NS 10 ml) 10 ml PRN PRN IV flush; Start 12/24/18 at 14:30 Acetaminophen (Tylenol Supp) 650 mg Q6H PRN [place] Fever Last administered on 12/25/18at 17:16; Admin Dose 650 MG; Start 12/24/18 at 21:30 Phenylephrine HCl 80 mg/Dextrose 250 ml @ 18.75 mls/ hr TITRATE IV Last administered on 12/29/18 03:18; Admin Dose 42.19 MLS/HR; Start 12/25/18 at 10:00 Norepinephrine 32 mg/Dextrose 250 ml @ 0.47 mls/hr TITRATE IV Last administered on 12/26/18 17:28; Admin Dose 13.13 MLS/HR; Start 12/25/18 at 10:00 Hyoscyamine (Levsin (Sl)) 0.125 mg Q6 PO Last administered on 12/29/18 05:11; Admin Dose 0.125 MG; Start 12/27/18 at 12:00 Albumin Human 100 ml @ 100 mls/hr DURING DIALYSIS PRN IV HYPOTENTION DURING HD; Start 12/27/18 at 13:30 Piperacillin Sod/ Tazobactam Sod 50 ml @ 100 mls/hr Q8 IVPB Last administered on 12/29/18 05:11; Admin Dose 100 MLS/HR; Start 12/27/18 at 22:00 Pantoprazole 80 mg/Sodium Chloride 100 ml @ 10 mls/hr Q10H IV Last administered on 4/3/19at 11:54; Admin Dose 10 MLS/HR; Start 12/27/18 at 17:30 Alteplase, Recombinant (Cathflo (Activase)) 2 mg MAY REPEAT X1 PRN CATHETER IF CATHETER REMAINS OCCULUDED; Start 12/28/18 at 05:00 Total Parenteral Nutrition 1,000 ml @ 50 mls/hr Q20H IV Last administered on 12/28/18at 17:08; Admin Dose 50 MLS/HR; Start 12/28/18 at 16:00 Heparin Sodium (Porcine) (Heparin (1000 Units/ml)) 2,800 unit AFTER DIALYSIS CATHETER Last administered on 12/28/18at 21:20; Admin Dose 2,800 UNIT; Start 12/28/18 at 20:00 NATACHA BRAN Dec 29, 2018 13:10
--- NOTE | 2018-12-29 14:31 | PN ---
Date/Time of Note Date/Time of Note DATE: 12/29/18 TIME: 14:26 Assessment/Plan VTE Prophylaxis Risk score (from Ns)>0 risk: 17 SCD applied (from Ns): No SCD contraindicated: other (scds) Pharmacological prophylaxis: other (scds) Lines/Catheters IV C[facility]ter Type (from [facility]): A Line Urinary Cath still in place: Yes Reason Cath still needed: other (indicate) (monitor output) Assessment/Plan Hospital Course Assessment/Plan Assessment: Ischemia bowel -s/p total colectomy Acute resp failure- intubated Shock- -Currently on pressors Biliary and pancreatic duct dilatation MRCP 12/19/18 Mildly dilated common bile duct. No evidence of biliary duct obstruction. Gallbladder contains multiple stones without wall thickening. Scattered T2 bright lesions in the liver may represent cysts or hemangiomas. 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 Last colonoscopy 4 years ago Toxicology screen positive for opioid/cocaine/cannabinoids Normocytic anemia Melena- Renal failure- HD today Transaminitis likely secondary to shock -Hepatitis panel negative Plan: Supportive care Monitor labs Patient seen in collaboration with /Lori Subjective: Course reviewed with nursing staff Patient interviewed and examined All labs, imaging and other results reviewed Pt had Ct scan yesterday- showing necrosis and perforation of the bowel Went to surgery this am s/p Laparoscopic converted to open total colectomy with abdominal perineal resection, distal small bowel resection (3 feet) and ostomy. Pt remains in ICU on pressors, with very poor prognosis PHYSICAL EXAMINATION: GENERAL: Intubated and sedated in ICU SKIN: osotmy, surgical incisions, CECI drains EARS/NOSE AND THROAT: NGT in place NECK: Supple, no masses. CHEST: Inspection within normal limits. CARDIOVASCULAR: Heart: Regular rate and rhythm, RESPIRATORY: Lungs clear to auscultation. GASTROINTESTINAL AND LIVER: Abdomen: Soft, no hernias, no guarding, no rebound tenderness,absent bowel sounds. Rectal: Deferred. EXTREMITIES: No cyanosis, clubbing or edema. Left foot partially amputated. Result Diagram: 12/29/18 0345 12/29/18 0345 Results 24hrs Laboratory Tests Test 12/28/18 17:22 12/28/18 20:24 12/29/18 00:24 12/29/18 03:45 Bedside Glucose 101 108 124 White Blood 7.3 Count Red Blood Count 3.53 L Hemoglobin 10.2 L Hematocrit 30.2 L Mean Corpuscular 85.6 Volume Mean Corpuscular 28.9 L Hemoglobin Mean Corpuscular 33.8 Hemoglobin Lawanda nt Red Cell 16.1 H Distribution Width Platelet Count 48 L Mean Platelet Volume Immature 1.700 H Granulocytes % Neutrophils % Segmented 66 Neutrophils % (Manual) Band Neutrophils 28 H % (Manual) Lymphocytes % Lymphocytes % 2 L (Manual) Monocytes % Monocytes % 1 (Manual) Eosinophils % Eosinophils % 2 (Manual) Basophils % Promyelocytes % 1 H (Manual) Nucleated Red 8 H Blood Cells % Immature 0.120 H Granulocytes # Neutrophils # Neutrophils # 5.0 (Manual) Band Neutrophils 2.0 H # Lymphocytes 0.1 L (Manual) Lymphocytes # Monocytes # Monocytes # 0.0 L (Manual) Eosinophils # Basophils # Promyelocytes # 0.0 Nucleated Red Blood Cells # Platelet SIG DECREASED Estimate Giant Platelets 6 H Poikilocytosis 3+ Anisocytosis 1+ Macrocytosis 1+ Sodium Level 137 Potassium Level 3.8 Chloride Level 102 Carbon Dioxide 25 Level Anion Gap 10 # Blood Urea 38 #H Nitrogen Creatinine 2.84 #H Est Glomerular 22 L Filtrat Rate mL/min Glucose Level 129 # Lactic Acid 2.8 *H Level Calcium Level 7.3 L Phosphorus Level 4.4 # Magnesium Level 2.0 Total Bilirubin 2.5 H Direct Bilirubin 2.30 #H Indirect 0.2 Bilirubin Aspartate Amino 1036 H Transf (AST/SGOT ) Alanine 412 H Aminotransferase (ALT/SGPT) Alkaline 81 Phosphatase Total Protein 4.2 L Albumin 1.9 L Prealbumin 4.2 L Test 12/29/18 05:10 12/29/18 09:46 12/29/18 12:21 12/29/18 13:00 Bedside Glucose 148 98 Blood Gas Blood arterial Blood arterial Specimen Source Arterial Blood 12/29/2018 9:50:43 12/29/2018 1:03:03 Date Drawn AM PM Arterial Blood 7.070 *L 7.261 *L pH (Temp corrected) Arterial Blood 59.0 H 44.7 pCO2 (Temp correct) Arterial Blood 119.7 H 98.6 pO2 (Temp corrected) Arterial Blood 16.7 L 19.7 L HCO3 Arterial Blood -13.8 L -7.1 L Base Excess Arterial Blood 97.0 96.5 Oxygen Saturatio n [place] Test N/A N/A Arterial Blood A-Line A-Line Gas Puncture Site Arterial 0.6 0.6 Blood Carboxyhem oglobin Arterial Blood 0.2 0.1 Methemoglobin Blood Gas A-a O2 534.3 H 388.7 H Differential Oxyhemoglobin 96.2 95.8 Percent Blood Gas 37.0 37.0 Temperature Blood Gas ANESTHESIA VENT - AC Modality FiO2 100[address]F MICHAEL FREEMAN RN Critical Value Read Back Blood Gas TM TM Notified Whom Blood Gas 12/29/2018 10:04:5 12/29/2018 1:14:23 Notified Time 2 AM PM Blood Gas 22.0 Respiration Rate Blood Gas Actual 24 Respiration Rate Blood Gas Tidal 500.0 Volume Blood Gas Low 5.0 PEEP Setting Exam/Review of Systems Exam Vitals Vital Signs Date Temp Pulse Resp B/P (MAP) Pulse Ox O2 O2 Flow FiO2 Time Delivery Rate 12/29/18 88 24 115/55 100 12:45 (75) 12/29/18 97.8 12:30 12/29/18 75 12:00 12/29/18 Mechanical 05:00 Ventilator Intake and Output 12/28/18 12/28/18 12/29/18 1515:00 23:00 07:00 IntakeIntake Total 834.85 ml 829.330 ml 732.576 ml OutputOutput Total 250 ml 3150 ml 800 ml BalanceBalance 584.85 ml -2320.670 ml -67.424 ml Results Results 24hrs Laboratory Tests Test 12/28/18 17:22 12/28/18 20:24 12/29/18 00:24 12/29/18 03:45 Bedside Glucose 101 108 124 White Blood 7.3 Count Red Blood Count 3.53 L Hemoglobin 10.2 L Hematocrit 30.2 L Mean Corpuscular 85.6 Volume Mean Corpuscular 28.9 L Hemoglobin Mean Corpuscular 33.8 Hemoglobin Lawanda nt Red Cell 16.1 H Distribution Width Platelet Count 48 L Mean Platelet Volume Immature 1.700 H Granulocytes % Neutrophils % Segmented 66 Neutrophils % (Manual) Band Neutrophils 28 H % (Manual) Lymphocytes % Lymphocytes % 2 L (Manual) Monocytes % Monocytes % 1 (Manual) Eosinophils % Eosinophils % 2 (Manual) Basophils % Promyelocytes % 1 H (Manual) Nucleated Red 8 H Blood Cells % Immature 0.120 H Granulocytes # Neutrophils # Neutrophils # 5.0 (Manual) Band Neutrophils 2.0 H # Lymphocytes 0.1 L (Manual) Lymphocytes # Monocytes # Monocytes # 0.0 L (Manual) Eosinophils # Basophils # Promyelocytes # 0.0 Nucleated Red Blood Cells # Platelet SIG DECREASED Estimate Giant Platelets 6 H Poikilocytosis 3+ Anisocytosis 1+ Macrocytosis 1+ Sodium Level 137 Potassium Level 3.8 Chloride Level 102 Carbon Dioxide 25 Level Anion Gap 10 # Blood Urea 38 #H Nitrogen Creatinine 2.84 #H Est Glomerular 22 L Filtrat Rate mL/min Glucose Level 129 # Lactic Acid 2.8 *H Level Calcium Level 7.3 L Phosphorus Level 4.4 # Magnesium Level 2.0 Total Bilirubin 2.5 H Direct Bilirubin 2.30 #H Indirect 0.2 Bilirubin Aspartate Amino 1036 H Transf (AST/SGOT ) Alanine 412 H Aminotransferase (ALT/SGPT) Alkaline 81 Phosphatase Total Protein 4.2 L Albumin 1.9 L Prealbumin 4.2 L Test 12/29/18 05:10 12/29/18 09:46 12/29/18 12:21 12/29/18 13:00 Bedside Glucose 148 98 Blood Gas Blood arterial Blood arterial Specimen Source Arterial Blood 12/29/2018 9:50:43 12/29/2018 1:03:03 Date Drawn AM PM Arterial Blood 7.070 *L 7.261 *L pH (Temp corrected) Arterial Blood 59.0 H 44.7 pCO2 (Temp correct) Arterial Blood 119.7 H 98.6 pO2 (Temp corrected) Arterial Blood 16.7 L 19.7 L HCO3 Arterial Blood -13.8 L -7.1 L Base Excess Arterial Blood 97.0 96.5 Oxygen Saturatio n [place] Test N/A N/A Arterial Blood A-Line A-Line Gas Puncture Site Arterial 0.6 0.6 Blood Carboxyhem oglobin Arterial Blood 0.2 0.1 Methemoglobin Blood Gas A-a O2 534.3 H 388.7 H Differential Oxyhemoglobin 96.2 95.8 Percent Blood Gas 37.0 37.0 Temperature Blood Gas ANESTHESIA VENT - AC Modality FiO2 100.[address]F MICHAEL FREEMAN RN Critical Value Read Back Blood Gas TM TM Notified Whom Blood Gas 12/29/2018 10:04:5 12/29/2018 1:14:23 Notified Time 2 AM PM Blood Gas 22.0 Respiration Rate Blood Gas Actual 24 Respiration Rate Blood Gas Tidal 500.0 Volume Blood Gas Low 5.0 PEEP Setting Medications Medication Current Medications IV Flush (NS 3 ml) 3 ml PER PROTOCOL IV ; Start 12/19/18 at 00:30 Acetaminophen (Tylenol Tab) 650 mg Q6H PRN PO .PAIN 1-3 OR TEMP Last administered on 12/25/18 05:36; Admin Dose 650 MG; Start 12/19/18 at 00:30 Docusate Sodium (Colace) 100 mg Q12H PRN PO .CONSTIPATION Last administered on 12/20/18 12:53; Admin Dose 100 MG; Start 12/19/18 at 00:30 Bisacodyl (Dulcolax) 5 mg DAILY PRN PO .CONSTIPATION; Start 12/19/18 at 00:30 Ondansetron HCl (Zofran Inj) 4 mg Q4 PRN IV NAUSEA/VOMITING; Start 12/19/18 at 02:00 Nicotine (Nicoderm 14 Mg/ 24hr) 1 patch DAILY TRANSDERM Last administered on 12/28/18 09:09; Admin Dose 1 PATCH; Start 12/19/18 at 09:00 Lorazepam (Ativan) 1 mg Q4 PRN IV withdrawal symptoms Last administered on 12/23/18 04:41; Admin Dose 1 MG; Start 12/19/18 at 05:30 Al Hydrox/Mg Hydrox/Simethicone (Mag-Al Plus) 30 ml Q6H PRN PO GASTROINTESTINAL UPSET Last administered on 12/20/18 18:28; Admin Dose 30 ML; Start 12/20/18 at 18:30 Haloperidol (Haldol) 4 mg Q8H PRN IV AGITATION Last administered on 12/22/18 17:40; Admin Dose 4 MG; Start 12/22/18 at 17:30 Propofol 100 ml @ 1.839 mls/ hr Q12H IV Last administered on 12/29/18 01:05; Admin Dose 7.356 MLS/HR; Start 12/24/18 at 06:00 Fentanyl 100 ml @ 2.5 mls/hr TITRATE IV Last administered on 12/29/18at 01:08; Admin Dose 5 MLS/HR; Start 12/24/18 at 12:30 Diagnostic Test (Pha) (Accu-Chek) 1 ea 02 XX ; Start 12/25/18 at 02:00 Insulin Glargine (Lantus) 7 units DAILY@0800 SC Last administered on 12/28/18at 09:34; Admin Dose 7 UNITS; Start 12/25/18 at 08:00 Insulin Aspart (Novolog Insulin Pen) NOVOLOG *MILD* ALGORI... Q4 SC Last administered on 12/29/18 05:14; Admin Dose 1 UNIT; Start 12/24/18 at 13:00 Miscellaneous Information 1 ea NOTE XX ; Start 12/24/18 at 12:30 Glucose (Glutose) 15 gm Q15M PRN PO DECREASED GLUCOSE; Start 12/24/18 at 12:30 Glucose (Glutose) 22.5 gm Q15M PRN PO DECREASED GLUCOSE; Start 12/24/18 at 12:3 0 Dextrose (D50w Syringe) 25 ml Q15M PRN IV DECREASED GLUCOSE Last administered on 12/28/18at 01:12; Admin Dose 25 ML; Start 12/24/18 at 12:30 Dextrose (D50w Syringe) 50 ml Q15M PRN IV DECREASED GLUCOSE Last administered on 12/28/18at 05:24; Admin Dose 50 ML; Start 12/24/18 at 12:30 Glucagon (Glucagen) 1 mg Q15M PRN IM DECREASED GLUCOSE; Start 12/24/18 at 12:30 Glucose (Glutose) 15 gm Q15M PRN BUCCAL DECREASED GLUCOSE; Start 12/24/18 at 12:30 IV Flush (NS 10 ml) 10 ml PRN PRN IV flush; Start 12/24/18 at 14:30 Acetaminophen (Tylenol Supp) 650 mg Q6H PRN CO Fever Last administered on 12/25/18at 17:16; Admin Dose 650 MG; Start 12/24/18 at 21:30 Phenylephrine HCl 80 mg/Dextrose 250 ml @ 18.75 mls/ hr TITRATE IV Last administered on 12/29/18 03:18; Admin Dose 42.19 MLS/HR; Start 12/25/18 at 10:00 Norepinephrine 32 mg/Dextrose 250 ml @ 0.47 mls/hr TITRATE IV Last administered on 12/26/18at 17:28; Admin Dose 13.13 MLS/HR; Start 12/25/18 at 10:00 Hyoscyamine (Levsin (Sl)) 0.125 mg Q6 PO Last administered on 12/29/18 05:11; Admin Dose 0.125 MG; Start 12/27/18 at 12:00 Albumin Human 100 ml @ 100 mls/hr DURING DIALYSIS PRN IV HYPOTENTION DURING HD; Start 12/27/18 at 13:30 Piperacillin Sod/ Tazobactam Sod 50 ml @ 100 mls/hr Q8 IVPB Last administered on 12/29/18 05:11; Admin Dose 100 MLS/HR; Start 12/27/18 at 22:00 Pantoprazole 80 mg/Sodium Chloride 100 ml @ 10 mls/hr Q10H IV Last ad ministered on 12/29/18at 11:54; Admin Dose 10 MLS/HR; Start 12/27/18 at 17:30 Alteplase, Recombinant (Cathflo (Activase)) 2 mg MAY REPEAT X1 PRN CATHETER IF CATHETER REMAINS OCCULUDED; Start 12/28/18 at 05:00 Total Parenteral Nutrition 1,000 ml @ 50 mls/hr Q20H IV Last administered on 12/28/18 17:08; Admin Dose 50 MLS/HR; Start 12/28/18 at 16:00 Heparin Sodium (Porcine) (Heparin (1000 Units/ml)) 2,800 unit AFTER DIALYSIS CATHETER Last administered on 12/28/18at 21:20; Admin Dose 2,800 UNIT; Start 12/28/18 at 20:00 KRISTINA RED Dec 29, 2018 14:31
--- NOTE | 2018-12-29 14:43 | PAC ---
Date/Time of Note Date/Time of Note DATE: 12/29/18 TIME: 14:42 Post-Anesthesia Notes Post-Anesthesia Note Last documented vital signs Vital Signs Date Temp Pulse Resp B/P (MAP) Pulse Ox O2 O2 Flow FiO2 Time Delivery Rate 12/29/18 97.8 88 24 115/55 100 M.V 12:45 (75) 12/29/18 97.8 12:30 12/29/18 75 12:00 12/29/18 Mechanical 05:00 Ventilator Activity: WNL Respiratory function: WNL Cardiovascular function: WNL Mental status: Baseline Pain reasonably controlled: Yes Hydration appropriate: Yes Nausea/Vomiting absent: No RUSS NOLASCO MD Dec 29, 2018 14:43
[2018-12-29] MEDS: TPN 1,000 ML IV SCH (15:28)
--- NOTE | 2018-12-29 17:30 | PN ---
Date/Time of Note Date/Time of Note DATE: 12/29/18 TIME: 17:28 Assessment/Plan VTE Prophylaxis Risk score (from Ns)>0 risk: 17 SCD applied (from [facility] [place] Yes Pharmacological prophylaxis: heparin Lines/Catheters IV Catheter Type (from [facility]): A Line Urinary Cath still in place: Yes Reason Cath still needed: urinary retention Assessment/Plan Hospital Course Acute respiratory failure: - Overloeaded with pulmonary edema, possible pneumonia - MV per pulmonary Ischemic colitis: - s/p colectomy by Dr Sherman Shock - likely septic given fevers, continue Zosyn course Hypernatremia - Resolved TIMMY: - Suspect ATN, continue HD per renal. Hope for renal recovery Metabolic acidosis likely secondary to renal failure Bicarb drip Nephrology following 11. Normocytic anemia possible secondary to acute blood loss from GI bleed as well as critical state Monitor and consider transfusion tomorrow if continues to drop 12. History coronary disease Continue home meds as able 13. 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 History of prostate cancer No acute issues Prophylaxis: SCDs DC planning: Patient is currently critical Result Diagram: 12/29/18 0345 12/29/18 0345 Results 24hrs Laboratory Tests Test 12/28/18 20:24 12/29/18 00:24 12/29/18 03:45 12/29/18 05:10 Bedside Glucose 108 124 148 White Blood 7.3 Count Red Blood Count 3.53 L Hemoglobin 10.2 L Hematocrit 30.2 L Mean Corpuscular 85.6 Volume Mean Corpuscular 28.9 L Hemoglobin Mean Corpuscular 33.8 Hemoglobin Lawanda nt Red Cell 16.1 H Distribution Width Platelet Count 48 L Mean Platelet Volume Immature 1.700 H Granulocytes % Neutrophils % Segmented 66 Neutrophils % (Manual) Band Neutrophils 28 H % (Manual) Lymphocytes % Lymphocytes % 2 L (Manual) Monocytes % Monocytes % 1 (Manual) Eosinophils % Eosinophils % 2 (Manual) Basophils % Promyelocytes % 1 H (Manual) Nucleated Red 8 H Blood Cells % Immature 0.120 H Granulocytes # Neutrophils # Neutrophils # 5.0 (Manual) Band Neutrophils 2.0 H # Lymphocytes 0.1 L (Manual) Lymphocytes # Monocytes # Monocytes # 0.0 L (Manual) Eosinophils # Basophils # Promyelocytes # 0.0 Nucleated Red Blood Cells # Platelet SIG DECREASED Estimate Giant Platelets 6 H Poikilocytosis 3+ Anisocytosis 1+ Macrocytosis 1+ Sodium Level 137 Potassium Level 3.8 Chloride Level 102 Carbon Dioxide 25 Level Anion Gap 10 # Blood Urea 38 #H Nitrogen Creatinine 2.84 #H Est Glomerular 22 L Filtrat Rate mL/min Glucose Level 129 # Lactic Acid 2.8 *H Level Calcium Level 7.3 L Phosphorus Level 4.4 # Magnesium Level 2.0 Total Bilirubin 2.5 H Direct Bilirubin 2.30 #H Indirect 0.2 Bilirubin Aspartate Amino 1036 H Transf (AST/SGOT ) Alanine 412 H Aminotransferase (ALT/SGPT) Alkaline 81 Phosphatase Total Protein 4.2 L Albumin 1.9 L Prealbumin 4.2 L Test 12/29/18 09:46 12/29/18 12:21 12/29/18 13:00 Blood Gas Blood arterial Blood arterial Specimen Source Arterial Blood 12/29/2018 9:50:43 12/29/2018 1:03:03 Date Drawn AM PM Arterial Blood 7.070 *L 7.261 *L pH (Temp corrected) Arterial Blood 59.0 H 44.7 pCO2 (Temp correct) Arterial Blood 119.7 H 98.6 pO2 (Temp corrected) Arterial Blood 16.7 L 19.7 L HCO3 Arterial Blood -13.8 L -7.1 L Base Excess Arterial Blood 97.0 96.5 Oxygen Saturatio n [place] Test N/A N/A Arterial Blood A-Line A-Line Gas Puncture Site Arterial 0.6 0.6 Blood Carboxyhem oglobin Arterial Blood 0.2 0.1 Methemoglobin Blood Gas A-a O2 534.3 H 388.7 H Differential Oxyhemoglobin 96.2 95.8 Percent Blood Gas 37.0 37.0 Temperature Blood Gas ANESTHESIA VENT - AC Modality FiO2 100.[address]F MICHAEL FREEMAN RN Critical Value Read Back Blood Gas TM TM Notified Whom Blood Gas 12/29/2018 10:04:5 12/29/2018 1:14:23 Notified Time 2 AM PM Bedside Glucose 98 Blood Gas 22.0 Respiration Rate Blood Gas Actual 24 Respiration Rate Blood Gas Tidal 500.0 Volume Blood Gas Low 5.0 PEEP Setting Subjective 24 Hr Interval Summary Free Text/Dictation Found to have necrotic bowel yesterday, went to OR for colectomy Remains intubated on pressros Exam/Review of Systems Exam Vitals Vital Signs Date Temp Pulse Resp B/P (MAP) Pulse Ox O2 O2 Flow FiO2 Time Delivery Rate 12/29/18 89 30 107/50 97 16:45 (69) 12/29/18 98.5 Mechanical 16:00 Ventilator 12/29/18 75 15:00 Intake and Output 12/28/18 12/28/18 12/29/18 1515:00 23:00 07:00 IntakeIntake Total 834.85 ml 829.330 ml 732.576 ml OutputOutput Total 250 ml 3150 ml 800 ml BalanceBalance 584.85 ml -2320.670 ml -67.424 ml Exam Intubated, sedated Lungs clear anteriorly No response to noxiuos stimlui RRR Abdomen wtih colostomy, soft Rectal tube Results Results 24hrs Laboratory Tests Test 12/28/18 20:24 12/29/18 00:24 12/29/18 03:45 12/29/18 05:10 Bedside Glucose 108 124 148 White Blood 7.3 Count Red Blood Count 3.53 L Hemoglobin 10.2 L Hematocrit 30.2 L Mean Corpuscular 85.6 Volume Mean Corpuscular 28.9 L Hemoglobin Mean Corpuscular 33.8 Hemoglobin Lawanda nt Red Cell 16.1 H Distribution Width Platelet Count 48 L Mean Platelet Volume Immature 1.700 H Granulocytes % Neutrophils % Segmented 66 Neutrophils % (Manual) Band Neutrophils 28 H % (Manual) Lymphocytes % Lymphocytes % 2 L (Manual) Monocytes % Monocytes % 1 (Manual) Eosinophils % Eosinophils % 2 (Manual) Basophils % Promyelocytes % 1 H (Manual) Nucleated Red 8 H Blood Cells % Immature 0.120 H Granulocytes # Neutrophils # Neutrophils # 5.0 (Manual) Band Neutrophils 2.0 H # Lymphocytes 0.1 L (Manual) Lymphocytes # Monocytes # Monocytes # 0.0 L (Manual) Eosinophils # Basophils # Promyelocytes # 0.0 Nucleated Red Blood Cells # Platelet SIG DECREASED Estimate Giant Platelets 6 H Poikilocytosis 3+ Anisocytosis 1+ Macrocytosis 1+ Sodium Level 137 Potassium Level 3.8 Chloride Level 102 Carbon Dioxide 25 Level Anion Gap 10 # Blood Urea 38 #H Nitrogen Creatinine 2.84 #H Est Glomerular 22 L Filtrat Rate mL/min Glucose Level 129 # Lactic Acid 2.8 *H Level Calcium Level 7.3 L Phosphorus Level 4.4 # Magnesium Level 2.0 Total Bilirubin 2.5 H Direct Bilirubin 2.30 #H Indirect 0.2 Bilirubin Aspartate Amino 1036 H Transf (AST/SGOT ) Alanine 412 H Aminotransferase (ALT/SGPT) Alkaline 81 Phosphatase Total Protein 4.2 L Albumin 1.9 L Prealbumin 4.2 L Test 12/29/18 09:46 12/29/18 12:21 12/29/18 13:00 Blood Gas Blood arterial Blood arterial Specimen Source Arterial Blood 12/29/2018 9:50:43 12/29/2018 1:03:03 Date Drawn AM PM Arterial Blood 7.070 *L 7.261 *L pH (Temp corrected) Arterial Blood 59.0 H 44.7 pCO2 (Temp correct) Arterial Blood 119.7 H 98.6 pO2 (Temp corrected) Arterial Blood 16.7 L 19.7 L HCO3 Arterial Blood -13.8 L -7.1 L Base Excess Arterial Blood 97.0 96.5 Oxygen Saturatio n [place] Test N/A N/A Arterial Blood A-Line A-Line Gas Puncture Site Arterial 0.6 0.6 Blood Carboxyhem oglobin Arterial Blood 0.2 0.1 Methemoglobin Blood Gas A-a O2 534.3 H 388.7 H Differential Oxyhemoglobin 96.2 95.8 Percent Blood Gas 37.0 37.0 Temperature Blood Gas ANESTHESIA VENT - AC Modality FiO2 100.[address]F MICHAEL FREEMAN RN Critical Value Read Back Blood Gas TM TM Notified Whom Blood Gas 12/29/2018 10:04:5 12/29/2018 1:14:23 Notified Time 2 AM PM Bedside Glucose 98 Blood Gas 22.0 Respiration Rate Blood Gas Actual 24 Respiration Rate Blood Gas Tidal 500.0 Volume Blood Gas Low 5.0 PEEP Setting Medications Medication Current Medications IV Flush (NS 3 ml) 3 ml PER PROTOCOL IV ; Start 12/19/18 at 00:30 Acetaminophen (Tylenol Tab) 650 mg Q6H PRN PO .PAIN 1-3 OR TEMP Last administered on 12/25/18at 05:36; Admin Dose 650 MG; Start 12/19/18 at 00:30 Docusate Sodium (Colace) 100 mg Q12H PRN PO .CONSTIPATION Last administered on 12/20/18at 12:53; Admin Dose 100 MG; Start 12/19/18 at 00:30 Bisacodyl (Dulcolax) 5 mg DAILY PRN PO .CONSTIPATION; Start 12/19/18 at 00:30 Ondansetron HCl (Zofran Inj) 4 mg Q4 PRN IV NAUSEA/VOMITING; Start 12/19/18 at 02:00 Nicotine (Nicoderm 14 Mg/ 24hr) 1 patch DAILY TRANSDERM Last administered on 12/28/18 09:09; Admin Dose 1 PATCH; Start 12/19/18 at 09:00 Lorazepam (Ativan) 1 mg Q4 PRN IV withdrawal symptoms Last administered on 12/23/18 04:41; Admin Dose 1 MG; Start 12/19/18 at 05:30 Al Hydrox/Mg Hydrox/Simethicone (Mag-Al Plus) 30 ml Q6H PRN PO GASTROINTESTINAL UPSET Last administered on 12/20/18 18:28; Admin Dose 30 ML; Start 12/20/18 at 18:30 Haloperidol (Haldol) 4 mg Q8H PRN IV AGITATION Last administered on 12/22/18 17:40; Admin Dose 4 MG; Start 12/22/18 at 17:30 Propofol 100 ml @ 1.839 mls/ hr Q12H IV Last administered on 12/29/18 01:05; Admin Dose 7.356 MLS/HR; Start 12/24/18 at 06:00 Fentanyl 100 ml @ 2.5 mls/hr TITRATE IV Last administered on 12/29/18 01:08; Admin Dose 5 MLS/HR; Start 12/24/18 at 12:30 Diagnostic Test (Pha) (Accu-Chek) 1 ea 02 XX ; Start 12/25/18 at 02:00 Insulin Glargine (Lantus) 7 units DAILY@0800 SC Last administered on 12/28/18 09:34; Admin Dose 7 UNITS; Start 12/25/18 at 08:00 Insulin Aspart (Novolog Insulin Pen) NOVOLOG *MILD* ALGORI... Q4 SC Last administered on 12/29/18 05:14; Admin Dose 1 UNIT; Start 12/24/18 at 13:00 Miscellaneous Information 1 ea NOTE XX ; Start 12/24/18 at 12:30 Glucose (Glutose) 15 gm Q15M PRN PO DECREASED GLUCOSE; Start 12/24/18 at 12:30 Glucose (Glutose) 22.5 gm Q15M PRN PO DECREASED GLUCOSE; Start 12/24/18 at 12:30 Dextrose (D50w Syringe) 25 ml Q15M PRN IV DECREASED GLUCOSE Last administered on 12/28/18at 01:12; Admin Dose 25 ML; Start 12/24/18 at 12:30 Dextrose (D50w Syringe) 50 ml Q15M PRN IV DECREASED GLUCOSE Last administered on 12/28/18at 05:24; Admin Dose 50 ML; Start 12/24/18 at 12:30 Glucagon (Glucagen) 1 mg Q15M PRN IM DECREASED GLUCOSE; Start 12/24/18 at 12:30 Glucose (Glutose) 15 gm Q15M PRN BUCCAL DECREASED GLUCOSE; Start 12/24/18 at 12:30 IV Flush (NS 10 ml) 10 ml PRN PRN IV flush; Start 12/24/18 at 14:30 Acetaminophen (Tylenol Supp) 650 mg Q6H PRN CO Fever Last administered on 12/25/18at 17:16; Admin Dose 650 MG; Start 12/24/18 at 21:30 Phenylephrine HCl 80 mg/Dextrose 250 ml @ 18.75 mls/ hr TITRATE IV Last administered on 12/29/18at 16:22; Admin Dose 28.13 MLS/HR; Start 12/25/18 at 10:00 Norepinephrine 32 mg/Dextrose 250 ml @ 0.47 mls/hr TITRATE IV Last administered on 12/26/18at 17:28; Admin Dose 13.13 MLS/HR; Start 12/25/18 at 10:00 Hyoscyamine (Levsin (Sl)) 0.125 mg Q6 PO Last administered on 12/29/18at 05:11; Admin Dose 0.125 MG; Start 12/27/18 at 12:00 Albumin Human 100 ml @ 100 mls/hr DURING DIALYSIS PRN IV HYPOTENTION DURING HD; Start 12/27/18 at 13:30 Piperacillin Sod/ Tazobactam Sod 50 ml @ 100 mls/hr Q8 IVPB Last administered on 12/29/18at 14:48; Admin Dose 100 MLS/HR; Start 12/27/18 at 22:00 Pantoprazole 80 mg/Sodium Chloride 100 ml @ 10 mls/hr Q10H IV Last administered on 12/29/18at 11:54; Admin Dose 10 MLS/HR; Start 12/27/18 at 17:30 Alteplase, Recombinant (Cathflo (Activase)) 2 mg MAY REPEAT X1 PRN CATHETER IF CATHETER REMAINS OCCULUDED; Start 12/28/18 at 05:00 Total Parenteral Nutrition 1,000 ml @ 50 mls/hr Q20H IV Last administered on 12/29/18at 15:28; Admin Dose 50 MLS/HR; Start 12/28/18 at 16:00 Heparin Sodium (Porcine) (Heparin (1000 Units/ml)) 2,800 unit AFTER DIALYSIS CATHETER Last administered on 12/28/18at 21:20; Admin Dose 2,800 UNIT; Start 12/28/18 at 20:00 Sodium Hypochlorite (Dakins Diluted ()) Nursing Intervention Instructio... DAILY TP ; Start 12/29/18 at 18:00 MELA VILLALBA MD Dec 29, 2018 17:30
[2018-12-29] MEDS ORDERED: DAKINS 0.0125%(1/40) 473 ML SOLUTION TP SCH (18:00)
[2018-12-29] MEDS ORDERED: NA BICARBONATE 8.4% 50 ML SYG IV STA (19:37)
[2018-12-29] MEDS: SODIUM BICARBONATE IV SCH (20:18)
[2018-12-29] MEDS: NACL IV SCH (20:18)
[2018-12-29] MEDS: DEXTROSE IV SCH (20:18)
[2018-12-30] VITALS (50 sets, daily range): BP systolic 0–189; BP diastolic 27–92; PULSE 0–201; RESP 18–34
[2018-12-30] MEDS ORDERED: NORepinephrine 32 MG in DEXTROSE 5% 218 ML IV SCH (01:00)
[2018-12-30] MEDS: INSULIN ASPART [NOVOLOG] 3 ML PEN SC SCH ×2 (01:00→05:00)
[2018-12-30] MEDS: DEXTROSE 50% 50 ML SYRINGE IV PRN (01:19)
[2018-12-30] MEDS: ACCU-CHEK XX SCH (01:40)
[2018-12-30] MEDS: PHENYLephrine 80 MG in DEXTROSE 5% 242 ML IV SCH (05:35)
[2018-12-30] MEDS: PANTOPRAZOLE IV 80 MG in SOD CHLORIDE 0.9% 100 ML IV SCH (05:40)
[2018-12-30] MEDS: PROPOFOL 100 ML IV SCH (05:41)
[2018-12-30] MEDS: HYOSCYAMINE 0.125 MG SUBL TAB PO SCH (05:45)
[2018-12-30] MEDS ORDERED: VASOPRESSIN 60 UNIT in DEXTROSE 5% 57 ML IV SCH (06:00)
[2018-12-30] MEDS: PIPER-TAZO 2.25 GM (PMX) 50 ML IVPB SCH (06:27)
--- NOTE | 2018-12-30 06:37 | CONS ---
Assessment/Plan Assessment/Plan Hospital Course 68 yo M with multiple comorbidities who initially presented for evaluation of GI symptoms. It was noted that the pt became altered, for which neurology is consulted. ARF + NA 153 12/24: Transferred to ICU for respiratory distress. S/p intubation. Most clinically consistent with an acute and multifactorial toxic-metabolic encephalopathy.. A focal IN SERVICE EDUCATOR process is unlikely. UDS + cocaine, marijuana, opiates P: Okay to defer neuroimaging for now Continue medical management per primary Wean sedation when able Will follow clinically Consultation Date/Type/Reason Admit Date/Time Dec 21, 2018 at 08:36 Type of Consult Neurology Reason for Consultation ams Requesting Provider: ZULY DELGADO Date/Time of Note DATE: 12/30/18 TIME: 06:37 24 HR Interval Summary Free Text/Dictation Continues critical care. Code status changed to DNR. Exam Vital Signs Vitals Vital Signs Date Temp Pulse Resp B/P (MAP) Pulse Ox O2 O2 Flow FiO2 Time Delivery Rate 12/30/18 95 22 109/34 Mechanical 05:45 (59) Ventilator 12/30/18 97 60 04:54 12/30/18 99.2 04:00 Intake and Output 12/29/18 12/29/18 12/30/18 1515:00 23:00 07:00 IntakeIntake Total 1775.94 ml 1094.92 ml 1205.78 ml OutputOutput Total 110 ml 0 ml 25 ml BalanceBalance 1665.94 ml 1094.92 ml 1180.78 ml Exam PE: Gen Appearance: No Apparent Distress HEENT: Intubated Cardiovascular: Regular rate Abdomen: Soft Extremities: Dry NE: The patient was comatose Cranial nerve examination was limited by mental status. Pupils were equal and sluggishly reactive to light. There was no afferent pupillary defect. Funduscopic examination was limited. Face was grossly symmetric, w/ present corneal reflexes. Tone was normal. Muscle bulk was normal. I did not see fasciculations. The patient did not withdraw to noxious stimulation. Coordination and gait testing was limited by mental status. Arm and leg reflexes were within normal limits and symmetric. Leon's sign was absent. Plantar responses were mute. RYLEE MACHUCA Dec 30, 2018 06:37 MAINOR HICKEY NP Dec 30, 2018 15:07
[2018-12-30] MEDS: INSULIN GLARGINE [LANTus] (100 UNITS/ML) SYG SC SCH (08:00)
--- NOTE | 2018-12-30 08:00 | CONS ---
Assessment/Plan Assessment/Plan Assessment/Plan (Daily) Postop day 1 patient is on 3 pressors, 100% FiO2 Ischemic bowel Bowel perforation Respiratory failure Sepsis syndrome Clinical neurological findings consistent with either severe encephalopathy Or significant brain damage possibly secondary to anoxia. Although there is no documention that patient was anoxic at any time or postoperatively Has spoken to patient's son this morning both he and his brother are both realistic that patient may . His prognosis is extremely poor on pressors and 100% FiO2, this has been conveyed to the patient's son. He is to call me back today at between 1 and 2:00 after having discussed further level of care with his brother. At that time I will ask for DO NOT RESUSCITATE. Asked to see this 68-year-old gentleman in palliative care consultation. I appreciate the call early while patient is critically ill in the intensive care unit. There are no family members at the bedside at this time I reviewed all medical records. Essentially patient was admitted to [facility] with lower abdominal discomfort crampy pain without nausea or vomiting. Other comorbid medical problems is a history of prostate cancer. During his hospitalization he decompensated acutely and developed sudden onset of respiratory distress required intubation and transferred to the intensive care unit. Patient has been seen by GI, surgery, pulmonary medicine, neurology at this time etiology for sepsis is not clear. Patient is critically ill on pressors sedated and on 60% FiO2. Prognosis is guarded. I will introduced myself to family members as supportive care only. Consultation Date/Type/Reason Admit Date/Time Dec 21, 2018 at 08:36 Date/Time of Note DATE: 12/30/18 TIME: 07:53 Past Medical History Home Meds No Active Prescriptions or Reported Meds Medications Current Medications IV Flush (NS 3 ml) 3 ml PER PROTOCOL IV ; Start 12/19/18 at 00:30 Acetaminophen (Tylenol Tab) 650 mg Q6H PRN PO .PAIN 1-3 OR TEMP Last administered on 12/25/18at 05:36; Admin Dose 650 MG; Start 12/19/18 at 00:30 Docusate Sodium (Colace) 100 mg Q12H PRN PO .CONSTIPATION Last administered on 12/20/18at 12:53; Admin Dose 100 MG; Start 12/19/18 at 00:30 Bisacodyl (Dulcolax) 5 mg DAILY PRN PO .CONSTIPATION; Start 12/19/18 at 00:30 Ondansetron HCl (Zofran Inj) 4 mg Q4 PRN IV NAUSEA/VOMITING; Start 12/19/18 at 02:00 Nicotine (Nicoderm 14 Mg/ 24hr) 1 patch DAILY TRANSDERM Last administered on 12/28/18 09:09; Admin Dose 1 PATCH; Start 12/19/18 at 09:00 Lorazepam (Ativan) 1 mg Q4 PRN IV withdrawal symptoms Last administered on 12/23/18 04:41; Admin Dose 1 MG; Start 12/19/18 at 05:30 Al Hydrox/Mg Hydrox/Simethicone (Mag-Al Plus) 30 ml Q6H PRN PO GASTROINTESTINAL UPSET Last administered on 12/20/18 18:28; Admin Dose 30 ML; Start 12/20/18 at 18:30 Haloperidol (Haldol) 4 mg Q8H PRN IV AGITATION Last administered on 12/22/18 17:40; Admin Dose 4 MG; Start 12/22/18 at 17:30 Propofol 100 ml @ 1.839 mls/ hr Q12H IV Last administered on 12/29/18 01:05; Admin Dose 7.356 MLS/HR; Start 12/24/18 at 06:00 Fentanyl 100 ml @ 2.5 mls/hr TITRATE IV Last administered on 12/29/18 01:08; Admin Dose 5 MLS/HR; Start 12/24/18 at 12:30 Diagnostic Test (Pha) (Accu-Chek) 1 ea 02 XX ; Start 12/25/18 at 02:00 Insulin Glargine (Lantus) 7 units DAILY@0800 SC Last administered on 12/28/18 09:34; Admin Dose 7 UNITS; Start 12/25/18 at 08:00 Insulin Aspart (Novolog Insulin Pen) NOVOLOG *MILD* ALGORI... Q4 SC Last admi nistered on 12/29/18 05:14; Admin Dose 1 UNIT; Start 12/24/18 at 13:00 Miscellaneous Information 1 ea NOTE XX ; Start 12/24/18 at 12:30 Glucose (Glutose) 15 gm Q15M PRN PO DECREASED GLUCOSE; Start 12/24/18 at 12:30 Glucose (Glutose) 22.5 gm Q15M PRN PO DECREASED GLUCOSE; Start 12/24/18 at 12:30 Dextrose (D50w Syringe) 25 ml Q15M PRN IV DECREASED GLUCOSE Last administered on 12/28/18at 01:12; Admin Dose 25 ML; Start 12/24/18 at 12:30 Dextrose (D50w Syringe) 50 ml Q15M PRN IV DECREASED GLUCOSE Last administered on 12/30/18at 01:19; Admin Dose 50 ML; Start 12/24/18 at 12:30 Glucagon (Glucagen) 1 mg Q15M PRN IM DECREASED GLUCOSE; Start 12/24/18 at 12:30 Glucose (Glutose) 15 gm Q15M PRN BUCCAL DECREASED GLUCOSE; Start 12/24/18 at 12:30 IV Flush (NS 10 ml) 10 ml PRN PRN IV flush; Start 12/24/18 at 14:30 Acetaminophen (Tylenol Supp) 650 mg Q6H PRN [place] Fever Last administered on 12/25/18at 17:16; Admin Dose 650 MG; Start 12/24/18 at 21:30 Phenylephrine HCl 80 mg/Dextrose 250 ml @ 18.75 mls/ hr TITRATE IV Last administered on 12/30/18at 05:35; Admin Dose 56.25 MLS/HR; Start 12/25/18 at 10:00 Hyoscyamine (Levsin (Sl)) 0.125 mg Q6 PO Last administered on 12/29/18at 05:11; Admin Dose 0.125 MG; Start 12/27/18 at 12:00 Albumin Human 100 ml @ 100 mls/hr DURING DIALYSIS PRN IV HYPOTENTION DURING HD; Start 12/27/18 at 13:30 Piperacillin Sod/ Tazobactam Sod 50 ml @ 100 mls/hr Q8 IVPB Last administered on 12/30/18at 06:27; Admin Dose 100 MLS/HR; Start 12/27/18 at 22:00 Pantoprazole 80 mg/Sodium Chloride 100 ml @ 10 mls/hr Q10H IV Last administered on 12/30/18at 05:40; Admin Dose 10 MLS/HR; Start 12/27/18 at 17:30 Alteplase, Recombinant (Cathflo (Activase)) 2 mg MAY REPEAT X1 PRN CATHETER IF C ATHETER REMAINS OCCULUDED; Start 12/28/18 at 05:00 Total Parenteral Nutrition 1,000 ml @ 50 mls/hr Q20H IV Last administered on 12/29/18at 15:28; Admin Dose 50 MLS/HR; Start 12/28/18 at 16:00; Status Hold Heparin Sodium (Porcine) (Heparin (1000 Units/ml)) 2,800 unit AFTER DIALYSIS CATHETER Last administered on 12/28/18at 21:20; Admin Dose 2,800 UNIT; Start 12/28/18 at 20:00 Sodium Hypochlorite (Dakins Diluted ()) Nursing Intervention Instructio... DAILY TP Last administered on 12/29/18 18:50; Admin Dose 1 APPLIC; Start 12/29/18 at 18:00 Sodium Bicarbonate 150 meq/Dextrose/ Sodium Chloride 1,150 ml @ 100 mls/hr [id number] IV Last administered on 12/29/18at 20:18; Admin Dose 100 MLS/HR; Start 12/29/18 at 20:30 Norepinephrine 32 mg/Dextrose 250 ml @ 0.47 mls/hr TITRATE IV Last administered on 12/30/18at 01:17; Admin Dose 9.38 MLS/HR; Start 12/30/18 at 01:00 Vasopressin 60 unit/Dextrose 60 ml @ 1.2 mls/hr Q12H IV Last administered on 12/30/18 05:45; Admin Dose 2.4 MLS/HR; Start 12/30/18 at 06:00 Allergies: Coded Allergies: No Known Allergy (Unverified , 12/24/18) Social History Alcohol Use: occasionally (6 beers on the weekend) Smoking Status: Current every day smoker Drug Use: none Exam/Review of Systems Exam Vitals Vital Signs Date Temp Pulse Resp B/P (MAP) Pulse Ox O2 O2 Flow FiO2 Time Delivery Rate 12/30/18 89 20 143/51 06:45 (81) 12/30/18 Mechanical 05:45 Ventilator 12/30/18 97 60 04:54 12/30/18 99.2 04:00 Intake and Output 12/29/18 12/29/18 12/30/18 1515:00 23:00 07:00 IntakeIntake Total 1775.94 ml 1094.92 ml 1205.78 ml OutputOutput Total 110 ml 0 ml 25 ml BalanceBalance 1665.94 ml 1094.92 ml 1180.78 ml Constitutional: frail Respiratory: clear to auscultation, normal air movement Cardiovascular: regular rate and rhythm, nl pulses Neurological: other (No response to verbal or tactile stimulation and not overbreathing the ventilator, not breathing when disconnected from the ventilator negative gag no oculocephalics) Results Result Diagram: 12/30/18 0426 12/29/18 0345 Results 24hrs Laboratory Tests Test 12/29/18 09:46 12/29/18 12:21 12/29/18 13:00 12/29/18 17:44 Blood Gas Blood arterial Blood arterial Specimen Source Arterial Blood 12/29/2018 9:50:43 12/29/2018 1:03:03 Date Drawn AM PM Arterial Blood 7.070 *L 7.261 *L pH (Temp corrected) Arterial Blood 59.0 H 44.7 pCO2 (Temp correct) Arterial Blood 119.7 H 98.6 pO2 (Temp corrected) Arterial Blood 16.7 L 19.7 L HCO3 Arterial Blood -13.8 L -7.1 L Base Excess Arterial Blood 97.0 96.5 Oxygen Saturatio n [place] Test N/A N/A Arterial Blood A-Line A-Line Gas Puncture Site Arterial 0.6 0.6 Blood Carboxyhem oglobin Arterial Blood 0.2 0.1 Methemoglobin Blood Gas A-a O2 534.3 H 388.7 H Differential Oxyhemoglobin 96.2 95.8 Percent Blood Gas 37.0 37.0 Temperature Blood Gas ANESTHESIA VENT - AC Modality FiO2 100.[address]F MICHAEL FREEMAN RN Critical Value Read Back Blood Gas TM TM Notified Whom Blood Gas 12/29/2018 10:04:5 12/29/2018 1:14:23 Notified Time 2 AM PM Bedside Glucose 98 121 Blood Gas 22.0 Respiration Rate Blood Gas Actual 24 Respiration Rate Blood Gas Tidal 500.0 Volume Blood Gas Low 5.0 PEEP Setting Test 12/29/18 18:00 12/29/18 21:01 12/29/18 22:00 12/30/18 01:15 Blood Gas Blood arterial Blood arterial Specimen Source Arterial Blood 12/29/2018 6:15:38 12/29/2018 9:50:16 Date Drawn PM PM Arterial Blood 7.154 *L 7.143 *L pH (Temp corrected) Arterial Blood 34.6 L 34.2 L pCO2 (Temp correct) Arterial Blood 96.9 149.4 H pO2 (Temp corrected) Arterial Blood 11.9 L 11.5 L HCO3 Arterial Blood -15.8 L -16.4 L Base Excess Arterial Blood 95.4 98.0 Oxygen Saturatio n [place] Test N/A N/A Arterial Blood A-Line A-Line Gas Puncture Site Arterial 0.3 0.3 Blood Carboxyhem oglobin Arterial Blood 0 0.1 Methemoglobin Blood Gas A-a O2 437.2 H 385.1 H Differential Oxyhemoglobin 95.1 97.6 Percent Blood Gas 37.0 37.0 Temperature Blood Gas 22.0 22.0 Respiration Rate Blood Gas Actual 32 30 Respiration Rate Blood Gas VENT - AC VENT - AC Modality FiO2 80.0 80.0 Blood Gas Tidal 500.0 500.0 Volume Blood Gas Low 5.0 5.0 PEEP Setting Blood Gas Ashwin MONTENEGRO RN, RN Critical Value Read Back Blood Gas EMMA MANZANARES Notified Whom Blood Gas 12/29/2018 6:28:53 12/29/2018 10:01:2 Notified Time PM 5 PM Bedside Glucose 81 49 *L Test 12/30/18 01:42 12/30/18 01:44 12/30/18 02:26 12/30/18 04:12 Bedside Glucose 46 *L 202 157 148 Test 12/30/18 04:26 White Blood 7.2 Count Red Blood Count 3.25 L Hemoglobin 9.4 L Hematocrit 30.4 L Mean Corpuscular 93.5 Volume Mean Corpuscular 28.9 L Hemoglobin Mean Corpuscular 30.9 L Hemoglobin Lawanda nt Red Cell 17.9 H Distribution Width Platelet Count 58 #L Mean Platelet Volume Immature 4.900 H Granulocytes % Neutrophils % Lymphocytes % Monocytes % Eosinophils % Basophils % Nucleated Red 23.8 H Blood Cells % Immature 0.350 H Granulocytes # Neutrophils # Lymphocytes # Monocytes # Eosinophils # Basophils # Nucleated Red Blood Cells # Medications Medication Current Medications IV Flush (NS 3 ml) 3 ml PER PROTOCOL IV ; Start 12/19/18 at 00:30 Acetaminophen (Tylenol Tab) 650 mg Q6H PRN PO .PAIN 1-3 OR TEMP Last administered on 12/25/18 05:36; Admin Dose 650 MG; Start 12/19/18 at 00:30 Docusate Sodium (Colace) 100 mg Q12H PRN PO .CONSTIPATION Last administered on 12/20/18 12:53; Admin Dose 100 MG; Start 12/19/18 at 00:30 Bisacodyl (Dulcolax) 5 mg DAILY PRN PO .CONSTIPATION; Start 12/19/18 at 00:30 Ondansetron HCl (Zofran Inj) 4 mg Q4 PRN IV NAUSEA/VOMITING; Start 12/19/18 at 02:00 Nicotine (Nicoderm 14 Mg/ 24hr) 1 patch DAILY TRANSDERM Last administered on 12/28/18 09:09; Admin Dose 1 PATCH; Start 12/19/18 at 09:00 Lorazepam (Ativan) 1 mg Q4 PRN IV withdrawal symptoms Last administered on 12/23/18 04:41; Admin Dose 1 MG; Start 12/19/18 at 05:30 Al Hydrox/Mg Hydrox/Simethicone (Mag-Al Plus) 30 ml Q6H PRN PO GASTROINTESTINAL UPSET Last administered on 12/20/18 18:28; Admin Dose 30 ML; Start 12/20/18 at 18:30 Haloperidol (Haldol) 4 mg Q8H PRN IV AGITATION Last administered on 12/22/18 17:40; Admin Dose 4 MG; Start 12/22/18 at 17:30 Propofol 100 ml @ 1.839 mls/ hr Q12H IV Last administered on 12/29/18 01:05; Admin Dose 7.356 MLS/HR; Start 12/24/18 at 06:00 Fentanyl 100 ml @ 2.5 mls/hr TITRATE IV Last administered on 12/29/18 01:08; Admin Dose 5 MLS/HR; Start 12/24/18 at 12:30 Diagnostic Test (Pha) (Accu-Chek) 1 ea 02 XX ; Start 12/25/18 at 02:00 Insulin Glargine (Lantus) 7 units DAILY@0800 SC Last administered on 12/28/18 09:34; Admin Dose 7 UNITS; Start 12/25/18 at 08:00 Insulin Aspart (Novolog Insulin Pen) NOVOLOG *MILD* ALGORI... Q4 SC Last administered on 12/29/18 05:14; Admin Dose 1 UNIT; Start 12/24/18 at 13:00 Miscellaneous Information 1 ea NOTE XX ; Start 12/24/18 at 12:30 Glucose (Glutose) 15 gm Q15M PRN PO DECREASED GLUCOSE; Start 12/24/18 at 12:30 Glucose (Glutose) 22.5 gm Q15M PRN PO DECREASED GLUCOSE; Start 12/24/18 at 12:30 Dextrose (D50w Syringe) 25 ml Q15M PRN IV DECREASED GLUCOSE Last administered on 12/28/18at 01:12; Admin Dose 25 ML; Start 12/24/18 at 12:30 Dextrose (D50w Syringe) 50 ml Q15M PRN IV DECREASED GLUCOSE Last administered on 12/30/18 01:19; Admin Dose 50 ML; Start 12/24/18 at 12:30 Glucagon (Glucagen) 1 mg Q15M PRN IM DECREASED GLUCOSE; Start 12/24/18 at 12:30 Glucose (Glutose) 15 gm Q15M PRN BUCCAL DECREASED GLUCOSE; Start 12/24/18 at 12:30 IV Flush (NS 10 ml) 10 ml PRN PRN IV flush; Start 12/24/18 at 14:30 Acetaminophen (Tylenol Supp) 650 mg Q6H PRN [place] Fever Last administered on 12/25/18at 17:16; Admin Dose 650 MG; Start 12/24/18 at 21:30 Phenylephrine HCl 80 mg/Dextrose 250 ml @ 18.75 mls/ hr TITRATE IV Last administered on 12/30/18at 05:35; Admin Dose 56.25 MLS/HR; Start 12/25/18 at 10:00 Hyoscyamine (Levsin (Sl)) 0.125 mg Q6 PO Last administered on 12/29/18at 05:11; Admin Dose 0.125 MG; Start 12/27/18 at 12:00 Albumin Human 100 ml @ 100 mls/hr DURING DIALYSIS PRN IV HYPOTENTION DURING HD; Start 12/27/18 at 13:30 Piperacillin Sod/ Tazobactam Sod 50 ml @ 100 mls/hr Q8 IVPB Last administered on 12/30/18at 06:27; Admin Dose 100 MLS/HR; Start 12/27/18 at 22:00 Pantoprazole 80 mg/Sodium Chloride 100 ml @ 10 mls/hr Q10H IV Last administered on 12/30/18 05:40; Admin Dose 10 MLS/HR; Start 12/27/18 at 17:30 Alteplase, Recombinant (Cathflo (Activase)) 2 mg MAY REPEAT X1 PRN CATHETER IF CATHETER REMAINS OCCULUDED; Start 12/28/18 at 05:00 Total Parenteral Nutrition 1,000 ml @ 50 mls/hr Q20H IV Last administered on 12/29/18 15:28; Admin Dose 50 MLS/HR; Start 12/28/18 at 16:00; Status Hold Heparin Sodium (Porcine) (Heparin (1000 Units/ml)) 2,800 unit AFTER DIALYSIS CATHETER Last administered on 12/28/18 21:20; Admin Dose 2,800 UNIT; Start 12/28/18 at 20:00 Sodium Hypochlorite (Dakins Diluted ()) Nursing Intervention Instructio... DAILY TP Last administered on 12/29/18 18:50; Admin Dose 1 APPLIC; Start 12/29/18 at 18:00 Sodium Bicarbonate 150 meq/Dextrose/ Sodium Chloride 1,150 ml @ 100 mls/hr [id number] IV Last administered on 12/29/18 20:18; Admin Dose 100 MLS/HR; Start 12/29/18 at 20:30 Norepinephrine 32 mg/Dextrose 250 ml @ 0.47 mls/hr TITRATE IV Last administered on 12/30/18 01:17; Admin Dose 9.38 MLS/HR; Start 12/30/18 at 01:00 Vasopressin 60 unit/Dextrose 60 ml @ 1.2 mls/hr Q12H IV Last administered on 12/30/18 05:45; Admin Dose 2.4 MLS/HR; Start 12/30/18 at 06:00 NATACHA BRAN Dec 30, 2018 08:00
--- NOTE | 2018-12-30 08:10 | CONS ---
Assessment/Plan Assessment/Plan Assessment/Plan (Daily) Patient's blood pressure has fallen to 56 systolic wide-complex agonal rhythm. I have called family back patient's son Kedar has given a DO NOT RESUSCITATE order. Consultation Date/Type/Reason Admit Date/Time Dec 21, 2018 at 08:36 Date/Time of Note DATE: 12/30/18 TIME: 08:08 Past Medical History Home Meds No Active Prescriptions or Reported Meds Medications Current Medications IV Flush (NS 3 ml) 3 ml PER PROTOCOL IV ; Start 12/19/18 at 00:30 Acetaminophen (Tylenol Tab) 650 mg Q6H PRN PO .PAIN 1-3 OR TEMP Last administered on 12/25/18 05:36; Admin Dose 650 MG; Start 12/19/18 at 00:30 Docusate Sodium (Colace) 100 mg Q12H PRN PO .CONSTIPATION Last administered on 12/20/18 12:53; Admin Dose 100 MG; Start 12/19/18 at 00:30 Bisacodyl (Dulcolax) 5 mg DAILY PRN PO .CONSTIPATION; Start 12/19/18 at 00:30 Ondansetron HCl (Zofran Inj) 4 mg Q4 PRN IV NAUSEA/VOMITING; Start 12/19/18 at 02:00 Nicotine (Nicoderm 14 Mg/ 24hr) 1 patch DAILY TRANSDERM Last administered on 12/28/18 09:09; Admin Dose 1 PATCH; Start 12/19/18 at 09:00 Lorazepam (Ativan) 1 mg Q4 PRN IV withdrawal symptoms Last administered on 12/23/18 04:41; Admin Dose 1 MG; Start 12/19/18 at 05:30 Al Hydrox/Mg Hydrox/Simethicone (Mag-Al Plus) 30 ml Q6H PRN PO GASTROINTESTINAL UPSET Last administered on 12/20/18 18:28; Admin Dose 30 ML; Start 12/20/18 at 18:30 Haloperidol (Haldol) 4 mg Q8H PRN IV AGITATION Last administered on 12/22/18 17:40; Admin Dose 4 MG; Start 12/22/18 at 17:30 Propofol 100 ml @ 1.839 mls/ hr Q12H IV Last administered on 12/29/18 01:05; Admin Dose 7.356 MLS/HR; Start 12/24/18 at 06:00 Fentanyl 100 ml @ 2.5 mls/hr TITRATE IV Last administered on 12/29/18at 01:08; Admin Dose 5 MLS/HR; Start 12/24/18 at 12:30 Diagnostic Test (Pha) (Accu-Chek) 1 ea 02 XX ; Start 12/25/18 at 02:00 Insulin Glargine (Lantus) 7 units DAILY@0800 SC Last administered on 12/28/18at 0 9:34; Admin Dose 7 UNITS; Start 12/25/18 at 08:00 Insulin Aspart (Novolog Insulin Pen) NOVOLOG *MILD* ALGORI... Q4 SC Last administered on 12/29/18 05:14; Admin Dose 1 UNIT; Start 12/24/18 at 13:00 Miscellaneous Information 1 ea NOTE XX ; Start 12/24/18 at 12:30 Glucose (Glutose) 15 gm Q15M PRN PO DECREASED GLUCOSE; Start 12/24/18 at 12:30 Glucose (Glutose) 22.5 gm Q15M PRN PO DECREASED GLUCOSE; Start 12/24/18 at 12:30 Dextrose (D50w Syringe) 25 ml Q15M PRN IV DECREASED GLUCOSE Last administered on 12/28/18at 01:12; Admin Dose 25 ML; Start 12/24/18 at 12:30 Dextrose (D50w Syringe) 50 ml Q15M PRN IV DECREASED GLUCOSE Last administered on 12/30/18at 01:19; Admin Dose 50 ML; Start 12/24/18 at 12:30 Glucagon (Glucagen) 1 mg Q15M PRN IM DECREASED GLUCOSE; Start 12/24/18 at 12:30 Glucose (Glutose) 15 gm Q15M PRN BUCCAL DECREASED GLUCOSE; Start 12/24/18 at 12:30 IV Flush (NS 10 ml) 10 ml PRN PRN IV flush; Start 12/24/18 at 14:30 Acetaminophen (Tylenol Supp) 650 mg Q6H PRN NC Fever Last administered on 12/25/18at 17:16; Admin Dose 650 MG; Start 12/24/18 at 21:30 Phenylephrine HCl 80 mg/Dextrose 250 ml @ 18.75 mls/ hr TITRATE IV Last administered on 12/30/18at 05:35; Admin Dose 56.25 MLS/HR; Start 12/25/18 at 10:00 Hyoscyamine (Levsin (Sl)) 0.125 mg Q6 PO Last administered on 12/29/18 05:11; Admin Dose 0.125 MG; Start 12/27/18 at 12:00 Albumin Human 100 ml @ 100 mls/hr DURING DIALYSIS PRN IV HYPOTENTION DURING HD; Start 12/27/18 at 13:30 Piperacillin Sod/ Tazobactam Sod 50 ml @ 100 mls/hr Q8 IVPB Last administered on 12/30/18 06:27; Admin Dose 100 MLS/HR; Start 12/27/18 at 22:00 Pantoprazole 80 mg/Sodium Chloride 100 ml @ 10 mls/hr Q10H IV Last administered on 12/30/18 05:40; Admin Dose 10 MLS/HR; Start 12/27/18 at 17:30 Alteplase, Recombinant (Cathflo (Activase)) 2 mg MAY REPEAT X1 PRN CATHETER IF CATHETER REMAINS OCCULUDED; Start 12/28/18 at 05:00 Total Parenteral Nutrition 1,000 ml @ 50 mls/hr Q20H IV Last administered on 12/29/18 15:28; Admin Dose 50 MLS/HR; Start 12/28/18 at 16:00; Status Hold Heparin Sodium (Porcine) (Heparin (1000 Units/ml)) 2,800 unit AFTER DIALYSIS CATHETER Last administered on 12/28/18 21:20; Admin Dose 2,800 UNIT; Start 12/28/18 at 20:00 Sodium Hypochlorite (Dakins Diluted ()) Nursing Intervention Instructio... DAILY TP Last administered on 12/29/18 18:50; Admin Dose 1 APPLIC; Start 12/29/18 at 18:00 Sodium Bicarbonate 150 meq/Dextrose/ Sodium Chloride 1,150 ml @ 100 mls/hr [id number] IV Last administered on 12/29/18 20:18; Admin Dose 100 MLS/HR; Start 12/29/18 at 20:30 Norepinephrine 32 mg/Dextrose 250 ml @ 0.47 mls/hr TITRATE IV Last administered on 12/30/18 01:17; Admin Dose 9.38 MLS/HR; Start 12/30/18 at 01:00 Vasopressin 60 unit/Dextrose 60 ml @ 1.2 mls/hr Q12H IV Last administered on 12/30/18at 05:45; Admin Dose 2.4 MLS/HR; Start 12/30/18 at 06:00 Allergies: Coded Allergies: No Known Allergy (Unverified , 12/24/18) Social History Alcohol Use: occasionally (6 beers on the weekend) Smoking Status: Current every day smoker Drug Use: none Exam/Review of Systems Exam Vitals Vital Signs Date Temp Pulse Resp B/P (MAP) Pulse Ox O2 O2 Flow FiO2 Time Delivery Rate 12/30/18 98.5 92 22 132/76 07:45 (94) 12/30/18 Mechanical 05:45 Ventilator 12/30/18 97 60 04:54 Intake and Output 12/29/18 12/29/18 12/30/18 1515:00 23:00 07:00 IntakeIntake Total 1775.94 ml 1094.92 ml 1205.78 ml OutputOutput Total 110 ml 0 ml 25 ml BalanceBalance 1665.94 ml 1094.92 ml 1180.78 ml Results Result Diagram: 12/30/18 0426 12/29/18 0345 Results 24hrs Laboratory Tests Test 12/29/18 09:46 12/29/18 12:21 12/29/18 13:00 12/29/18 17:44 Blood Gas Blood arterial Blood arterial Specimen Source Arterial Blood 12/29/2018 9:50:43 12/29/2018 1:03:03 Date Drawn AM PM Arterial Blood 7.070 *L 7.261 *L pH (Temp corrected) Arterial Blood 59.0 H 44.7 pCO2 (Temp correct) Arterial Blood 119.7 H 98.6 pO2 (Temp corrected) Arterial Blood 16.7 L 19.7 L HCO3 Arterial Blood -13.8 L -7.1 L Base Excess Arterial Blood 97.0 96.5 Oxygen Saturatio n [place] Test N/A N/A Arterial Blood A-Line A-Line Gas Puncture Site Arterial 0.6 0.6 Blood Carboxyhem oglobin Arterial Blood 0.2 0.1 Methemoglobin Blood Gas A-a O2 534.3 H 388.7 H Differential Oxyhemoglobin 96.2 95.8 Percent Blood Gas 37.0 37.0 Temperature Blood Gas ANESTHESIA VENT - AC Modality FiO2 100.[address]F MICHAEL FREEMAN RN Critical Value Read Back Blood Gas TM TM Notified Whom Blood Gas 12/29/2018 10:04:5 12/29/2018 1:14:23 Notified Time 2 AM PM Bedside Glucose 98 121 Blood Gas 22.0 Respiration Rate Blood Gas Actual 24 Respiration Rate Blood Gas Tidal 500.0 Volume Blood Gas Low 5.0 PEEP Setting Test 12/29/18 18:00 12/29/18 21:01 12/29/18 22:00 12/30/18 01:15 Blood Gas Blood arterial Blood arterial Specimen Source Arterial Blood 12/29/2018 6:15:38 12/29/2018 9:50:16 Date Drawn PM PM Arterial Blood 7.154 *L 7.143 *L pH (Temp corrected) Arterial Blood 34.6 L 34.2 L pCO2 (Temp correct) Arterial Blood 96.9 149.4 H pO2 (Temp corrected) Arterial Blood 11.9 L 11.5 L HCO3 Arterial Blood -15.8 L -16.4 L Base Excess Arterial Blood 95.4 98.0 Oxygen Saturatio n [place] Test N/A N/A Arterial Blood A-Line A-Line Gas Puncture Site Arterial 0.3 0.3 Blood Carboxyhem oglobin Arterial Blood 0 0.1 Methemoglobin Blood Gas A-a O2 437.2 H 385.1 H Differential Oxyhemoglobin 95.1 97.6 Percent Blood Gas 37.0 37.0 Temperature Blood Gas 22.0 22.0 Respiration Rate Blood Gas Actual 32 30 Respiration Rate Blood Gas VENT - AC VENT - AC Modality FiO2 80.0 80.0 Blood Gas Tidal 500.0 500.0 Volume Blood Gas Low 5.0 5.0 PEEP Setting Blood Gas Ashwin MONTENEGRO RN, RN Critical Value Read Back Blood Gas EMMA MANZANARES Notified Whom Blood Gas 12/29/2018 6:28:53 12/29/2018 10:01:2 Notified Time PM 5 PM Bedside Glucose 81 49 *L Test 12/30/18 01:42 12/30/18 01:44 12/30/18 02:26 12/30/18 04:12 Bedside Glucose 46 *L 202 157 148 Test 12/30/18 04:26 White Blood 7.2 Count Red Blood Count 3.25 L Hemoglobin 9.4 L Hematocrit 30.4 L Mean Corpuscular 93.5 Volume Mean Corpuscular 28.9 L Hemoglobin Mean Corpuscular 30.9 L Hemoglobin Lawanda nt Red Cell 17.9 H Distribution Width Platelet Count 58 #L Mean Platelet Volume Immature 4.900 H Granulocytes % Neutrophils % Segmented 74 Neutrophils % (Manual) Band Neutrophils 18 H % (Manual) Lymphocytes % Lymphocytes % 6 L (Manual) Monocytes % Monocytes % 1 (Manual) Eosinophils % Basophils % Metamyelocytes % 1 H (manual) Nucleated Red 46 H Blood Cells % Immature 0.350 H Granulocytes # Neutrophils # Neutrophils # 5.4 (Manual) Band Neutrophils 1.2 H # Lymphocytes 0.4 L (Manual) Lymphocytes # Monocytes # Monocytes # 0.0 L (Manual) Eosinophils # Basophils # Metamyelocytes # 0.0 Nucleated Red Blood Cells # Toxic 1+ Granulation Platelet DECREASED Estimate Giant Platelets 7 H Poikilocytosis 1+ Anisocytosis 2+ Macrocytosis 2+ Target Cells 1+ Medications Medication Current Medications IV Flush (NS 3 ml) 3 ml PER PROTOCOL IV ; Start 12/19/18 at 00:30 Acetaminophen (Tylenol Tab) 650 mg Q6H PRN PO .PAIN 1-3 OR TEMP Last administered on 12/25/18 05:36; Admin Dose 650 MG; Start 12/19/18 at 00:30 Docusate Sodium (Colace) 100 mg Q12H PRN PO .CONSTIPATION Last administered on 12/20/18at 12:53; Admin Dose 100 MG; Start 12/19/18 at 00:30 Bisacodyl (Dulcolax) 5 mg DAILY PRN PO .CONSTIPATION; Start 12/19/18 at 00:30 Ondansetron HCl (Zofran Inj) 4 mg Q4 PRN IV NAUSEA/VOMITING; Start 12/19/18 at 02:00 Nicotine (Nicoderm 14 Mg/ 24hr) 1 patch DAILY TRANSDERM Last administered on 12/28/18 09:09; Admin Dose 1 PATCH; Start 12/19/18 at 09:00 Lorazepam (Ativan) 1 mg Q4 PRN IV withdrawal symptoms Last administered on 12/23/18 04:41; Admin Dose 1 MG; Start 12/19/18 at 05:30 Al Hydrox/Mg Hydrox/Simethicone (Mag-Al Plus) 30 ml Q6H PRN PO GASTROINTESTINAL UPSET Last administered on 12/20/18 18:28; Admin Dose 30 ML; Start 12/20/18 at 18:30 Haloperidol (Haldol) 4 mg Q8H PRN IV AGITATION Last administered on 12/22/18 17:40; Admin Dose 4 MG; Start 12/22/18 at 17:30 Propofol 100 ml @ 1.839 mls/ hr Q12H IV Last administered on 12/29/18 01:05; Admin Dose 7.356 MLS/HR; Start 12/24/18 at 06:00 Fentanyl 100 ml @ 2.5 mls/hr TITRATE IV Last administered on 12/29/18 01:08; Admin Dose 5 MLS/HR; Start 12/24/18 at 12:30 Diagnostic Test (Pha) (Accu-Chek) 1 ea 02 XX ; Start 12/25/18 at 02:00 Insulin Glargine (Lantus) 7 units DAILY@0800 SC Last administered on 12/28/18 09:34; Admin Dose 7 UNITS; Start 12/25/18 at 08:00 Insulin Aspart (Novolog Insulin Pen) NOVOLOG *MILD* ALGORI... Q4 SC Last administered on 12/29/18 05:14; Admin Dose 1 UNIT; Start 12/24/18 at 13:00 Miscellaneous Information 1 ea NOTE XX ; Start 12/24/18 at 12:30 Glucose (Glutose) 15 gm Q15M PRN PO DECREASED GLUCOSE; Start 12/24/18 at 12:30 Glucose (Glutose) 22.5 gm Q15M PRN PO DECREASED GLUCOSE; Start 12/24/18 at 12:30 Dextrose (D50w Syringe) 25 ml Q15M PRN IV DECREASED GLUCOSE Last administered on 12/28/18 01:12; Admin Dose 25 ML; Start 12/24/18 at 12:30 Dextrose (D50w Syringe) 50 ml Q15M PRN IV DECREASED GLUCOSE Last administered on 12/30/18 01:19; Admin Dose 50 ML; Start 12/24/18 at 12:30 Glucagon (Glucagen) 1 mg Q15M PRN IM DECREASED GLUCOSE; Start 12/24/18 at 12:30 Glucose (Glutose) 15 gm Q15M PRN BUCCAL DECREASED GLUCOSE; Start 12/24/18 at 12:30 IV Flush (NS 10 ml) 10 ml PRN PRN IV flush; Start 12/24/18 at 14:30 Acetaminophen (Tylenol Supp) 650 mg Q6H PRN NC Fever Last administered on 12/25/18 17:16; Admin Dose 650 MG; Start 12/24/18 at 21:30 Phenylephrine HCl 80 mg/Dextrose 250 ml @ 18.75 mls/ hr TITRATE IV Last administered on 12/30/18 05:35; Admin Dose 56.25 MLS/HR; Start 12/25/18 at 10:00 Hyoscyamine (Levsin (Sl)) 0.125 mg Q6 PO Last administered on 12/29/18 05:11; Admin Dose 0.125 MG; Start 12/27/18 at 12:00 Albumin Human 100 ml @ 100 mls/hr DURING DIALYSIS PRN IV HYPOTENTION DURING HD; Start 12/27/18 at 13:30 Piperacillin Sod/ Tazobactam Sod 50 ml @ 100 mls/hr Q8 IVPB Last administered on 12/30/18 06:27; Admin Dose 100 MLS/HR; Start 12/27/18 at 22:00 Pantoprazole 80 mg/Sodium Chloride 100 ml @ 10 mls/hr Q10H IV Last administered on 12/30/18 05:40; Admin Dose 10 MLS/HR; Start 12/27/18 at 17:30 Alteplase, Recombinant (Cathflo (Activase)) 2 mg MAY REPEAT X1 PRN CATHETER IF CATHETER REMAINS OCCULUDED; Start 12/28/18 at 05:00 Total Parenteral Nutrition 1,000 ml @ 50 mls/hr Q20H IV Last administered on 12/29/18 15:28; Admin Dose 50 MLS/HR; Start 12/28/18 at 16:00; Status Hold Heparin Sodium (Porcine) (Heparin (1000 Units/ml)) 2,800 unit AFTER DIALYSIS CATHETER Last administered on 12/28/18 21:20; Admin Dose 2,800 UNIT; Start 12/28/18 at 20:00 Sodium Hypochlorite (Dakins Diluted ()) Nursing Intervention Instructio... DAILY TP Last administered on 12/29/18 18:50; Admin Dose 1 APPLIC; Start 12/29/18 at 18:00 Sodium Bicarbonate 150 meq/Dextrose/ Sodium Chloride 1,150 ml @ 100 mls/hr [id number] IV Last administered on 12/29/18at 20:18; Admin Dose 100 MLS/HR; Start 12/29/18 at 20:30 Norepinephrine 32 mg/Dextrose 250 ml @ 0.47 mls/hr TITRATE IV Last administered on 12/30/18at 01:17; Admin Dose 9.38 MLS/HR; Start 12/30/18 at 01:00 Vasopressin 60 unit/Dextrose 60 ml @ 1.2 mls/hr Q12H IV Last administered on 12/30/18at 05:45; Admin Dose 2.4 MLS/HR; Start 12/30/18 at 06:00 NATACHA BRAN Dec 30, 2018 08:10
[2018-12-30] MEDS: DEXTROSE IV SCH (08:21)
[2018-12-30] MEDS: SODIUM BICARBONATE IV SCH (08:21)
[2018-12-30] MEDS: NACL IV SCH (08:21)
--- NOTE | 2018-12-30 08:34 | PN ---
DATE: 12/30/2018 SUBJECTIVE: The patient is critically ill, was taken to surgery yesterday by Dr. Sherman. The patie nt had colectomy performed. Currently, the patient is critically ill, on multiple pressor support. The patient is mottled. No other events noted. OBJECTIVE: VITAL SIGNS: Blood pressure is 143/51, respirations 20, pulse 89, temperature 98.6. HEENT: Head is normocephalic. NECK: Supple. HEART: Regular rate. LUNGS: Show diminished breath sounds at the base. ABDOMEN: Soft, nontender to palpation. EXTREMITIES: Negative for clubbing, cyanosis. Positive edema. DERMATOLOGIC: The patient has noted mottling on lower extremities. NEUROLOGIC: No change in exam. MUSCULOSKELETAL: No joint effusions. MEDICATIONS: Reviewed. LABORATORY DATA: From 12/30 is pending. CBC was reviewed. The patient's ABG was reviewed. Culture s have been reviewed. ASSESSMENT AND PLAN: 1. Oliguric year acute kidney injury with previous baseline creatinine of 0.9 mg/dL. Etiology is ac [place] kidney injury is secondary to acute tubular necrosis due to sepsis and shock. The patient pretty jack is dialysis-dependent. Will anticipate dialysis today for 3 hours 3K bath. Will ultrafiltrate i f hemodynamically stable. 2. Hyperkalemia, improved. Continue dialysis on a low potassium bath. 3. Hypernatremia. Continue dialysis 140 sodium bath. 4. Metabolic acidosis. The patient will be dialyzed on a 40 bicarbonate bath. Patient remains on b icarbonate drip. 5. Anemia. Monitor hemoglobin and hematocrit levels. 6. Septic shock secondary to pneumonia, perforated viscus. The patient is currently on pressor supp ort, continue. Continue antibiotic therapy. 7. Ischemic bowel, perforated viscus. The patient is status post colectomy. Continue medical manag ement. Follow up with surgery. 8. Ventilator-dependent respiratory failure. Vent settings and ABG was reviewed. Continue to monit or. Follow up with pulmonary. 9. Acute encephalopathy, etiology is toxic metabolic. Continue to monitor. 10. History of coronary artery disease. Continue medical management. 11. History of prostate cancer. Please note patient overall has a very poor prognosis. Please note I spent over 30 minutes of critical care time with this patient. Dictated By: ANALIA LUCERO DO NR/TUNG Conf#: [id number] DID#: [id number] CC: MEMO CASAREZ MD;*[facility]*
[2018-12-30] MEDS ORDERED: NA BICARBONATE 8.4% 50 ML SYG IV STA (08:35)
[2018-12-30] MEDS ORDERED: NA BICARBONATE 8.4% 50 ML SYG ONE ×2 (08:42→08:54)
--- NOTE | 2018-12-30 09:18 | CONS ---
Consultation Date/Type/Reason Admit Date/Time Dec 21, 2018 at 08:36 Initial Consult Date 12/19/18 Type of Consult Pulmonary/critical care Requesting Provider: ZULY DELGADO Date/Time of Note DATE: 12/30/18 TIME: 09:17 24 HR Interval Summary Free Text/Dictation note; Patient pronounced at 9:08 AM had no spontaneous pulse, blood pressure or heart rate. Exam/Review of Systems Exam Vitals Vital Signs Date Temp Pulse Resp B/P (MAP) Pulse Ox O2 O2 Flow FiO2 Time Delivery Rate 12/30/18 98.5 92 22 132/76 07:45 (94) 12/30/18 Mechanical 05:45 Ventilator 12/30/18 97 60 04:54 Intake and Output 12/29/18 12/29/18 12/30/18 1414:59 22:59 06:59 IntakeIntake Total 1687.81 ml 1026.88 ml 1361.95 ml OutputOutput Total 110 ml 0 ml 25 ml BalanceBalance 1577.81 ml 1026.88 ml 1336.95 ml Results Result Diagram: 12/30/18 0426 12/29/18 0345 Results 24hrs Laboratory Tests Test 12/29/18 09:46 12/29/18 12:21 12/29/18 13:00 12/29/18 17:44 Blood Gas Blood arterial Blood arterial Specimen Source Arterial Blood 12/29/2018 9:50:4 12/29/2018 1:03:0 Date Drawn 3 AM 3 PM Arterial Blood 7.070 *L 7.261 *L pH (Temp corrected ) Arterial Blood 59.0 H 44.7 pCO2 (Temp correct) Arterial Blood 119.7 H 98.6 pO2 (Temp corrected ) Arterial Blood 16.7 L 19.7 L HCO3 Arterial Blood -13.8 L -7.1 L Base Excess Arterial Blood 97.0 96.5 Oxygen Saturati on [place] Test N/A N/A Arterial Blood A-Line A-Line Gas Puncture Site Arterial 0.6 0.6 Blood Carboxyhe moglobin Arterial Blood 0.2 0.1 Methemoglobin Blood Gas A-a 534.3 H 388.7 H O2 Differential Oxyhemoglobin 96.2 95.8 Percent Blood Gas 37.0 37.0 Temperature Blood Gas ANESTHESIA VENT - AC Modality FiO2 100.[address]F MICHAEL FREEMAN RN Critical Value Read Back Blood Gas TM TM Notified Whom Blood Gas 12/29/2018 10:04: 12/29/2018 1:14:2 Notified Time 52 AM 3 PM Bedside Glucose 98 121 Blood Gas 22.0 Respiration Rate Blood Gas 24 Actual Respiration Rat e Blood Gas Tidal 500.0 Volume Blood Gas Low 5.0 PEEP Setting Test 12/29/18 18:00 12/29/18 21:01 12/29/18 22:00 12/30/18 01:15 Blood Gas Blood arterial Blood arterial Specimen Source Arterial Blood 12/29/2018 6:15:3 12/29/2018 9:50:1 Date Drawn 8 PM 6 PM Arterial Blood 7.154 *L 7.143 *L pH (Temp corrected ) Arterial Blood 34.6 L 34.2 L pCO2 (Temp correct) Arterial Blood 96.9 149.4 H pO2 (Temp corrected ) Arterial Blood 11.9 L 11.5 L HCO3 Arterial Blood -15.8 L -16.4 L Base Excess Arterial Blood 95.4 98.0 Oxygen Saturati on [place] Test N/A N/A Arterial Blood A-Line A-Line Gas Puncture Site Arterial 0.3 0.3 Blood Carboxyhe moglobin Arterial Blood 0 0.1 Methemoglobin Blood Gas A-a 437.2 H 385.1 H O2 Differential Oxyhemoglobin 95.1 97.6 Percent Blood Gas 37.0 37.0 Temperature Blood Gas 22.0 22.0 Respiration Rate Blood Gas 32 30 Actual Respiration Rat e Blood Gas VENT - AC VENT - AC Modality FiO2 80.0 80.0 Blood Gas Tidal 500.0 500.0 Volume Blood Gas Low 5.0 5.0 PEEP Setting Blood Gas Ashwin MONTENEGRO RN, RN Critical Value Read Back Blood Gas EMMA MANZANARES Notified Whom Blood Gas 12/29/2018 6:28:5 12/29/2018 10:01: Notified Time 3 PM 25 PM Bedside Glucose 81 49 *L Test 12/30/18 01:42 12/30/18 01:44 12/30/18 02:26 12/30/18 04:12 Bedside Glucose 46 *L 202 157 148 Test 12/30/18 04:26 12/30/18 07:00 White Blood 7.2 Count Red Blood Count 3.25 L Hemoglobin 9.4 L Hematocrit 30.4 L Mean 93.5 Corpuscular Volume Mean 28.9 L Corpuscular Hemoglobin Mean 30.9 L Corpuscular Hemoglobin Conc ent Red Cell 17.9 H Distribution Width Platelet Count 58 #L Mean Platelet Volume Immature 4.900 H Granulocytes % Neutrophils % Segmented 74 Neutrophils % (Manual) Band 18 H Neutrophils % (Manual) Lymphocytes % Lymphocytes % 6 L (Manual) Monocytes % Monocytes % 1 (Manual) Eosinophils % Basophils % Metamyelocytes 1 H % (manual) Nucleated Red 46 H Blood Cells % Immature 0.350 H Granulocytes # Neutrophils # Neutrophils # 5.4 (Manual) Band 1.2 H Neutrophils # Lymphocytes 0.4 L (Manual) Lymphocytes # Monocytes # Monocytes # 0.0 L (Manual) Eosinophils # Basophils # Metamyelocytes 0.0 # Nucleated Red Blood Cells # Toxic 1+ Granulation Platelet DECREASED Estimate Giant Platelets 7 H Poikilocytosis 1+ Anisocytosis 2+ Macrocytosis 2+ Target Cells 1+ Blood Gas Blood arterial Specimen Source Arterial Blood 12/30/2018 7:47:1 Date Drawn 5 AM Arterial Blood 6.924 *L pH (Temp corrected ) Arterial Blood 31.2 L pCO2 (Temp correct) Arterial Blood 190.6 H pO2 (Temp corrected ) Arterial Blood 6.3 *L HCO3 Arterial Blood -24.7 L Base Excess Arterial Blood 98.1 H Oxygen Saturati on [place] Test N/A Arterial Blood A-Line Gas Puncture Site Arterial 0.3 Blood Carboxyhe moglobin Arterial Blood 0.4 Methemoglobin Blood Gas A-a 491.2 H O2 Differential Oxyhemoglobin 97.4 Percent Blood Gas 37.0 Temperature Blood Gas 22.0 Respiration Rate Blood Gas 22 Actual Respiration Rat e Blood Gas VENT - AC Modality FiO2 100.0 Blood Gas Tidal 500.0 Volume Blood Gas Low 5.0 PEEP Setting Blood Gas ARDEN French RN Critical Value Read Back Blood Gas TM Notified Whom Blood Gas 12/30/2018 8:30:4 Notified Time 9 AM Medications Medication Current Medications IV Flush (NS 3 ml) 3 ml PER PROTOCOL IV ; Start 12/19/18 at 00:30 Acetaminophen (Tylenol Tab) 650 mg Q6H PRN PO .PAIN 1-3 OR TEMP Last administered on 12/25/18at 05:36; Admin Dose 650 MG; Start 12/19/18 at 00:30 Docusate Sodium (Colace) 100 mg Q12H PRN PO .CONSTIPATION Last administered on 12/20/18 12:53; Admin Dose 100 MG; Start 12/19/18 at 00:30 Bisacodyl (Dulcolax) 5 mg DAILY PRN PO .CONSTIPATION; Start 12/19/18 at 00:30 Ondansetron HCl (Zofran Inj) 4 mg Q4 PRN IV NAUSEA/VOMITING; Start 12/19/18 at 02:00 Nicotine (Nicoderm 14 Mg/ 24hr) 1 patch DAILY TRANSDERM Last administered on 12/28/18 09:09; Admin Dose 1 PATCH; Start 12/19/18 at 09:00 Lorazepam (Ativan) 1 mg Q4 PRN IV withdrawal symptoms Last administered on 12/23 04:41; Admin Dose 1 MG; Start 12/19/18 at 05:30 Al Hydrox/Mg Hydrox/Simethicone (Mag-Al Plus) 30 ml Q6H PRN PO GASTROINTESTINAL UPSET Last administered on 12/20/18 18:28; Admin Dose 30 ML; Start 12/20/18 at 18:30 Haloperidol (Haldol) 4 mg Q8H PRN IV AGITATION Last administered on 12/22/18 17:40; Admin Dose 4 MG; Start 12/22/18 at 17:30 Propofol 100 ml @ 1.839 mls/ hr Q12H IV Last administered on 12/29/18 01:05; Admin Dose 7.356 MLS/HR; Start 12/24/18 at 06:00 Fentanyl 100 ml @ 2.5 mls/hr TITRATE IV Last administered on 12/29/18 01:08; Admin Dose 5 MLS/HR; Start 12/24/18 at 12:30 Diagnostic Test (Pha) (Accu-Chek) 1 ea 02 XX ; Start 12/25/18 at 02:00 Insulin Glargine (Lantus) 7 units DAILY@0800 SC Last administered on 12/28/18 09:34; Admin Dose 7 UNITS; Start 12/25/18 at 08:00 Insulin Aspart (Novolog Insulin Pen) NOVOLOG *MILD* ALGORI... Q4 SC Last administered on 12/29/18 05:14; Admin Dose 1 UNIT; Start 12/24/18 at 13:00 Miscellaneous Information 1 ea NOTE XX ; Start 12/24/18 at 12:30 Glucose (Glutose) 15 gm Q15M PRN PO DECREASED GLUCOSE; Start 12/24/18 at 12:30 Glucose (Glutose) 22.5 gm Q15M PRN PO DECREASED GLUCOSE; Start 12/24/18 at 12:30 Dextrose (D50w Syringe) 25 ml Q15M PRN IV DECREASED GLUCOSE Last administered on 12/28/18at 01:12; Admin Dose 25 ML; Start 12/24/18 at 12:30 Dextrose (D50w Syringe) 50 ml Q15M PRN IV DECREASED GLUCOSE Last administered on 12/30/18at 01:19; Admin Dose 50 ML; Start 12/24/18 at 12:30 Glucagon (Glucagen) 1 mg Q15M PRN IM DECREASED GLUCOSE; Start 12/24/18 at 12:30 Glucose (Glutose) 15 gm Q15M PRN BUCCAL DECREASED GLUCOSE; Start 12/24/18 at 12:30 IV Flush (NS 10 ml) 10 ml PRN PRN IV flush; Start 12/24/18 at 14:30 Acetaminophen (Tylenol Supp) 650 mg Q6H PRN OR Fever Last administered on 12/25/18at 17:16; Admin Dose 650 MG; Start 12/24/18 at 21:30 Phenylephrine HCl 80 mg/Dextrose 250 ml @ 18.75 mls/ hr TITRATE IV Last administered on 12/30/18at 05:35; Admin Dose 56.25 MLS/HR; Start 12/25/18 at 10:00 Hyoscyamine (Levsin (Sl)) 0.125 mg Q6 PO Last administered on 12/29/18at 05:11; Admin Dose 0.125 MG; Start 12/27/18 at 12:00 Albumin Human 100 ml @ 100 mls/hr DURING DIALYSIS PRN IV HYPOTENTION DURING HD; Start 12/27/18 at 13:30 Piperacillin Sod/ Tazobactam Sod 50 ml @ 100 mls/hr Q8 IVPB Last administered on 12/30/18at 06:27; Admin Dose 100 MLS/HR; Start 12/27/18 at 22:00 Pantoprazole 80 mg/Sodium Chloride 100 ml @ 10 mls/hr Q10H IV Last administered on 12/30/18 05:40; Admin Dose 10 MLS/HR; Start 12/27/18 at 17:30 Alteplase, Recombinant (Cathflo (Activase)) 2 mg MAY REPEAT X1 PRN CATHETER IF CATHETER REMAINS OCCULUDED; Start 12/28/18 at 05:00 Total Parenteral Nutrition 1,000 ml @ 50 mls/hr Q20H IV Last administered on 12/29/18 15:28; Admin Dose 50 MLS/HR; Start 12/28/18 at 16:00; Status Hold Heparin Sodium (Porcine) (Heparin (1000 Units/ml)) 2,800 unit AFTER DIALYSIS CATHETER Last administered on 12/28/18 21:20; Admin Dose 2,800 UNIT; Start 12/28/18 at 20:00 Sodium Hypochlorite (Dakins Diluted ()) Nursing Intervention Instructio... DAILY TP Last administered on 12/29/18 18:50; Admin Dose 1 APPLIC; Start 12/29/18 at 18:00 Sodium Bicarbonate 150 meq/Dextrose/ Sodium Chloride 1,150 ml @ 100 mls/hr [id number] IV Last administered on 12/30/18 08:21; Admin Dose 100 MLS/HR; Start 12/29/18 at 20:30 Norepinephrine 32 mg/Dextrose 250 ml @ 0.47 mls/hr TITRATE IV Last administered on 12/30/18 01:17; Admin Dose 9.38 MLS/HR; Start 12/30/18 at 01:00 Vasopressin 60 unit/Dextrose 60 ml @ 1.2 mls/hr Q12H IV Last administered on 12/30/18 05:45; Admin Dose 2.4 MLS/HR; Start 12/30/18 at 06:00 ALEXANDRO LEIGH Dec 30, 2018 09:18
--- NOTE | 2018-12-30 15:13 | DES ---
Date/Time of Note Date/Time of Note DATE: 12/30/18 TIME: 15:13 Discharge/ Summary Admission/Discharge Info Admit Date/Time Dec 21, 2018 at 08:36 Final Diagnosis Ischemic colitis Preliminary Cause of Ischemic colitis Hospital Course Presented with abdominal pain. Developed respiratory and renal failure. Required intubation and mechanical ventilation. Septic shock developed. Given antibiotics and vasopressors. Found to have necrotic bowel on CT scan. Take to OR for resection by Dr Sherman. Colostomy was placed. Multiorgan system failure persisted. Family agreed to DNR. He shortly thereafter. Pending Labs/Cultures Laboratory Tests Test 12/29/18 17:44 12/29/18 18:00 12/29/18 21:01 12/29/18 22:00 Bedside 121 81 Glucose mg/dL (70-220) mg/dL (70-220) Blood Gas Blood arterial Blood arterial Specimen Source Arterial Blood 12/29/2018 6:15: 12/29/2018 9:50: Date Drawn 38 PM 16 PM Arterial Blood 7.154 (7.350-7 7.143 (7.350-7 pH .450) .450) (Temp corrected ) Arterial Blood 34.6 34.2 pCO2 mmhg (35-45) mmhg (35-45) (Temp correct) Arterial Blood 96.9 149.4 pO2 mmHG (80-100.0 mmHG (80-100.0 (Temp corrected ) ) ) Arterial Blood 11.9 11.5 HCO3 mmol/L (22.0-2 mmol/L (22.0-2 6.0) 6.0) Arterial Blood -15.8 -16.4 Base Excess mmol/L (-3.0-3 mmol/L (-3.0-3 ) ) Arterial Blood 95.4 98.0 Oxygen Saturati mmHG (95.0-98. mmHG (95.0-98. on 0) 0) [place] Test N/A N/A Arterial Blood A-Line A-Line Gas Puncture Site Arterial 0.3 0.3 Blood Carboxyhe % (0.0-3.0) % (0.0-3.0) moglobin Arterial Blood 0 % (0.0-1.5) 0.1 Methemoglobin % (0.0-1.5) Blood Gas A-a 437.2 385.1 O2 mmHg (7.0-24.0 mmHg (7.0-24.0 Differential ) ) Oxyhemoglobin 95.1 97.6 Percent % (93.0-99.0) % (93.0-99.0) Blood Gas 37.0 C 37.0 C Temperature Blood Gas 22.0 22.0 Respiration Rate Blood Gas 32 30 Actual Respiration Rat e Blood Gas VENT - AC VENT - AC Modality FiO2 80.0 % 80.0 % Blood Gas Tidal 500.0 mL 500.0 mL Volume Blood Gas Low 5.0 cmH2O 5.0 cmH2O PEEP Setting Blood Gas Marcell HER RN LIBATIQUE, Critical Value M RN Read Back Blood Gas EMMA MANZANARES Notified Whom Blood Gas 12/29/2018 6:28: 12/29/2018 10:01 Notified Time 53 PM :25 PM Test 12/30/18 01:15 12/30/18 01:42 12/30/18 01:44 12/30/18 02:26 Bedside 49 46 202 157 Glucose mg/dL (70-220) mg/dL (70-220) mg/dL (70-220) mg/dL (70-220) Test 12/30/18 04:12 12/30/18 04:26 12/30/18 07:00 Bedside 148 Glucose mg/dL (70-220) White Blood 7.2 Count 10^3/ul (4.8-1 0.8) Red Blood 3.25 Count 10^6/ul (4.70- 6.10) Hemoglobin 9.4 g/dl (14.0-18. 0) Hematocrit 30.4 % (42.0-52.0) Mean 93.5 Corpuscular fl (82.0-101.0 Volume ) Mean 28.9 Corpuscular pg (29.0-33.0) Hemoglobin Mean 30.9 Corpuscular g/dl (32.0-37. Hemoglobin Conc 0) ent Red Cell 17.9 Distribution % (11.5-14.5) Width Platelet Count 58 10^3/UL (140-4 15) Mean Platelet fl (7.4-10.4) Volume Immature 4.900 Granulocytes % % (0.001-0.429 ) Neutrophils % % (39.0-77.0) Segmented 74 % (39-77) Neutrophils % (Manual) Band 18 % (0-4) Neutrophils % (Manual) Lymphocytes % % (15.0-51.0) Lymphocytes % 6 % (15-51) (Manual) Monocytes % % (0.0-11.0) Monocytes % 1 % (0-11) (Manual) Eosinophils % % (0.0-7.0) Basophils % % (0.0-2.0) Metamyelocytes 1 % (0-0) % (manual) Nucleated Red 46 % (0-0) Blood Cells % Immature 0.350 Granulocytes # 10^3/ul (0.0-0 .031) Neutrophils # 10^3/ul (1.6-7 .5) Neutrophils # 5.4 (Manual) 10^3/ul (1.6-7 .5) Band 1.2 Neutrophils # 10^3/ul (0.0-0 .6) Lymphocytes 0.4 (Manual) 10^3/ul (0.8-2 .9) Lymphocytes # 10^3/ul (0.8-2 .9) Monocytes # 10^3/ul (0.3-0 .9) Monocytes # 0.0 (Manual) 10^3/ul (0.3-0 .9) Eosinophils # 10^3/ul (0.0-0 .5) Basophils # 10^3/ul (0.0-0 .1) Metamyelocytes 0.0 # 10^3/ul (0.0-0 .0) Nucleated Red 10^3/ul (0.0-0 Blood Cells # .0) Toxic 1+ (0-0) Granulation Platelet DECREASED Estimate Giant Platelets 7 % (0-0) Poikilocytosis 1+ (0-0) Anisocytosis 2+ (0-0) Macrocytosis 2+ (0-0) Target Cells 1+ (0-0) Blood Gas Blood arterial Specimen Source Arterial Blood 12/30/2018 7:47: Date Drawn 15 AM Arterial Blood 6.924 (7.350-7 pH .450) (Temp corrected ) Arterial Blood 31.2 pCO2 mmhg (35-45) (Temp correct) Arterial Blood 190.6 pO2 mmHG (80-100.0 (Temp corrected ) ) Arterial Blood 6.3 HCO3 mmol/L (22.0-2 6.0) Arterial Blood -24.7 Base Excess mmol/L (-3.0-3 ) Arterial Blood 98.1 Oxygen Saturati mmHG (95.0-98. on 0) [place] Test N/A Arterial Blood A-Line Gas Puncture Site Arterial 0.3 Blood Carboxyhe % (0.0-3.0) moglobin Arterial Blood 0.4 Methemoglobin % (0.0-1.5) Blood Gas A-a 491.2 O2 mmHg (7.0-24.0 Differential ) Oxyhemoglobin 97.4 Percent % (93.0-99.0) Blood Gas 37.0 C Temperature Blood Gas 22.0 Respiration Rate Blood Gas 22 Actual Respiration Rat e Blood Gas VENT - AC Modality FiO2 100.0 % Blood Gas Tidal 500.0 mL Volume Blood Gas Low 5.0 cmH2O PEEP Setting Blood Gas ARDEN French RN Critical Value Read Back Blood Gas TM Notified Whom Blood Gas 12/30/2018 8:30: Notified Time 49 AM MELA VILLALBA MD Dec 30, 2018 15:13
== END 2018-12-30 09:08 | disposition expired | DRG 329 ==
LOC: E/R 17:49 → 5EC 23:55 → INTOOBSV 23:55 → OBSVTOIN 12-21 08:36 → 6WM 12-22 01:12 → ICU 12-24 05:42
PROVIDERS: ADMIT Family Medicine; ATTEND Internal Medicine
PROC: 02H633Z Insertion of Infusion Device into Right Atrium, Percutaneous Approach (ICD-10-PCS; 2018-12-24)
PROC: 5A1955Z Respiratory Ventilation, Greater than 96 Consecutive Hours (ICD-10-PCS; 2018-12-24)
PROC: 0BH17EZ Insertion of Endotracheal Airway into Trachea, Via Natural or Artificial Opening (ICD-10-PCS; 2018-12-24)
PROC: 30233N1 Transfusion of Nonautologous Red Blood Cells into Peripheral Vein, Percutaneous Approach (ICD-10-PCS; 2018-12-27)
PROC: 5A1D70Z Performance of Urinary Filtration, Intermittent, Less than 6 Hours Per Day (ICD-10-PCS; 2018-12-27)
PROC: 02PAX3Z Removal of Infusion Device from Heart, External Approach (ICD-10-PCS; 2018-12-28)
PROC: 02HV33Z Insertion of Infusion Device into Superior Vena Cava, Percutaneous Approach (ICD-10-PCS; 2018-12-28)
PROC: 0DTP0ZZ Resection of Rectum, Open Approach (ICD-10-PCS; 2018-12-29)
PROC: 0DTQ0ZZ Resection of Anus, Open Approach (ICD-10-PCS; 2018-12-29)
PROC: 0DBB0ZZ Excision of Ileum, Open Approach (ICD-10-PCS; 2018-12-29)
PROC: 0D1B0Z4 Bypass Ileum to Cutaneous, Open Approach (ICD-10-PCS; 2018-12-29)
PROC: 0HR9XK3 Replacement of Perineum Skin with Nonautologous Tissue Substitute, Full Thickness, External Approach (ICD-10-PCS; 2018-12-29)
PROC: 0DJD8ZZ Inspection of Lower Intestinal Tract, Via Natural or Artificial Opening Endoscopic (ICD-10-PCS; 2018-12-29)
PROC: 0DTE0ZZ Resection of Large Intestine, Open Approach (ICD-10-PCS; principal; 2018-12-29 06:00)
DX: K55.9 Vascular disorder of intestine, unspecified (principal); G92 Toxic encephalopathy; A41.9 Sepsis, unspecified organism; R65.21 Severe sepsis with septic shock; N17.0 Acute kidney failure with tubular necrosis; J96.01 Acute respiratory failure with hypoxia; J96.02 Acute respiratory failure with hypercapnia; J18.9 Pneumonia, unspecified organism; K55.041 Focal (segmental) acute infarction of large intestine; E87.0 Hyperosmolality and hypernatremia; E87.2 Acidosis; K56.7 Ileus, unspecified; K92.1 Melena; D62 Acute posthemorrhagic anemia; D69.6 Thrombocytopenia, unspecified; E87.5 Hyperkalemia; E87.6 Hypokalemia; E87.70 Fluid overload, unspecified; F17.200 Nicotine dependence, unspecified, uncomplicated; F14.10 Cocaine abuse, uncomplicated; F12.10 Cannabis abuse, uncomplicated; F11.10 Opioid abuse, uncomplicated; G54.4 Lumbosacral root disorders, not elsewhere classified; I25.10 Atherosclerotic heart disease of native coronary artery without angina pectoris; K80.80 Other cholelithiasis without obstruction; K83.9 Disease of biliary tract, unspecified; K57.90 Diverticulosis of intestine, part unspecified, without perforation or abscess without bleeding; K86.89 Other specified diseases of pancreas; R19.7 Diarrhea, unspecified; R41.0 Disorientation, unspecified; R73.9 Hyperglycemia, unspecified; R10.0 Acute abdomen; Z66 Do not resuscitate; Z53.31 Laparoscopic surgical procedure converted to open procedure; Z89.422 Acquired absence of other left toe(s); Z85.46 Personal history of malignant neoplasm of prostate; Z92.3 Personal history of irradiation
CPT/HCPCS: 31500; 36415; 36430; 36569; 36600; 71045; 71250; 74018; 74176; 74177; 74181; 74250; 76937; 80048; 80053; 80061; 80076; 80202; 80307; 81001; 81003; 82043; 82270; 82803; 82962; 83036; 83605; 83690; 83735; 83935; 84100; 84134; 84153; 84154; 84155; 84300; 84443; 85025; 85610; 85730; 86674; 86704; 86709; 86803; 86850; 86900; 86901; 86920; 87045; 87070; 87081; 87086; 87177; 87340; 88305; 89220; 90935; 93306; 94002; 94003; 94770; 96374; 96375; 96376; 99217; C9113; G0378; J0610; J1170; J1630; J1644; J1815; J1885; J2060; J2270; J2370; J2405; J2543; J2765; J2795; J2997; J3010; J3370; J3480; J7030; J7040; J7042; J7070; J7120; P9016; P9047; Q4166; Q9967